=== PATIENT | male | born 1960 | race Caucasian/White ===

== ENCOUNTER 2016-11-03 01:52 | Inpatient (IN) | payer MEDICARE ==
[2016-11-03] VITALS (9 sets, daily range): BP systolic 98–131; BP diastolic 56–89
[~2016-11-03] VITALS: Ht 180.3 cm; Wt 100.8 kg
--- NOTE | ~2016-11-03 | PR ---
[place], [place] PROGRESS NOTE [facility]: [id number] UNIT #: [id number] ROOM: 412 DOCTOR: MONTANA MELO MD BIRTHDATE: [birth year] DOS: 11/04/2016 SUBJECTIVE: A 55-year-old patient was seen by Dr. Gasca yesterday. Recommendations were done. Patient has had an uneventful night. PHYSICAL EXAMINATION: VITAL SIGNS: Blood pressure is stable 113/78. Urine output is good, total positive is 140. Yesterday it was negative 300. NECK: Supple, no JVD. LUNGS: Diminished breath sounds. HEART: Sounds are regular. ABDOMEN: Soft, nontender. NEUROLOGIC: Stable. LABORATORY DATA: Shows hemoglobin and hematocrit within normal limits. Electrolytes are normal. Troponins have been negative, A1C is significantly elevated. IMPRESSION: The patient with ischemic cardiomyopathy, hypertension, hyperlipidemia. RECOMMENDATIONS: Continue the present medications. Monitor the heart rate and blood pressure closely. The patient is already on clopidogrel, amiodarone, carvedilol, and nitroglycerin. The patient will be followed up as an outpatient. MONTANA MELO MD CM:PNTRANS [id number] MONTANA MELO MD 11/04/16 2334 interface
--- NOTE | ~2016-11-03 | CON ---
[place], [place] REPORT OF CONSULTATION NAME: FELIPE PEREZ UNIT #: [id number] ROOM: 412 DOCTOR: BERT GILBERT DPM BIRTHDATE: [birth year] DOS: 11/04/2016 SUBJECTIVE: The patient presents a 55-year-old white male who has been known to our practice. The patient has had surgical procedures performed by Dr. Gregory. The patient was seen by Dr. Gregory last 10/29/2016 for ulceration at the post amputation site of the first MPJ. The patient had an MRI ordered at that time after review of radiographs along with blood work ordered. PAST MEDICAL HISTORY: The patient has past medical history of acute coronary syndrome, cardiomyopathy, CHF, chronic insulin-dependent diabetes, uncontrolled diabetic neuropathy, hypertension, history of myocardial infarction, hyperlipidemia, leukocytosis, normochromic anemia, obesity, osteomyelitis, PAD, chronic sacral decubitus ulcers, sepsis, severe protein calorie malnutrition, ventral hernia. PAST SURGICAL HISTORY: Amputation first right toe, angioplasty with stent, cardiac pacemaker procedure. SOCIAL HISTORY: Tobacco abuse 1 pack per day for 36 years. Denies alcohol or illicit drug use. FAMILY HISTORY: Mother with diabetes, hypertension, and [place]. Father's family history unknown. ALLERGIES: MORPHINE. PHYSICAL EXAMINATION: EXTREMITIES: Lower extremity examination: Diminished pedal pulses, diminished epicritic sensations. There is an ulceration at the post-amputation site at the first MPJ measuring 0.6 cm in diameter. The ulceration is full thickness to subcutaneous tissue level. There are no signs of purulent drainage or foul odor. ASSESSMENT: Diabetic ulceration at post-amputation site first right metatarsophalangeal joint, possible osteomyelitis. PLAN: Evaluation and management. Continue local wound care. The patient is apparently going home today. Per the patient, the patient will see Dr. Gregory tomorrow at the office for followup of previous orders and potential for further discussion of additional surgical procedure if warranted. Discussed the case via telephone with Dr. Gregory and he will see the patient tomorrow either at the office or at the hospital and coordinate the patient's treatment plan. [place], [place] REPORT OF CONSULTATION NAME: FELIPE PEREZ Gab UNIT #: [id number] ROOM: 412 DOCTOR: BERT GILBERT DPM BIRTHDATE: [birth year] BERT GILBERT DPM CM:CONSTR:REPORT OF CONSULTATION 1241 11/04/16 2306 interface
--- NOTE | ~2016-11-03 | EKG ---
[place], [place] ELECTROCARDIOGRAM REPORT NAME: FELIPE PEREZ UNIT #: [id number] ROOM: 412 DOCTOR: THEODORE JOSÉ MD BIRTHDATE: [birth year] DOS: 11/03/2016 TIME: 0158 hours. Normal sinus rhythm at 97 beats per minute. Left bundle branch block with mild left axis deviation. PVC is also noted. An abnormal ECG. No previous tracing is available for comparison. THEODORE JOSÉ MD CM:EKGRPT:ELECTROCARDIOGRAM REPORT 1648 0115 THEODORE JOSÉ MD
--- NOTE | ~2016-11-03 | CON ---
[place], [place] REPORT OF CONSULTATION [id number] UNIT #: [id number] ROOM: 412 DOCTOR: THEODORE JOSÉ MD BIRTHDATE: [birth year] DOS: 11/03/2016 HISTORY OF PRESENT ILLNESS: This is a 55-year-old -[place] man with a history of coronary artery disease. He has coronary stents done a few times and has severe ischemic cardiomyopathy. In 2014, he had an echocardiogram, which demonstrated an LV ejection fraction of 15-20% with dilated left ventricle. He had chronic systolic heart failure and a single chamber AICD was implanted in 2011. He has peripheral vascular disease and had great toe amputated because of osteomyelitis, essential hypertension, hyperlipidemia, and I believe he still smokes. He was admitted to the hospital because he was suddenly awakened by needle-like pains around the AICD in the left anterior chest. This feeling lasted for a few hours. He came to the ER and finally subsided. He tells me that IV nitroglycerin helped him. There was no pain in the anterior part of the chest, neck, and arm other than the shoulders. He still has some pain just on the upper part of the AICD. There has not been any orthopnea or swelling of the lower extremities. Occasionally, he wakes up to urinate. He does walk around at home and has some exertional shortness of breath, but no chest pain. HOME MEDICATIONS: Include amiodarone 100 mg daily, aspirin 81 daily, BuSpar 15 mg b.i.d., captopril daily, carvedilol 3.125 b.i.d., clopidogrel 75 mg daily, gabapentin 600 mg daily, lisinopril 2.5 mg daily, magnesium oxide 400 daily, oxycodone/OxyContin 15 mg q.i.d., potassium chloride 10 mEq daily, spironolactone 25 daily, zolpidem 5 mg at bedtime, Lantus SoloSTAR and Humalog PHYSICAL EXAMINATION: GENERAL: Reveals the patient who is alert and oriented. He is very pleasant, alert. He is not tachypneic. His complexion is fine. He is not diaphoretic. Temperature is normal. VITAL SIGNS: Pulse is regular at 76, blood pressure 102/70. NECK: JVP is normal. No carotid bruit. CARDIOVASCULAR: There is no cardiomegaly, no murmurs were appreciated. I did not appreciate any parasternal heave. Pedal pulses are not palpable. EXTREMITIES: Feet are somewhat cool. There is no pretibial edema or pedal edema. RESPIRATORY: Breath sounds are diminished modestly with some adventitious sounds. LABORATORY DATA: An ECG demonstrated normal sinus rhythm at 97 beats per minute and intraventricular conduction defect, QS in V1-V may be from an old myocardial infarction or intraventricular conduction defect. There is severe left axis deviation. When compared with an ECG of 07/24/2016, no significant change had become apparent. Troponin I is 0.037, 0.035, and 0.029. [place], [place] REPORT OF CONSULTATION NAME: FELIPE PEREZ UNIT #: [id number] ROOM: [facility] DOCTOR: ARNAV LOZANO,THEODORE BIRTHDATE: [birth year] IMPRESSION: This patient with coronary artery disease and severe ischemic cardiomyopathy, had some pins and needle-like feeling around the AICD area. I think this is probably was not ischemic. EKG has not shown any additional changes and troponin I levels have been normal. I do not recommend any further cardiac workup. I think he should be just ambulated. If he has no further symptoms, be discharged home. I would like to increase his dose of carvedilol if blood pressure can tolerate this. I think the new drug called Entresto should be considered instead of lisinopril. I would like to see him in my office in the next 2-4 weeks, so I can make changes in his medications to optimize treatment of coronary artery disease and ischemic cardiomyopathy. I thank you for this consult. THEODORE JOSÉ MD CM:CONSTR:REPORT OF CONSULTATION 08 11/04/16 0331 interface
[~2016-11-03 01:52] MED LIST: ALDACTONE25 M1 PO; AMIODARONE HCL100 M1 PO; ASPIRIN81 M1 PO; ATHLETE'S FOOT15 GM T; AUGMENTIN 500500 MG PO; BACTRIM DS 8001 TA1 PO; BUSPIRONE HCL15 MG PO; BUSPIRONE15 MG PO; CARVEDILOL3.125 MG PO; CIPRO500 MG PO; COREG3.125 MG PO; Clopidogrel75 MG PO; DICYCLOMINE HYD10 MG PO; DOXYCYCLINE100 M3 PO; GABAPENTIN600 MG PO; HUMALOG KW200 UNIT/1 SQ; HUMALOG100 U/ML SC; KEFLEX500 M1 PO; KLOR-CON 1010 ME1 PO; LANTUS SOLOS100 U/M1 SC; LANTUS100 U/ML SC; LASIX20 MG PO; LEVEMIR FLEX100 U/ML SC; LIPITOR40 MG PO; MAGNESIUM OXID400 MG PO; NITROSTAT0.4 MG SL; OXYCODONE HCL15 MG PO; PEPCID AC10 M2 PO; VITAMIN B12-FO1 EACH PO; VITAMIN D22000 UNIT PO; ZESTRIL5 MG PO; ZOLPIDEM TARTRAT5 MG PO
[2016-11-03 02:13] LABS: BASO # 0.1 10*3/uL (0.0-0.1); BASO % 0.8 % (0.0-1.0); EOS # 0.3 10*3/uL (0.0-0.4); EOS % 2.8 % (1.0-4.0); HEMATOCRIT 41.8 % (42.0-52.0); LYMPH # 2.6 10*3/uL (1.3-4.4); LYMPH % 23.5 % (27.0-41.0); MEAN CELL VOLUME 87.3 fl (80.0-94.0); MEAN CORPUSCULAR HGB 29.2 pg (27.0-31.0); MEAN CORPUSCULAR HGB CONC 33.5 g/dl (33.0-37.0); MONO # 0.9 10*3/uL (0.1-1.0); MONO % 8.5 % (3.0-9.0); NEUT % 64.1 % (47.0-73.0); PLATELET COUNT AUTOMATED 267 10*3/uL (130-400); RED BLOOD COUNT 4.79 10*6/uL (4.50-5.90); WHITE BLOOD COUNT 10.9 10*3/uL (4.8-10.8)
[2016-11-03 02:23] LABS: INTERNATIONAL NORM RATIO 0.9 (2.0-3.5); PROTHROMBIN TIME 9.3 SECONDS (9.0-12.4)
[2016-11-03 02:30] LABS: ALBUMIN 2.9 gm/dl (3.1-4.5); ALKALINE PHOSPHATASE 126 U/L (45-117); BILIRUBIN, TOTAL 0.1 mg/dl (0.2-1.0); BUN 23 mg/dl (7-24); CARBON DIOXIDE 25 mmol/L (21-32); CHLORIDE 107 mmol/L (98-107); CPK 53 U/L (39-308); EST GLOM FILT AFRICAN AMERICAN > 60 ml/min; GLUCOSE 254 mg/dL (65-99); MAGNESIUM 2.1 mg/dL (1.5-2.1); POTASSIUM 4.6 mmol/L (3.5-5.1); SGOT/AST 13 IU/L (3-35); SGPT/ALT 14 U/L (12-78); SODIUM 141 mmol/L (136-145); TOTAL PROTEIN 6.7 gm/dL (6.4-8.2)
[2016-11-03 02:31] LABS: CKMB 2.1 ng/ml (0.5-3.6)
[2016-11-03 02:35] LABS: TROPONIN I < 0.015 ng/ml (<0.045)
[2016-11-03] MEDS ORDERED: OXYCONTIN15 M1 PO (03:09)
[2016-11-03] MEDS ORDERED: CAPOTEN50 MG PO (03:10)
[2016-11-03 06:47] LABS: CKMB 2.1 ng/ml (0.5-3.6); TROPONIN I 0.029 ng/ml (<0.045)
[2016-11-03 07:10] LABS: FREE T4 0.98 ng/dl (0.76-1.46)
[2016-11-03 07:15] LABS: HEMOGLOBIN A1c 9.6 % (4.8-5.6)
[2016-11-03 07:16] LABS: THYROID STIM HORMONE (HS) 3.42 uIU/ml (0.358-4.75)
[2016-11-03 07:20] LABS: FOLIC ACID 8.03 ng/mL (>5.38)
[2016-11-03 11:59] LABS: CKMB 1.8 ng/ml (0.5-3.6); TROPONIN I 0.035 ng/ml (<0.045)
[2016-11-03 18:15] LABS: CKMB 1.8 ng/ml (0.5-3.6); TROPONIN I 0.037 ng/ml (<0.045)
[2016-11-04] VITALS: BP 94/67
[2016-11-04 04:00] VITALS: BP 113/78
[2016-11-04 08:00] VITALS: BP 106/72
[2016-11-04 12:00] VITALS: BP 108/70
[2016-11-04] MEDS ORDERED: ENTRESTO 24 MG1 EACH PO (12:55)
== END 2016-11-04 16:29 | disposition home or self-care (01) | DRG 206 ==
LOC: ED 01:52 → EDHOLD 02:46 → 4E 02:46
PROVIDERS: Emergency Medicine Emergency Medical Services; Internal Medicine
DX: M94.0 Chondrocostal junction syndrome [Tietze] (principal); E11.40 Type 2 diabetes mellitus with diabetic neuropathy, unspecified; E11.51 Type 2 diabetes mellitus with diabetic peripheral angiopathy without gangrene; I11.0 Hypertensive heart disease with heart failure; I50.9 Heart failure, unspecified; I25.2 Old myocardial infarction; I25.10 Atherosclerotic heart disease of native coronary artery without angina pectoris; I25.5 Ischemic cardiomyopathy; E11.65 Type 2 diabetes mellitus with hyperglycemia; E78.5 Hyperlipidemia, unspecified; F17.210 Nicotine dependence, cigarettes, uncomplicated; E66.9 Obesity, unspecified; D64.9 Anemia, unspecified; K43.9 Ventral hernia without obstruction or gangrene; E11.621 Type 2 diabetes mellitus with foot ulcer; L97.511 Non-pressure chronic ulcer of other part of right foot limited to breakdown of skin; Z95.5 Presence of coronary angioplasty implant and graft; Z82.49 Family history of ischemic heart disease and other diseases of the circulatory system; Z83.3 Family history of diabetes mellitus; Z88.6 Allergy status to analgesic agent; Z79.82 Long term (current) use of aspirin; Z79.899 Other long term (current) drug therapy; Z95.810 Presence of automatic (implantable) cardiac defibrillator

== ENCOUNTER → 2016-11-07 | Outpatient (CLI) | payer MEDICARE ==
[~2016-11-07] MED LIST changes: +CAPOTEN50 MG PO; +ENTRESTO 24 MG1 EACH PO; +OXYCONTIN15 M1 PO
[2016-11-07 14:43] LABS: EST GLOM FILT AFRICAN AMERICAN > 60 ml/min
== END | disposition home or self-care (01) ==
LOC: CT 11-04 09:00 → LAB 14:12 → CT 15:00
PROVIDERS: Surgery Vascular Surgery
DX: I73.9 Peripheral vascular disease, unspecified (principal)

== ENCOUNTER → 2016-11-12 | Outpatient (CLI) | payer MEDICARE ==
[2016-11-12 08:17] LABS: BASO # 0.1 10*3/uL (0.0-0.1); BASO % 0.9 % (0.0-1.0); EOS # 0.4 10*3/uL (0.0-0.4); HEMATOCRIT 42.8 % (42.0-52.0); HEMOGLOBIN 14.2 g/dl (14.0-18.0); LYMPH % 29.5 % (27.0-41.0); MEAN CORPUSCULAR HGB 29.5 pg (27.0-31.0); MEAN CORPUSCULAR HGB CONC 33.2 g/dl (33.0-37.0); MEAN PLATELET VOLUME 8.9 fl (9.6-12.3); MONO # 0.9 10*3/uL (0.1-1.0); MONO % 9.2 % (3.0-9.0); NEUT # 5.7 10*3/uL (2.3-7.9); PLATELET COUNT AUTOMATED 333 10*3/uL (130-400); RED BLOOD COUNT 4.81 10*6/uL (4.50-5.90); RED CELL DISTRI WIDTH 13.2 % (0-14.5); WHITE BLOOD COUNT 10.2 10*3/uL (4.8-10.8)
[2016-11-12 08:31] LABS: ALBUMIN 2.9 gm/dl (3.1-4.5); ALKALINE PHOSPHATASE 118 U/L (45-117); BILIRUBIN, TOTAL 0.2 mg/dl (0.2-1.0); BUN 17 mg/dl (7-24); CARBON DIOXIDE 26 mmol/L (21-32); CHLORIDE 104 mmol/L (98-107); EST GLOM FILT AFRICAN AMERICAN > 60 ml/min; GLUCOSE 86 mg/dL (65-99); POTASSIUM 4.1 mmol/L (3.5-5.1); SGOT/AST 8 IU/L (3-35); SGPT/ALT 11 U/L (12-78); SODIUM 140 mmol/L (136-145); TOTAL PROTEIN 7.7 gm/dL (6.4-8.2)
[2016-11-12 08:38] LABS: HEMOGLOBIN A1c 9.3 % (4.8-5.6)
== END | disposition home or self-care (01) ==
LOC: CT 11-07 13:00 → LAB 07:56 → CT 08:00
PROVIDERS: Family Medicine
DX: E11.65 Type 2 diabetes mellitus with hyperglycemia (principal); I50.9 Heart failure, unspecified; E11.621 Type 2 diabetes mellitus with foot ulcer; I73.9 Peripheral vascular disease, unspecified; I25.10 Atherosclerotic heart disease of native coronary artery without angina pectoris; M19.071 Primary osteoarthritis, right ankle and foot

== ENCOUNTER 2016-11-17 12:51 | Inpatient (IN) | payer MEDICARE ==
[~2016-11-17] VITALS: Ht 177.8 cm; Wt 100.2 kg
--- NOTE | ~2016-11-17 | PN ---
[place], [place] PROGRESS NOTE NAME: FELIPE PEREZ UNIT #: [id number] ROOM: 404 DOCTOR: BERT GILBERT DPM BIRTHDATE: [birth year] DATE: 11/20/16 SUBJECTIVE: The patient follow-up bone biopsy of the right first metatarsal. The patient is having no acute pain at this time. OBJECTIVE: The patient's cast and dressing are intact with no breakthrough bleeding. No calf pain noted. ASSESSMENT: Postop day #1, bone biopsy and cultures along with I and D of right foot. PLAN: The patient can be discharged from our perspective, per Dr. Gregory's orders, the cast will be kept intact until he follows with Dr. Gregory. IV antibiotics per Infectious Disease. BERT GILBERT DPM CM:PNTRANS 1208 143 BERT GILBERT DPM 11/24/16 1438 CLARENCE KRUEGER MIS.LLR
--- NOTE | ~2016-11-17 | O ---
[place], [place] OPERATIVE NOTE NAME: FELIPE PEREZ UNIT #: [id number] ROOM: 404 DOCTOR: BEN SWEENEY III, DPM BIRTHDATE: [birth year] DOS: 11/19/2016 SURGEON: Ben Sweeney DPM. ANESTHESIA: Monitored anesthesia care. HOSIERY BAGGER: 1. Ry Brothers DPM 2. Michele Mittal DPM PREOPERATIVE DIAGNOSIS: Osteomyelitis, right foot. POSTOPERATIVE DIAGNOSIS: Osteomyelitis, right foot. PROCEDURE: 1. Bone debridement and biopsy, right first metatarsal. 2. Delayed closure, right foot. HEMOSTASIS: None. ESTIMATED BLOOD LOSS: 15 mL. MATERIALS: None. INJECTABLES: Approximately 20 mL of 0.5% Marcaine plain was injected in a local ankle block type fashion at the start of the case. FINDINGS: Consistent with preoperative diagnosis. The head of the first metatarsal appeared soft and necrotic, was resected to healthy clean margins. COMPLICATIONS: None. HISTORY OF PRESENT ILLNESS: This is a 55-year-old male seen at the hospital for followup regarding a right first metatarsal nonhealing wound. The patient was admitted to the hospital after experiencing increased redness, swelling, and warmth to his foot. He denies any fevers, chills, nausea, vomiting, chest pain, shortness of breath, calf pain, or thigh pain. X-rays did show signs suspicious for osteomyelitis of the first metatarsal. The patient also had a probing wound to the first metatarsal as well. The patient does have some decreased circulation to the lower extremity. He is currently being worked up at an outside facility by Vascular Surgery. Nothing has been done recently in regards to intervention from a revascularization standpoint. Should the wound fail to heal post-debridement, the patient may need intervention to the lower extremity. The patient noted understanding. All risks, benefits, complications, procedures, alternatives were discussed and all questions were answered to his apparent satisfaction. The pre, cherelle, and postoperative course was discussed as well. The patient was consented for bone debridement and biopsy of the right foot. DESCRIPTION OF PROCEDURE: The patient was brought to the operating room and [place], [place] OPERATIVE NOTE NAME: FELIPE PEREZ UNIT #: [id number] ROOM: 404 DOCTOR: BEN SWEENEY III, DPM BIRTHDATE: [birth year] laid on the table in supine position. His foot was prepped and draped in the usual sterile fashion. Pneumatic compression device was placed on the contralateral limb for DVT prophylaxis. Using 20 mL of 0.5% Marcaine plain, a local ankle block was performed prior to the start of the case. After the prep was performed, our attention was directed to the distal forefoot where he had a probing ulcer to the first metatarsal head. The patient was status post hallux amputation. There was some pus-like fluid that was exuded from the wound with pressure. The wound measured approximately 5 x 5 x 0.5 mm depth. Again, it probed directly to the first metatarsal. Using a 15 blade, a medial incision was outlined overlying the first metatarsal as well as over the distal metatarsal. It spanned approximately 6 cm. Dissection was carried through the skin as well as subcutaneous tissue, excising the ulcer through the incision. Our dissection was carried down to the level of bone where the cartilage and distal metatarsal appeared to be soft and necrotic. Using a sagittal saw, a resection of the first metatarsal was performed. This bone was sent for both culture as well as biopsy. Deep soft tissue cultures were obtained. At this time, we then proceeded to copiously irrigate the foot with approximately 3 L of sterile saline. At this time, we then felt that it was appropriate to resect additional bone to assess whether a clean margin had been obtained. Therefore, at this time, using a sagittal saw, another centimeter of bone was resected from the first metatarsal and sent for both culture as well as biopsy. At this time, we felt that there was no residual abscess. The dorsal as well as soft tissues were inspected and appeared to be clean of all nonviable infected soft tissue and bone. We again irrigated the foot and then proceeded to close subcutaneous layer with 0 Vicryl followed by skin closure with 2-0 nylon. There was good approximation of the soft tissues. Again, appeared to be no residual infection. We then proceeded to apply a well-padded surgical dressing and a posterior splint. The patient tolerated the procedure well. Left the operating room with neurovascular status intact and vital signs stable. Prognosis for healing is fair. We will consult Infectious Disease as well for their antibiotic recommendations. BEN SWEENEY III, DPM CM:OPRECORD:OPERATIVE NOTE 1352 1531 BEN SWEENEY III, DPM 11/21/16 1532 interface
--- NOTE | ~2016-11-17 | EKG ---
[place], [place] ELECTROCARDIOGRAM REPORT NAME: FELIPE PEREZ UNIT #: [id number] ROOM: 404 DOCTOR: THEODORE JOSÉ MD BIRTHDATE: [birth year] DOS: 11/14/2016 TIME: 1357 hours. Normal sinus rhythm at 71 beats per minute. Complete left bundle-branch block with moderate left axis deviation. An abnormal ECG. No previous tracing is available for comparison. THEODORE JOSÉ MD CM:EKGRPT:ELECTROCARDIOGRAM REPORT 1232 1425 THEODORE JOSÉ MD
--- NOTE | ~2016-11-17 | CON ---
[place], [place] REPORT OF CONSULTATION NAME: FELIPE PEREZ Gab UNIT #: [id number] ROOM: 404 DOCTOR: VLADIMIR CANOBERT Foss BIRTHDATE: [birth year] DOS: 11/18/2016 SUBJECTIVE: The patient presents as a 55-year-old white male with chief complaint of chronic infection of the right foot. The patient has been seen by Dr. Gregory, most recently last week. The patient was admitted having increased redness to the right foot. PAST MEDICAL HISTORY: Acute coronary syndrome, CHF, insulin-dependent diabetes, diabetic neuropathy, hypertension; history of IA, resolved; hyperlipidemia, ischemic cardiomyopathy, normochromic anemia, obesity, osteomyelitis, peripheral arterial disease, severe protein-calorie malnutrition, and ventral hernia. PAST SURGICAL HISTORY: The right foot angioplasty with stent, cardiac pacemaker procedure. SOCIAL HISTORY: Tobacco abuse 1-1.5 packs of cigarettes per day for 36 years. Denies illicit drug use or alcohol use. FAMILY HISTORY: Mother diabetes, hypertension and IA. Father's family history unknown. ALLERGIES: MORPHINE. PHYSICAL EXAMINATION: EXTREMITIES: Lower extremity examination: Pedal pulses palpable, but diminished. Previous amputation first right toe. There is localized erythema and ulceration with serous drainage noted at the first metatarsal head. No signs of purulent drainage. No signs of a large abscess. The area has mild edema, no crepitus in the soft tissue noted. No signs of necrotizing fasciitis or necrosis. Results of radiographs of the right foot revealed grossly stable osteomyelitis of the first metatarsal head with prominent overlying soft tissue swelling. ASSESSMENT: Cellulitis, right foot chronic osteomyelitis; possible early evolving abscess, right first metatarsal head; and diabetes. PLAN: Evaluation and management discussed with the patient. Recommended surgical intervention tomorrow with incision and drainage and bone debridement with bone biopsy. The patient was agreeable to this. Discussed advantages, disadvantages and potential risks and complications. We discussed the case with Dr. Gregory who will perform the case on this patient tomorrow, and also consulted Infectious Disease for long-term IV antibiotic treatment. The patient will be set up for surgical intervention tomorrow by Dr. Gregory. Orders were written for consent and n.p.o. after midnight tonight. [place], [place] REPORT OF CONSULTATION NAME: FELIPE PEREZ UNIT #: [id number] ROOM: [facility] DOCTOR: BERT GILBERT DPM BIRTHDATE: [birth year] BERT GILBERT DPM CM:CONSTR:REPORT OF CONSULTATION 1210 11/19/16 0011 interface
[2016-11-17 13:22] VITALS: BP 144/90
[2016-11-17 14:04] LABS: BASO # 0.1 10*3/uL (0.0-0.1); EOS # 0.4 10*3/uL (0.0-0.4); EOS % 4.5 % (1.0-4.0); HEMATOCRIT 40.3 % (42.0-52.0); HEMOGLOBIN 13.8 g/dl (14.0-18.0); LYMPH # 1.4 10*3/uL (1.3-4.4); MEAN CELL VOLUME 86.5 fl (80.0-94.0); MEAN CORPUSCULAR HGB 29.6 pg (27.0-31.0); MEAN CORPUSCULAR HGB CONC 34.2 g/dl (33.0-37.0); MEAN PLATELET VOLUME 8.8 fl (9.6-12.3); MONO # 0.8 10*3/uL (0.1-1.0); MONO % 10.4 % (3.0-9.0); NEUT # 5.3 10*3/uL (2.3-7.9); NEUT % 65.8 % (47.0-73.0); PLATELET COUNT AUTOMATED 357 10*3/uL (130-400); RED BLOOD COUNT 4.66 10*6/uL (4.50-5.90); RED CELL DISTRI WIDTH 12.6 % (0-14.5)
[2016-11-17 14:13] LABS: PROTHROMBIN TIME 10.1 SECONDS (9.0-12.4)
[2016-11-17 14:20] LABS: ALBUMIN 2.7 gm/dl (3.1-4.5); ALKALINE PHOSPHATASE 102 U/L (45-117); BILIRUBIN, TOTAL 0.3 mg/dl (0.2-1.0); BUN 15 mg/dl (7-24); C-REACTIVE PROTEIN 6.41 MG/DL (0-0.3); CARBON DIOXIDE 26 mmol/L (21-32); CHLORIDE 103 mmol/L (98-107); CKMB 0.9 ng/ml (0.5-3.6); CPK 28 U/L (39-308); EST GLOM FILT AFRICAN AMERICAN > 60 ml/min; GLUCOSE 231 mg/dL (65-99); MAGNESIUM 2.1 mg/dL (1.5-2.1); POTASSIUM 4.4 mmol/L (3.5-5.1); SGOT/AST 11 IU/L (3-35); SGPT/ALT 10 U/L (12-78); SODIUM 136 mmol/L (136-145); TOTAL PROTEIN 7.6 gm/dL (6.4-8.2)
[2016-11-17 14:29] LABS: TROPONIN I < 0.015 ng/ml (<0.045)
[2016-11-17 17:30] VITALS: BP 107/79
[2016-11-17] MEDS ORDERED: LANTUS SOLOS100 U/M1 SC (17:52)
[2016-11-17] MEDS ORDERED: LISINOPRIL10 M1 PO (18:19)
[2016-11-17 20:00] VITALS: BP 94/62
[2016-11-18] VITALS: BP 127/63
[2016-11-18 06:17] LABS: BASO # 0.1 10*3/uL (0.0-0.1); BASO % 1.3 % (0.0-1.0); EOS # 0.5 10*3/uL (0.0-0.4); EOS % 6.9 % (1.0-4.0); HEMATOCRIT 37.5 % (42.0-52.0); HEMOGLOBIN 12.4 g/dl (14.0-18.0); LYMPH # 1.6 10*3/uL (1.3-4.4); LYMPH % 23.3 % (27.0-41.0); MEAN CELL VOLUME 88.2 fl (80.0-94.0); MEAN CORPUSCULAR HGB 29.2 pg (27.0-31.0); MEAN CORPUSCULAR HGB CONC 33.1 g/dl (33.0-37.0); MEAN PLATELET VOLUME 8.8 fl (9.6-12.3); MONO # 0.8 10*3/uL (0.1-1.0); MONO % 11.8 % (3.0-9.0); NEUT # 3.9 10*3/uL (2.3-7.9); NEUT % 56.4 % (47.0-73.0); PLATELET COUNT AUTOMATED 337 10*3/uL (130-400); RED BLOOD COUNT 4.25 10*6/uL (4.50-5.90); RED CELL DISTRI WIDTH 12.6 % (0-14.5); WHITE BLOOD COUNT 6.9 10*3/uL (4.8-10.8)
[2016-11-18 06:37] LABS: HEMOGLOBIN A1c 9.4 % (4.8-5.6)
[2016-11-18 06:59] LABS: ALBUMIN 2.4 gm/dl (3.1-4.5); BUN 12 mg/dl (7-24); CARBON DIOXIDE 26 mmol/L (21-32); CHLORIDE 107 mmol/L (98-107); GLUCOSE 130 mg/dL (65-99); MAGNESIUM 1.9 mg/dL (1.5-2.1); SODIUM 140 mmol/L (136-145)
[2016-11-18 07:07] LABS: ALKALINE PHOSPHATASE 88 U/L (45-117); BILIRUBIN, TOTAL 0.2 mg/dl (0.2-1.0); CHOLESTEROL 174 mg/dL (<200); EST GLOM FILT AFRICAN AMERICAN > 60 ml/min; HDL CHOLESTEROL 26 mg/dl (40-60); LDL CHOLESTEROL 123 mg/dL (9-159); SGOT/AST 7 IU/L (3-35); SGPT/ALT 7 U/L (12-78); TOTAL PROTEIN 6.7 gm/dL (6.4-8.2); TRIGLYCERIDES 124 mg/dl (<150); VLDL CHOLESTEROL 25 mg/dL (6-40)
[2016-11-18 07:10] LABS: INTERNATIONAL NORM RATIO 0.9 (2.0-3.5)
[2016-11-18 07:14] LABS: VITAMIN D, 25-HYDROXY 9.7 ng/mL (30-100)
[2016-11-18 08:00] VITALS: BP 108/66
[2016-11-18 12:00] VITALS: BP 137/81
[2016-11-18 16:00] VITALS: BP 96/61
[2016-11-18 20:00] VITALS: BP 117/58
[2016-11-19] VITALS (7 sets, daily range): BP systolic 104–131; BP diastolic 63–80
[2016-11-19 03:26] LABS: BASO # 0.1 10*3/uL (0.0-0.1); BASO % 1.2 % (0.0-1.0); EOS # 0.5 10*3/uL (0.0-0.4); EOS % 6.7 % (1.0-4.0); HEMATOCRIT 34.5 % (42.0-52.0); HEMOGLOBIN 11.4 g/dl (14.0-18.0); LYMPH # 2.5 10*3/uL (1.3-4.4); LYMPH % 35.1 % (27.0-41.0); MEAN CELL VOLUME 87.3 fl (80.0-94.0); MEAN CORPUSCULAR HGB 28.9 pg (27.0-31.0); MEAN PLATELET VOLUME 8.2 fl (9.6-12.3); MONO # 0.9 10*3/uL (0.1-1.0); MONO % 12.8 % (3.0-9.0); NEUT # 3.2 10*3/uL (2.3-7.9); NEUT % 43.9 % (47.0-73.0); PLATELET COUNT AUTOMATED 288 10*3/uL (130-400); RED BLOOD COUNT 3.95 10*6/uL (4.50-5.90); RED CELL DISTRI WIDTH 12.6 % (0-14.5); WHITE BLOOD COUNT 7.2 10*3/uL (4.8-10.8)
[2016-11-19 03:34] LABS: BUN 12 mg/dl (7-24); CARBON DIOXIDE 26 mmol/L (21-32); CHLORIDE 108 mmol/L (98-107); EST GLOM FILT AFRICAN AMERICAN > 60 ml/min; GLUCOSE 60 mg/dL (65-99); POTASSIUM 4.1 mmol/L (3.5-5.1); SODIUM 143 mmol/L (136-145)
[2016-11-20] VITALS: BP 113/67
[2016-11-20 06:54] LABS: BASO # 0.1 10*3/uL (0.0-0.1); EOS # 0.4 10*3/uL (0.0-0.4); EOS % 5.4 % (1.0-4.0); HEMATOCRIT 32.3 % (42.0-52.0); HEMOGLOBIN 10.8 g/dl (14.0-18.0); LYMPH # 2.4 10*3/uL (1.3-4.4); MEAN CELL VOLUME 87.1 fl (80.0-94.0); MEAN CORPUSCULAR HGB 29.1 pg (27.0-31.0); MEAN CORPUSCULAR HGB CONC 33.4 g/dl (33.0-37.0); MEAN PLATELET VOLUME 8.7 fl (9.6-12.3); MONO # 0.8 10*3/uL (0.1-1.0); MONO % 9.6 % (3.0-9.0); NEUT # 4.2 10*3/uL (2.3-7.9); NEUT % 53.6 % (47.0-73.0); PLATELET COUNT AUTOMATED 301 10*3/uL (130-400); RED BLOOD COUNT 3.71 10*6/uL (4.50-5.90); RED CELL DISTRI WIDTH 12.7 % (0-14.5); WHITE BLOOD COUNT 7.8 10*3/uL (4.8-10.8)
[2016-11-20 07:21] LABS: BUN 11 mg/dl (7-24); CARBON DIOXIDE 26 mmol/L (21-32); CHLORIDE 107 mmol/L (98-107); EST GLOM FILT AFRICAN AMERICAN > 60 ml/min; GLUCOSE 126 mg/dL (65-99); SODIUM 141 mmol/L (136-145)
[2016-11-20 08:00] VITALS: BP 128/80
[2016-11-20 12:00] VITALS: BP 129/73
[2016-11-20 16:00] VITALS: BP 131/76
[2016-11-20 20:00] VITALS: BP 142/82
[2016-11-21] VITALS: BP 141/82
[2016-11-21 09:41] VITALS: BP 92/56
[2016-11-21 12:00] VITALS: BP 129/75
[2016-11-21] MEDS ORDERED: VANCOMYCIN1.5 GM/251 IV (13:40)
[2016-11-21] MEDS ORDERED: CEFAZOLIN2 GM/100 M IV (14:02)
== END 2016-11-21 15:39 | disposition other institution (70) | DRG 628 ==
LOC: ED 12:51 → 4E 15:12 → EDHOLD 15:12 → 4E 16:43
PROVIDERS: Emergency Medicine; Internal Medicine
PROC: 0QBN0ZZ Excision of Right Metatarsal, Open Approach (ICD-10-PCS; 2016-11-19)
PROC: 02HV33Z Insertion of Infusion Device into Superior Vena Cava, Percutaneous Approach (ICD-10-PCS; principal; 2016-11-21)
DX: E10.69 Type 1 diabetes mellitus with other specified complication (principal); E43 Unspecified severe protein-calorie malnutrition; M86.171 Other acute osteomyelitis, right ankle and foot; E10.40 Type 1 diabetes mellitus with diabetic neuropathy, unspecified; E10.49 Type 1 diabetes mellitus with other diabetic neurological complication; E55.9 Vitamin D deficiency, unspecified; E66.9 Obesity, unspecified; E78.5 Hyperlipidemia, unspecified; D64.9 Anemia, unspecified; F17.210 Nicotine dependence, cigarettes, uncomplicated; E10.65 Type 1 diabetes mellitus with hyperglycemia; E10.51 Type 1 diabetes mellitus with diabetic peripheral angiopathy without gangrene; B95.61 Methicillin susceptible Staphylococcus aureus infection as the cause of diseases classified elsewhere; I11.0 Hypertensive heart disease with heart failure; I50.9 Heart failure, unspecified; I25.5 Ischemic cardiomyopathy; I25.2 Old myocardial infarction; Z89.411 Acquired absence of right great toe; Z68.31 Body mass index [BMI] 31.0-31.9, adult; Z95.5 Presence of coronary angioplasty implant and graft; Z95.0 Presence of cardiac pacemaker; Z83.3 Family history of diabetes mellitus; Z82.49 Family history of ischemic heart disease and other diseases of the circulatory system; Z88.5 Allergy status to narcotic agent; Z79.82 Long term (current) use of aspirin; Z79.899 Other long term (current) drug therapy; Z71.6 Tobacco abuse counseling

== ENCOUNTER 2016-11-24 12:04 | Inpatient (IN) | payer MEDICARE ==
[~2016-11-24] VITALS: Ht 180.3 cm; Wt 107.1 kg
--- NOTE | ~2016-11-24 | CON ---
[place], [place] REPORT OF CONSULTATION NAME: FELIPE PEREZ UNIT #: [id number] ROOM: 409 DOCTOR: BERT GILBERT DPM BIRTHDATE: [birth year] DOS: 11/25/2016 SUBJECTIVE: The patient presents for followup of his bone biopsy and debridement, right foot. The patient was readmitted due to positive blood culture. HISTORY OF PRESENT ILLNESS: The patient is a 55-year-old white male who underwent surgical resection of bone and bone biopsy of the right foot last week by Dr. Gregory. PAST MEDICAL HISTORY: The patient's past medical history includes congestive heart failure, diabetes, diabetic neuropathy, hypertension, [place], hyperlipidemia, ischemic cardiomyopathy, normocytic anemia, obesity, osteomyelitis, PAD, severe protein-calorie malnutrition, ventral hernia, vitamin D deficiency. PAST SURGICAL HISTORY: Angioplasty with stent, cardiac pacemaker, foot surgery, right foot. SOCIAL HISTORY: Denies alcohol, illicit drug use. The patient has tobacco abuse 1 to 1-1/2 packs per day for 36 years. PHYSICAL EXAMINATION: EXTREMITIES: Lower extremity examination, upon removal of the posterior splint and surgical dressing of the right lower extremity, the incision site is well coapted. The first MPJ. Sutures are intact. No signs of dehiscence. No erythema, no drainage. Postop healing well. Pedal pulses diminished but palpable. Decreased hair growth. Decreased epicritic sensations results of the bone biopsy were consistent with acute osteomyelitis of the first metatarsal. ASSESSMENT: Osteomyelitis, first metatarsal, right foot. PLAN: The surgical dressing was changed. Adaptic, 4 x 4, Kerlix, stockinette, cast padding, posterior splint with Bran bandages reapplied. Keep the dressing intact. The patient will see Dr. Gregory tomorrow. Antibiotics per Infectious Disease. BERT GILBERT DPM CM:CONSTR:REPORT OF CONSULTATION 1207 11/26/16 0131 interface
--- NOTE | ~2016-11-24 | PR ---
[place], [place] PROGRESS NOTE NAME: FELIPE PEREZ [facility] #: [id number] UNIT #: [id number] ROOM: 409 DOCTOR: MATA SWEENEY III, DPM BIRTHDATE: [birth year] DOS: 11/26/2016 TIME: At 12:10 p.m. SUBJECTIVE: This is a 55-year-old male seen at bedside for followup and reevaluation status post bone debridement and biopsy of his right foot with delayed closure. The patient is doing well with minimal complaints. Denies any fevers, chills, nausea, vomiting, chest pain, shortness of breath, calf pain, or thigh pain. OBJECTIVE: VITAL SIGNS: Temperature 98.7, pulse rate of 75, respiratory rate of 20, blood pressure 142/80. NEUROLOGIC: Neurovascular status is unchanged. EXTREMITIES: Incision site is well coapted to the right foot with no signs of infection or inflammation. No soft tissue crepitation, no cellulitis, minimal edema. Muscle strength is maintained. Negative Homans', negative calf pain. ASSESSMENT: One week status post bone debridement and biopsy of the right foot -- satisfactory progress. TREATMENT, PLAN, AND RECOMMENDATIONS: Findings as well as prognosis were discussed in detail with the patient. All questions were answered to his apparent satisfaction. This is a 55-year-old male seen at bedside for followup and reevaluation status post bone debridement and biopsy of the right foot with delayed closure. He is responding well to antibiotics as well as his incision site looks healthy and clean. No signs of infection. The patient will remain on nonweightbearing to his right foot. We will follow up with him next week. He is being discharged to facility at this time. No new complaints at this time. MATA SWEENEY III, DPM CM:PNCLAU 1211 9 MATA SWEENEY III, DPM 11/27/16 0431 interface
[~2016-11-24 12:04] MED LIST changes: +CEFAZOLIN2 GM/100 M IV; +LISINOPRIL10 M1 PO; +VANCOMYCIN1.5 GM/251 IV
[2016-11-24 12:14] VITALS: BP 110/68
[2016-11-24 12:38] LABS: BASO # 0.1 10*3/uL (0.0-0.1); BASO % 1.2 % (0.0-1.0); EOS # 0.4 10*3/uL (0.0-0.4); EOS % 5.2 % (1.0-4.0); HEMATOCRIT 40.2 % (42.0-52.0); HEMOGLOBIN 13.5 g/dl (14.0-18.0); LYMPH # 2.1 10*3/uL (1.3-4.4); LYMPH % 26.4 % (27.0-41.0); MEAN CELL VOLUME 87.8 fl (80.0-94.0); MEAN CORPUSCULAR HGB 29.5 pg (27.0-31.0); MEAN CORPUSCULAR HGB CONC 33.6 g/dl (33.0-37.0); MEAN PLATELET VOLUME 8.5 fl (9.6-12.3); MONO # 0.6 10*3/uL (0.1-1.0); NEUT # 4.7 10*3/uL (2.3-7.9); NEUT % 58.8 % (47.0-73.0); PLATELET COUNT AUTOMATED 391 10*3/uL (130-400); RED BLOOD COUNT 4.58 10*6/uL (4.50-5.90); RED CELL DISTRI WIDTH 12.7 % (0-14.5)
[2016-11-24 12:53] LABS: ALBUMIN 2.7 gm/dl (3.1-4.5); ALKALINE PHOSPHATASE 97 U/L (45-117); BILIRUBIN, TOTAL 0.2 mg/dl (0.2-1.0); BUN 16 mg/dl (7-24); CARBON DIOXIDE 31 mmol/L (21-32); CHLORIDE 102 mmol/L (98-107); EST GLOM FILT AFRICAN AMERICAN > 60 ml/min; GLUCOSE 122 mg/dL (65-99); SGOT/AST 11 IU/L (3-35); SODIUM 140 mmol/L (136-145); TOTAL PROTEIN 7.5 gm/dL (6.4-8.2)
[2016-11-24 13:01] LABS: SGPT/ALT < 6 U/L (12-78)
[2016-11-24 13:15] VITALS: BP 120/78
[2016-11-24] MEDS ORDERED: MIRALAX POWDER255 G1 PO (14:00)
[2016-11-24] MEDS ORDERED: NTS1 EACH TD (14:02)
[2016-11-24] MEDS ORDERED: VITAMIN B COMP1 EACH PO (14:06)
[2016-11-24 16:00] VITALS: BP 111/67
[2016-11-24 20:00] VITALS: BP 132/73
[2016-11-25] VITALS: BP 116/69
[2016-11-25 00:26] LABS: BILIRUBIN NEGATIVE (NEGATIVE); BLOOD TRACE-INTACT (NEGATIVE); CLARITY CLEAR (CLEAR); COLOR YELLOW (YELLOW); GLUCOSE NEGATIVE (NEGATIVE); KETONE NEGATIVE (NEGATIVE)
[2016-11-25 00:27] LABS: LEUKO ESTERASE NEGATIVE (NEGATIVE); NITRITE NEGATIVE (NEGATIVE); PH 6.5 (5.0-9.0); PROTEIN 1+ (NEGATIVE); UROBILINOGEN 0.2 E.U./dl (0.2-1.0)
[2016-11-25 00:43] LABS: URINE REFLEX COMMENT NO (NO)
[2016-11-25 06:02] LABS: BASO # 0.1 10*3/uL (0.0-0.1); EOS # 0.6 10*3/uL (0.0-0.4); EOS % 6.8 % (1.0-4.0); HEMATOCRIT 34.4 % (42.0-52.0); HEMOGLOBIN 11.3 g/dl (14.0-18.0); IG # 0.1 10*3/uL (0.0-0.1); LYMPH # 2.9 10*3/uL (1.3-4.4); LYMPH % 31.6 % (27.0-41.0); MEAN CELL VOLUME 88.4 fl (80.0-94.0); MEAN CORPUSCULAR HGB CONC 32.8 g/dl (33.0-37.0); MEAN PLATELET VOLUME 8.9 fl (9.6-12.3); MONO # 0.9 10*3/uL (0.1-1.0); MONO % 9.3 % (3.0-9.0); NEUT # 4.7 10*3/uL (2.3-7.9); NEUT % 50.6 % (47.0-73.0); PLATELET COUNT AUTOMATED 345 10*3/uL (130-400); RED BLOOD COUNT 3.89 10*6/uL (4.50-5.90); RED CELL DISTRI WIDTH 12.8 % (0-14.5); WHITE BLOOD COUNT 9.2 10*3/uL (4.8-10.8)
[2016-11-25 06:10] LABS: BUN 17 mg/dl (7-24); CARBON DIOXIDE 26 mmol/L (21-32); CHLORIDE 108 mmol/L (98-107); EST GLOM FILT AFRICAN AMERICAN > 60 ml/min; GLUCOSE 134 mg/dL (65-99); POTASSIUM 4.1 mmol/L (3.5-5.1); SODIUM 139 mmol/L (136-145)
[2016-11-25 08:00] VITALS: BP 92/56
[2016-11-25 12:00] VITALS: BP 110/69
[2016-11-25 16:00] VITALS: BP 117/66
[2016-11-25 20:00] VITALS: BP 129/73
[2016-11-26] VITALS: BP 119/77
[2016-11-26 06:06] LABS: BASO # 0.1 10*3/uL (0.0-0.1); BASO % 1.2 % (0.0-1.0); EOS # 0.5 10*3/uL (0.0-0.4); EOS % 5.9 % (1.0-4.0); HEMATOCRIT 35.9 % (42.0-52.0); HEMOGLOBIN 11.9 g/dl (14.0-18.0); LYMPH # 2.4 10*3/uL (1.3-4.4); LYMPH % 27.4 % (27.0-41.0); MEAN CELL VOLUME 89.1 fl (80.0-94.0); MEAN CORPUSCULAR HGB 29.5 pg (27.0-31.0); MEAN CORPUSCULAR HGB CONC 33.1 g/dl (33.0-37.0); MEAN PLATELET VOLUME 8.6 fl (9.6-12.3); MONO # 0.9 10*3/uL (0.1-1.0); MONO % 10.4 % (3.0-9.0); NEUT # 4.7 10*3/uL (2.3-7.9); NEUT % 54.6 % (47.0-73.0); PLATELET COUNT AUTOMATED 349 10*3/uL (130-400); RED BLOOD COUNT 4.03 10*6/uL (4.50-5.90); RED CELL DISTRI WIDTH 12.5 % (0-14.5); WHITE BLOOD COUNT 8.7 10*3/uL (4.8-10.8)
[2016-11-26 06:15] LABS: ALBUMIN 2.4 gm/dl (3.1-4.5); BILIRUBIN, TOTAL 0.2 mg/dl (0.2-1.0); BUN 16 mg/dl (7-24); CARBON DIOXIDE 27 mmol/L (21-32); CHLORIDE 107 mmol/L (98-107); EST GLOM FILT AFRICAN AMERICAN > 60 ml/min; GLUCOSE 61 mg/dL (65-99); POTASSIUM 4.4 mmol/L (3.5-5.1); SGOT/AST 12 IU/L (3-35); SGPT/ALT 8 U/L (12-78); SODIUM 136 mmol/L (136-145); TOTAL PROTEIN 6.5 gm/dL (6.4-8.2)
[2016-11-26 06:16] LABS: ALKALINE PHOSPHATASE 78 U/L (45-117)
[2016-11-26 08:00] VITALS: BP 125/71
[2016-11-26 11:54] VITALS: BP 142/80
[2016-11-26] MEDS ORDERED: CEFAZOLIN2 GM/20 M1 IV (13:46)
[2016-11-26] MEDS ORDERED: LISINOPRIL2.5 MG PO (14:38)
== END 2016-11-26 15:31 | disposition other institution (70) | DRG 637 ==
LOC: ED 12:04 → 4E 12:24 → EDHOLD 12:24 → 4E 12:47
PROVIDERS: Emergency Medicine; Internal Medicine Hospice and Palliative Medicine; Student in an Organized Health Care Education/Training Program
DX: E11.69 Type 2 diabetes mellitus with other specified complication (principal); E43 Unspecified severe protein-calorie malnutrition; M86.671 Other chronic osteomyelitis, right ankle and foot; E11.49 Type 2 diabetes mellitus with other diabetic neurological complication; I50.9 Heart failure, unspecified; A49.01 Methicillin susceptible Staphylococcus aureus infection, unspecified site; E11.65 Type 2 diabetes mellitus with hyperglycemia; E11.51 Type 2 diabetes mellitus with diabetic peripheral angiopathy without gangrene; E78.5 Hyperlipidemia, unspecified; I11.0 Hypertensive heart disease with heart failure; F17.210 Nicotine dependence, cigarettes, uncomplicated; E55.9 Vitamin D deficiency, unspecified; E66.9 Obesity, unspecified; Z71.6 Tobacco abuse counseling; Z95.5 Presence of coronary angioplasty implant and graft; Z95.0 Presence of cardiac pacemaker; Z83.3 Family history of diabetes mellitus; Z82.49 Family history of ischemic heart disease and other diseases of the circulatory system; Z88.6 Allergy status to analgesic agent; Z79.82 Long term (current) use of aspirin; Z79.4 Long term (current) use of insulin; Z79.899 Other long term (current) drug therapy; Z68.32 Body mass index [BMI] 32.0-32.9, adult

== ENCOUNTER 2016-11-29 10:04 | Emergency (ER) | payer MEDICARE ==
[~2016-11-29] VITALS: Ht 182.8 cm; Wt 136.1 kg
[~2016-11-29 10:04] MED LIST changes: +CEFAZOLIN2 GM/20 M1 IV; +LISINOPRIL2.5 MG PO; +MIRALAX POWDER255 G1 PO; +NTS1 EACH TD; +VITAMIN B COMP1 EACH PO
[2016-11-29 10:35] LABS: BASO # 0.1 10*3/uL (0.0-0.1); BASO % 1.2 % (0.0-1.0); EOS # 0.4 10*3/uL (0.0-0.4); EOS % 5.3 % (1.0-4.0); HEMATOCRIT 38.3 % (42.0-52.0); HEMOGLOBIN 12.4 g/dl (14.0-18.0); LYMPH # 2.4 10*3/uL (1.3-4.4); LYMPH % 30.7 % (27.0-41.0); MEAN CELL VOLUME 89.5 fl (80.0-94.0); MEAN CORPUSCULAR HGB CONC 32.4 g/dl (33.0-37.0); MEAN PLATELET VOLUME 8.7 fl (9.6-12.3); MONO # 0.8 10*3/uL (0.1-1.0); MONO % 10.5 % (3.0-9.0); PLATELET COUNT AUTOMATED 310 10*3/uL (130-400); RED BLOOD COUNT 4.28 10*6/uL (4.50-5.90); RED CELL DISTRI WIDTH 12.9 % (0-14.5); WHITE BLOOD COUNT 7.7 10*3/uL (4.8-10.8)
[2016-11-29] MEDS ORDERED: CLOPIDOGREL75 MG PO (10:43)
[2016-11-29] MEDS ORDERED: JANUVIA50 MG PO (10:43)
[2016-11-29] MEDS ORDERED: ZOLPIDEM5 MG PO (10:44)
[2016-11-29] MEDS ORDERED: Magnesium Oxid400 MG PO (10:45)
[2016-11-29] MEDS ORDERED: VITAMIN C500 M1 PO (10:46)
[2016-11-29] MEDS ORDERED: MULTI VITAMINS1 TAB PO (10:49)
[2016-11-29] MEDS ORDERED: VITAMIN D5000 UNI1 PO (10:50)
[2016-11-29] MEDS ORDERED: ARGINAID POWDE1 EACH PO (10:51)
[2016-11-29 10:53] LABS: ALBUMIN 2.7 gm/dl (3.1-4.5); ALKALINE PHOSPHATASE 86 U/L (45-117); BILIRUBIN, TOTAL 0.2 mg/dl (0.2-1.0); BUN 27 mg/dl (7-24); CARBON DIOXIDE 29 mmol/L (21-32); CHLORIDE 105 mmol/L (98-107); EST GLOM FILT AFRICAN AMERICAN > 60 ml/min; GLUCOSE 106 mg/dL (65-99); POTASSIUM 5.4 mmol/L (3.5-5.1); SGOT/AST 14 IU/L (3-35); SGPT/ALT 7 U/L (12-78); SODIUM 141 mmol/L (136-145); TOTAL PROTEIN 6.9 gm/dL (6.4-8.2)
[2016-11-29 10:56] LABS: TROPONIN I < 0.015 ng/ml (<0.045)
== END 2016-11-29 12:10 | disposition home or self-care (01) ==
LOC: ED 10:04
PROVIDERS: Nurse Practitioner Family
DX: I95.9 Hypotension, unspecified (principal); F17.200 Nicotine dependence, unspecified, uncomplicated; I50.9 Heart failure, unspecified; E11.9 Type 2 diabetes mellitus without complications; E11.40 Type 2 diabetes mellitus with diabetic neuropathy, unspecified; I10 Essential (primary) hypertension; E78.5 Hyperlipidemia, unspecified; E66.9 Obesity, unspecified; I73.9 Peripheral vascular disease, unspecified; E55.9 Vitamin D deficiency, unspecified; Z95.5 Presence of coronary angioplasty implant and graft; Z68.34 Body mass index [BMI] 34.0-34.9, adult; Z95.0 Presence of cardiac pacemaker; Z79.82 Long term (current) use of aspirin; Z79.899 Other long term (current) drug therapy; Z88.5 Allergy status to narcotic agent

== ENCOUNTER 2017-01-02 01:48 | Inpatient (IN) | payer MEDICARE ==
[~2017-01-02] VITALS: Ht 180.3 cm; Wt 117.7 kg
[2017-01-02] VITALS (9 sets, daily range): BP systolic 101–167; BP diastolic 53–100
--- NOTE | ~2017-01-02 | EKG ---
[place], [place] ELECTROCARDIOGRAM REPORT NAME: FELIPE PEREZ UNIT #: [id number] ROOM: 425 DOCTOR: THEODORE JOSÉ MD BIRTHDATE: [birth year] DOS: 01/04/2017 TIME OF STUDY: 0952 hours. Normal sinus rhythm at 81 beats per minute. Complete left bundle-branch block. Marked left axis deviation. Abnormal ECG. No previous ECG is available for comparison. THEODORE JOSÉ MD CM:EKGRPT:ELECTROCARDIOGRAM REPORT 1720 0049 THEODORE JOSÉ MD
--- NOTE | ~2017-01-02 | CON ---
[place], [place] REPORT OF CONSULTATION NAME: FELIPE PEREZ UNIT #: [id number] ROOM: 425 DOCTOR: THEODORE JOSÉ MD BIRTHDATE: [birth year] DOS: 01/02/2017 HISTORY OF PRESENT ILLNESS: This is a 56-year-old -[place] man with a history of coronary artery disease. He has had coronary stents deployed in the past and eventually developed severe ischemic cardiomyopathy with an ejection fraction of 15-20% not long ago. He had a dual chamber AICD implanted in 2011. He also has peripheral vascular disease and has had ischemic problem of the toes with amputation of one of the great toes for osteomyelitis. He had essential hypertension at one time, hyperlipidemia. He has never had a stroke. He has morbid obesity and diabetes mellitus with neuropathy. He came to the hospital because he got acutely short of breath last night and the night before and could not ease up his breathing. He did not have any chest pain or palpitation. AICD did not discharge. He has been developing swelling of the legs for quite some time. He tells me that his blood pressure in a senior living was low, and they had told him to drink lot of water, which probably was inappropriate in this patient. He has orthopnea and walks very little because of shortness of breath and weakness in the legs. HOME MEDICATIONS: Include amiodarone 100 mg daily, ascorbic acid 500 mg daily, aspirin 81 daily, buspirone 0.5 mg b.i.d., cholecalciferol 6000 units daily, clopidogrel 75 daily, Entresto 24/ b.i.d., gabapentin 600 mg at bedtime, magnesium oxide 400 daily, multivitamins, oxycodone, Januvia 50 mg daily and zolpidem 5 mg at bedtime, Lantus Solostar and Humalog. PHYSICAL EXAMINATION: GENERAL: This reveals a patient who is alert and oriented. He is moderately obese. He has oxygen on, and is tachypneic, rate is about 24 per minute. His complexion is fine. There is no jaundice. VITAL SIGNS: Pulse is regular at 80, blood pressure 124/84. NECK: JVP is increased and AJR is definitely positive. No obvious bruits appreciated in the neck. CARDIOVASCULAR: Cardiac auscultation reveals somewhat distant heart sounds and no murmurs. He has at least 2+ edema below the knees and feet are little more edematous. He is tachypneic. Percussion note is normal. Auscultation reveals moderate reduction in breath sounds with crackles bilaterally. ABDOMEN: Large, supple. Liver is not enlarged. There is no bruit. LABORATORY DATA: An ECG showed sinus rhythm with left bundle-branch block. The troponin I levels are normal. BUN is 30, creatinine 1.49, potassium 5.2, sodium 141. Chest x-ray demonstrated moderate pulmonary edema. IMPRESSION: 1. This patient with severe ischemic cardiomyopathy, has a moderate zoitp-dy-thbagnz systolic heart failure which may be precipitated by his salt intake, perhaps noncompliance. [place], [place] REPORT OF CONSULTATION NAME: FELIPE PEREZ UNIT #: [id number] ROOM: [facility] DOCTOR: THEODORE JOSÉ MD BIRTHDATE: [birth year] 2. Diabetes mellitus. 3. Coronary artery disease status post remote stents. RECOMMENDATIONS: IV furosemide should be used b.i.d. to unload volume due to heart failure. I suspect he has 15-20 pounds of water that needs to be unloaded. Please watch his renal function along with potassium. I thank you for this consult. THEODORE JOSÉ MD CM:CONSTR:REPORT OF CONSULTATION 1650 01/04/17 0645 interface
--- NOTE | ~2017-01-02 | EKG ---
[place], [place] ELECTROCARDIOGRAM REPORT NAME: EFLIPE PEREZ UNIT #: [id number] ROOM: 425 DOCTOR: THEODORE JOSÉ MD BIRTHDATE: [birth year] DOS: 01/02/2017 TIME: 0221 hours. Normal sinus rhythm at 90 beats per minute. First degree heart block. Probable left ventricular hypertrophy with mild left axis deviation. An abnormal ECG. No previous tracing is available for comparison. THEODORE JOSÉ MD CM:EKGRPT:ELECTROCARDIOGRAM REPORT 1631 36 THEODORE JOSÉ MD
--- NOTE | ~2017-01-02 | PR ---
[place], [place] PROGRESS NOTE NAME: FELIPE PEREZ UNIT #: [id number] ROOM: 425 DOCTOR: MONTANA MELO MD BIRTHDATE: [birth year] DOS: SUBJECTIVE: The patient was seen by Dr. Gasca yesterday. Cardiac status appears to be stable. OBJECTIVE: GENERAL: The patient is comfortably sleeping. VITAL SIGNS: Blood pressure today is 113/59, respiratory rate is normal, pulse rate is 107. His I's and O's is still positive at 360. NECK: Supple. Elevated jugular venous distention. REVIEW OF SYSTEMS: All 68 review of systems were reviewed. LUNGS: Diminished air entry, bilateral crackles. HEART: Sounds are regular. ABDOMEN: Soft. EXTREMITIES: Trace edema. NEUROLOGIC: Stable. LABORATORY DATA: Last hemoglobin 10.1, hematocrit 31.7. BUN and creatinine is 57 and 1.9. IMPRESSION: The patient with acute on chronic systolic heart failure, chronic renal failure, hypertension and hyperlipidemia. RECOMMENDATIONS: Continue IV diuretics as ordered, strict I's and O's. If needed, use fluid restriction also. The patient is on clopidogrel, aspirin, amiodarone, magnesium. Because of the renal insufficiency, KAYLEE inhibitors are not on board and we will follow up. MONTANA MELO MD CM:PNTRANS 3 24 MONTANA MELO MD 01/06/172123 interface
--- NOTE | ~2017-01-02 | PR ---
[place], [place] PROGRESS NOTE NAME: FELIPE PEREZ UNIT #: [id number] ROOM: 425 DOCTOR: THEODORE JOSÉ MD BIRTHDATE: [birth year] DOS: 01/05/2017 He is somewhat short of breath, but has no chest pain or palpitations. His swelling in the lower extremities remains unchanged and he did not diurese much with IV loop diuretic and the kidney function has had deteriorated and therefore, loop diuretic was put on hold and creatinine is below 2 now. OBJECTIVE: GENERAL: He is alert, oriented. NECK: JVP is elevated. LUNGS: Crackles in both lungs with reduced breath sounds. EXTREMITIES: Severe edema of the feet and 1-2+ pretibial edema, very trace ankle edema is present. LABORATORY DATA: Potassium is 5.1, BUN at 57, creatinine 1.54, serum albumin 2.9 g/dL. IMPRESSION: This patient has severe ischemic cardiomyopathy and has acute on chronic systolic heart failure, pulmonary edema is present, IV diuretic made kidney function worse. RECOMMENDATIONS: Dobutamine at 5 mcg/kg/min for about 48 hours and dopamine at 2.5 mcg/kg/min for 48 hours and I would like to see him is IV furosemide, may be at a little larger doses because diureses has been inadequate. I understand that the renal function is going to deteriorate, but ____ is to take care of his edema and also edema in the lower extremities unless ____ wound in the feet will not heal. If renal function deteriorates to the extent it is unmanageable, then hemodialysis should be advocated. THEODORE JOSÉ MD CM:PNTRANS [id number] THEODORE JOSÉ MD 01/06/17 0501 interface
--- NOTE | ~2017-01-02 | PR ---
[place], [place] PROGRESS NOTE NAME: FELIPE PEREZ UNIT #: [id number] ROOM: 425 DOCTOR: THEODORE JOSÉ MD BIRTHDATE: [birth year] DOS: 01/07/2017 SUBJECTIVE: He is not short of breath now, has not had any chest pain or palpitations, swelling of the legs remained the same and his weight has not changed since admission much. He has been on IV furosemide and also dopamine and dobutamine for the last 48 hours and he tolerated the treatment well. OBJECTIVE: GENERAL: He is alert and oriented. He is not tachypneic. His complexion is little pale. VITAL SIGNS: Pulse is 80. NECK: JVP appears to be normal. EXTREMITIES: Edema in the left leg is 3+ and the right leg is much less edematous. LUNGS: Breath sounds are fairly decent with hardly any adventitious sounds. IMPRESSION: 1. This patient has severe ischemic cardiomyopathy. 2. Acute on chronic systolic heart failure, clinically appeared to be better, but his urine output has not been very convincing. RECOMMENDATIONS: I think he may be discharged home with torsemide (Demadex) 40 mg daily should be used instead of furosemide for better absorption and somewhat extended response. He to see me on the of this month. THEODORE JOSÉ MD CM:PNTRANS 1849 2 THEODORE JOSÉ MD 01/08/17712 interface
[~2017-01-02 01:48] MED LIST changes: +ARGINAID POWDE1 EACH PO; +CLOPIDOGREL75 MG PO; +JANUVIA50 MG PO; +MULTI VITAMINS1 TAB PO; +Magnesium Oxid400 MG PO; +VITAMIN C500 M1 PO; +VITAMIN D5000 UNI1 PO; +ZOLPIDEM5 MG PO
[2017-01-02 02:29] LABS: BASO # 0.1 10*3/uL (0.0-0.1); BASO % 1.1 % (0.0-1.0); EOS # 0.3 10*3/uL (0.0-0.4); EOS % 2.9 % (1.0-4.0); HEMATOCRIT 35.7 % (42.0-52.0); HEMOGLOBIN 11.4 g/dl (14.0-18.0); LYMPH # 2.2 10*3/uL (1.3-4.4); LYMPH % 24.9 % (27.0-41.0); MEAN CELL VOLUME 92.5 fl (80.0-94.0); MEAN CORPUSCULAR HGB 29.5 pg (27.0-31.0); MEAN CORPUSCULAR HGB CONC 31.9 g/dl (33.0-37.0); MEAN PLATELET VOLUME 8.5 fl (9.6-12.3); MONO # 0.8 10*3/uL (0.1-1.0); MONO % 8.8 % (3.0-9.0); NEUT # 5.6 10*3/uL (2.3-7.9); NEUT % 62.2 % (47.0-73.0); PLATELET COUNT AUTOMATED 270 10*3/uL (130-400); RED BLOOD COUNT 3.86 10*6/uL (4.50-5.90); RED CELL DISTRI WIDTH 14.3 % (0-14.5)
[2017-01-02 02:40] LABS: INTERNATIONAL NORM RATIO 0.9 (2.0-3.5); PROTHROMBIN TIME 9.7 SECONDS (9.0-12.4)
[2017-01-02 02:46] LABS: ALBUMIN 3.2 gm/dl (3.1-4.5); ALKALINE PHOSPHATASE 100 U/L (45-117); BILIRUBIN, DIRECT 0.1 mg/dL (0.0-0.2); BILIRUBIN, TOTAL 0.4 mg/dl (0.2-1.0); BUN 30 mg/dl (7-24); CARBON DIOXIDE 24 mmol/L (21-32); CHLORIDE 112 mmol/L (98-107); EST GLOM FILT AFRICAN AMERICAN 58 ml/min; GLUCOSE 152 mg/dL (65-99); MAGNESIUM 2.3 mg/dL (1.5-2.1); POTASSIUM 5.2 mmol/L (3.5-5.1); SGOT/AST 18 IU/L (3-35); SGPT/ALT 21 U/L (12-78); SODIUM 141 mmol/L (136-145)
[2017-01-02 02:48] LABS: TROPONIN I < 0.015 ng/ml (<0.045)
[2017-01-02 06:39] LABS: BASO # 0.1 10*3/uL (0.0-0.1); BASO % 1.1 % (0.0-1.0); EOS # 0.3 10*3/uL (0.0-0.4); EOS % 3.2 % (1.0-4.0); HEMATOCRIT 36.7 % (42.0-52.0); HEMOGLOBIN 11.7 g/dl (14.0-18.0); LYMPH % 25.3 % (27.0-41.0); MEAN CELL VOLUME 92.2 fl (80.0-94.0); MEAN CORPUSCULAR HGB 29.4 pg (27.0-31.0); MEAN CORPUSCULAR HGB CONC 31.9 g/dl (33.0-37.0); MEAN PLATELET VOLUME 9.2 fl (9.6-12.3); MONO # 0.7 10*3/uL (0.1-1.0); MONO % 8.7 % (3.0-9.0); NEUT # 4.9 10*3/uL (2.3-7.9); NEUT % 61.3 % (47.0-73.0); PLATELET COUNT AUTOMATED 297 10*3/uL (130-400); RED BLOOD COUNT 3.98 10*6/uL (4.50-5.90); RED CELL DISTRI WIDTH 14.2 % (0-14.5); WHITE BLOOD COUNT 7.9 10*3/uL (4.8-10.8)
[2017-01-02 07:14] LABS: CHLORIDE 111 mmol/L (98-107); POTASSIUM 4.9 mmol/L (3.5-5.1); SODIUM 142 mmol/L (136-145)
[2017-01-02 07:43] LABS: BUN 32 mg/dl (7-24); CARBON DIOXIDE 23 mmol/L (21-32); CHOLESTEROL 186 mg/dL (<200); EST GLOM FILT AFRICAN AMERICAN > 60 ml/min; GLUCOSE 126 mg/dL (65-99); HDL CHOLESTEROL 53 mg/dl (40-60); LDL CHOLESTEROL 114 mg/dL (9-159); MAGNESIUM 2.5 mg/dL (1.5-2.1); TRIGLYCERIDES 96 mg/dl (<150); VLDL CHOLESTEROL 19 mg/dL (6-40)
[2017-01-02 08:36] LABS: HEMOGLOBIN A1c 7.7 % (4.8-5.6)
[2017-01-02 09:55] LABS: VITAMIN D, 25-HYDROXY 15.4 ng/mL (30-100)
[2017-01-02 09:56] LABS: FOLIC ACID 17.91 ng/mL (>5.38)
[2017-01-03] VITALS: BP 94/61
[2017-01-03 06:36] LABS: BASO # 0.1 10*3/uL (0.0-0.1); BASO % 1.1 % (0.0-1.0); EOS # 0.3 10*3/uL (0.0-0.4); EOS % 3.6 % (1.0-4.0); HEMATOCRIT 33.4 % (42.0-52.0); HEMOGLOBIN 10.5 g/dl (14.0-18.0); LYMPH # 2.3 10*3/uL (1.3-4.4); LYMPH % 25.2 % (27.0-41.0); MEAN CELL VOLUME 93.6 fl (80.0-94.0); MEAN CORPUSCULAR HGB 29.4 pg (27.0-31.0); MEAN CORPUSCULAR HGB CONC 31.4 g/dl (33.0-37.0); MEAN PLATELET VOLUME 9.2 fl (9.6-12.3); MONO # 1.2 10*3/uL (0.1-1.0); MONO % 12.7 % (3.0-9.0); NEUT # 5.2 10*3/uL (2.3-7.9); PLATELET COUNT AUTOMATED 274 10*3/uL (130-400); RED BLOOD COUNT 3.57 10*6/uL (4.50-5.90); RED CELL DISTRI WIDTH 14.6 % (0-14.5); WHITE BLOOD COUNT 9.1 10*3/uL (4.8-10.8)
[2017-01-03 07:09] LABS: POTASSIUM 5.3 mmol/L (3.5-5.1)
[2017-01-03 08:00] VITALS: BP 120/82; BP 96/54
[2017-01-03 12:00] VITALS: BP 129/76
[2017-01-03 16:00] VITALS: BP 94/60
[2017-01-03 20:00] VITALS: BP 116/68
[2017-01-04] VITALS: BP 107/65
[2017-01-04 06:23] LABS: BASO # 0.1 10*3/uL (0.0-0.1); BASO % 0.9 % (0.0-1.0); EOS # 0.3 10*3/uL (0.0-0.4); EOS % 2.7 % (1.0-4.0); HEMATOCRIT 31.7 % (42.0-52.0); HEMOGLOBIN 10.1 g/dl (14.0-18.0); LYMPH # 2.2 10*3/uL (1.3-4.4); LYMPH % 23.9 % (27.0-41.0); MEAN CORPUSCULAR HGB 29.6 pg (27.0-31.0); MEAN CORPUSCULAR HGB CONC 31.9 g/dl (33.0-37.0); MEAN PLATELET VOLUME 9.2 fl (9.6-12.3); MONO % 10.3 % (3.0-9.0); NEUT # 5.7 10*3/uL (2.3-7.9); PLATELET COUNT AUTOMATED 252 10*3/uL (130-400); RED BLOOD COUNT 3.41 10*6/uL (4.50-5.90); RED CELL DISTRI WIDTH 14.6 % (0-14.5); WHITE BLOOD COUNT 9.2 10*3/uL (4.8-10.8)
[2017-01-04 06:53] LABS: POTASSIUM 5.6 mmol/L (3.5-5.1)
[2017-01-04 08:00] VITALS: BP 108/60
[2017-01-04 12:00] VITALS: BP 106/58
[2017-01-04 15:21] LABS: POTASSIUM 5.4 mmol/L (3.5-5.1)
[2017-01-04 16:00] VITALS: BP 94/62
[2017-01-04 16:24] LABS: BILIRUBIN NEGATIVE (NEGATIVE); BLOOD NEGATIVE (NEGATIVE); CLARITY CLEAR (CLEAR); COLOR YELLOW (YELLOW); GLUCOSE NEGATIVE (NEGATIVE); KETONE NEGATIVE (NEGATIVE); LEUKO ESTERASE NEGATIVE (NEGATIVE); NITRITE NEGATIVE (NEGATIVE); PH 5.5 (5.0-9.0); PROTEIN NEGATIVE (NEGATIVE); UROBILINOGEN 0.2 E.U./dl (0.2-1.0)
[2017-01-04 16:32] LABS: EPITHELIAL CELLS 0-2; URINE REFLEX COMMENT NO (NO); WBC 0-2 wbc/hpf (0-5)
[2017-01-04 20:00] VITALS: BP 120/66
[2017-01-05] VITALS: BP 104/65
[2017-01-05 06:20] LABS: ALBUMIN 2.9 gm/dl (3.1-4.5); PHOSPHOROUS 4.5 mg/dL (2.5-4.9); POTASSIUM 5.1 mmol/L (3.5-5.1)
[2017-01-05 08:00] VITALS: BP 122/67
[2017-01-05 12:00] VITALS: BP 141/73
[2017-01-05 16:00] VITALS: BP 126/68
[2017-01-05 20:00] VITALS: BP 111/57
[2017-01-06] VITALS (13 sets, daily range): BP systolic 100–150; BP diastolic 48–87
[2017-01-07] VITALS (13 sets, daily range): BP systolic 110–155; BP diastolic 53–84
[2017-01-07 06:15] LABS: BASO # 0.1 10*3/uL (0.0-0.1); BASO % 0.5 % (0.0-1.0); EOS # 0.3 10*3/uL (0.0-0.4); HEMATOCRIT 30.6 % (42.0-52.0); HEMOGLOBIN 9.9 g/dl (14.0-18.0); LYMPH # 1.5 10*3/uL (1.3-4.4); MEAN CELL VOLUME 91.9 fl (80.0-94.0); MEAN CORPUSCULAR HGB 29.7 pg (27.0-31.0); MEAN CORPUSCULAR HGB CONC 32.4 g/dl (33.0-37.0); MEAN PLATELET VOLUME 9.3 fl (9.6-12.3); MONO # 1.4 10*3/uL (0.1-1.0); MONO % 14.8 % (3.0-9.0); NEUT # 6.2 10*3/uL (2.3-7.9); NEUT % 65.3 % (47.0-73.0); PLATELET COUNT AUTOMATED 254 10*3/uL (130-400); RED BLOOD COUNT 3.33 10*6/uL (4.50-5.90); RED CELL DISTRI WIDTH 14.5 % (0-14.5); WHITE BLOOD COUNT 9.6 10*3/uL (4.8-10.8)
[2017-01-08] VITALS (7 sets, daily range): BP systolic 119–170; BP diastolic 57–78
[2017-01-08 06:30] LABS: BUN 39 mg/dl (7-24); CARBON DIOXIDE 30 mmol/L (21-32); CHLORIDE 105 mmol/L (98-107); GLUCOSE 86 mg/dL (65-99); SODIUM 142 mmol/L (136-145)
[2017-01-08 06:32] LABS: EST GLOM FILT AFRICAN AMERICAN > 60 ml/min
[2017-01-08] MEDS ORDERED: DEMADEX20 M1 PO (13:12)
== END 2017-01-08 14:55 | disposition home or self-care (01) | DRG 291 ==
LOC: ED 01:48 → EDHOLD 03:05 → 4E 03:05
PROVIDERS: Emergency Medicine; Family Medicine Adult Medicine; Internal Medicine; Internal Medicine Nephrology; Student in an Organized Health Care Education/Training Program
DX: I13.0 Hypertensive heart and chronic kidney disease with heart failure and stage 1 through stage 4 chronic kidney disease, or unspecified chronic kidney disease (principal); I50.23 Acute on chronic systolic (congestive) heart failure; N17.0 Acute kidney failure with tubular necrosis; E43 Unspecified severe protein-calorie malnutrition; Z68.42 Body mass index [BMI] 45.0-49.9, adult; R06.01 Orthopnea; E87.5 Hyperkalemia; E83.41 Hypermagnesemia; E11.51 Type 2 diabetes mellitus with diabetic peripheral angiopathy without gangrene; E11.49 Type 2 diabetes mellitus with other diabetic neurological complication; D64.9 Anemia, unspecified; F17.210 Nicotine dependence, cigarettes, uncomplicated; E78.5 Hyperlipidemia, unspecified; I25.5 Ischemic cardiomyopathy; N18.9 Chronic kidney disease, unspecified; E11.22 Type 2 diabetes mellitus with diabetic chronic kidney disease; I25.10 Atherosclerotic heart disease of native coronary artery without angina pectoris; E11.65 Type 2 diabetes mellitus with hyperglycemia; E66.09 Other obesity due to excess calories; Z95.5 Presence of coronary angioplasty implant and graft; Z83.3 Family history of diabetes mellitus; Z82.49 Family history of ischemic heart disease and other diseases of the circulatory system; Z88.6 Allergy status to analgesic agent; Z79.82 Long term (current) use of aspirin; Z79.899 Other long term (current) drug therapy; Z79.4 Long term (current) use of insulin

== ENCOUNTER 2017-01-13 13:12 | Inpatient (IN) | payer MEDICARE ==
[~2017-01-13] VITALS: Ht 155 cm; Wt 109.9 kg
--- NOTE | ~2017-01-13 | PR ---
[place], [place] PROGRESS NOTE NAME: FELIPE PEREZ UNIT #: [id number] ROOM: 428 DOCTOR: THEODORE JOSÉ MD BIRTHDATE: [birth year] DOS: 01/16/2017 He does not have much shortness of breath at rest and has had any chest pain or palpitations. Swelling in the leg seemed to have decreased but he has been in bed a lot. Fluid balance is mildly negative. OBJECTIVE: GENERAL: He looks well. He has oxygen on and is not tachypneic. NECK: JVP appears to be normal. CARDIAC: Auscultation reveals no murmurs. LUNGS: Breath sounds are moderately diminished with some few crackles here and there. EXTREMITIES: Edema in the left leg is much diminished. It is somewhat diminished on the right side as well. The right foot is still quite edematous. LABORATORY DATA: Creatinine has gone up from 1.3-1.6. IMPRESSION: This patient has a combined systolic and diastolic heart failure, which clinically seemed to be improved somewhat but either not been remarkable. RECOMMENDATIONS: Add Zaroxolyn 5 mg before morning dose of IV furosemide and when he goes home, maybe he should be on this combination. I will see him in my office in about a week or two. THEODORE JOSÉ MD CM:PNTRANS [id number] THEODORE JOSÉ MD 01/16/17 1459 interface
--- NOTE | ~2017-01-13 | EKG ---
[place], [place] ELECTROCARDIOGRAM REPORT NAME: FELIPE PEREZ UNIT #: [id number] ROOM: 428 DOCTOR: THEODORE JOSÉ MD BIRTHDATE: [birth year] DOS: 01/13/2017 TIME: 1325 hours. Normal sinus rhythm, 81 beats per minute. First degree heart block. Complete left bundle branch block. No significant change from an ECG of last week. THEODORE JOSÉ MD CM:EKGRPT:ELECTROCARDIOGRAM REPORT 1203 1801 THEODORE JOSÉ MD
--- NOTE | ~2017-01-13 | CON ---
[place], [place] REPORT OF CONSULTATION [id number] UNIT #: [id number] ROOM: 428 DOCTOR: THEODORE JOSÉ MD BIRTHDATE: [birth year] DOS: 01/14/2017 HISTORY OF PRESENT ILLNESS: This is a 56-year-old [place] man with severe ischemic cardiomyopathy. He has had coronary stents deployed in the remote past and recent echocardiogram had demonstrated an LV ejection fraction of about 25%. He has a dual chamber AICD that was implanted in 2011 and he had peripheral vascular disease and has amputation of the right great toe because of osteomyelitis. He has essential hypertension, hyperlipidemia, but has never had a stroke. He does have COPD, morbid obesity, diabetes mellitus with neuropathy. He was in this hospital for a week or so and was treated with IV dobutamine and dopamine along with IV loop diuretics. He diuresed and was sent home last week and apparently he tells me that when he went to the pharmacy, they did not have any prescriptions for him. He was given Demadex 40 mg every morning. Now, he comes back because of increasing shortness of breath and swelling in the legs. He sleeps sitting up in bed because of difficulty breathing. He has had no chest pain or palpitation, no loss of consciousness. The AICD has not discharged. His medications were reviewed. It is not clear if he was taking all or some of them. PHYSICAL EXAMINATION: GENERAL: This revealed that the patient is alert, oriented, moderately obese. Complexion appears fine. He is not febrile. VITAL SIGNS: Pulse is regular at 76 beats per minute, blood pressure 120/71. NECK: JVP is difficult to assess, but appears to be increased. No bruits in the neck. HEART: There is no cardiomegaly. Auscultation did not reveal any murmurs or rubs. He has at least 2+ edema in the lower extremities. Pedal pulses could not be appreciated. LUNGS: Breath sounds are moderately diminished with crackles and some expiratory wheezes. An ECG showed normal sinus rhythm, first-degree heart block and left bundle branch block, which is unchanged from previous EKGs. Chest x-ray demonstrated moderate pulmonary edema. Creatinine is 1.32 and it was around 1.9 when he was admitted last time, potassium 4.0, sodium 142. NT-BNP is significantly elevated. IMPRESSION: This patient has severe ischemic cardiomyopathy with acute on chronic systolic heart failure. I think noncompliance may be playing a part. I do not know how careful he is with his salt intake and it appears he was not taking Demadex. RECOMMENDATIONS: IV furosemide in increasing doses to diurese this patient significantly. Renal function needs to be monitored regularly. If he does not achieve adequate diuresis, then metolazone can be added in small doses. [place], [place] REPORT OF CONSULTATION NAME: FELIPE PEREZ Gab UNIT #: [id number] ROOM: [facility] DOCTOR: ARNAV LOZANO,THOEDORE BIRTHDATE: [birth year] No cardiac workup is necessary at this time. Thank you for this consult. THEODORE JOSÉ MD CM:CONSTR:REPORT OF CONSULTATION 1223 01/14/17 0307 interface
[~2017-01-13 13:12] MED LIST changes: +DEMADEX20 M1 PO
[2017-01-13 13:16] VITALS: BP 159/90
[2017-01-13 13:48] LABS: BASO # 0.1 10*3/uL (0.0-0.1); BASO % 0.9 % (0.0-1.0); EOS # 0.2 10*3/uL (0.0-0.4); EOS % 2.1 % (1.0-4.0); HEMATOCRIT 31.6 % (42.0-52.0); HEMOGLOBIN 10.2 g/dl (14.0-18.0); LYMPH # 1.2 10*3/uL (1.3-4.4); LYMPH % 14.4 % (27.0-41.0); MEAN CELL VOLUME 91.3 fl (80.0-94.0); MEAN CORPUSCULAR HGB 29.5 pg (27.0-31.0); MEAN CORPUSCULAR HGB CONC 32.3 g/dl (33.0-37.0); MEAN PLATELET VOLUME 8.8 fl (9.6-12.3); MONO # 0.7 10*3/uL (0.1-1.0); MONO % 8.5 % (3.0-9.0); NEUT # 5.9 10*3/uL (2.3-7.9); NEUT % 73.8 % (47.0-73.0); PLATELET COUNT AUTOMATED 306 10*3/uL (130-400); RED BLOOD COUNT 3.46 10*6/uL (4.50-5.90); RED CELL DISTRI WIDTH 13.7 % (0-14.5)
[2017-01-13 13:56] LABS: PROTHROMBIN TIME 10.7 SECONDS (9.0-12.4)
[2017-01-13 14:03] LABS: ALBUMIN 2.9 gm/dl (3.1-4.5); ALKALINE PHOSPHATASE 92 U/L (45-117); BILIRUBIN, TOTAL 0.3 mg/dl (0.2-1.0); BUN 26 mg/dl (7-24); CARBON DIOXIDE 25 mmol/L (21-32); CHLORIDE 106 mmol/L (98-107); CKMB 2.3 ng/ml (0.5-3.6); CPK 135 U/L (39-308); EST GLOM FILT AFRICAN AMERICAN > 60 ml/min; GLUCOSE 128 mg/dL (65-99); MAGNESIUM 2.4 mg/dL (1.5-2.1); POTASSIUM 4.6 mmol/L (3.5-5.1); SGOT/AST 15 IU/L (3-35); SGPT/ALT 14 U/L (12-78); SODIUM 142 mmol/L (136-145); TOTAL PROTEIN 7.2 gm/dL (6.4-8.2)
[2017-01-13 14:08] LABS: TROPONIN I 0.048 ng/ml (<0.045)
[2017-01-13 15:24] VITALS: BP 160/91
[2017-01-13 16:19] VITALS: BP 150/95
[2017-01-13 20:00] VITALS: BP 115/77
[2017-01-14] VITALS: BP 122/74
[2017-01-14 07:25] LABS: BASO # 0.1 10*3/uL (0.0-0.1); BASO % 0.8 % (0.0-1.0); EOS # 0.3 10*3/uL (0.0-0.4); EOS % 3.5 % (1.0-4.0); HEMATOCRIT 30.1 % (42.0-52.0); HEMOGLOBIN 9.6 g/dl (14.0-18.0); LYMPH # 1.7 10*3/uL (1.3-4.4); LYMPH % 22.7 % (27.0-41.0); MEAN CELL VOLUME 90.9 fl (80.0-94.0); MEAN CORPUSCULAR HGB CONC 31.9 g/dl (33.0-37.0); MEAN PLATELET VOLUME 9.1 fl (9.6-12.3); MONO # 0.7 10*3/uL (0.1-1.0); MONO % 9.8 % (3.0-9.0); NEUT # 4.6 10*3/uL (2.3-7.9); NEUT % 62.8 % (47.0-73.0); PLATELET COUNT AUTOMATED 329 10*3/uL (130-400); RED BLOOD COUNT 3.31 10*6/uL (4.50-5.90); RED CELL DISTRI WIDTH 13.7 % (0-14.5); WHITE BLOOD COUNT 7.4 10*3/uL (4.8-10.8)
[2017-01-14 07:54] LABS: INTERNATIONAL NORM RATIO 1.1 (2.0-3.5); PROTHROMBIN TIME 11.2 SECONDS (9.0-12.4)
[2017-01-14 07:56] LABS: ALBUMIN 2.7 gm/dl (3.1-4.5); BILIRUBIN, TOTAL 0.3 mg/dl (0.2-1.0); BUN 25 mg/dl (7-24); CARBON DIOXIDE 27 mmol/L (21-32); CHLORIDE 106 mmol/L (98-107); EST GLOM FILT AFRICAN AMERICAN > 60 ml/min; GLUCOSE 125 mg/dL (65-99); MAGNESIUM 2.3 mg/dL (1.5-2.1); PHOSPHOROUS 3.3 mg/dL (2.5-4.9); SGOT/AST 13 IU/L (3-35); SGPT/ALT 14 U/L (12-78); SODIUM 142 mmol/L (136-145); TOTAL PROTEIN 6.7 gm/dL (6.4-8.2)
[2017-01-14 08:00] VITALS: BP 120/71
[2017-01-14 08:02] LABS: ALKALINE PHOSPHATASE 82 U/L (45-117); FREE T4 1.22 ng/dl (0.76-1.46)
[2017-01-14 08:11] LABS: FOLIC ACID > 24.00 ng/mL (>5.38)
[2017-01-14 12:00] VITALS: BP 106/53
[2017-01-14 16:00] VITALS: BP 111/74
[2017-01-14 20:00] VITALS: BP 100/65
[2017-01-15] VITALS: BP 95/64
[2017-01-15 07:19] LABS: BASO # 0.1 10*3/uL (0.0-0.1); BASO % 1.1 % (0.0-1.0); EOS # 0.4 10*3/uL (0.0-0.4); EOS % 4.9 % (1.0-4.0); HEMATOCRIT 29.3 % (42.0-52.0); HEMOGLOBIN 9.5 g/dl (14.0-18.0); LYMPH # 2.4 10*3/uL (1.3-4.4); LYMPH % 30.2 % (27.0-41.0); MEAN CELL VOLUME 92.4 fl (80.0-94.0); MEAN CORPUSCULAR HGB CONC 32.4 g/dl (33.0-37.0); MEAN PLATELET VOLUME 9.2 fl (9.6-12.3); MONO # 0.9 10*3/uL (0.1-1.0); MONO % 10.9 % (3.0-9.0); NEUT # 4.2 10*3/uL (2.3-7.9); NEUT % 52.7 % (47.0-73.0); PLATELET COUNT AUTOMATED 345 10*3/uL (130-400); RED BLOOD COUNT 3.17 10*6/uL (4.50-5.90); RED CELL DISTRI WIDTH 13.9 % (0-14.5)
[2017-01-15 08:00] VITALS: BP 120/68
[2017-01-15 12:00] VITALS: BP 100/52
[2017-01-15 16:00] VITALS: BP 131/76
[2017-01-15 20:00] VITALS: BP 125/79
[2017-01-16] VITALS: BP 111/67
[2017-01-16 07:06] LABS: POTASSIUM 3.8 mmol/L (3.5-5.1)
[2017-01-16 08:00] VITALS: BP 134/71
[2017-01-16 12:00] VITALS: BP 141/78
[2017-01-16 16:00] VITALS: BP 127/63
[2017-01-16 20:00] VITALS: BP 135/63
[2017-01-17] VITALS: BP 102/65
[2017-01-17 06:45] LABS: BASO # 0.1 10*3/uL (0.0-0.1); BASO % 1.1 % (0.0-1.0); EOS # 0.5 10*3/uL (0.0-0.4); EOS % 5.6 % (1.0-4.0); HEMATOCRIT 30.7 % (42.0-52.0); HEMOGLOBIN 10.1 g/dl (14.0-18.0); LYMPH # 2.5 10*3/uL (1.3-4.4); LYMPH % 28.8 % (27.0-41.0); MEAN CELL VOLUME 90.3 fl (80.0-94.0); MEAN CORPUSCULAR HGB 29.7 pg (27.0-31.0); MEAN CORPUSCULAR HGB CONC 32.9 g/dl (33.0-37.0); MEAN PLATELET VOLUME 8.7 fl (9.6-12.3); MONO % 11.6 % (3.0-9.0); NEUT # 4.5 10*3/uL (2.3-7.9); NEUT % 52.5 % (47.0-73.0); PLATELET COUNT AUTOMATED 370 10*3/uL (130-400); RED CELL DISTRI WIDTH 13.8 % (0-14.5); WHITE BLOOD COUNT 8.5 10*3/uL (4.8-10.8)
[2017-01-17 07:11] LABS: POTASSIUM 3.8 mmol/L (3.5-5.1)
[2017-01-17 08:00] VITALS: BP 122/70; BP 134/94
[2017-01-17 12:00] VITALS: BP 146/69
[2017-01-17 16:00] VITALS: BP 140/76
[2017-01-17 20:00] VITALS: BP 120/63
[2017-01-18] VITALS: BP 115/67
[2017-01-18 06:45] LABS: ALBUMIN 3.1 gm/dl (3.1-4.5); BILIRUBIN, TOTAL 0.3 mg/dl (0.2-1.0); POTASSIUM 3.9 mmol/L (3.5-5.1); TOTAL PROTEIN 7.4 gm/dL (6.4-8.2)
[2017-01-18 08:00] VITALS: BP 100/66
[2017-01-18] MEDS ORDERED: KLOR-CON M1010 ME1 PO (11:59)
[2017-01-18] MEDS ORDERED: Lasix80 MG PO (11:59)
[2017-01-18 12:00] VITALS: BP 100/72
[2017-01-18] MEDS ORDERED: METOLAZONE5 MG PO (12:01)
== END 2017-01-18 13:38 | disposition home or self-care (01) | DRG 291 ==
LOC: ED 13:12 → EDHOLD 15:18 → 4E 15:18
PROVIDERS: Emergency Medicine; Hospitalist; Internal Medicine; Internal Medicine Cardiovascular Disease
DX: I11.0 Hypertensive heart disease with heart failure (principal); E43 Unspecified severe protein-calorie malnutrition; E10.42 Type 1 diabetes mellitus with diabetic polyneuropathy; I25.2 Old myocardial infarction; E78.5 Hyperlipidemia, unspecified; K59.00 Constipation, unspecified; E10.65 Type 1 diabetes mellitus with hyperglycemia; E10.51 Type 1 diabetes mellitus with diabetic peripheral angiopathy without gangrene; I25.5 Ischemic cardiomyopathy; I50.43 Acute on chronic combined systolic (congestive) and diastolic (congestive) heart failure; E55.9 Vitamin D deficiency, unspecified; D64.9 Anemia, unspecified; E66.01 Morbid (severe) obesity due to excess calories; F17.210 Nicotine dependence, cigarettes, uncomplicated; E83.41 Hypermagnesemia; J44.9 Chronic obstructive pulmonary disease, unspecified; Z83.3 Family history of diabetes mellitus; Z82.49 Family history of ischemic heart disease and other diseases of the circulatory system; Z88.6 Allergy status to analgesic agent; Z79.82 Long term (current) use of aspirin; Z79.899 Other long term (current) drug therapy; Z95.5 Presence of coronary angioplasty implant and graft; Z95.810 Presence of automatic (implantable) cardiac defibrillator; Z89.411 Acquired absence of right great toe; Z86.73 Personal history of transient ischemic attack (TIA), and cerebral infarction without residual deficits; Z68.33 Body mass index [BMI] 33.0-33.9, adult

== ENCOUNTER 2017-04-27 12:11 | Emergency (ER) | payer MEDICARE ==
[~2017-04-27] VITALS: Ht 180.3 cm; Wt 104.3 kg
[~2017-04-27 12:11] MED LIST changes: +KLOR-CON M1010 ME1 PO; +Lasix80 MG PO; +METOLAZONE5 MG PO
[2017-04-27 13:58] LABS: BILIRUBIN 1+ (NEGATIVE); BLOOD 3+ (NEGATIVE); CLARITY SL CLOUDY (CLEAR); COLOR YELLOW (YELLOW); GLUCOSE NEGATIVE (NEGATIVE); KETONE TRACE (NEGATIVE); LEUKO ESTERASE NEGATIVE (NEGATIVE); NITRITE NEGATIVE (NEGATIVE); SPECIFIC GRAVITY 1.025 (1.005-1.030)
[2017-04-27 14:22] LABS: BACTERIA TRACE; MUCOUS TRACE
[2017-04-27 14:23] LABS: RBC 21-30 rbc/hpf (0-2)
[2017-04-27 14:29] LABS: BASO # 0.1 10*3/uL (0.0-0.1); EOS # 0.2 10*3/uL (0.0-0.4); EOS % 2.1 % (1.0-4.0); HEMATOCRIT 47.7 % (42.0-52.0); HEMOGLOBIN 16.5 g/dl (14.0-18.0); LYMPH # 1.8 10*3/uL (1.3-4.4); LYMPH % 19.6 % (27.0-41.0); MEAN CELL VOLUME 88.3 fl (80.0-94.0); MEAN CORPUSCULAR HGB 30.6 pg (27.0-31.0); MEAN CORPUSCULAR HGB CONC 34.6 g/dl (33.0-37.0); MEAN PLATELET VOLUME 9.3 fl (9.6-12.3); MONO # 0.7 10*3/uL (0.1-1.0); MONO % 7.5 % (3.0-9.0); NEUT # 6.3 10*3/uL (2.3-7.9); NEUT % 69.7 % (47.0-73.0); PLATELET COUNT AUTOMATED 228 10*3/uL (130-400); RED CELL DISTRI WIDTH 13.7 % (0-14.5)
[2017-04-27 14:52] LABS: ALKALINE PHOSPHATASE 84 U/L (45-117); BUN 14 mg/dl (7-24); CHLORIDE 105 mmol/L (98-107); CREATININE 1.17 mg/dL (0.70-1.30); LIPASE 67 U/L (73-393); POTASSIUM 4.4 mmol/L (3.5-5.1); SGPT/ALT 15 U/L (12-78); SODIUM 137 mmol/L (136-145); TOTAL PROTEIN 7.1 gm/dL (6.4-8.2)
[2017-04-27 14:54] LABS: SGOT/AST 13 IU/L (3-35)
[2017-04-27 14:56] LABS: TROPONIN I < 0.015 ng/ml (<0.045)
[2017-04-27] MEDS ORDERED: CIPRO500 MG PO (16:41)
[2017-04-27] MEDS ORDERED: LASIX20 MG PO (16:41)
== END 2017-04-27 16:52 | disposition home or self-care (01) ==
LOC: ED 12:11
PROVIDERS: Nurse Practitioner Family
DX: N39.0 Urinary tract infection, site not specified (principal); R10.31 Right lower quadrant pain; F17.200 Nicotine dependence, unspecified, uncomplicated; I11.0 Hypertensive heart disease with heart failure; I50.9 Heart failure, unspecified; E11.40 Type 2 diabetes mellitus with diabetic neuropathy, unspecified; R60.0 Localized edema; I25.2 Old myocardial infarction; E78.5 Hyperlipidemia, unspecified; E66.9 Obesity, unspecified; Z95.5 Presence of coronary angioplasty implant and graft; Z95.0 Presence of cardiac pacemaker; Z79.899 Other long term (current) drug therapy; Z79.82 Long term (current) use of aspirin

== ENCOUNTER → 2017-07-01 | Day surgery (SDC) | payer MEDICARE ==
[~2017-07-01] VITALS: Ht 177.8 cm; Wt 109.8 kg
--- NOTE | ~2017-07-01 | O ---
[place], [place] OPERATIVE NOTE NAME: FELIPE PEREZ UNIT #: [id number] ROOM: DOCTOR: DARLENE LORENZO MD BIRTHDATE: [birth year] DOS: HISTORY OF PRESENT ILLNESS: This is a 56-year-old patient who presented with chief complaint of change in bowel habit, diarrhea, mostly allergic to no medication. PAST MEDICAL HISTORY: Associated with diabetes mellitus, hyperlipidemia, history of hypertension, upper GI bleed. PAST SURGICAL HISTORY: Fem-pop, cardiac catheterization, cardiac stents, pacemaker defibrillator. SOCIAL HISTORY: Smoker, nonalcohol consumer. FAMILY HISTORY: Noncontributory. PROCEDURE: Today's procedure part of investigation is colonoscopy plus multiple polypectomies. PREMEDICATION: Versed and Diprivan. SCOPE: Olympus folding colonoscope 10L video. OPERATIVE REPORT: After putting the patient in left lateral position and application of lubricant to the scope, the scope was introduced. Thereafter, under direct visualization, advanced through the length of colon without difficulty. Multiple polyps approached from splenic flexure. Three polypoid lesions with snare were polypectomized from hepatic flexure, piecemeal polypectomy x 2 was done. From cecum, 1 polypoid lesion with piecemeal polypectomy removed. Base of the cecum explored, appendiceal orifice identified, ileocecal valve defined. Scope was gradually withdrawn. The patient extubated, tolerated procedure well. IMPRESSION: Diarrhea. I see the patient is on magnesium oxide 400 mg daily that could be the cause of diarrhea. On the other hand, the patient on aspirin and clopidogrel, status post polypectomy, both are going to be held for 3 days and the patient is going to follow up with us in GI lab for further adjustment and management. I have reviewed the chart on his medications. I do not see any other offending agents on board. The patient with a history of diabetes mellitus and possibility of diabetic enteropathy also on board, this is going to be addressed as we go along. I thank you very much indeed for your kind referral. [place], [place] OPERATIVE NOTE NAME: FELIPE PEREZ UNIT #: [id number] ROOM: DOCTOR: DARLENE LORENZO MD BIRTHDATE: [birth year] DARLENE LORENZO MD CM:FLORORD:OPERATIVE NOTE 1001 15 DARLENE LORENZO MD 07/01/171216 interface
[2017-07-01 08:17] VITALS: BP 124/83
[2017-07-01 09:53] VITALS: BP 95/72
[2017-07-01 10:08] VITALS: BP 120/74
[2017-07-01 10:23] VITALS: BP 112/82
[2017-07-01 10:31] VITALS: BP 140/85
== END | disposition home or self-care (01) ==
LOC: SDC 06-29 10:15
DX: D12.3 Benign neoplasm of transverse colon (principal); K63.5 Polyp of colon; R19.7 Diarrhea, unspecified; E78.5 Hyperlipidemia, unspecified; I10 Essential (primary) hypertension; F17.210 Nicotine dependence, cigarettes, uncomplicated; Z95.5 Presence of coronary angioplasty implant and graft; Z88.8 Allergy status to other drugs, medicaments and biological substances; Z95.810 Presence of automatic (implantable) cardiac defibrillator; Z79.4 Long term (current) use of insulin; Z79.01 Long term (current) use of anticoagulants; Z79.899 Other long term (current) drug therapy; I73.9 Peripheral vascular disease, unspecified; F32.9 Major depressive disorder, single episode, unspecified; E11.69 Type 2 diabetes mellitus with other specified complication; M86.9 Osteomyelitis, unspecified

== ENCOUNTER 2017-07-29 09:38 | Inpatient (IN) | payer MEDICARE ==
[~2017-07-29] VITALS: Ht 180.3 cm; Wt 112.0 kg
[2017-07-29 09:44] VITALS: BP 166/106
[2017-07-29 10:37] LABS: BILIRUBIN NEGATIVE (NEGATIVE); BLOOD 2+ (NEGATIVE); CLARITY SL CLOUDY (CLEAR); COLOR YELLOW (YELLOW); GLUCOSE 3+ (NEGATIVE); KETONE TRACE (NEGATIVE); LEUKO ESTERASE NEGATIVE (NEGATIVE); NITRITE NEGATIVE (NEGATIVE); SPECIFIC GRAVITY 1.025 (1.005-1.030); UROBILINOGEN 0.2 E.U./dl (0.2-1.0)
[2017-07-29 10:45] LABS: BACTERIA 3+; RBC 41-50 rbc/hpf (0-2)
[2017-07-29 11:00] VITALS: BP 156/90
[2017-07-29 11:02] LABS: BASO # 0.1 10*3/uL (0.0-0.1); BASO % 0.9 % (0.0-1.0); EOS # 0.2 10*3/uL (0.0-0.4); EOS % 2.5 % (1.0-4.0); HEMATOCRIT 44.3 % (42.0-52.0); HEMOGLOBIN 15.6 g/dl (14.0-18.0); LYMPH # 1.7 10*3/uL (1.3-4.4); LYMPH % 21.9 % (27.0-41.0); MEAN CELL VOLUME 88.8 fl (80.0-94.0); MEAN CORPUSCULAR HGB 31.3 pg (27.0-31.0); MEAN CORPUSCULAR HGB CONC 35.2 g/dl (33.0-37.0); MEAN PLATELET VOLUME 9.2 fl (9.6-12.3); MONO # 0.6 10*3/uL (0.1-1.0); MONO % 7.3 % (3.0-9.0); NEUT # 5.3 10*3/uL (2.3-7.9); PLATELET COUNT AUTOMATED 255 10*3/uL (130-400); RED BLOOD COUNT 4.99 10*6/uL (4.50-5.90); RED CELL DISTRI WIDTH 12.7 % (0-14.5); WHITE BLOOD COUNT 7.9 10*3/uL (4.8-10.8)
[2017-07-29 11:19] LABS: ALBUMIN 2.7 gm/dl (3.1-4.5); CREATININE 1.66 mg/dL (0.70-1.30); POTASSIUM 4.7 mmol/L (3.5-5.1); TOTAL PROTEIN 6.6 gm/dL (6.4-8.2)
[2017-07-29 14:00] VITALS: BP 156/70
[2017-07-29 15:00] VITALS: BP 107/42
[2017-07-29] MEDS ORDERED: K-TAB10 MEQ PO (15:42)
[2017-07-29] MEDS ORDERED: NEURONTIN800 MG PO (15:46)
[2017-07-29 16:00] VITALS: BP 102/75
[2017-07-29 20:00] VITALS: BP 118/77
[2017-07-30] VITALS: BP 108/77
[2017-07-30 06:55] LABS: BASO # 0.1 10*3/uL (0.0-0.1); BASO % 1.3 % (0.0-1.0); EOS # 0.3 10*3/uL (0.0-0.4); EOS % 3.7 % (1.0-4.0); HEMATOCRIT 43.2 % (42.0-52.0); HEMOGLOBIN 14.6 g/dl (14.0-18.0); LYMPH # 2.4 10*3/uL (1.3-4.4); LYMPH % 35.5 % (27.0-41.0); MEAN CELL VOLUME 90.9 fl (80.0-94.0); MEAN CORPUSCULAR HGB 30.7 pg (27.0-31.0); MEAN CORPUSCULAR HGB CONC 33.8 g/dl (33.0-37.0); MEAN PLATELET VOLUME 9.1 fl (9.6-12.3); MONO # 0.6 10*3/uL (0.1-1.0); MONO % 8.7 % (3.0-9.0); NEUT # 3.4 10*3/uL (2.3-7.9); NEUT % 50.5 % (47.0-73.0); PLATELET COUNT AUTOMATED 230 10*3/uL (130-400); RED BLOOD COUNT 4.75 10*6/uL (4.50-5.90); WHITE BLOOD COUNT 6.8 10*3/uL (4.8-10.8)
[2017-07-30 07:14] LABS: ALBUMIN 2.6 gm/dl (3.1-4.5); ALKALINE PHOSPHATASE 80 U/L (45-117); BUN 23 mg/dl (7-24); CHLORIDE 108 mmol/L (98-107); CHOLESTEROL 230 mg/dL (<200); CREATININE 1.09 mg/dL (0.70-1.30); FREE T4 1.09 ng/dl (0.76-1.46); HDL CHOLESTEROL 31 mg/dl (40-60); PHOSPHOROUS 3.1 mg/dL (2.5-4.9); POTASSIUM 4.4 mmol/L (3.5-5.1); SGOT/AST 16 IU/L (3-35); SGPT/ALT 20 U/L (12-78); SODIUM 139 mmol/L (136-145); TOTAL PROTEIN 6.4 gm/dL (6.4-8.2); TRIGLYCERIDES 444 mg/dl (<150)
[2017-07-30 08:00] VITALS: BP 98/65
[2017-07-30 09:49] LABS: VITAMIN D, 25-HYDROXY 14.6 ng/mL (30-100)
[2017-07-30 12:00] VITALS: BP 112/71
[2017-07-30] MEDS ORDERED: VITAMIN D-32000 UNI1 PO (13:52)
[2017-07-30] MEDS ORDERED: LANTUS SOL100 UNIT/1 SC (13:52)
== END 2017-07-30 14:50 | disposition home or self-care (01) | DRG 391 ==
LOC: ED 09:38 → 5E 13:25 → EDHOLD 13:25 → 5E 13:39
PROVIDERS: Emergency Medicine; Internal Medicine
DX: R10.31 Right lower quadrant pain (principal); E43 Unspecified severe protein-calorie malnutrition; E11.40 Type 2 diabetes mellitus with diabetic neuropathy, unspecified; E87.2 Acidosis; I50.42 Chronic combined systolic (congestive) and diastolic (congestive) heart failure; R19.7 Diarrhea, unspecified; E11.51 Type 2 diabetes mellitus with diabetic peripheral angiopathy without gangrene; I73.9 Peripheral vascular disease, unspecified; I25.10 Atherosclerotic heart disease of native coronary artery without angina pectoris; D72.810 Lymphocytopenia; E55.9 Vitamin D deficiency, unspecified; E78.5 Hyperlipidemia, unspecified; I11.0 Hypertensive heart disease with heart failure; E11.65 Type 2 diabetes mellitus with hyperglycemia; I25.5 Ischemic cardiomyopathy; F17.210 Nicotine dependence, cigarettes, uncomplicated; R00.0 Tachycardia, unspecified; Z88.6 Allergy status to analgesic agent; Z79.899 Other long term (current) drug therapy; I25.2 Old myocardial infarction; Z87.440 Personal history of urinary (tract) infections; Z89.429 Acquired absence of other toe(s), unspecified side; Z95.0 Presence of cardiac pacemaker; Z83.3 Family history of diabetes mellitus; Z82.49 Family history of ischemic heart disease and other diseases of the circulatory system; Z68.34 Body mass index [BMI] 34.0-34.9, adult; E66.09 Other obesity due to excess calories; Z79.4 Long term (current) use of insulin

== ENCOUNTER → 2017-10-05 | Outpatient (CLI) | payer MEDICARE ==
[~2017-10-05] MED LIST changes: +K-TAB10 MEQ PO; +LANTUS SOL100 UNIT/1 SC; +NEURONTIN800 MG PO; +VITAMIN D-32000 UNI1 PO
[2017-10-05 08:51] LABS: HEMATOCRIT 46.2 % (42.0-52.0); HEMOGLOBIN 15.1 g/dl (14.0-18.0); MEAN CELL VOLUME 93.3 fl (80.0-94.0); MEAN CORPUSCULAR HGB 30.5 pg (27.0-31.0); MEAN CORPUSCULAR HGB CONC 32.7 g/dl (33.0-37.0); MEAN PLATELET VOLUME 9.1 fl (9.6-12.3); RED BLOOD COUNT 4.95 10*6/uL (4.50-5.90); RED CELL DISTRI WIDTH 13.1 % (0-14.5); WHITE BLOOD COUNT 8.3 10*3/uL (4.8-10.8)
[2017-10-05 09:41] LABS: CHLORIDE 104 mmol/L (98-107); POTASSIUM 4.6 mmol/L (3.5-5.1); SODIUM 139 mmol/L (136-145)
[2017-10-05 09:53] LABS: ALBUMIN 2.7 gm/dl (3.1-4.5); ALKALINE PHOSPHATASE 125 U/L (45-117); BUN 17 mg/dl (7-24); CHOLESTEROL 260 mg/dL (<200); CREATININE 1.28 mg/dL (0.70-1.30); HDL CHOLESTEROL 41 mg/dl (40-60); LDL CHOLESTEROL 166 mg/dL (9-159); SGOT/AST 16 IU/L (3-35); SGPT/ALT 15 U/L (12-78); TOTAL PROTEIN 6.9 gm/dL (6.4-8.2); TRIGLYCERIDES 263 mg/dl (<150); VLDL CHOLESTEROL 53 mg/dL (6-40)
[2017-10-05 09:54] LABS: TROPONIN I < 0.015 ng/ml (<0.045)
== END | disposition home or self-care (01) ==
LOC: LAB 08:20
PROVIDERS: Registered Nurse Flight
DX: I10 Essential (primary) hypertension (principal); E11.65 Type 2 diabetes mellitus with hyperglycemia; E78.5 Hyperlipidemia, unspecified; R06.02 Shortness of breath

== ENCOUNTER → 2018-02-22 | Outpatient (CLI) | payer MEDICARE ==
[2018-02-22 11:14] LABS: HEMATOCRIT 43.9 % (42.0-52.0); MEAN CELL VOLUME 92.6 fl (80.0-94.0); MEAN CORPUSCULAR HGB 29.5 pg (27.0-31.0); MEAN CORPUSCULAR HGB CONC 31.9 g/dl (33.0-37.0); MEAN PLATELET VOLUME 9.2 fl (9.6-12.3); RED BLOOD COUNT 4.74 10*6/uL (4.50-5.90); RED CELL DISTRI WIDTH 12.8 % (0-14.5); WHITE BLOOD COUNT 8.7 10*3/uL (4.8-10.8)
[2018-02-22 11:38] LABS: ALBUMIN 3.1 gm/dl (3.1-4.5); ALKALINE PHOSPHATASE 103 U/L (45-117); BUN 16 mg/dl (7-24); CHLORIDE 106 mmol/L (98-107); CHOLESTEROL 147 mg/dL (<200); CREATININE 1.33 mg/dL (0.70-1.30); HDL CHOLESTEROL 29 mg/dl (40-60); LDL CHOLESTEROL 93 mg/dL (9-159); POTASSIUM 4.5 mmol/L (3.5-5.1); SGOT/AST 11 IU/L (3-35); SGPT/ALT 14 U/L (12-78); SODIUM 142 mmol/L (136-145); TOTAL PROTEIN 7.4 gm/dL (6.4-8.2); TRIGLYCERIDES 127 mg/dl (<150); VLDL CHOLESTEROL 25 mg/dL (6-40)
== END | disposition home or self-care (01) ==
LOC: LAB 10:27
PROVIDERS: Registered Nurse Flight
DX: M16.12 Unilateral primary osteoarthritis, left hip (principal); E78.5 Hyperlipidemia, unspecified; E11.65 Type 2 diabetes mellitus with hyperglycemia; M25.562 Pain in left knee

== ENCOUNTER → 2018-03-29 | Outpatient (CLI) | payer MEDICARE | END | disposition home or self-care (01) | LOC: WOUNDCARE 05:23 | DX: T23.232D Burn of second degree of multiple left fingers (nail), not including thumb, subsequent encounter (principal); S61.205D Unspecified open wound of left ring finger without damage to nail, subsequent encounter; E11.40 Type 2 diabetes mellitus with diabetic neuropathy, unspecified; E78.5 Hyperlipidemia, unspecified; I25.10 Atherosclerotic heart disease of native coronary artery without angina pectoris; E11.51 Type 2 diabetes mellitus with diabetic peripheral angiopathy without gangrene; I11.0 Hypertensive heart disease with heart failure; I50.9 Heart failure, unspecified; E55.9 Vitamin D deficiency, unspecified; E66.9 Obesity, unspecified; F17.290 Nicotine dependence, other tobacco product, uncomplicated; Z68.37 Body mass index [BMI] 37.0-37.9, adult; X58.XXXD Exposure to other specified factors, subsequent encounter; X08.8XXD Exposure to other specified smoke, fire and flames, subsequent encounter ==

== ENCOUNTER → 2018-04-06 | Outpatient (CLI) | payer MEDICARE | END | disposition home or self-care (01) | LOC: WOUNDCARE 04-02 10:19 | DX: T23.232D Burn of second degree of multiple left fingers (nail), not including thumb, subsequent encounter (principal); T31.0 Burns involving less than 10% of body surface; E11.40 Type 2 diabetes mellitus with diabetic neuropathy, unspecified; E11.51 Type 2 diabetes mellitus with diabetic peripheral angiopathy without gangrene; E78.5 Hyperlipidemia, unspecified; I10 Essential (primary) hypertension; I25.10 Atherosclerotic heart disease of native coronary artery without angina pectoris; I11.0 Hypertensive heart disease with heart failure; I50.9 Heart failure, unspecified; E55.9 Vitamin D deficiency, unspecified; E66.9 Obesity, unspecified; F17.290 Nicotine dependence, other tobacco product, uncomplicated; Z68.37 Body mass index [BMI] 37.0-37.9, adult; X08.8XXD Exposure to other specified smoke, fire and flames, subsequent encounter ==

== ENCOUNTER 2018-08-19 15:36 | Inpatient (IN) | payer MEDICARE ==
[~2018-08-19] VITALS: Ht 180.3 cm; Wt 128.5 kg
--- NOTE | ~2018-08-19 | EKG ---
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
[2018-08-19 15:36] VITALS: BP 108/60
[~2018-08-19 15:36] MED LIST changes: +ZOLPIDEM10 MG PO; -ZOLPIDEM5 MG PO
[2018-08-19 17:04] LABS: HEMATOCRIT 41.4 % (42.0-52.0); HEMOGLOBIN 13.6 g/dl (14.0-18.0); MEAN CELL VOLUME 91.8 fl (80.0-94.0); MEAN CORPUSCULAR HGB 30.2 pg (27.0-31.0); MEAN CORPUSCULAR HGB CONC 32.9 g/dl (33.0-37.0); MEAN PLATELET VOLUME 9.8 fl (9.6-12.3); PLATELET COUNT AUTOMATED 224 10*3/uL (130-400); RED BLOOD COUNT 4.51 10*6/uL (4.50-5.90); WHITE BLOOD COUNT 16.2 10*3/uL (4.8-10.8)
[2018-08-19 17:18] LABS: CREATININE 2.87 mg/dL (0.70-1.30); POTASSIUM 5.9 mmol/L (3.5-5.1); TOTAL PROTEIN 6.9 gm/dL (6.4-8.2)
--- NOTE | 2018-08-19 17:18 | NUR ---
PT STATING "I DON'T KNOW MY MEDICINE MY SISTER FILLS MY MEDICINE CONTAINER"
[2018-08-19 17:44] LABS: TOTAL CELLS COUNTED 100 #CELLS
[2018-08-19 17:45] LABS: PLATELET SUFFICIENCY NORMAL (NORMAL); POLYCHROMASIA SLIGHT
--- NOTE | 2018-08-19 17:50 | NUR ---
PT POSITIONED FOR COMFORT ALTHOUGH PT SCOOTING TO BOTTOM OF THE BED AND REQUESTING TO "BE LOW" IN THE BED. PT W/O ACUTE DISTRESS NOTED @ THIS TIME.
[2018-08-19 17:51] VITALS: BP 96/58
--- NOTE | 2018-08-19 19:18 | NUR ---
PT AWARE THAT REQUIRE URINALYSIS AND FLUIDS/WATER PROVIDED PT W/O ACUTE DISTRESS NOTED AWAITING ADMISSION,SAFETY PRECAUTIONS INTACT AND CALL LIGHT WITHIN REACH.
--- NOTE | 2018-08-19 19:39 | NUR ---
PT PROVIDED A CAST SHOE AND NO SLING WAS APPLIED.
[2018-08-19 19:44] VITALS: BP 88/50
[2018-08-19 19:53] VITALS: BP 92/60
--- NOTE | 2018-08-19 19:53 | NUR ---
A 57, admitted to , under the services of OMAR Horn DO with a diagnosis of RENAL FAILURE - ACUTE. Chief complaint is COUGH, CONGESTION,AND NOT FEELING WELL X 1 WEEK. Patient arrived via stretcher from ER. Monitor applied. Initial assessment completed. Vital signs taken and recorded. OMAR HORN DO notified of admission to the unit. Orders received. See assessment for past medical history, medications and allergies. Patient and/or family oriented to unit. [facility] visitation policy reviewed. Clothing/patient valuable form completed. YASMEEN CANDELARIA
[2018-08-19 20:30] VITALS: BP 96/60
--- NOTE | 2018-08-19 20:32 | NUR ---
UNABLE TO VERIFY HOME MEDS. PATIENT STATED SISTER DOES HIS PILLS AND SHE WILL COME IN AM WITH THE LIST.
--- NOTE | 2018-08-19 20:38 | NUR ---
FOOT/ANKLE NOTIFIED OF CONSULT FOR DR. ROME. DR. ROME RETURNED CALL . ORDERS RECEIVED.
[2018-08-20] VITALS: BP 105/65
--- NOTE | 2018-08-20 05:29 | NUR ---
DR. GALICIA NOTIFIED OF CRITITCAL BLOOD CULTURE ANAEROBIC FOR G+ COCCI IN PAIRS/CHAINS
[2018-08-20 06:33] LABS: BASO # 0.1 10*3/uL (0.0-0.1); BASO % 0.5 % (0.0-1.0); EOS # 0.1 10*3/uL (0.0-0.4); EOS % 0.7 % (1.0-4.0); HEMATOCRIT 39.9 % (42.0-52.0); HEMOGLOBIN 12.7 g/dl (14.0-18.0); LYMPH # 0.9 10*3/uL (1.3-4.4); LYMPH % 7.1 % (27.0-41.0); MEAN CELL VOLUME 93.7 fl (80.0-94.0); MEAN CORPUSCULAR HGB 29.8 pg (27.0-31.0); MEAN CORPUSCULAR HGB CONC 31.8 g/dl (33.0-37.0); MEAN PLATELET VOLUME 9.8 fl (9.6-12.3); MONO # 1.4 10*3/uL (0.1-1.0); MONO % 11.2 % (3.0-9.0); NEUT # 10.3 10*3/uL (2.3-7.9); NEUT % 80.1 % (47.0-73.0); PLATELET COUNT AUTOMATED 204 10*3/uL (130-400); RED BLOOD COUNT 4.26 10*6/uL (4.50-5.90); RED CELL DISTRI WIDTH 14.2 % (0-14.5); WHITE BLOOD COUNT 12.9 10*3/uL (4.8-10.8)
[2018-08-20 06:47] LABS: ACT PARTIAL THROMBO TIME 31.3 SECONDS (20.8-31.5)
--- NOTE | 2018-08-20 06:52 | NUR ---
ANSWERING SERVICE NOTIFIED OF CONSULT PER ORDER.
[2018-08-20 07:12] LABS: ALBUMIN 1.6 gm/dl (3.1-4.5); CREATININE 2.89 mg/dL (0.70-1.30); FREE T4 1.17 ng/dl (0.76-1.46); PHOSPHOROUS 3.3 mg/dL (2.5-4.9); POTASSIUM 5.2 mmol/L (3.5-5.1); TOTAL PROTEIN 6.3 gm/dL (6.4-8.2)
[2018-08-20 07:18] LABS: THYROID STIM HORMONE (HS) 2.52 uIU/ml (0.358-4.75)
[2018-08-20 08:00] VITALS: BP 102/58
--- NOTE | 2018-08-20 08:00 | NUR ---
NOTIFIED DR COOK THAT PT HAS PACER AND MRI OF RIGHT FOOT IS CONTRAINDICATED. CT OF RIGHT FOOT ORDERED.
--- NOTE | 2018-08-20 08:20 | NUR ---
PT OFF FLOOR FOR US OF RIGHT FOOT
--- NOTE | 2018-08-20 10:38 | NUR ---
Patient refused evaluation this date reporting he was too tired. GLENDY OrtizT
[2018-08-20 10:42] LABS: BILIRUBIN NEGATIVE (NEGATIVE); BLOOD 2+ (NEGATIVE); CLARITY CLOUDY (CLEAR); COLOR YELLOW (YELLOW); GLUCOSE NEGATIVE (NEGATIVE); KETONE NEGATIVE (NEGATIVE); LEUKO ESTERASE NEGATIVE (NEGATIVE); NITRITE NEGATIVE (NEGATIVE); PH 5.5 (5.0-9.0); SPECIFIC GRAVITY >= 1.030 (1.005-1.030)
[2018-08-20 10:54] LABS: BACTERIA 1+
--- NOTE | 2018-08-20 11:00 | NUR ---
First Assistant Manager in to talk to patient. Patient states lives at home with his sister and son. There are 0 steps in the home. Physician: Juan M Wolf Pharmacy: [facility]: has had [facility] in the past but not currently Patient's level of ADLs: MINIMAL ASSIST Patient has working utilities: yes DME: cane, walker Follow-up physician's appointment after d/c: will be made by the hospitalist nurse director upon discharge Does patient want to access PORTAL?: no Discharge plan discussed with patient. He lives at home with his sister and son. He is independent in his ADLs and ambulates with either a walker or a cane. Discussed home health care services and he denies any home needs at this time. When medically stable he will be discharged to home. LEONARDO MCCRACKEN
[2018-08-20 12:00] VITALS: BP 125/64
--- NOTE | 2018-08-20 12:07 | NUR ---
NOTIFIED DR HAIRSTON OF POOR VASCULAR ISSUE WITH PT FOOT AND POSSIBLE TRANSFER PER DR ACE. NO FUTHER ORDERS.
--- NOTE | 2018-08-20 12:20 | NUR ---
FELIPE PEREZ [id number] Please refer to the physician's history and physical for past medical history, comorbid conditions, and allergies. Diagnosis: ACUTE RENAL FAILURE CELLULITIS HYPERGLYCEMIA Minesh Score: 18,AT RISK WOUND DESCRIPTIONS: Location of the wound: right plantar aspect of foot below 2nd toe Thickness: Full Size: 0.3cm x 0.2cm x1.2cm Tunneling: none Undermining: none Sinus Tract: none Presence of Exudate: Purulent Amount: Light Color: Yellow, red Odor: None Periwound Skin Appearance: Cool Wound edges: approximated Pain (associated with wound): none at time of assessment How does patient state this happened? pt stated it started a couple weeks ago. Location of the wound: right 2nd toe Thickness: Partial Size: 1.1cm x 3.0cm x 0.1cm Tunneling: none Undermining: none Sinus Tract: none Presence of Exudate: Serosanguineous Amount: Light Color: Red Odor: None Periwound Skin Appearance: Cool, dusky, Wound edges: approximated Pain (associated with wound): none at time of assessment How does patient state this happened? pt stated it started a couple of weeks ago Surface the patient is resting on: Position Pro SKIN PREVENTION RECOMMENDATION: 1. Pressure redistribution support surface as appropriate 2. Elevate heels 3. Remove boots/TEDS every shift and reapply 4. Head of bed 30 degrees as tolerated 5. Assess nutrition and hydration 6. Manage moisture 7. Avoid the use of containment devices while in bed 8. Use absorptive products on surfaces limit layers of linens on bed 9. Turn and reposition every 1-2 hours in bed and every 1 hour in chair as tolerated 10. Weight shifts every 15 minutes while up in chair 11. Offloading with pillows or device to keep heels elevated off bed 12. Monitor skin at least every shift 13. Inspect under medical devices twice a day WOUND TREATMENT RECOMMENDATIONS: Venous and arterial studies of BLE's. imaging studies to rule out osteo. Cleanse right 2nd toe and right plantar aspect of foot with nss and apply non-adherent dressing daily and prn for soiling. Consult podiatry for possible debridement if studies allow. Vascular consult regarding arterial studies.
--- NOTE | 2018-08-20 13:02 | NUR ---
SPOKE WITH DR COKO REGARDING REBECCA CONSULT. DR COOK STATED THAT HE CALLED DR FERNANDEZ'S CELL PHONE AND OFFICE. AWAITING RETURN PHONE CALL.
--- NOTE | 2018-08-20 13:11 | NUR ---
Spoke with Dr. Andrea damianing arterial studies he stated he is trying to get in touch with his vascular doctor Dr. Ceballos.
--- NOTE | 2018-08-20 13:51 | NUR ---
DRESSING APPLIED TO RIGHT FOOT PER WOUNDS ORDERS. PATIENT TOLERATED WELL.
[2018-08-20 16:00] VITALS: BP 119/56
--- NOTE | 2018-08-20 16:12 | NUR ---
REPORT GIVEN TO ALISSA AT [facility].
--- NOTE | 2018-08-20 16:16 | NUR ---
PT REFUSES DC PHOTOS OF WOUNDS.
--- NOTE | 2018-08-20 16:19 | NUR ---
Occupational therapy evaluation attempted; however, patient is declining secondary to increased fatigue after already being up to bathroom this date. Per patient, he is independent with NWB using a FWW and is to be D/C home later this date. NWB status reviewed with patient as well as adaptive ADL's and home safety with FWW. No further acute OT at this time per patient's request. America Valenzuela OTR/L
--- NOTE | 2018-08-20 16:50 | NUR ---
Discharge instructions reviewed with patient/family. Patient receptive and verbalizes understanding. Follow-up care arranged. Written instructions given to patient/family. PATIENT TAKEN FROM THE FLOOR VIA [facility] TO BE SENT TO [place]. PATIENT DISPLAYS NO SIGNS OR SYMPTOMS OF DISTRESS. KIARRA ALICEA
[2018-09-09] MEDS ORDERED: LAMISIL AT12 GM T (04:05)
[2018-09-09] MEDS ORDERED: MOM30 M1 PO (04:06)
[2018-09-09] MEDS ORDERED: LIPITOR40 MG PO (04:07)
[2018-09-09] MEDS ORDERED: NORCO 5-325 TA1 EACH PO (04:08)
[2018-09-09] MEDS ORDERED: NICODERM CQ1 EAC2 TD (04:08)
[2018-09-09] MEDS ORDERED: TRAMADOL HCL50 MG PO (04:09)
[2018-09-09] MEDS ORDERED: NOVOLOG FL100 UNIT/1 SQ (04:10)
[2018-09-09] MEDS ORDERED: ASPIRIN CHEWABL81 MG PO (04:10)
[2018-09-09] MEDS ORDERED: BUSPAR15 MG PO (04:11)
[2018-09-09] MEDS ORDERED: DULCOLAX10 M1 R (04:12)
[2018-09-09] MEDS ORDERED: FLEET ENEMA 13133 ML R (04:13)
[2018-09-09] MEDS ORDERED: LASIX40 MG PO (04:15)
[2018-09-09] MEDS ORDERED: B12,B-12,B 12500 MC1 PO (04:16)
[2018-09-09] MEDS ORDERED: LEVEMIR FL100 UNIT/1 SQ (04:18)
[2018-09-10] MEDS ORDERED: CLINDAMYCI600 MG/51 IV (02:21)
[2018-09-10] MEDS ORDERED: GABAPENTIN600 MG PO (02:29)
[2018-09-10] MEDS ORDERED: NOVOLOG10 ML SQ (02:36)
[2018-09-14] MEDS ORDERED: NITROFURANTOIN100 M8 PO (17:17)
[2018-10-24] MEDS ORDERED: COREG6.25 MG PO (15:41)
[2018-10-24] MEDS ORDERED: VITAMIN D350000 UNIT PO (15:42)
[2018-10-24] MEDS ORDERED: XANAX1 MG PO (15:45)
[2018-10-24] MEDS ORDERED: IRON325 M1 PO (15:49)
[2018-10-24] MEDS ORDERED: VIT D PO (15:56)
[2018-10-24] MEDS ORDERED: BIOFREEZE118 ML T (16:00)
[2018-10-25] MEDS ORDERED: DERMOPLAST PAIN56 GM T (12:45)
[2018-10-25] MEDS ORDERED: FOLGARD TABLET1 EACH PO (12:49)
[2018-10-25] MEDS ORDERED: PAXIL10 MG PO (12:50)
[2018-10-25] MEDS ORDERED: OXYCODONE HCL15 MG PO (12:54)
[2018-10-25] MEDS ORDERED: ZESTRIL2.5 MG PO (12:56)
[2018-10-25] MEDS ORDERED: AMBIEN10 M1 PO (12:57)
[2018-10-25] MEDS ORDERED: GLUCOPHAGE500 M1 PO (13:01)
[2018-10-25] MEDS ORDERED: CRESTOR10 M1 PO (13:03)
[2018-10-25] MEDS ORDERED: POTASSIUM CHLO10 MEQ PO (13:05)
[2018-10-25] MEDS ORDERED: Magnesium Oxid400 MG PO (13:08)
[2018-10-25] MEDS ORDERED: LANTUS SOL100 UNIT/1 SC ×2 (13:09→13:11)
[2018-11-02] MEDS ORDERED: PACERONE200 MG PO (11:35)
[2018-11-02] MEDS ORDERED: VIT D PO (11:35)
[2018-11-02] MEDS ORDERED: METOLAZONE5 MG PO (11:35)
[2018-11-02] MEDS ORDERED: LASIX80 MG PO (11:35)
[2018-11-02] MEDS ORDERED: CALCIUM ACETAT667 MG PO (11:35)
== END 2018-08-20 16:50 | disposition short-term general hospital (02) | DRG 871 ==
LOC: ED 15:36 → 4E 18:50 → EDHOLD 18:50 → 4E 19:38
PROVIDERS: Family Medicine; Nurse Practitioner; ADMIT Internal Medicine
DX: A41.9 Sepsis, unspecified organism (principal); R65.20 Severe sepsis without septic shock; L03.031 Cellulitis of right toe; M86.171 Other acute osteomyelitis, right ankle and foot; E43 Unspecified severe protein-calorie malnutrition; N17.0 Acute kidney failure with tubular necrosis; I50.42 Chronic combined systolic (congestive) and diastolic (congestive) heart failure; E87.1 Hypo-osmolality and hyponatremia; S92.901A Unspecified fracture of right foot, initial encounter for closed fracture; E11.69 Type 2 diabetes mellitus with other specified complication; E11.65 Type 2 diabetes mellitus with hyperglycemia; E11.40 Type 2 diabetes mellitus with diabetic neuropathy, unspecified; E11.42 Type 2 diabetes mellitus with diabetic polyneuropathy; E11.51 Type 2 diabetes mellitus with diabetic peripheral angiopathy without gangrene; I11.0 Hypertensive heart disease with heart failure; I25.10 Atherosclerotic heart disease of native coronary artery without angina pectoris; E78.5 Hyperlipidemia, unspecified; I25.5 Ischemic cardiomyopathy; E66.9 Obesity, unspecified; E87.5 Hyperkalemia; I73.9 Peripheral vascular disease, unspecified; E55.9 Vitamin D deficiency, unspecified; E66.01 Morbid (severe) obesity due to excess calories; D64.9 Anemia, unspecified; X58.XXXA Exposure to other specified factors, initial encounter; Z68.39 Body mass index [BMI] 39.0-39.9, adult; I25.2 Old myocardial infarction; Z95.0 Presence of cardiac pacemaker; Z89.429 Acquired absence of other toe(s), unspecified side; Z83.3 Family history of diabetes mellitus; Z82.49 Family history of ischemic heart disease and other diseases of the circulatory system; Z88.9 Allergy status to unspecified drugs, medicaments and biological substances; Y93.89 Activity, other specified; Y92.89 Other specified places as the place of occurrence of the external cause; Y99.8 Other external cause status; Z79.4 Long term (current) use of insulin

== ENCOUNTER → 2018-12-14 | Outpatient (CLI) | payer MEDICARE ==
[~2018-12-14] MED LIST changes: +AMBIEN10 M1 PO; +ASPIRIN CHEWABL81 MG PO; +B12,B-12,B 12500 MC1 PO; +BIOFREEZE118 ML T; +BUSPAR15 MG PO; +CALCIUM ACETAT667 MG PO; +CEFTRIAXON2 GM/50 ML IV; +CEFTRIAXONE2 GM IV; +CLARITIN10 MG PO; +CLINDAMYCI600 MG/51 IV; +COREG6.25 MG PO; +CRESTOR10 M1 PO; +CYMBALTA60 MG PO; +DERMOPLAST PAIN56 GM T; +DULCOLAX10 M1 R; +FLEET ENEMA 13133 ML R; +FOLGARD TABLET1 EACH PO; +GLUCOPHAGE500 M1 PO; +IRON325 M1 PO; +LAMISIL AT12 GM T; +LASIX40 MG PO; +LASIX80 MG PO; +LEVEMIR FL100 UNIT/1 SQ; +MOM30 M1 PO; +NEURONTIN300 MG PO; +NICODERM CQ1 EAC2 TD; +NITROFURANTOIN100 M8 PO; +NORCO 5-325 TA1 EACH PO; +NOVOLOG FL100 UNIT/1 SQ; +NOVOLOG10 ML SQ; +OZEMPIC0.25 MG/01 SQ; +PACERONE200 MG PO; +PAXIL10 MG PO; +POTASSIUM CHLO10 MEQ PO; +THEREMS-M1 EACH PO; +TRAMADOL HCL50 MG PO; +TRAZODONE50 MG PO; +ULTRAM50 MG PO; +VIT D PO; +VITAMIN C500 M8 PO; +VITAMIN D350000 UNIT PO; +XANAX1 MG PO; +XARELTO10 MG PO; +ZESTRIL2.5 MG PO
--- NOTE | ~2018-12-14 | EKG ---
[place], [place] ELECTROCARDIOGRAM REPORT NAME: FELIPE PEREZ UNIT #: [id number] ROOM: DOCTOR: EPIPHANY DRAFT REPORT BIRTHDATE: [birth year] [facility] Test Date: 2018-12-14 Test Time: 13:01:42 Pat Name: FELIPE PEREZ Department: OPF Room: Gender: General Intern: 16 : 1960 Requested By: MARILYNN SHAH Order Number: [id number] Reading MD: Harley Ceballos MD Measurements Intervals [place] Rate: 66 P: -72 ND: 224 QRS: -90 QRSD: 218 T: 89 QT: 589 QTc: 618 Interpretive Statements Sinus or ectopic atrial rhythm Prolonged ND interval RBBB and LAFB Baseline wander in lead(s) V2 Compared to ECG 10/24/2018 19:26:26 Ectopic atrial rhythm now present Left anterior fascicular block now present Sinus rhythm no longer present Myocardial infarct finding no longer present Electronically Signed On 12-15-2018 15:29:30 PDT by Harley Ceballos MD CM:EKGRPT:ELECTROCARDIOGRAM REPORT 1301 1529 MARILYNN [facility] D[facility]FT REPORT MARILYNN SHAH MD
[2018-12-14 13:02] LABS: BASO # 0.1 10*3/uL (0.0-0.1); BASO % 0.8 % (0.0-1.0); EOS # 0.2 10*3/uL (0.0-0.4); EOS % 2.4 % (1.0-4.0); HEMATOCRIT 47.9 % (42.0-52.0); HEMOGLOBIN 16.6 g/dl (14.0-18.0); LYMPH # 1.5 10*3/uL (1.3-4.4); LYMPH % 15.5 % (27.0-41.0); MEAN CELL VOLUME 84.9 fl (80.0-94.0); MEAN CORPUSCULAR HGB 29.4 pg (27.0-31.0); MEAN CORPUSCULAR HGB CONC 34.7 g/dl (33.0-37.0); MEAN PLATELET VOLUME 9.4 fl (9.6-12.3); MONO # 0.8 10*3/uL (0.1-1.0); MONO % 8.1 % (3.0-9.0); NEUT # 7.2 10*3/uL (2.3-7.9); NEUT % 72.9 % (47.0-73.0); PLATELET COUNT AUTOMATED 245 10*3/uL (130-400); RED BLOOD COUNT 5.64 10*6/uL (4.50-5.90); RED CELL DISTRI WIDTH 13.7 % (0-14.5); WHITE BLOOD COUNT 9.9 10*3/uL (4.8-10.8)
[2018-12-14 13:24] LABS: CREATININE 3.6 mg/dL (0.70-1.30); POTASSIUM 3.1 mmol/L (3.5-5.1)
== END | disposition home or self-care (01) ==
LOC: LAB 11:48
PROVIDERS: Internal Medicine Clinical Cardiac Electrophysiology
DX: Z01.811 Encounter for preprocedural respiratory examination (principal); I25.5 Ischemic cardiomyopathy; R05 Cough; F17.200 Nicotine dependence, unspecified, uncomplicated; I50.9 Heart failure, unspecified; I48.91 Unspecified atrial fibrillation; R94.31 Abnormal electrocardiogram [ECG] [EKG]; Z95.5 Presence of coronary angioplasty implant and graft

== ENCOUNTER 2019-03-28 12:24 | Inpatient (IN) | payer MEDICARE ==
[~2019-03-28] VITALS: Ht 178 cm; Wt 113.0 kg
--- NOTE | ~2019-03-28 | WRIGHTHP ---
[place], [place] PATIENT HISTORY AND PHYSICAL EXAM NAME: [id number] UNIT #: [id number] ROOM: 422 DOCTOR: WALDEMAR ROME DPM BIRTHDATE: [birth year] DOS: LOWER EXTREMITY PHYSICAL EXAMINATION: VASCULAR: He has significant peripheral edema of the left lower extremity, it is pitting edema 3/5, left. He has good cap fill time and barely palpable pulses by checking due to amount of edema, but he has had noninvasive vascular studies demonstrate he has adequate perfusion to the left lower extremity. NEUROLOGICAL: He has complete loss of protective sensation secondary to diabetic peripheral neuropathy. DERMATOLOGIC: He has dried eschar gangrenous tissue of the fifth metatarsal head laterally that measures 2.0 x 2.0 and it is full thickness in nature. There is surrounding cellulitis with the area of the left foot. MUSCULOSKELETAL: He has a tight posterior muscle group noted. ORTHOPEDIC EXAM: Consistent with osteomyelitis of fifth metatarsal, left. WALDEMAR ROME DPM CM:HISPHYS:PATIENT HISTORY AND PHYSICAL EXAMINATION 0956 1030 WALDEMAR ROME DPM 03/30/19 1234 interface
--- NOTE | ~2019-03-28 | WRIGHTHP ---
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 He has a red, hot, swollen foot that has a necrotic area of his left fifth metatarsal area. He has a wound that measures 2.0 x 2.0 and it is full thickness in nature with a dark eschar gangrenous tissue. He is set up for surgery. He understands the pros, cons, risks, benefits overcorrection, undercorrection, recurrence, numbness, infection, worsening of it, limb loss, , DVT, PE, etc. He understands anything can happen, nothing should happen. With this in mind, he signed consent and agreed to site marking and agreed to perioperative management. WALDEMAR ROME DPM CM:HISPHYS:PATIENT HISTORY AND PHYSICAL EXAMINATION 0956 1029 WALDEMAR ROME DPM 03/30/19 1231 interface
--- NOTE | ~2019-03-28 | O ---
[place], [place] OPERATIVE NOTE NAME: [facility]: [id number] UNIT #: [id number] ROOM: 422 DOCTOR: WALDEMAR ROME DPM BIRTHDATE: [birth year] DOS: SURGEON: Waldemar Rome DPM COPY ROOM TECHNICIAN: 1. Dr. Obey Butcher (fellow). 2. Gab Briggs, PGY3. PREOPERATIVE DIAGNOSIS: Osteomyelitis, fifth metatarsal, left. POSTOPERATIVE DIAGNOSIS: Osteomyelitis, fifth metatarsal, left. PROCEDURE: 1. Incision and drainage, bone debridement, bone biopsies of the left fifth metatarsal. 2. Insertion of antibiotic cement. 3. Complex closure of the wound. DESCRIPTION OF PROCEDURE: The patient was seen in preoperative area, appropriate site marking was performed. He agreed with that. He was brought into OR, placed well-padded OR table where anesthesia was achieved. Once the anesthesia was achieved, his left leg was prepped and draped in sterile fashion. At this point in time, full thickness semielliptical incisions were made in 3:1 fashion around the wound down bone to healthy tissue. This ellipse and the soft tissues were sent for biopsy as well as Gram stain, aerobic, anaerobic, fungal, acid fast of the fifth metatarsal soft tissues. This soft tissue was debrided extensively to bone. At this time, the most proximal portion of bone where bone appeared to be very healthy clinically, the bone was resected using an oscillating saw, resecting the fifth metatarsal head. This bone was then sent for Gram stain, aerobic, anaerobic, fungal, acid fast as well as biopsy and the base of the fifth toe was also debrided as well. The area was irrigated with copious amounts of sterile saline. PROCEDURE #2: INSERTION OF ANTIBIOTIC CEMENT: At this time, a cerement was mixed and 1 gram of vancomycin was mixed within this. At this time, cerement was inserted to fill the void of the fifth metatarsal and ____ K-wire was inserted from the tip of the fifth toe to the base of the fifth metatarsal for stability and to prevent contracture. At this time, it was determined ____ occupying the space. The area was then noted to be closed. PROCEDURE #3: COMPLEX CLOSURE: At this time, a 3:1 incision was mobilized to the midline. The superior and inferior aspects were undermined it and this was able to be closed using 2-0 nylon to complete closure of the fifth metatarsal. Surgical wounds were dressed with Betadine-soaked Adaptic, 4 x 4s, Jovan in a cerclage fashion. He tolerated procedures well and left the OR with vital signs stable and vascular status intact. [place], [place] OPERATIVE NOTE NAME: FELIPE PEREZ UNIT #: [id number] ROOM: 422 DOCTOR: WALDEMAR ROME DPM BIRTHDATE: [birth year] WALDEMAR ROME DPM CM:OPRECORD:OPERATIVE NOTE [id number] WALDEMAR ROME DPM 03/30/19 1409 interface
--- NOTE | ~2019-03-28 | CON ---
[place], [place] REPORT OF CONSULTATION NAME: FELIPE PEREZ UNIT #: [id number] ROOM: 422 DOCTOR: HOLLY LOZANOLOREN Juan BIRTHDATE: [birth year] DOS: 03/31/2019 NEPHROLOGY CONSULTATION REASON FOR CONSULTATION: Acute kidney injury. REQUESTING PHYSICIAN: Dr. Boogie. HISTORY OF PRESENT ILLNESS: The patient is a 58-year-old gentleman previously seen by Nephrology, Dr. Velez, for chronic kidney disease and history of past MARITO episodes as well as diabetes, hypertension with resulting near-nephrotic range proteinuria. He has undergone a serologic workup earlier this year by Dr. Velez, which was negative. He does also have heart failure with decreased ejection fraction. He also has had peripheral arterial disease with diabetic ulcerations, cellulitis, septic arthritis of the right toe with MSSA bacteremia. He also had an AICD at that time, which had to be removed. He completed 6 weeks of cefazolin, which was renally adjusted at that time and then in the spring again was treated for his left toe cellulitis, and now, his left toe continues to be an issue. ID has been consulted. He has been started on vancomycin and Zosyn, and for now, these have been continued and he will likely need another 6 weeks of antibiotics and a plan for PICC line has been undertaken by Infectious Disease. His diabetes is poorly controlled with an A1c, around 10. He also presented with [id number] hypotension with systolics in the 80s as well as a T-max of 102.3 on 03/30/2019. His T-max in the last 24 hours was 100.1. He did receive ibuprofen yesterday 600 mg. He has not received any other diuretics. He is on normal saline, rate of 80 mL an hour after a couple of one-time boluses of about 1500 so far. No further NSAIDs have been ordered of stat dose yesterday. He is on low-dose carvedilol. He has requested a change in physician services, according to Dr. Velez. His creatinine was 2.92 today, up from 1.8 at the time of admission. White count is slightly trending downwards from the 17,000 range to 12,000 today. Cultures of the wound are pending with gram-positive cocci. Blood cultures so far negative to date from yesterday and the . REVIEW OF SYSTEMS: As per the HPI, otherwise all systems reviewed and negative. PAST MEDICAL HISTORY: Significant for the above as well as prior amputation, tobacco abuse, depression, insomnia. SOCIAL HISTORY: Active smoker of a pack to 2 packs per day. No reported illicit drug use, was residing at home to go to the long-term now. HOME MEDICATIONS: Reviewed. PHYSICAL EXAMINATION: CURRENT VITAL SIGNS: 98.6, 76, 18, 86/61, 95%. GENERAL: He is awake, alert, without acute distress, lying comfortably in bed. He appears slightly older than his stated age. No acute dyspnea, lying flat in bed. HEENT: Extraocular muscles are intact. Sclerae are anicteric. No JVD was [place], [place] REPORT OF CONSULTATION NAME: FELIPE PEREZ UNIT #: [id number] ROOM: 422 DOCTOR: LOREN BARRERA MD BIRTHDATE: [birth year] appreciated. NECK: No bruits. CARDIOVASCULAR: Distant heart sounds. No audible rubs or gallop. LUNGS No audible wheeze, fair breath sounds, slightly decreased at the bases bilaterally. Normal expansion bilaterally. ABDOMEN: Obese, soft, nontender without rebound or guarding. No flank tenderness, no suprapubic tenderness. EXTREMITIES: Without cyanosis, clubbing or edema. NEUROLOGIC: Gross motor function is intact. Sensation is decreased at the feet. PSYCHIATRIC: Mood and affect appear intact. Memory, remote is intact, recent intact. LABORATORY DATA AND DIAGNOSTIC DATA: Most recent are as follows, CK 38. White blood cell count 12.7, hemoglobin 9.1, platelets 253. Sodium 136, potassium 3.9, chloride 105, bicarbonate 24, BUN 42, creatinine 2.92, glucose 119, calcium 8.2. IMAGING: Reviewed with lower extremity ultrasound showing diffuse calcific atherosclerotic disease of the arterial system. No venous thrombi of the venous system. A foot x-ray showed soft tissue defects and ulcerations, possible some edema, possible neuropathic joint injuries as well. ASSESSMENT AND PLAN: Acute kidney injury on chronic kidney disease, stage 3, baseline creatinine has been as low as the low to mid 1s. Most recent values in the normal were in October; however, since then, most of the values have been in the low 2s with some peak elevations around 3.60 in December of this year. Just earlier this admission, he was down to 1.8, which is near to his motor more recent baseline. During his September hospitalization, his peak creatinine was 2.97. ANCA, GBM, complements, JOSE, SPEP and immunofixation were all checked and negative for any acute antibodies at that time. He has not had recent urinalysis done during this admission. This has been ordered by Dr. Velez and I discussed the case with Dr. Velez as well. I suspect the acute kidney injury is related to hypoperfusion on a baseline of vascular disease secondary to diabetes, hypertension and nephrosclerosis exacerbated also by tobacco abuse. Diuretics should be continued to be held. Avoid further use of any NSAIDs like what was given yesterday. At this point, close monitoring of vancomycin levels will also need to be done, especially given the fluctuating renal function. No acute indication for dialysis at this time, though with proteinuria, progression of chronic kidney disease is unfortunately higher likelihood. His electrolytes and acid base status were acceptable at this point. Continue normal saline at a rate of 80 mL an hour. Continue further workup per the ID and Podiatry services of the lower extremity ulcerations and possible osteomyelitis. Heart failure is currently well compensated. There is history of hypertension, now currently hypotension. Coreg may need to be held temporarily with resumption to lower dose, perhaps. Anemia is noted, maybe, secondary at least somewhat to hemodilution. Continue to follow for any acute blood loss postoperatively. Thank you very much for the kind consultation. We will continue to follow with you. [place], [place] REPORT OF CONSULTATION NAME: FELIPE PEREZ UNIT #: [id number] ROOM: 422 DOCTOR: LOREN BARRERA MD BIRTHDATE: [birth year] LOREN BARRERA MD CM:CONSTR:REPORT OF CONSULTATION 1223 04/01/19 0000 interface
--- NOTE | ~2019-03-28 | CON ---
[place], [place] REPORT OF CONSULTATION NAME: FELIPE PEREZ UNIT #: [id number] ROOM: 422 DOCTOR: CAMERON MONZON MD BIRTHDATE: [birth year] DOS: 03/29/2019 REASON FOR CONSULTATION: Left foot ulcer, osteomyelitis. CHIEF COMPLAINT: Left foot swelling and redness. HISTORY OF PRESENT ILLNESS: This is a 58-year-old male known to Infectious Disease service from his past admissions. He is presenting with chief complaint of 1-week swelling and redness over his forefoot and the leg. It was actually his friend who noticed the redness and swelling and asked him to go to the ER. He has not been following up with any doctors. He was seen back in 08/2018 for his right toe septic arthritis causing MSSA bacteremia for which he underwent AICD removal at [facility] in [place] in 09/2018. Subsequently, he completed cefazolin for 6 weeks, renally adjusted. He had again another admission in 10/2018 to [facility] where he was getting treated with Keflex for his left toe cellulitis. He was treated for his left great toe ulcer with Keflex and completed his course of antibiotics. At this time, he is presenting with the ulcer on his foot and has been started on vancomycin and Zosyn by the primary team. ID has been consulted for further management. He does endorse to having shaking chills at home. Currently, he has some low-grade fevers. WBC count of 17.4 on admission, ESR of 30. Hemoglobin A1c 9.9. CRP of 15.3. Blood cultures from yesterday 03/28/2019, negative so far. Imaging of the foot x-ray done of the left foot shows diffuse soft tissue swelling, radiolucencies partially visualized at the base of the distal phalanx great toe and the base of the proximal phalanx of the fifth toe with ____ neuropathic injury. PAST MEDICAL HISTORY: Significant for diabetes type 2, uncontrolled; peripheral neuropathy; MSSA bacteremia infection; right great toe septic arthritis, status post amputation; peripheral vascular disease; anxiety; depression; CHF; chronic kidney disease; smoker. PAST SURGICAL HISTORY: Status post defibrillator placement in November, status post angioplasty with stent placement. Other surgeries mentioned above. SOCIAL HISTORY: Active smoker, nonalcoholic, no illicit drug use. HOME MEDICATIONS: Reviewed. REVIEW OF SYSTEMS: A 12-point review of systems has been done. Pertinent negative positive included in HPI, rest are noncontributory. PHYSICAL EXAMINATION: VITAL SIGNS: Temperature 98.0, pulse rate 85, blood pressure 102/64, oxygen saturation 92% on room air. HEENT: Atraumatic, normocephalic. PERRLA, EOMI. RESPIRATORY: Air entry bilaterally equal. No wheeze or crackles. CARDIOVASCULAR: S1, S2 normal, no murmurs, rubs or gallop. ABDOMEN: Soft, nontender, nondistended. Bowel sounds present. EXTREMITIES: Left foot examination, forefoot swelling and redness noted. On [place], [place] REPORT OF CONSULTATION NAME: FELIPE PEREZ UNIT #: [id number] ROOM: [facility] DOCTOR: CAMERON MONZON MD BIRTHDATE: [birth year] the lateral aspect of the fifth toe, there is a circular necrotic ulcer with foul smell, probes deep with minimal drainage. No sensations over the foot. LABORATORY DATA AND IMAGING: Reviewed, mentioned in HPI. ASSESSMENT: 1. Left foot diabetic ulcer with concern for osteomyelitis. 2. Sepsis from above. 3. Uncontrolled diabetes. 4. History of right great toe septic arthritis with methicillin-susceptible Staphylococcus aureus bacteremia, status post amputation, treated with 6 weeks of IV antibiotics ending on 10/14/2018. 5. Noncompliance. PLAN: At this time, the patient has been started on vancomycin, Zosyn because of his fevers, high CRP and ESR. Plan is to take him to surgery for a bone biopsy and based on his results of the bone biopsy, we will guide his further therapy. If it is positive for osteomyelitis, needs 6 weeks of IV antibiotics. Thank you for your consult. Please call for any questions. Cameron Monzon MD CM:CONSTR:REPORT OF CONSULTATION 1417 03/30/19 0403 interface
[~2019-03-28 12:24] MED LIST changes: -CEFTRIAXON2 GM/50 ML IV; -CEFTRIAXONE2 GM IV; -CLARITIN10 MG PO; -CYMBALTA60 MG PO; -NEURONTIN300 MG PO; -OZEMPIC0.25 MG/01 SQ; -THEREMS-M1 EACH PO; -TRAZODONE50 MG PO; -ULTRAM50 MG PO; -VITAMIN C500 M8 PO; -XARELTO10 MG PO
[2019-03-28 12:26] VITALS: BP 138/86
[2019-03-28 13:01] LABS: HEMATOCRIT 40.5 % (42.0-52.0); MEAN CELL VOLUME 98.1 fl (80.0-94.0); MEAN CORPUSCULAR HGB 31.5 pg (27.0-31.0); MEAN CORPUSCULAR HGB CONC 32.1 g/dl (33.0-37.0); MEAN PLATELET VOLUME 9.1 fl (9.6-12.3); PLATELET COUNT AUTOMATED 300 10*3/uL (130-400); RED BLOOD COUNT 4.13 10*6/uL (4.50-5.90); RED CELL DISTRI WIDTH 16.2 % (0-14.5); WHITE BLOOD COUNT 17.4 10*3/uL (4.8-10.8)
[2019-03-28 13:16] LABS: ALBUMIN 2.6 gm/dl (3.1-4.5); CREATININE 1.81 mg/dL (0.70-1.30); POTASSIUM 4.2 mmol/L (3.5-5.1); TOTAL PROTEIN 7.4 gm/dL (6.4-8.2)
[2019-03-28 13:22] LABS: BASOPHILS 1 % (0-1); PLATELET SUFFICIENCY NORMAL (NORMAL); TOTAL CELLS COUNTED 100 #CELLS
--- NOTE | 2019-03-28 15:00 | NUR ---
Time: 1499 A 58 year old MALE admitted to 4E under services of SARAH DAVILA DO. Pt. arrived via bed from ER. Chief complaint: LEFT FOOT ROOM. KATIE PATRICIO
--- NOTE | 2019-03-28 15:53 | NUR ---
DR. WEISS AWARE OF WOUND CARE ORDERS NEEDING ENTERED.
[2019-03-28 16:00] VITALS: BP 123/75
--- NOTE | 2019-03-28 18:59 | NUR ---
PODIATRY RESIDENT NOTIFIED OF CONSULT.
--- NOTE | 2019-03-28 19:04 | NUR ---
INFECTIOUS DISEASE NOTIFIED OF CONSULT.
[2019-03-28 20:00] VITALS: BP 110/53
--- NOTE | 2019-03-28 20:47 | NUR ---
SPOKE WITH DR. SCHOFIELD AT THIS TIME. NOTIFIED HIM THAT PATIENT HAS ALREADY RECIEVED A 1 LITER BOLUS, BUT PATIENT IS A CARDIAC PATIENT TAKING 80MG OF LASIX BID. HE STATED THAT IT WAS OK TO NOT GIVE THE 2ND LITER OF 125ML/HR SALINE.
--- NOTE | 2019-03-28 20:48 | NUR ---
ALSO NOTIFIED DR. SCHOFIELD THAT PATIENTS MEDICATIONS ARE CORRECT, BUT HAVE NOT BEEN CONTINUED YET
--- NOTE | 2019-03-28 23:00 | NUR ---
AT THIS TIME NOTIFIED DR. SCHOFIELD OF MEDICATIONS THAT PATIENT IS REQUESTING HIS HOME NEUROTIN AND AMBIEN.
[2019-03-29] VITALS: BP 112/68
--- NOTE | 2019-03-29 05:28 | NUR ---
PRN TYLENOL GIVEN FOR LOW GRADE FEVER OF 100. CALL LIGHT WITHIN REACH, WILL MONITOR
[2019-03-29 06:42] LABS: HEMATOCRIT 34.4 % (42.0-52.0); HEMOGLOBIN 11.1 g/dl (14.0-18.0); MEAN CELL VOLUME 96.9 fl (80.0-94.0); MEAN CORPUSCULAR HGB 31.3 pg (27.0-31.0); MEAN CORPUSCULAR HGB CONC 32.3 g/dl (33.0-37.0); MEAN PLATELET VOLUME 9.5 fl (9.6-12.3); PLATELET COUNT AUTOMATED 277 10*3/uL (130-400); RED BLOOD COUNT 3.55 10*6/uL (4.50-5.90); RED CELL DISTRI WIDTH 15.9 % (0-14.5); WHITE BLOOD COUNT 16.4 10*3/uL (4.8-10.8)
[2019-03-29 06:58] LABS: ALBUMIN 2.1 gm/dl (3.1-4.5); CREATININE 1.8 mg/dL (0.70-1.30); PHOSPHOROUS 2.7 mg/dL (2.5-4.9); POTASSIUM 4.1 mmol/L (3.5-5.1); TOTAL PROTEIN 6.4 gm/dL (6.4-8.2)
[2019-03-29 07:03] LABS: THYROID STIM HORMONE (HS) 7.52 uIU/ml (0.358-4.75)
[2019-03-29 07:35] LABS: PLATELET SUFFICIENCY NORMAL (NORMAL); TOTAL CELLS COUNTED 100 #CELLS
[2019-03-29 08:00] VITALS: BP 109/55
[2019-03-29 08:58] LABS: VITAMIN D, 25-HYDROXY 24.8 ng/mL (30-100)
--- NOTE | 2019-03-29 09:00 | NUR ---
Cooler Man in to talk to patient. Patient states lives at home with family There are few steps in the home. Physician: linden brown Pharmacy: [facility] Home health services: none Patient's level of ADLs: MINIMAL ASSIST Patient has working utilities: all working DME: cane, walker Follow-up physician's appointment after d/c: will be made by [facility] nurse director upon discharge Does patient want to access PORTAL?: no Discharge plan discussed with patient, he states he lives at home with family, he uses a cane or walker for ambulation and is independent in adls. discussed with him possibly needing extended iv antibiotics and dressing changes and possibly a short term chcf, patient was receptive to this if he needed iv and dressing. he stated he would like referred to [facility] or [facility], meeting/event planner will send referrals to both facilities, case management will follow. PORFIRIO IGNACIO
--- NOTE | 2019-03-29 10:53 | NUR ---
Occupational therapy orders receieved and chart review. Patient was unavailable for an OT eval secondary to a patient being at a venous and arterial ultrasound, per nursing. Will follow up this afternoon. Thank you. Radha Deluna, OTR/L
--- NOTE | 2019-03-29 11:04 | NUR ---
PATIENT OFF FLOOR FOR ULTRASOUND. WILL ASSESS WOUNDS AT A LATER TIME.
[2019-03-29 12:00] VITALS: BP 102/64
--- NOTE | 2019-03-29 14:15 | NUR ---
PHYSICAL THERAPY Physical therapy evaluation complete, 4E. Full evaluation/details to follow. Moderate complexity evaluation (82187) per chart review and evaluation. Recommend continued PT services to address transfers, gait, safety, and LE strength per POC. Recommend discharge with home health PT/Nursing vs. SNF, pending medical POC. Thank you. Natasha Hassan,PT,DPT.
--- NOTE | 2019-03-29 14:32 | NUR ---
Occupational therapy evaluation completed in full on floor 4 with full evaluation and POC to follow. Patient precautions include left foot wound, decreased sensation in bilateral lower extremities, fall risk, and wheeled walker use. OTR and POC established this date and rec SNF vs. with PT/OT pending medical plan of care. Patient would benefit from OT treatment to increase ADLs, functional transfers, and mobility. Thank you for the referral. Radha Deluna, OTR/L
[2019-03-29 16:00] VITALS: BP 97/65
[2019-03-29 20:00] VITALS: BP 92/56
--- NOTE | 2019-03-29 23:05 | NUR ---
PATIENT MEDICATED WITH ROXICODONE FOR COMPLAINTS OF SEVERE LEFT FOOT PAIN. RATES 05/12. WILL CHECK EFFECTIVENESS.
[2019-03-30] VITALS (11 sets, daily range): BP systolic 80–106; BP diastolic 50–78
--- NOTE | 2019-03-30 00:17 | NUR ---
NOTIFIED DR. GARCIA OF PATIENT TEMP OF 102.1. NO NEW ORDERS RECEIVED. WILL CONTINUE TO MONITOR.
--- NOTE | 2019-03-30 00:52 | NUR ---
ATTEMPTED TO DO A RECTAL TEMP. PATIENT REFUSING. WILL CONTINUE TO MONITOR.
--- NOTE | 2019-03-30 02:30 | NUR ---
NOTIFIED DR. JOSE NICOLE TEMPERATURE IS NOW 102.3. MOTRIN ORDERED. WILL CHECK EFFECTIVENESS.
--- NOTE | 2019-03-30 04:32 | NUR ---
MOTRIN EFFECTIVE. PATIENT TEMPERATURE IS NOW 99.9 WILL CONTINUE TO MONITOR.
[2019-03-30 06:17] LABS: BASO # 0.1 10*3/uL (0.0-0.1); BASO % 0.4 % (0.0-1.0); EOS # 0.1 10*3/uL (0.0-0.4); EOS % 0.4 % (1.0-4.0); HEMATOCRIT 33.3 % (42.0-52.0); HEMOGLOBIN 10.6 g/dl (14.0-18.0); LYMPH # 1.2 10*3/uL (1.3-4.4); LYMPH % 6.9 % (27.0-41.0); MEAN CELL VOLUME 97.7 fl (80.0-94.0); MEAN CORPUSCULAR HGB 31.1 pg (27.0-31.0); MEAN CORPUSCULAR HGB CONC 31.8 g/dl (33.0-37.0); MEAN PLATELET VOLUME 9.6 fl (9.6-12.3); MONO # 1.4 10*3/uL (0.1-1.0); MONO % 7.7 % (3.0-9.0); NEUT # 14.8 10*3/uL (2.3-7.9); NEUT % 83.5 % (47.0-73.0); PLATELET COUNT AUTOMATED 276 10*3/uL (130-400); RED BLOOD COUNT 3.41 10*6/uL (4.50-5.90); RED CELL DISTRI WIDTH 15.8 % (0-14.5); WHITE BLOOD COUNT 17.7 10*3/uL (4.8-10.8)
[2019-03-30 06:29] LABS: CREATININE 2.43 mg/dL (0.70-1.30)
--- NOTE | 2019-03-30 07:44 | NUR ---
Patient referral faxed to [facility]. They stated they have a male bed and will accept this patient. Requires a 3 night stay and a [place] pass/[place] that will be completed by the facility.
--- NOTE | 2019-03-30 07:59 | NUR ---
IVF INITIATED AT THIS TIME PER ORDER. PT RESTING QUIETLY IN BED. NO DISTRESS NOTED. WILL MONITOR. NPO FOR SCHEDULED PROCEDURE.
--- NOTE | 2019-03-30 08:18 | NUR ---
SURGERY HERE TO TRANSPORT PATIENT FOR SCHEDULED PROCEDURE.
--- NOTE | 2019-03-30 09:00 | NUR ---
case management attempted to visit with patient, he is out of room for procedure, case managment will follow. he has been accepted at [facility], will require a three night stay
--- NOTE | 2019-03-30 09:11 | NUR ---
PATIENT NOT ON FLOOR AT THIS TIME. ANGEL BECERRA NURSE CARING FOR PATIENT STATES PATIENT IS IN SURGERY FOR BONE BIOPSY, DEBRIDEMENT OR POSSIBLE AMPUTATION OF LEFT 5TH TOE. WILL ASSESS AT A LATER TIME.
--- NOTE | 2019-03-30 09:55 | NUR ---
OT NOTE PATIENT OUT FOR PROCEDURE THIS AM. WILL TRY BACK ANOTHER TIME/DATE. ZO YU/Narcisa
--- NOTE | 2019-03-30 10:36 | NUR ---
PATIENT RETURNED TO ROOM.
--- NOTE | 2019-03-30 10:51 | NUR ---
CALLED AT THIS TIME REGARDING BP. PT ASYMPTOMATIC. NEW ORDERS RECEIVED.
--- NOTE | 2019-03-30 10:56 | NUR ---
IV BOLUS INITIATED AT THIS TIME. WILL RECHECK BP IN 1 HOUR. BULKY DRESSING D/I TO LEFT FOOT. WILL CONTINUE TO MONITOR.
--- NOTE | 2019-03-30 13:09 | NUR ---
IN TO SEE PATIENT.
--- NOTE | 2019-03-30 14:21 | NUR ---
OT NOTE PATIENT IN BED SLEEPING UPON ARRIVAL IN PM. WILL TRY BACK LATER TIME/DATE. ZO YU/Narcisa
--- NOTE | 2019-03-30 14:29 | NUR ---
PHYSICAL THERAPY Patient ID by name and this PM upon entering room. Sebastian refused therpay this PM as he was not feeling well after procedure that was completed this AM. Liz Combs, VICE PRESIDENT OF OPERATIONS
--- NOTE | 2019-03-30 19:00 | NUR ---
REPORT RECIEVED FROM MARIAM ORTIZ. PATIENT IS ASLEEP AT THIS TIME. THERE ARE NO S/S OF DISTRESS. PT APPEARS TO BE RESTING COMFORTABLY. RESPS ARE EASY AND NONLABORED. CALL LIGHT IS WITHIN REACH, WILL CONTINUE TO MONITOR.
--- NOTE | 2019-03-30 19:26 | NUR ---
24 HOUR CHART CHECK COMPLETED.
--- NOTE | 2019-03-30 23:35 | NUR ---
CONTACTED DR WEISS REGARDING PT'S BP. ORDERS RECIEVED.
[2019-03-31] VITALS (7 sets, daily range): BP systolic 86–99; BP diastolic 47–69
--- NOTE | 2019-03-31 04:24 | NUR ---
PT MEDICATED WITH TYLENOL FOR LOW GRADE TEMP. WILL MONITOR FOR EFFECTIVENESS.
[2019-03-31 06:20] LABS: BASO # 0.1 10*3/uL (0.0-0.1); BASO % 0.5 % (0.0-1.0); EOS # 0.2 10*3/uL (0.0-0.4); EOS % 1.7 % (1.0-4.0); HEMATOCRIT 29.2 % (42.0-52.0); HEMOGLOBIN 9.1 g/dl (14.0-18.0); LYMPH % 7.7 % (27.0-41.0); MEAN CELL VOLUME 99.7 fl (80.0-94.0); MEAN CORPUSCULAR HGB 31.1 pg (27.0-31.0); MEAN CORPUSCULAR HGB CONC 31.2 g/dl (33.0-37.0); MEAN PLATELET VOLUME 9.6 fl (9.6-12.3); MONO # 1.1 10*3/uL (0.1-1.0); MONO % 8.7 % (3.0-9.0); NEUT # 10.3 10*3/uL (2.3-7.9); NEUT % 80.8 % (47.0-73.0); PLATELET COUNT AUTOMATED 253 10*3/uL (130-400); RED BLOOD COUNT 2.93 10*6/uL (4.50-5.90); RED CELL DISTRI WIDTH 16.1 % (0-14.5); WHITE BLOOD COUNT 12.7 10*3/uL (4.8-10.8)
[2019-03-31 06:28] LABS: CREATININE 2.92 mg/dL (0.70-1.30); POTASSIUM 3.9 mmol/L (3.5-5.1)
--- NOTE | 2019-03-31 08:45 | NUR ---
PHYSICAL THERAPY Per consult with nurse and discussion with supervising Therapist, patient to be on therapy hold this am pending update on patient L LE weight bearing status. Patient also has had several episodes of low BP this morning as informed by nursing. Will continue this pm as able. Cesar Charles, BEREAVEMENT PROGRAM COORDINATOR
--- NOTE | 2019-03-31 09:00 | NUR ---
case management visits with patient, per patient's chart, he will need jail iv antibiotics, he has been accepted at [facility], patient is agreeable to go, social media director will make arrangements when patient is medically stable for discharge
--- NOTE | 2019-03-31 09:02 | NUR ---
PHYSICIAN NOTIFIED THAT PT HAS TEMPERATURE OF 99.0 AND BLODO PRESSURE OF 82/56 MANUALLY. NEW ORDERS RECEIVED TO GIVE 500 ML BOLUS OF 0.9NS AND THEN TO RE EVALUTE BLOOD PRESSURE AFTER FLUIDS ARE GIVEN. WILL UPDATE PHYSICIAN.
--- NOTE | 2019-03-31 09:08 | NUR ---
OT NOTE Attempted to see pt this A.M. for OT session and upon arrival spoke with pt's nurse who reported his blood pressure was low this morning, so would like for therapy to hold at this time until BP rises and to hear back from doctor on pt's weight bearing status. Will check back with pt's nurse and continue with POC as able. GIGI Jiménez/Narcisa
--- NOTE | 2019-03-31 10:32 | NUR ---
NOTIFIED DR SCHOFIELD THAT PT IS REFUSING TO SEE DR LOPEZ FOR NEPHROLOGY.
--- NOTE | 2019-03-31 11:03 | NUR ---
FELIPE PEREZ [id number] Please refer to the physician's history and physical for past medical history, comorbid conditions, and allergies. Diagnosis: DM FOOT ULCER CELLULITIS Minesh Score: 20,LOW OR NO RISK WOUND DESCRIPTIONS: Wound #1 left foot surgical dressing clean dry and intact. No strike through noted at time of assessment. Wound Number: 2 Location of the wound: right posterior (plantar) foot Type of wound: unstageable Thickness: Full Size: 1.5cm x 1.3cm x <0.1cm Tunneling: none Undermining: none Sinus Tract: none Presence of Exudate: none Amount: None Color: Brown, Black Odor: None Periwound Skin Appearance: callus Wound edges: closed Pain (associated with wound): denied at time of assessment How does patient state this happened? patient unsure how this area happened. If wound is on legs/feet or hands, capillary refill time, pulses, color temp, sensation: cap refill >3 seconds. Surface the patient is resting on: Isoflex SKIN PREVENTION RECOMMENDATION: 1. Pressure redistribution support surface as appropriate 2. Elevate heels 3. Remove boots/TEDS every shift and reapply 4. Head of bed 30 degrees as tolerated 5. Assess nutrition and hydration 6. Manage moisture 7. Avoid the use of containment devices while in bed 8. Use absorptive products on surfaces limit layers of linens on bed 9. Turn and reposition every 1-2 hours in bed and every 1 hour in chair as tolerated 10. Weight shifts every 15 minutes while up in chair 11. Offloading with pillows or device to keep heels elevated off bed 12. Monitor skin at least every shift 13. Inspect under medical devices twice a day WOUND TREATMENT RECOMMENDATIONS: Spoke with Liz BECERRA caring for patient regarding orders for left and right foot wounds. Liz BECERRA has a call out to podiatry resident for orders. Dressing change to right plantar foot: Cleanse with nss apply sureprep allow to dry and cover with optifoam gentle.
--- NOTE | 2019-03-31 11:05 | NUR ---
CONSENT OBTAINED FOR PICC LINE. SURGERY AWARE.
--- NOTE | 2019-03-31 11:45 | NUR ---
SPOKE WITH PODIATRY REGARDING PT WOUNDS AND WEIGHT BEARING STATUS. BRAND DESIGNER STATES THAT ORDER FOR BACTROBAN AND 4X4S CAN BE DISCONTINUED, ORDER WAS MEANT FOR LEFT FOOT AND LEFT SURGERY WAS PERFORMED YESTERDAY. BRAND DESIGNER QUESTIONED TO WHETHER HE WANTS TO PUT ORDERS IN FOR UNSTAGABLE WOUND TO RIGHT FOOT. BRAND DESIGNER STATES THAT HE DOES NOT WANT TO PUT ORDERS IN, PT HAS A CALLUS AND NOT A WOUND ON RIGHT FOOT. WOUND CARE NURSE NOTIFIED OF THIS. BRAND DESIGNER STATES THAT PT IS TO USE A FRACTURE BOOT TO LEFT FOOT WHEN AMBULATING AND THAT WEIGHT CAN BE BEARED ON TO HEEL. PHYSICAL THERAPY NOTIFIED. WILL NOTIFY PT OF CHANGES.
--- NOTE | 2019-03-31 12:00 | NUR ---
SPOKE WITH DR BRARERA REGARDING CONSULT. ORDERS RECEIVED TO HOLD DIURETICS, DO NOT GIVE IBUPROFEN, AND TO KEEP FLUIDS RUNNING AT 80CC/HOUR THEY ARE CURRENTLY ORDERED. WILL NOTIFY HOSPITALIST.
[2019-03-31 12:06] LABS: ACID FAST SPEC PROCESSING Tissue Grinding (.)
[2019-03-31 12:06] LABS: ACID FAST SPEC PROCESSING Tissue Grinding (.)
--- NOTE | 2019-03-31 13:00 | NUR ---
SPOKE WITH PODIATRY REGARDING PT WEIGHT BEARING STATUS TO LEFT FOOT. ORDERS RECEIVED FOR 50% WEIGHT BEARING TO LEFT HEEL ONLY WHILE WEARING BOOT. BOOT TO BE WORN ONLY WHEN PT IS OOB. WILL NOTIFY PATIENT AND PHYSICAL THERAPY.
--- NOTE | 2019-03-31 13:06 | NUR ---
DRUG REGULATORY AFFAIRS SPECIALIST faxed updates to [facility]. -ELOISE Goel
--- NOTE | 2019-03-31 13:10 | NUR ---
PHYSICAL THERAPY Patient was out of his room this pm for medical procedure and unavailable for treatment at this time. Will continue per POC as able. Cesar Charles, METER REPAIR SHOP SUPERVISOR
--- NOTE | 2019-03-31 13:22 | NUR ---
OT NOTE Attempted to see pt this P.M. for OT session and upon arrival pt was out of the room for surgery. Will check back at a later time/date and continue with POC as able. GIGI Jiménez/Narcisa
--- NOTE | 2019-03-31 14:45 | NUR ---
PT GIVEN TYLENOL FOR C/O BACK PAIN. WILL MONITOR FOR EFFECTIVENESS. CALL LIGHT IN REACH.
--- NOTE | 2019-03-31 15:14 | NUR ---
OCCUPATIONAL THERAPY CO-SIGN I approve of the Occupational Therapy notes written above. GUS CONTRERAS OTR/Narcisa
--- NOTE | 2019-03-31 16:20 | NUR ---
SPOKE WITH DR ARNAV LOUIS TO PT'S AM CHEST XRAY. DR BARRERA WANTED CURRENT BAG OF FLUIDS TO INFUSE THEN DC FROM THERE.
--- NOTE | 2019-03-31 19:44 | NUR ---
24 HR CHART CHECK COMPLETE.
--- NOTE | 2019-03-31 20:16 | NUR ---
RESIDENT NOTIFIED OF CRITICAL VANC TROUGH OF 30.8
[2019-04-01] VITALS: BP 94/46
[2019-04-01 03:33] LABS: BILIRUBIN 1+ (NEGATIVE); BLOOD TRACE-INTACT (NEGATIVE); CLARITY CLEAR (CLEAR); COLOR YELLOW (YELLOW); GLUCOSE NEGATIVE (NEGATIVE); KETONE NEGATIVE (NEGATIVE); LEUKO ESTERASE NEGATIVE (NEGATIVE); NITRITE NEGATIVE (NEGATIVE); PH 5.5 (5.0-9.0); SPECIFIC GRAVITY >= 1.030 (1.005-1.030)
[2019-04-01 03:41] LABS: URINE CHLORIDE, RANDOM < 10 mmol/L
[2019-04-01 03:44] LABS: BACTERIA 2+; EPITHELIAL CELLS 0-2; RBC 0-2 rbc/hpf (0-2)
[2019-04-01 06:57] LABS: BASO # 0.1 10*3/uL (0.0-0.1); BASO % 0.6 % (0.0-1.0); EOS # 0.3 10*3/uL (0.0-0.4); EOS % 2.7 % (1.0-4.0); HEMATOCRIT 32.3 % (42.0-52.0); LYMPH # 0.9 10*3/uL (1.3-4.4); LYMPH % 7.8 % (27.0-41.0); MEAN PLATELET VOLUME 9.7 fl (9.6-12.3); MONO # 1.1 10*3/uL (0.1-1.0); MONO % 9.6 % (3.0-9.0); NEUT # 8.6 10*3/uL (2.3-7.9); NEUT % 78.7 % (47.0-73.0); PLATELET COUNT AUTOMATED 319 10*3/uL (130-400); RED BLOOD COUNT 3.23 10*6/uL (4.50-5.90); RED CELL DISTRI WIDTH 16.1 % (0-14.5); WHITE BLOOD COUNT 10.9 10*3/uL (4.8-10.8)
[2019-04-01 07:12] LABS: CREATININE 2.98 mg/dL (0.70-1.30); POTASSIUM 4.2 mmol/L (3.5-5.1)
[2019-04-01 08:00] VITALS: BP 91/66
--- NOTE | 2019-04-01 08:30 | NUR ---
ASSESSMENT COMPLETE ON PT AT THIS TIME. PT LYING IN BED, SLEEPING. EASILY AROUSED. NO S/S OF DISTRESS. NO COMPLAINTS VOICED. PT STATES THAT HE HAS NOT HAD A BOWEL MOVEMENT IN FOUR DAYS BUT DENIES WANTING A LAXATIVE. PT HAS NORMOACTIVE BOWEL SOUNDS AND IS PASSING FLATUS AT THIS TIME. PT STATES THAT HE SOMETIMES GOES 4-5 DAYS WITH NO BOWEL MOVEMENT. WILL CONTINUE TO MONITOR. CALL LIGHT IN REACH.
--- NOTE | 2019-04-01 08:53 | NUR ---
OT NOTE Attempted to see pt this A.M. for OT session and upon arrival pt was supine in bed. Pt is 50% weight bearing with cam boot in place, pt still does not have a cam boot yet. Offered to complete other tasks while waiting for cam boot and pt declined stating "I tried sitting up earlier and I became light headed. I still don't feel good from that. How about later?" Will check back at a later time/date and continue with POC as able. GIGI Jiménez/Narcisa
--- NOTE | 2019-04-01 09:00 | NUR ---
case management visits with patient, he will be admitted to [facility] for short term nursing home when medically stable, case management/social worker psychiatric will follow
--- NOTE | 2019-04-01 09:01 | NUR ---
PHYSICAL THERAPY PT SIDELYING IN BED THIS A.M. PT STILL HAS NO CAM BOOT AT THIS TIME. PT C/O LIGHTHEADNESS AND STATES " CAN WE MAYBE DO THIS TOMORROW?" EDUCATED PT THERAPY WILL CHECK BACK AT A LATER TIME/DATE. MANFRED SHIN PTA
[2019-04-01 09:22] VITALS: BP 106/50
--- NOTE | 2019-04-01 09:33 | NUR ---
PICKLE PROCESSOR faxed updates to [facility]. -ELOISE Goel
--- NOTE | 2019-04-01 10:25 | NUR ---
OT NOTE Pt was seen this A.M. 1:1 for 15 minute OT session. Upon arrival pt was supine in bed. Pt identified by name and and had no complaints at this time. Pt still does not a have cam boot in his room to maintian 50% weight bearing status. Pt stated that he has been getting up with nursing while maintaining NWB to his LLE till the boot comes. Pt transferred supine to sit EOB with SBA. Multiple sit to stand transfers completed from bed level with Víctor and use of w/w with constant verbal prompts for maintaining NWB. Pt was 50% compliant. Challenged pt's static standing tolerance needed for increased I in self care tasks, functional transfers, and increased endurance. Pt was able to tolerate aprox 30-37 seconds before sitting due to fatigue. Pt completed stand pivot from EOB to the recliner with Víctor and use of w/w with poor carry over of non weight bearing. Pt was left sitting reclined in the recliner with call light in hand, tray table in place, and phone in reach. Continue with POC as indicated. GIGI Jiménez/Narcisa
--- NOTE | 2019-04-01 10:31 | NUR ---
PHYSICAL THERAPY PT SUPINE IN BED UPON ARRIVAL. PT IDENTIFIED BY NAME AND . PT AGREED TO ALL PT TREATMENT THIS VISIT. PT PERFORMED BED MOB WITH USE OF BED RAIL FOR ASSITANCE. PT PERFORMED STS FROM EOB WITH SBA AND VC'S FOR WB STATUS. PT FOLLOWED WB STATUS 50% THIS VISIT. PT PERFORMED PIVOT TRANSFER TO CHAIR WITH CGA AND VC'S FOR WB STATUS. PT WAS UNSAFE WITH STS TO CHAIR PT PLOPPED INTO CHAIR. PT REQUIRED VC'S FOR PROPER TECHNIQUE AND SAFETY. PT SEEN 1:1 FOR 13MIN. MANFRED SHIN PTA
--- NOTE | 2019-04-01 11:37 | NUR ---
PODIATRY NOTIFIED THIS NURSE THAT PT DOES NOT HAVE CORRECT WALKING BOOT IN ROOM. CALL PLACED TO ORTHO FLOOR REGARDINIG OBTAINING A CAM WALKING BOOT FOR PATIENT. BARBER APPRENTICE KIERA STATES THAT SHE WILL HAVE SOMEONE GIVE ME A CALL BACK. AWAITING CALL AT THIS TIME.
--- NOTE | 2019-04-01 11:42 | NUR ---
PT SITTING UP IN CHAIR AT THIS TIME. PODIATRY IN TO SEE PT.
[2019-04-01 12:00] VITALS: BP 125/75
--- NOTE | 2019-04-01 12:45 | NUR ---
PT STATES THAT PODIATRY WAS IN ROOM AND PERFORMED DRESSING CHANGE TO LEFT FOOT.
[2019-04-01 12:58] VITALS: BP 92/50
--- NOTE | 2019-04-01 13:00 | NUR ---
CAM BOOT OBTAINED FROM ORTHO FLOOR AND GIVEN TO PT. BOOT APPLIED TO PT LEFT FOOT AND FITS WELL. PT ABLE TO STAND AND AMBULATE WITH CAM BOOT ON L FOOT. WILL CONTINUE TO MONITOR, CALL LIGHT IN REACH.
--- NOTE | 2019-04-01 13:03 | NUR ---
CREDIT RATING INSPECTOR faxed more updates to [facility]
[2019-04-01] MEDS ORDERED: CEFTRIAXONE2 GM IV (13:50)
--- NOTE | 2019-04-01 14:24 | NUR ---
GLAZE MAKER received notice of discharge. Spoke with RNSuzanna, ELOISE scheduled transportation with [facility] for 4pm pickup. GLAZE MAKER notified patient family, and [facility]ini Will fax discharge orders.-ELOISE Goel
--- NOTE | 2019-04-01 15:05 | NUR ---
PHYSICAL THERAPY CO-SIGN I approve of the Physical Therapy notes written above. LEONARDO AGUILAR PT,DPT
--- NOTE | 2019-04-01 15:20 | NUR ---
REPORT CALLED TO NURSE AT [facility].
--- NOTE | 2019-04-01 15:22 | NUR ---
DISCHARGE PHOTOS TAKEN OF PT RIGHT POSTERIOR FOOT. UNABLE TO OBTAIN DISCHARGE PHOTO OF LEFT FOOT DUE TO SURGICAL WOUND. PODIATRY CHANGED DRESSING ON LEFT FOOT TODAY AND REQUEST FOR DRESSING TO NOT BE REMOVED.
--- NOTE | 2019-04-01 15:45 | NUR ---
Discharge instructions reviewed with patient/family. Patient receptive and verbalizes understanding. Follow-up care arranged. Written instructions given to patient/family. TOM CARPIO
[2019-04-02 09:05] LABS: MICRO ALBUMIN/CRE RATIO 168.1 (0.0-30.0)
--- NOTE | 2019-04-06 09:05 | NUR ---
OCCUPATIONAL THERAPY CO-SIGN I approve of the Occupational Therapy notes written above. GUS CONTRERAS OTR/Narcisa
== END 2019-04-01 15:45 | disposition other institution (70) | DRG 853 ==
LOC: ED 12:24 → EDHOLD 14:19 → 4E 14:19
PROVIDERS: Internal Medicine; Internal Medicine Nephrology; Nurse Practitioner Family; Podiatrist; Student in an Organized Health Care Education/Training Program; ADMIT Internal Medicine
PROC: 0QUP0JZ Supplement Left Metatarsal with Synthetic Substitute, Open Approach (ICD-10-PCS; principal; 2019-03-30)
PROC: 0QBP0ZX Excision of Left Metatarsal, Open Approach, Diagnostic (ICD-10-PCS; principal; 2019-03-30)
PROC: 02H633Z Insertion of Infusion Device into Right Atrium, Percutaneous Approach (ICD-10-PCS; 2019-03-31)
DX: A41.9 Sepsis, unspecified organism (principal); E43 Unspecified severe protein-calorie malnutrition; N17.0 Acute kidney failure with tubular necrosis; L03.116 Cellulitis of left lower limb; N18.4 Chronic kidney disease, stage 4 (severe); I13.0 Hypertensive heart and chronic kidney disease with heart failure and stage 1 through stage 4 chronic kidney disease, or unspecified chronic kidney disease; M86.172 Other acute osteomyelitis, left ankle and foot; E11.621 Type 2 diabetes mellitus with foot ulcer; E11.65 Type 2 diabetes mellitus with hyperglycemia; R74.8 Abnormal levels of other serum enzymes; L97.529 Non-pressure chronic ulcer of other part of left foot with unspecified severity; E11.69 Type 2 diabetes mellitus with other specified complication; G89.29 Other chronic pain; B95.4 Other streptococcus as the cause of diseases classified elsewhere; I50.9 Heart failure, unspecified; I25.5 Ischemic cardiomyopathy; I25.10 Atherosclerotic heart disease of native coronary artery without angina pectoris; D64.9 Anemia, unspecified; E11.51 Type 2 diabetes mellitus with diabetic peripheral angiopathy without gangrene; E11.22 Type 2 diabetes mellitus with diabetic chronic kidney disease; E66.01 Morbid (severe) obesity due to excess calories; F41.9 Anxiety disorder, unspecified; F32.9 Major depressive disorder, single episode, unspecified; E78.5 Hyperlipidemia, unspecified; F17.210 Nicotine dependence, cigarettes, uncomplicated; E11.42 Type 2 diabetes mellitus with diabetic polyneuropathy; Z79.4 Long term (current) use of insulin; Z88.5 Allergy status to narcotic agent; Z95.5 Presence of coronary angioplasty implant and graft; Z95.0 Presence of cardiac pacemaker; Z82.49 Family history of ischemic heart disease and other diseases of the circulatory system; Z83.3 Family history of diabetes mellitus; Z89.421 Acquired absence of other right toe(s); I25.2 Old myocardial infarction; Z79.82 Long term (current) use of aspirin; Z79.899 Other long term (current) drug therapy; Z79.02 Long term (current) use of antithrombotics/antiplatelets; Z91.19 Patient's noncompliance with other medical treatment and regimen; Z68.35 Body mass index [BMI] 35.0-35.9, adult

== ENCOUNTER 2019-04-10 13:40 | Inpatient (IN) | payer MEDICARE ==
[~2019-04-10] VITALS: Ht 177.8 cm; Wt 129.8 kg
--- NOTE | ~2019-04-10 | WRIGHTHP ---
[place], [place] PATIENT HISTORY AND PHYSICAL EXAM [id number] UN[facility] #: [id number] ROOM: 507 DOCTOR: WALDEMAR ROME DPM BIRTHDATE: [birth year] DOS: 04/10/2019 LOWER EXTREMITY PHYSICAL EXAM: VASCULAR: He has intact pedal pulses bilaterally with good cap refill time. NEUROLOGICAL: He has loss of protective sensation secondary to diabetic peripheral neuropathy. DERMATOLOGICAL: He has an open wound of his left fifth metatarsal area that measures 7 cm in length x 2 cm in width, full thickness in nature. There are no cardinal signs of infection or purulent drainage. There is serous drainage noted, foul odor. There is tunneling and there is no undermining. This is more of a chronic type of osteomyelitis reaction. Also, on the right side sub-second metatarsal, he has a wound that measures 1.0 x 0.7 cm, full thickness in nature. There are no cardinal signs of infection, drainage, undermining, tunneling noted on the right. MUSCULOSKELETAL: He has a tight posterior muscle group bilaterally, more so the right and this has caused increased forefoot pressure on the sub-second metatarsal causing ulceration. ORTHOPEDIC EXAM: He had previous amputation of right great toe and osteomyelitis of the second metatarsal, right and fifth metatarsal, left. WALDEMAR ROME DPM CM:HISPHYS:PATIENT HISTORY AND PHYSICAL EXAMINATION 00 54 WALDEMAR ROME DPM 04/13/192053 interface
--- NOTE | ~2019-04-10 | O ---
[place], [place] OPERATIVE NOTE [facility]: [id number] UN[facility] #: [id number] ROOM: 507 DOCTOR: WALDEMAR ROME DPM BIRTHDATE: [birth year] DOS: 04/13/2019 SURGEON: Waldemar Rome DPM ASSISTANTS: 1. Dr. Obey Butcher, Fellow. 2. Gab Briggs, PGY-3. PREOPERATIVE DIAGNOSES: 1. Osteomyelitis of the fifth metatarsal, left. 2. Osteomyelitis of the sub-second metatarsal, right. 3. Open wound ulcer on the left fifth metatarsal, measures 7.0 x 2.0 cm. 4. Open wound ulceration on the plantar sub-second metatarsal measuring 1.0 x 0.7 wounds. 5. Equinus of the right lower leg. PROCEDURES: 1. Incision and drainage, bone debridement, bone biopsy, left fifth metatarsal. 2. Application of Integra graft. 3. Complex closure of the left fifth metatarsal area. 4. Incision and drainage and bone debridement of right sub-second metatarsal. 5. Gastroc resection, right. DESCRIPTION OF PROCEDURE: The patient was seen in preoperative holding area. Appropriate site marking was performed. He agreed. He was brought to OR, placed on the OR table where anesthesia was achieved. Once the anesthesia was achieved, appropriate time-out was performed with operating room concurred. Attention directed to the left fifth metatarsal where wound measures 7 x 2 cm was noted. A full-thickness, sharp excisional debridement was performed removing nonviable devitalized necrotic tissue of the skin and soft tissue, sent for Gram stain, aerobic, anaerobic, fungal, acid fast, and biopsy and culture. The incision was carried down to the bone. The fifth metatarsal bone was debrided from the base of the toe and remaining stump of the fifth metatarsal bone was debrided and this was irrigated with copious amounts of saline. The bone was resected with rongeurs and curettes harvesting bone for culture and biopsy. The bone was noted to be firm, hard, and nodular. The area was irrigated with copious amounts of sterile saline. PROCEDURE #2: Application of Integra graft: At this time, a 2 x 2 piece of Integra graft was utilized. The wound was irrigated. The collagen pulled off and a 2 x 2 piece of Integra graft was inserted to the wound, it was packed tightly. PROCEDURE #3: Complex closure of wound: The wound measures 7.0 x 2 cm. It was full thickness in nature and there was no cardinal sign of infection, drainage, undermining, or tunneling noted. At this time, the dorsal and plantar flaps of the fifth metatarsals were elevated and they were mobilized to the midline. This was closed in a complex way using #1 nylon. Next, attention directed to the right lower extremity and here a new procedure was performed. [place], [place] OPERATIVE NOTE NAME: FELIPE PEREZ UNIT #: [id number] ROOM: 507 DOCTOR: WALDEMAR ROME DPM BIRTHDATE: [birth year] PROCEDURE #4: Incision and drainage and bone debridement of right sub-second metatarsal, right. Next attention was directed to the second metatarsal where a wound was that measured 1.0 x 0.7, it is full thickness in nature and 3:1 full-thickness incision was made down to the bone and ellipsing the wound and the soft tissue sent for culture, aerobic, anaerobic, fungal acid, as well as biopsy of the sub-second metatarsal, right. This was ____. At this time, the bone was exposed and the bone was debrided with a rongeur and curette, harvesting bone and sent for Gram stain, aerobic, anaerobic, fungal, acid fast, as well as culture as well as the health of the bone. Next, the area was irrigated with copious amounts of sterile saline. PROCEDURE #5: Complex closure of the right sub-second metatarsal: The tissues were then elevated on the mediolateral aspect of the wound. They were lifted and they were mobilized in midline and these were closed with #1 nylon. PROCEDURE #6: Gastrocnemius resection: Attention was directed to the right posterior muscle of the lower leg where an incision was made in the midline and was deepened in the same plane using sharp and blunt dissection, avoiding neurovascular structures, was carried deep down to deep tissues where a Jalyn procedure was performed, increasing the range of motion of the joint, releasing the gastroc aponeurosis. The area was flushed with copious amounts of sterile saline. The deep tissues were closed using 0 Vicryl. Skin was closed with 2-0 nylon. The surgical wounds were dressed with Betadine-soaked Adaptic, 4 x 4s, and Jovan in a sterile compressive fashion. The patient tolerated the procedure and anesthesia well and left the OR with vital signs stable and vascular status intact. WALDEMAR ROME DPM CM:OPRECORD:OPERATIVE NOTE [id number] WALDEMAR ROME DPM 04/20/19 0916 interface
--- NOTE | ~2019-04-10 | CON ---
[place], [place] REPORT OF CONSULTATION NAME: FELIPE PEREZ UNIT #: [id number] ROOM: 507 DOCTOR: CAMERON MONZON MD BIRTHDATE: [birth year] DOS: 04/11/2019 REASON FOR CONSULTATION: Pneumonia. CHIEF COMPLAINT: Generalized weakness. HISTORY OF PRESENTING ILLNESS: This is a 58-year-old male known to Infectious Disease Service from his last admission. He is presenting with a chief complaint of generalized weakness. As per the EMR and ER report, he had hypoxia and altered mental status. Since presentation, he has been afebrile. However, he has been kept on 4 liters of oxygen. His labs reveal no leukocytosis. His chest x-ray show some infiltrate in the right lung, mostly vascular congestion. He has been started on Levaquin, Zosyn and vancomycin by the primary team and ID has been consulted for further management. Currently, patient denies having any chest pain, productive cough or dry cough. No sore throat. He had some runny nose and feels having myalgias and headaches. He was recently seen in March for his left diabetic foot ulcer with acute osteomyelitis of the fifth metatarsal that grew group G strep and was getting ceftriaxone 2 grams daily for 6 weeks, which he is still on it. PAST MEDICAL HISTORY: Significant for CHF, CKD, coronary artery disease, diabetes, hypertension, hyperlipidemia, peripheral artery disease, septic arthritis, pacemaker removal, Staph aureus bacteremia. PAST SURGICAL HISTORY: Status post angioplasty, cardiac pacemaker procedure, status post debridement and got new pacemaker as well. SOCIAL HISTORY: Smokes 2-3 packs per day for 40 years, nonalcoholic, no illicit drug use. FAMILY HISTORY: Mother has history of diabetes, hypertension, [place]. Father history unknown medical history. ALLERGIES: MORPHINE. HOME MEDICATIONS: Reviewed. REVIEW OF SYSTEMS: A 12-point review of systems has been done. Pertinent negative positive included in HPI, rest are noncontributory. PHYSICAL EXAMINATION: VITAL SIGNS: Stable, noted. GENERAL: The patient is alert, oriented x 3, in mild distress. HEENT: Atraumatic, normocephalic. PERRLA, EOMI. RESPIRATORY: Air entry bilaterally equal. No wheeze or crackles. CARDIOVASCULAR: S1, S2 normal. No murmur, rubs or gallops. EXTREMITIES: Left foot dressing in place. Pedal edema noted. Pacemaker site intact. [place], [place] REPORT OF CONSULTATION NAME: FELIPE PEREZ UNIT #: [id number] ROOM: 507 DOCTOR: CAMERON MONZON MD BIRTHDATE: [birth year] LABORATORY DATA AND IMAGING: Reviewed, mentioned in HPI. ASSESSMENT AND PLAN: 1. Generalized weakness, rule out viral infection less concerning for pneumonia. 2. Left foot diabetic ulcer with osteomyelitis group G strep on 2 gram of ceftriaxone for 6 weeks. Continue the same. 3. Uncontrolled diabetes. 4. Chronic kidney disease. PLAN: At this time, I am not impressed by bacterial pneumonia at this time, a viral infection could be possible. Check respiratory viral panel. Check CRP and procalcitonin. Continue the patient on ceftriaxone. Discontinue the vancomycin, Zosyn and Levaquin. Continue with rehydration. Blood cultures negative so far. We will follow the patient closely. Thank you for your consult. Please call for any questions. Cameron Monzon MD CM:CONSTR:REPORT OF CONSULTATION [id number] 04/11/19 8367 interface
--- NOTE | ~2019-04-10 | PR ---
[place], [place] PROGRESS NOTE [id number] UNIT #: [id number] ROOM: 507 DOCTOR: HANNAH RENNER,NOVEMBER BIRTHDATE: [birth year] DOS: 04/17/2019 SUBJECTIVE: The patient is being followed for a right foot osteomyelitis. His operative cultures are growing Staph epidermidis and Staph haemolyticus, resistant to oxacillin. He was placed on vancomycin yesterday. He was already receiving Rocephin for strep. He is alert and oriented. He states he feels well, tolerating the antibiotics. Denies fevers, chills, nausea, vomiting or diarrhea. No rash or itch. No cough or shortness of breath. No fevers. He does have some pain in the right calf from the cast, which he states was padded by the metal roofing mechanic. LABORATORY DATA: WBC 7.2, platelets 213. BUN 36, creatinine 1.79. Respiratory viral panel negative. Blood cultures sterile. Operative cultures as above. Pathology report is pending. PHYSICAL EXAMINATION: VITAL SIGNS: Temperature 97.7, pulse 62, respirations 18, BP 112/57. GENERAL: A 58-year-old male, in no acute distress. HEAD, EYES, EARS, NOSE AND THROAT: Normocephalic, edentulous. No thrush. LUNGS: Clear to auscultation bilaterally. Respirations even and unlabored. HEART: Regular rhythm. No murmur appreciated. ABDOMEN: Soft, obese, nontender. EXTREMITIES: +1 bilateral lower extremity edema. Right lower extremity casted to the knee. Left lower extremity is wrapped to just above mid calf. Both feet with digits exposed that are warm, pink and with reasonable capillary refill. He has PICC in place. Dressing dry and intact, right upper extremity. ASSESSMENT: Right foot osteomyelitis with operative bone cultures with Staphylococcus epidermidis and Staphylococcus haemolyticus, pathology report pending. Also with prior strep infection that was diagnosed in March for which he was already receiving Rocephin. PLAN: At this point, he is on Rocephin and vancomycin. Follow up on the final cultures. Could probably stop the Rocephin and continue with vancomycin. Follow up on the final pathology report. ADDENDUM I agree with the assessment and plan made by the nurse practitioner, reviewed the labs and imaging, and made the necessary changes. BETH YOUNG CNP [place], [place] PROGRESS NOTE NAME: FELIPE PEREZ UNIT #: [id number] ROOM: [facility] DOCTOR: HANNAH RENNERNOVEMBER BIRTHDATE: [birth year] Edna Sim MD CM:PNCLAU [id number] BETH HANNAH RENNER 04/23/19 0354 interface
--- NOTE | ~2019-04-10 | PR ---
[place], [place] PROGRESS NOTE [id number] UNIT #: [id number] ROOM: 507 DOCTOR: HANNAH RENNER,NOVEMBER BIRTHDATE: [birth year] DOS: 04/16/2019 CHIEF COMPLAINT: Diabetic foot ulcer and osteomyelitis. SUBJECTIVE: The patient is being followed for foot osteomyelitis from March. He had had positive cultures for group G strep at that point in time. He remains on IV Rocephin. He has had further surgery. He had a callus that was probing fairly deeply. Bone cultures are coming back with Staphylococcus haemolyticus. He is alert and oriented, tolerating the antibiotics. He denies fevers, chills, nausea, vomiting, or diarrhea. No rash or itch. He states he has regular chronic pains. He denies shortness of breath. He is on O2 via nasal cannula, but he is not normally on. He has had no fevers. LABORATORY DATA: BUN 35, creatinine 1.65. Tissue cultures from surgery grew Staphylococcus epidermidis. Again, bone cultures grew Staphylococcus haemolyticus. Path report is pending. PHYSICAL EXAMINATION: VITAL SIGNS: Temperature 97.9, pulse 61, respirations 19, BP 109/58. GENERAL: A 58-year-old male, alert and oriented, in no acute distress. HEAD, EYES, EARS, NOSE, AND THROAT: Normocephalic, no thrush. NECK: Supple. LUNGS: Clear to auscultation bilaterally. Respirations even and unlabored. HEART: Regular rhythm. No murmur appreciated. ABDOMEN: Soft, obese, positive bowel sounds. EXTREMITIES: +1 to 2 bilateral thigh edema down to his knees. His right lower extremity is casted to the knee. He does have one toe exposed that is a pink, warm, and with normal capillary refill. The left lower extremity is wrapped to the knee with a bulky dressing per Podiatry with toes exposed, which are also warm, pink, and with good capillary refill. SKIN: Otherwise, warm, dry, free of rashes. He has a PICC line in place. Dressing dry and intact. ASSESSMENT: Left diabetic foot ulcer infection with osteomyelitis group G strep, is status post surgery on the right foot with biopsy with the bone culture thus far with Staphylococcus haemolyticus. Path results are pending. Given this positive bone culture, we will start vancomycin. The Staphylococcus haemolyticus is oxacillin-resistant. PLAN: Continue the Rocephin for now, although this may be stopped in the future. Follow up on the path result. Kidneys will need to be watched closely. ADDENDUM I agree with the assessment and plan, reviewed the labs and imaging, made the necessary changes in the note. [place], [place] PROGRESS NOTE NAME: FELIPE PEREZ UNIT #: [id number] ROOM: 507 DOCTOR: HANNAH RENNERNOVEMBER BIRTHDATE: [birth year] BETH YOUNG CNP Ednacriselda Sim MD CM:PNCLAU 23 [phone] BETH YOUNG CNP 04/23/19 0700 interface
--- NOTE | ~2019-04-10 | WRIGHTHP ---
[place], [place] PATIENT HISTORY AND PHYSICAL EXAM NAME: FELIPE PEREZ UNIT #: [id number] ROOM: 507 DOCTOR: WALDEMAR ROME DPM BIRTHDATE: [birth year] DOS: 04/10/2019 INDICATIONS: The patient presents today for chronic ulceration, probable osteomyelitis of the sub-second metatarsal, right and also fifth metatarsal, left which he had previous surgery. His left foot has some serous drainage. No cardinal signs of active infection. He did have calcium sulfate in his fifth metatarsal site and often time leaks a serous fluid and noninfectious foot. With this in mind, he is aware of pros, cons, risks, and benefits. He is set up for the surgery at [facility] today on 04/13/2019 for bone debridement of the right second metatarsal, Integra application, negative pressure therapy, wound VAC. He is aware of the pros, cons, risks, and benefits of this. WALDEMAR ROME DPM CM:HISPHYS:PATIENT HISTORY AND PHYSICAL EXAMINATION 00 53 WALDEMAR ROME DPM 04/13/192051 interface
--- NOTE | ~2019-04-10 | CON ---
[place], [place] REPORT OF CONSULTATION NAME: FELIPE PEREZ UNIT #: [id number] ROOM: 507 DOCTOR: MALKA CANOLUCIE BIRTHDATE: [birth year] DOS: 04/11/2019 PODIATRY CONSULTATION SUBJECTIVE: This patient is seen as consult for followup evaluation of recent surgery on the left foot. He is a patient of Dr. Bell and has had surgery a few weeks ago on the left foot. He normally sees him every Thursday. The patient has no complaints regarding either foot. PAST MEDICAL HISTORY: Positive for anxiety, depression, CHF, chronic kidney disease stage 4, coronary artery disease, diabetic neuropathy, history of diabetic foot ulcer, history of osteomyelitis, hyperlipidemia, hypertension, GA, hyperglycemia, ischemic cardiomyopathy, PAD, type 2 diabetes mellitus, hyperglycemia, and vitamin B12 deficiency. ALLERGIES: MORPHINE. CURRENT MEDICATIONS: Include Desyrel, Lipitor, Rocephin, Xarelto, Paxil, Nicoderm, Claritin, Feosol, Coreg, Cordarone, oxycodone, Neurontin, Ultram, Zosyn, Lantus, insulin. OBJECTIVE: Upon lower extremity physical examination, neurovascular status is unchanged from previous visits. 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 There is mild hyperkeratotic tissue noted, plantar first second metatarsal head area with no signs of infection. Minimal hemorrhagic tissue noted. The left foot has a bandage intact. There is a K-wire in the fifth toe. There are no signs of infection noted at the surgical site. No pain noted to palpation in that area. ASSESSMENT: History of diabetic foot ulcer infection both feet. He is status post recent left foot surgery with K-wire in place, diabetes mellitus. PLAN: Consult is performed. Keep dressing intact on the left foot. This can be changed on Thursday, which is his normal day for his visit in the office. Monitor right foot for any open wound, offload the areas appropriately. We will continue to follow the patient while in the hospital and will follow him once discharged as well. Thank you for the opportunity to take part in care of this patient. [place], [place] REPORT OF CONSULTATION NAME: ANAFELIPE De Guzman UNIT #: [id number] ROOM: 507 DOCTOR: LUCIE ACE DPM BIRTHDATE: [birth year] LUCIE ACE DPM CM:CONSTR:REPORT OF CONSULTATION 1220 04/11/19 5825 interface
--- NOTE | ~2019-04-10 | EKG ---
[place], [place] ELECTROCARDIOGRAM REPORT NAME: FELIPE PEREZ UNIT #: [id number] ROOM: 507 DOCTOR: DEBRA DRAFT REPORT BIRTHDATE: [birth year] [facility] Test Date: 2019-04-10 Test Time: 14:14:56 Pat Name: FELIPE PEREZ Department: Room: 507 Gender: M Mails Supervisor: TL : 1960 Requested By: JOSE ANTONIO HOWARD Order Number: [id number] Reading MD: Avelino Resendez MD Measurements Intervals [place] Rate: 60 P: 72 NV: 175 QRS: 169 QRSD: 172 T: -8 QT: 544 QTc: 544 Interpretive Statements Atrial-ventricular dual-paced rhythm No further analysis attempted due to paced rhythm Partial missing lead(s): V2 Compared to ECG 12/14/2018 13:01:42 Ectopic atrial rhythm no longer present First degree AV block no longer present Left anterior fascicular block no longer present Right bundle-branch block no longer present Electronically Signed On 04-11-2019 10:43:46 PDT by Avelino Resendez MD CM:EKGRPT:ELECTROCARDIOGRAM REPORT 1414 1043 JOSE ANTONIO CHAVEZANY DRAFT REPORT JOSE ANTONIO HOWARD MD
[~2019-04-10 13:40] MED LIST changes: +CEFTRIAXONE2 GM IV
[2019-04-10 13:42] VITALS: BP 123/62
[2019-04-10 14:33] LABS: BASO # 0.1 10*3/uL (0.0-0.1); BASO % 0.9 % (0.0-1.0); EOS # 0.2 10*3/uL (0.0-0.4); EOS % 2.4 % (1.0-4.0); HEMATOCRIT 32.7 % (42.0-52.0); HEMOGLOBIN 9.9 g/dl (14.0-18.0); LYMPH # 1.2 10*3/uL (1.3-4.4); LYMPH % 15.5 % (27.0-41.0); MEAN CELL VOLUME 101.6 fl (80.0-94.0); MEAN CORPUSCULAR HGB 30.7 pg (27.0-31.0); MEAN CORPUSCULAR HGB CONC 30.3 g/dl (33.0-37.0); MEAN PLATELET VOLUME 8.6 fl (9.6-12.3); MONO # 0.7 10*3/uL (0.1-1.0); MONO % 8.1 % (3.0-9.0); NEUT # 5.8 10*3/uL (2.3-7.9); NEUT % 72.6 % (47.0-73.0); PLATELET COUNT AUTOMATED 356 10*3/uL (130-400); RED BLOOD COUNT 3.22 10*6/uL (4.50-5.90); RED CELL DISTRI WIDTH 15.8 % (0-14.5)
[2019-04-10 14:44] LABS: ACT PARTIAL THROMBO TIME 33.5 SECONDS (20.0-32.1); INTERNATIONAL NORM RATIO 1.1 (2.0-3.5)
[2019-04-10 14:50] LABS: ALBUMIN 2.1 gm/dl (3.1-4.5); ALKALINE PHOSPHATASE 303 U/L (45-117); BUN 34 mg/dl (7-24); CHLORIDE 108 mmol/L (98-107); CREATININE 1.84 mg/dL (0.70-1.30); POTASSIUM 5.5 mmol/L (3.5-5.1); SGOT/AST 10 IU/L (3-35); SGPT/ALT 11 U/L (12-78); SODIUM 139 mmol/L (136-145); TOTAL PROTEIN 6.8 gm/dL (6.4-8.2)
[2019-04-10 14:51] LABS: TROPONIN I < 0.015 ng/ml (<0.045)
--- NOTE | 2019-04-10 14:57 | NUR ---
NURSE REPORT PROVIDED TO MARIAM SPEAR, FOR CONTINUATION OF CARE.
--- NOTE | 2019-04-10 14:58 | NUR ---
NURSE REPORT TO RAINER NORTH RN, FOR CONTINUATION OF CARE.
--- NOTE | 2019-04-10 15:17 | NUR ---
REPORT [facility] BOTH OVER TELEPHONE AND VIA EMS INDICATED THAT PT'S DRESSING TO LEFT LOWER LEG WHICH IS IN PLACE FOR OSTEOMYELITIS WAS NOT TO BE REMOVED PER ORDERS OF FOOT DR. NURSING IMMUNOLOGY SPECIALIST MADE AWARE AND IN AGREEMENT AT THIS TIME TO LET DRESSING REMAIN IN PLACE IT IS NOT RELATED TO PT'S ADMISSION.
--- NOTE | 2019-04-10 15:26 | NUR ---
received report on patient from nurse cleaning... patient is up for admission... 3 antibiotics ordered... hanging zosyn first...
--- NOTE | 2019-04-10 15:50 | NUR ---
A 58, admitted to , under the services of OMAR Horn DO with a diagnosis of PNEUMONIA. Chief complaint is MULTIPLE. Patient arrived via bed from ER. Monitor applied. Initial assessment completed. Vital signs taken and recorded. OMAR HORN DO notified of admission to the unit. Orders received. See assessment for past medical history, medications and allergies. Patient and/or family oriented to [facility] Clothing/patient valuable form completed. SARA MANRIQUE
[2019-04-10 16:00] VITALS: BP 125/67
[2019-04-10] MEDS ORDERED: XARELTO10 MG PO (16:24)
--- NOTE | 2019-04-10 16:31 | NUR ---
RECEIVED ORDERS FROM DR GRACE TO CONTINUE LEVEMIER, SLIDING SCALE AND XARELTO ORDERS FROM [facility].
--- NOTE | 2019-04-10 16:39 | NUR ---
NOTIFIED DR GRACE OF WOUNDS
--- NOTE | 2019-04-10 16:45 | NUR ---
NOTIFIED NURSING REFINERY OPERATOR REFORMING UNIT TO NOTIFY DR IN ER OF WOUND TO RIGHT FOOT TO BE STAGED.
--- NOTE | 2019-04-10 16:48 | NUR ---
CLARENCE UP TO STAGE RIGHT FOOT.
--- NOTE | 2019-04-10 16:55 | NUR ---
ANSWERING SERVICE WAS NOTIFIED OF DR. NICOLÁS EASTON. RESPONSE OF NOTIFICATION WAS OK I WILL GIVE THIS TO HER. SARA MANRIQUE
[2019-04-10] MEDS ORDERED: CEFTRIAXON2 GM/50 ML IV (16:58)
[2019-04-10] MEDS ORDERED: CLARITIN10 MG PO (16:59)
[2019-04-10] MEDS ORDERED: CYMBALTA60 MG PO (17:00)
--- NOTE | 2019-04-10 17:02 | NUR ---
SPOKE TO DR MONZON NO NEW ORDERS
[2019-04-10] MEDS ORDERED: THEREMS-M1 EACH PO (17:03)
[2019-04-10] MEDS ORDERED: NEURONTIN300 MG PO (17:05)
[2019-04-10] MEDS ORDERED: OZEMPIC0.25 MG/01 SQ (17:07)
[2019-04-10] MEDS ORDERED: TRAZODONE50 MG PO (17:11)
[2019-04-10] MEDS ORDERED: ULTRAM50 MG PO (17:12)
[2019-04-10] MEDS ORDERED: VITAMIN C500 M8 PO (17:14)
[2019-04-10] MEDS ORDERED: VITAMIN D350000 UNIT PO (17:15)
--- NOTE | 2019-04-10 18:49 | NUR ---
PHYSICIAN WAS NOTIFIED OF DR. BLACKMON CONSULT. RESPONSE OF NOTIFICATION WAS OK WE WILL SEE HIM TOMORROW.. SARA MANRIQUE
--- NOTE | 2019-04-10 19:00 | NUR ---
ARRIVED ON SHIFT, INTRODUCED TO PATIENT, BEDSIDE REPORT RECEIVED, NO NEEDS VOICED AT THIS TIME. WHITE BOARD UPDATED.
[2019-04-10 20:00] VITALS: BP 137/87
--- NOTE | 2019-04-10 20:57 | NUR ---
24 HR chart check completed.
--- NOTE | 2019-04-10 21:58 | NUR ---
PATIENTS BLOOD SUGAR 73, HELD HS DOSE OF LANTUS AND GAVE ORANGE JUICE.
[2019-04-11] VITALS: BP 107/57
--- NOTE | 2019-04-11 04:00 | NUR ---
Patient sleeping. Respirations relaxed and easy on O2 2 liters . Siderails up 2. [place] on. BECKY HENRY
[2019-04-11 06:13] LABS: BASO # 0.1 10*3/uL (0.0-0.1); EOS # 0.2 10*3/uL (0.0-0.4); EOS % 2.3 % (1.0-4.0); HEMATOCRIT 32.5 % (42.0-52.0); HEMOGLOBIN 9.9 g/dl (14.0-18.0); LYMPH # 0.8 10*3/uL (1.3-4.4); LYMPH % 9.8 % (27.0-41.0); MEAN CELL VOLUME 101.9 fl (80.0-94.0); MEAN CORPUSCULAR HGB CONC 30.5 g/dl (33.0-37.0); MEAN PLATELET VOLUME 8.9 fl (9.6-12.3); MONO # 0.8 10*3/uL (0.1-1.0); MONO % 9.5 % (3.0-9.0); NEUT # 6.4 10*3/uL (2.3-7.9); NEUT % 76.9 % (47.0-73.0); PLATELET COUNT AUTOMATED 331 10*3/uL (130-400); RED BLOOD COUNT 3.19 10*6/uL (4.50-5.90); RED CELL DISTRI WIDTH 15.7 % (0-14.5); WHITE BLOOD COUNT 8.3 10*3/uL (4.8-10.8)
[2019-04-11 06:40] LABS: CREATININE 1.76 mg/dL (0.70-1.30); POTASSIUM 5.5 mmol/L (3.5-5.1)
[2019-04-11 06:42] LABS: TOTAL PROTEIN 6.6 gm/dL (6.4-8.2)
[2019-04-11 08:00] VITALS: BP 125/76
--- NOTE | 2019-04-11 08:05 | NUR ---
PT RESTING IN BED. NO DISTRESS NOTED. PT HAD O2 NC OFF WHEN ENTERED ROOM. PT 80% ON 2L. PT NOW 95% ON 4L NO VOICED C/O. CALL LIGHT WITHIN REACH
--- NOTE | 2019-04-11 09:42 | NUR ---
FELIPE PEREZ [id number] Please refer to the physician's history and physical for past medical history, comorbid conditions, and allergies. Diagnosis: PNEUMONIA Minesh Score: 17,AT RISK WOUND DESCRIPTIONS: Wound Number: 1 Location of the wound: right foot Thickness: Full Size: 3.7cm x 2.3cm x 0.6cm Tunneling: none Undermining: none Sinus Tract: none Presence of Exudate: Serous sanguineous Amount: Light Color: Red, brown, yellow Odor: None Periwound Skin Appearance: Erythema Wound edges: callus Pain (associated with wound): denied at time of assessment How does patient state this happened? patient states that he follows with podiatry for this area. If wound is on legs/feet or hands, capillary refill time, pulses, color temp, sensation: cap refill > 3 seconds. Wound # 2 left foot dressing intact. Patient asked for dressing not to be removed. Patient states dressing is to stay intact untill he sees podiatry on Wednesdays for it to be changed. Surface the patient is resting on: Isoflex SKIN PREVENTION RECOMMENDATION: 1. Pressure redistribution support surface as appropriate 2. Elevate heels 3. Remove boots/TEDS every shift and reapply 4. Head of bed 30 degrees as tolerated 5. Assess nutrition and hydration 6. Manage moisture 7. Avoid the use of containment devices while in bed 8. Use absorptive products on surfaces limit layers of linens on bed 9. Turn and reposition every 1-2 hours in bed and every 1 hour in chair as tolerated 10. Weight shifts every 15 minutes while up in chair 11. Offloading with pillows or device to keep heels elevated off bed 12. Monitor skin at least every shift 13. Inspect under medical devices twice a day WOUND TREATMENT RECOMMENDATIONS: Await orders from podiatry for left and right foot.
--- NOTE | 2019-04-11 10:29 | NUR ---
Occupational Therapy evaluation completed on 5 with full eval to follow. Precautions include fall risk, LLE 50% WB w/ boot and WW,moderate complexity level 51843 via chart review,testing and evaluation, O2-4LPM via nasal canula, IV UE. Recommend OT per pOC and SNF to enable return home at safe level. Thank you for this referral. Carlita Garcia OTR/l
--- NOTE | 2019-04-11 10:29 | NUR ---
PHYSICAL THERAPY Physical therapy evaluation completed. Full details and evaluation to follow. Low complexity evaluation performed (66894). PT will work on strength, transfers, gait, safety, and balance per POC. Recommend return to SNF upon discharge. Thank you, Teresa Hearn, SPT Natasha Hassan,PT,DPT
--- NOTE | 2019-04-11 10:36 | NUR ---
Dr. Davalos notified of wound care recommendations.
--- NOTE | 2019-04-11 11:28 | NUR ---
HOME MAKER spoke with Yajaira. She stated the patient will require a AUTH to return to [facility]. Will need PT Eval. -ELOISE Goel
--- NOTE | 2019-04-11 11:44 | NUR ---
PT IS CURRENTLY AT [facility] FOR REHAB. STATES HE WANTS TO RETURN TO [facility] ON DISCHARGE TO COMPLETE HIS REHAB. WILL CONTINUE TO FOLLOW.
[2019-04-11 12:00] VITALS: BP 126/84
[2019-04-11 16:00] VITALS: BP 110/80
--- NOTE | 2019-04-11 18:43 | NUR ---
PODIATRY RESIDENT CALLED AND NOTIFIED OF CONSULT FOR DR ROME
--- NOTE | 2019-04-11 19:05 | NUR ---
ARRIVED ON SHIFT, REINTRODUCED TO PATIENT, BEDSIDE REPORT RECEIVED, NO NEEDS VOICED AT THIS TIME. WHITE BOARD UPDATED.
--- NOTE | 2019-04-11 19:59 | NUR ---
24 HR chart check completed.
[2019-04-11 20:00] VITALS: BP 149/82
[2019-04-12] VITALS: BP 149/75
[2019-04-12 06:25] LABS: BASO # 0.1 10*3/uL (0.0-0.1); BASO % 0.7 % (0.0-1.0); EOS # 0.1 10*3/uL (0.0-0.4); EOS % 0.7 % (1.0-4.0); LYMPH # 0.7 10*3/uL (1.3-4.4); MEAN CELL VOLUME 101.2 fl (80.0-94.0); MEAN CORPUSCULAR HGB 30.7 pg (27.0-31.0); MEAN CORPUSCULAR HGB CONC 30.3 g/dl (33.0-37.0); MEAN PLATELET VOLUME 9.3 fl (9.6-12.3); MONO # 0.6 10*3/uL (0.1-1.0); MONO % 6.3 % (3.0-9.0); NEUT # 8.4 10*3/uL (2.3-7.9); NEUT % 84.9 % (47.0-73.0); PLATELET COUNT AUTOMATED 325 10*3/uL (130-400); RED BLOOD COUNT 3.26 10*6/uL (4.50-5.90); RED CELL DISTRI WIDTH 15.2 % (0-14.5); WHITE BLOOD COUNT 9.9 10*3/uL (4.8-10.8)
[2019-04-12 06:38] LABS: ALBUMIN 2.1 gm/dl (3.1-4.5); CREATININE 1.71 mg/dL (0.70-1.30); POTASSIUM 5.6 mmol/L (3.5-5.1); TOTAL PROTEIN 6.9 gm/dL (6.4-8.2)
--- NOTE | 2019-04-12 07:36 | NUR ---
CERTIFIED INDOOR ENVIRONMENTALIST faxed updates to [facility] -ELOISE Goel
[2019-04-12 08:00] VITALS: BP 146/85
--- NOTE | 2019-04-12 08:16 | NUR ---
PHYSICAL THERAPY PT SIDELYING IN BED UPON ARRIVAL. PT STATES " MY SON HASNOT FOUND MY BOOT YET AND I AM NOT DOING THERAPY TILL IHAVE MY BOOT." PHYSICAL THERAPY WILL TRY AGAIN AT A LATER TIME/DATE. MANFRED SHIN PTA
--- NOTE | 2019-04-12 10:30 | NUR ---
PHYSICAL THERAPY Patient seen this am 1:1 for therapy visit and was resting supine in bed upon therapist arrival. Patient voices no c/o's pain and presented with continuos O2-3L via NC. Patient also was a bit "sluggish" this morning and transfered very slowly supine to sit EOB with CGA x 1. Patient tolerated static EOB sit x several minutes to collect himself and was able to complete several sit to stand transfers at bedside with use of wh walker standing support. Patient is NWB on L LE without CAM boot and was 100% NON compliant this session, even with repeated verbal cues. Patient stated " I don't have any pain" and was educated on importance of NWB status compliance to assist in the healing process. Patient returned to supine in bed and remained with call light, tray table and telephone. Will continue per POC as tolerated, total treatment time 13 minutes. Cesar Charles, VETERANS SERVICE REPRESENTATIVE
--- NOTE | 2019-04-12 10:35 | NUR ---
OT NOTE Pt was seen this A.M. 1:1 for 13 minute OT session. Upon arrival pt was supine in bed. Pt identified by name and and had no complaints at this time. Pt presented to therapy with continuous 3L-O2 via NC which he remained on throughout entire session. Pt still does not have boot here at [facility] resulting in pt being NWB on his LLE. Pt transferred supine to sit EOB with SBA. Sit to stand completed from bed level with CGA for safety and use of w/w for UE support. Stand pivot completed from EOB to and from bedside commode with CGA. THroughout pt was provided with constant verbal, visual, and tactile prompts for NWB and pt was non compliant placing full weight through his LLE. Pt transferred back into bed sit to supine with SBA. There he was left with call light in hand, tray table in place, and phone in reach. Continue with rec D/C plan to SNF. GIGI Jiménez/Narcisa
[2019-04-12 12:00] VITALS: BP 151/75
--- NOTE | 2019-04-12 12:21 | NUR ---
PT WANTS TO RETURN TO [facility] ON DISCHARGE TO CONTINUE REHAB.
[2019-04-12 16:00] VITALS: BP 150/75
--- NOTE | 2019-04-12 19:30 | NUR ---
ARRIVED ON SHIFT, REINTRODUCED TO PATIENT, BEDSIDE REPORT RECEIVED, WHITE BOARD UPDATED, NO NEEDS VOICED AT THIS TIME.
[2019-04-12 20:00] VITALS: BP 144/86
--- NOTE | 2019-04-12 20:17 | NUR ---
24 HR chart check completed.
--- NOTE | 2019-04-12 22:38 | NUR ---
CALL PLACED TO DR. VARELA TO REPORT THAT PATIENTS BLOOD SUGARS HAVE BEEN RUNNING BETWEEN 69-114, WITH MOST OF THEM BEING UNDER 100, ADVISED WE HAVE BEEN HOLDING LANTUS, ADVISED TO CONTINUE TO HOLD.
[2019-04-13] VITALS (9 sets, daily range): BP systolic 113–150; BP diastolic 68–90
--- NOTE | 2019-04-13 02:07 | NUR ---
Patient sleeping. Respirations relaxed and easy. Siderails up 2. [place] on. BECKY HENRY
[2019-04-13 06:22] LABS: ALBUMIN 2.1 gm/dl (3.1-4.5); ALKALINE PHOSPHATASE 267 U/L (45-117); BUN 32 mg/dl (7-24); CHLORIDE 107 mmol/L (98-107); CREATININE 1.45 mg/dL (0.70-1.30); SGOT/AST 12 IU/L (3-35); SGPT/ALT 11 U/L (12-78); SODIUM 139 mmol/L (136-145); TOTAL PROTEIN 6.9 gm/dL (6.4-8.2)
--- NOTE | 2019-04-13 07:58 | NUR ---
Faxed updates to [facility] -ELOISE Goel
--- NOTE | 2019-04-13 08:00 | NUR ---
PHYSICAL THERAPY Patient was resting supine in bed this am when approached for therapy visit and reports he is awaiting transport down for L foot surgery. Patient request to be seen later this pm if possible. Will continue per POC as able. Cesar Charles, RACING SECRETARY AND HANDICAPPER
--- NOTE | 2019-04-13 08:25 | NUR ---
OT NOTE Attempted to see pt this A.M. for OT session and upon arrival pt was requesting to rest with reports of "I am having surgery this A.M. so would like to rest prior to having it done." Will check back at a later time/date and continue with POC as able. GIGI Jiménez/Narcisa
--- NOTE | 2019-04-13 10:58 | NUR ---
PT LEFT FLOOR FOR SURGERY.
--- NOTE | 2019-04-13 11:34 | NUR ---
PT WANTS TO RETURN TO [facility] TO FINISH REHAB ON DISCHARGE. WILL CONTINUE TO FOLLOW.
--- NOTE | 2019-04-13 13:01 | NUR ---
OT NOTE Attempted to see pt this P.M. for OT session and upon arrival pt was out of the room for surgery. Will check back at a later time/date and continue with POC as able. GIGI Jiménez/Narcisa
--- NOTE | 2019-04-13 13:51 | NUR ---
Faxed updates to [facility] -ELOISE Goel
--- NOTE | 2019-04-13 14:10 | NUR ---
PHYSICAL THERAPY Patient was resting supine in bed this pm when approached for therapy and had just returned from am Surgery. Patient reports no c/o of pain however stated he was exhausted and wanted to rest this afternoon. Will continue per POC as tolerated. Cesar Charles, EMT
--- NOTE | 2019-04-13 15:48 | NUR ---
PHYSICAL THERAPY CO-SIGN I approve of the Physical Therapy notes written above. LEONARDO AGUILAR PT,DPT
--- NOTE | 2019-04-13 20:58 | NUR ---
C/O PAIN TO B/L FEET OF 04/12. ROXICODONE GIVEN AT THIS TIME. WILL CONT TO MONITOR. CALL LIGHT IN REACH.
--- NOTE | 2019-04-13 21:58 | NUR ---
ROXICODONE EFF. WILL CONT TO MONITOR. CALL LIGHT IN REACH.
[2019-04-14] VITALS: BP 112/77
--- NOTE | 2019-04-14 00:40 | NUR ---
RESTING IN BED WITH EYES CLOSED. APPEARS TO BE SLEEPING. HEP LOCK INTACT. CALL LIGHT IN REACH. NO DISTRESS NOTED. DSG D/I BILATERAL LOWER EXTREMITIES WITH NO VISIBLE DRNG NOTED.
--- NOTE | 2019-04-14 04:56 | NUR ---
Upon discharge recommend patient to follow up for wound care in outpatient setting continue current wound care orders at discharging facility.
--- NOTE | 2019-04-14 06:12 | NUR ---
SLEPT WELL. REMAINS WIHTOUT C/O'S.
[2019-04-14 08:00] VITALS: BP 135/70
--- NOTE | 2019-04-14 08:27 | NUR ---
Roxicodone given per patient request for c/o pain rated 8/10.
--- NOTE | 2019-04-14 09:20 | NUR ---
Roxicodone effective. Patient rates pain 3/10 and is satisfied.
--- NOTE | 2019-04-14 09:30 | NUR ---
OT NOTE Pt was seen this A.M. 1:1 for 15 minute OT session. Upon arrival pt was supine in bed. Pt identified by name and and had complaints of 7/10 RLE pain. Pt presented to therapy with continuous 3L-O2 via NC which he remained on throughout entire session. Pt was able to verbalize weight bearing status of NWB to RLE and WBAT with cam boot on to LLE with 100% accuracy. Pt transferred supine to sit EOB with Víctor for assist with RLE. While sitting EOB cam boot was donned with maxA. Pt then completed multiple sit to stand transfers from bed level with CGA and constant vebal prompts for maintaining weight bearing status due to poor carry over. Challenged pt's static standing tolerance needed for increased I in self care tasks and functional transfers. Pt was able to tolerate aprox 1 minute at a time before sitting due to fatigue. Pt completed stand pivot from EOB to the recliner with CGA and constant vebal prompts for weight bearing. Pt was left sitting reclined with BLE elevated for edema control with call light in hand, tray table in place, and body alarm on for safety. Continue with rec D/C plan to SNF. MAY Jiménez
--- NOTE | 2019-04-14 10:12 | NUR ---
PHYSICAL THERAPY PT SUPINE IN BED UPON ARRIVAL. PT IDENTIFIED BY NAME AND . PT AGREED TO ALL PHYSICAL THERAPY TREATMENT THIS VISIT. PTS CAM BOOT IN ROOM. SUPERVISING PHYSICAL THERAPIST STATED WB STATUS IS NWB ON RLE AND WBAT ON LLE WITH CAM BOOT AND WITHOUT CAM BOOT LLE NWB. PT HAD CAM BOOT ON DURING ENTIRE TREATMENT. PT PERFORMED BED MOBILITY WITH Bonny X1 TO ASSIST WITH RLE. VC'S AND EDUCATION ON WB STATUS GIVEN. PT PERFORMED STS TO AND FROM EOB WITH USE OF BUE AND SBA/CGA TO FWW. PT IS NON COMPLIANT WITH WB STATUS, EVEN WITH VC'S FOR REDIRECTION FOR WB STATUS. PT PERFORMES STAND PIVOT TRANSFER FROM EOB TO RECLINER WITH FWW AND CGA WITH VC'S FOR WB STATUS, SAFETY AND TECHNIQUE. PT NON COMPLIANT WITH WB STATUS DURING THIS TRANSFER. PT PERFORMES STS TO RECLINER IN UNSAFET TECHNQUE AFTER VC'S GIVEN FOR SAFETY AND PROPER TECHNIQUE. PT PLOPPED DOWN IN TO CHAIR. PT SITTING IN RECLINER WITH IT RECLINED WITH CAM BOOT ON LLE AND RLE ELEVATED ON PILLOW. TRAY WITHIN ARMS REACH, CALL LIGHT AND PHONE ON BED TO PTS RIGHT SIDE WITH IN ARMS REACH. PT REPORTS NO OTHER NEEDS AT THIS TIME. PT SEEN 1:1 FOR 15MIN. MANFRED SHIN PTA
--- NOTE | 2019-04-14 11:28 | NUR ---
PT IS SNF CARE AT [facility] AND WILL RETURN WHEN MEDICALY STABLE. WILL COUNTINUE TO FOLLOW.
[2019-04-14 12:00] VITALS: BP 128/66
[2019-04-14 16:00] VITALS: BP 122/74
[2019-04-14 16:05] LABS: ACID FAST SPEC PROCESSING Tissue Grinding (.)
--- NOTE | 2019-04-14 17:35 | NUR ---
Roxicodone given per patient request for c/o pain in bilat L/E. Pain is rated 7/10. Will monitor.
--- NOTE | 2019-04-14 18:15 | NUR ---
Roxicodone effective. Patient satisfied.
[2019-04-14 20:00] VITALS: BP 113/69
[2019-04-15] VITALS: BP 108/78
--- NOTE | 2019-04-15 06:10 | NUR ---
PT C/O GENERALIZED PAIN. OXYCODONE 15 MG GIVEN AT THIS TIME. ALL OTHER SCHEDULED AM MEDS GIVEN, TAKEN WITH EASE. BLOOD SUGAR WNL. VITALS WNL. PT ALERT ORIENTED AND ANSWERING QUESTIONS APPROPRIATELY. WILL MONITOR FOR EFFECTIVENESS. PT SITTING UP IN CHAIR BESIDE BED. CALL LIGHT IN REACH.
[2019-04-15 06:12] VITALS: BP 122/74
--- NOTE | 2019-04-15 07:10 | NUR ---
OXYCODONE EFFECTIVE PER PT.
[2019-04-15 08:00] VITALS: BP 116/66
--- NOTE | 2019-04-15 11:10 | NUR ---
ELOISE talked to Yajaira about letter the patient received. She stated that the patient does not need to be concerned now but if next he has returned to the facility there would be a daily bedhold fee. She stated she would notify the PROFESSOR OF OCEANOGRAPHY if this was to take place. ELOSIE explained this to the patient with PT staff present in the room. -ELOISE Goel
--- NOTE | 2019-04-15 11:17 | NUR ---
OT NOTE PATIENT IDENTIFIED BY NAME AND DATE OF . PATIENT SEEN 23 MINUTES OT THIS DATE. PATIENT SEATED IN RECLINER. PATIENT COMPLETED SIT TO STAND FROM RECLINER MAX A. COMPLETED STATIC STANDING 3 MINUTES USE FWW SUPPORT CGA WITH PATIENT REQUIRING VERBAL CUES TO MAINTAIN LLE NWB COMPLIANCY APPROX 50% TIME. COMPLETED GROOMING TASK STANDING MAX A AND LUNDY SEATED TO COMB HAIR. PATIENT COMPLETED UB DRESSING SEATED SBA AND SIMULATED LB DRESSING MAX A SECONDARY CAST AND BOOT LLE AND SECONDARY PATIENT REQUIRES USE BUE SUPPORT FWW WTH STANDING. CONTINUE TOWARDS PLAN OF CARE. ZO YU/Narcisa
--- NOTE | 2019-04-15 11:26 | NUR ---
PHYSICAL THERAPY Patient seen this am 1:1 for therapy visit and was sitting up in bedside chair upon therapist arrival. Patient was pleasant, voicing no c/o's pain and presented with R LE plaster cast, NWB and L CAM boot, WBAT. Patient performed several sit to stand transfers from low chair surface, MAX A with use of wh walker standing support. Patient able to tolerate 1-3 minutes of static stand, demontrating only 50% compliance with NWB status. Patient needed v/c for proper hand placement prior to sitting down to avoid "plopping" and demonstrated improved performance during all subsequent transfers. Patient also continuos O2-2L via NC, recording 95% SpO2, HR 67 bpm during therapy session. Patient returned to and remained in bedside chair with call light, tray table and telephone. Will continue per POC as tolerated, total treatment time 17 minutes. Cesar Charles, CRM CAMPAIGN MANAGER
[2019-04-15 12:00] VITALS: BP 113/74
--- NOTE | 2019-04-15 12:40 | NUR ---
Roxicodone given per patient request for c/o pain in Bilat LE. Patient rates pain at 9/10 and describes it to be a burning sensation. Will monitor.
--- NOTE | 2019-04-15 12:51 | NUR ---
PT WILL RETURN TO [facility] WHEN MEDICALLY STABLE TO CONTINUE REHAB.
--- NOTE | 2019-04-15 13:16 | NUR ---
PHYSICAL THERAPY CO-SIGN I approve of the Physical Therapy notes written above. LEONARDO AGUILAR PT,DPT
--- NOTE | 2019-04-15 13:30 | NUR ---
Roxicodone effective. Patient asleep with respirations >12.
--- NOTE | 2019-04-15 15:22 | NUR ---
SENIOR RISK MANAGER faxed updates to [facility] -ELOISE Goel
[2019-04-15 16:00] VITALS: BP 96/58
--- NOTE | 2019-04-15 17:50 | NUR ---
Patient requesting pain medication. Rates pain 7/10. Will follow up when pain med is due.
[2019-04-15 20:00] VITALS: BP 97/58
--- NOTE | 2019-04-15 20:00 | NUR ---
SITTING UP IN CHAIR. RESP-EASY AND REGULAR. DRESSING R AND L LEG D/I. NO C/O AT THIS TIME. CALL LIGHT IN REACH.
--- NOTE | 2019-04-15 23:10 | NUR ---
PT RESTING IN RECLINER CHAIR WITH EYES CLOSED. AWAKENS EASILY. BSG-120, SEE EMAR. C/O RIGHT LEG/FOOT PAIN, RATES PAIN 8 ON PAIN SCALE 0-10. MEDICATED WITH OXY IR PO PER PRN ORDER, SEE EMAR. CALL LIGHT IN REACH.
--- NOTE | 2019-04-15 23:16 | NUR ---
CALLED DR. EPSTEIN REGARDING PT BP 98/62, HOLD COREG. ALSO MADE AWARE BSG-120 AND SHE IS DUE FOR JUAN ESTRELLA TO GIVE.
[2019-04-16] VITALS: BP 98/62
--- NOTE | 2019-04-16 | NUR ---
RESTING IN RECLINER SLEEPING. MEDICATION SEEMS TO BE EFFECTIVE. CALL LIGHT IN REACH.
--- NOTE | 2019-04-16 04:00 | NUR ---
SLEEPING IN RECLINER. RESP-EASY AND REGULAR. CALL LIGHT IN REACH.
--- NOTE | 2019-04-16 05:40 | NUR ---
C/O RIGHT LEG/FOOT PAIN, RATES PAIN 8 ON PAIN SCALE 0-10. MEDICATED WITH OXY IR. SEE EMAR. BSG-141, SEE EMAR.
[2019-04-16 06:05] LABS: CREATININE 1.65 mg/dL (0.70-1.30)
[2019-04-16 08:00] VITALS: BP 113/61
[2019-04-16 12:00] VITALS: BP 106/60
[2019-04-16 16:00] VITALS: BP 109/58
[2019-04-16 20:00] VITALS: BP 100/58
[2019-04-16 22:03] LABS: ADENOVIRUS Negative (Negative); INFLUENZA A Negative (Negative); INFLUENZA B Negative (Negative); METAPNEUMOVIRUS Negative (Negative); PARAINFLUENZA 1 Negative (Negative); PARAINFLUENZA 2 Negative (Negative); PARAINFLUENZA 3 Negative (Negative); RHINOVIRUS Negative (Negative); RSV A Negative (Negative); RSV B Negative (Negative)
--- NOTE | 2019-04-16 22:10 | NUR ---
Roxicodone given per patient request for c/o surgical pain. Will monitor.
--- NOTE | 2019-04-16 22:55 | NUR ---
Roxicodone effective. Patient asleep with respirations >12.
[2019-04-17] VITALS: BP 108/65
--- NOTE | 2019-04-17 05:42 | NUR ---
Roxicodone given per patient request for c/o pain rated 7/10. Will monitor.
[2019-04-17 06:11] LABS: CREATININE 1.79 mg/dL (0.70-1.30)
[2019-04-17 06:58] LABS: BASO # 0.1 10*3/uL (0.0-0.1); BASO % 1.1 % (0.0-1.0); EOS # 0.2 10*3/uL (0.0-0.4); EOS % 2.6 % (1.0-4.0); HEMATOCRIT 29.3 % (42.0-52.0); HEMOGLOBIN 8.7 g/dl (14.0-18.0); LYMPH % 14.2 % (27.0-41.0); MEAN CELL VOLUME 102.4 fl (80.0-94.0); MEAN CORPUSCULAR HGB 30.4 pg (27.0-31.0); MEAN CORPUSCULAR HGB CONC 29.7 g/dl (33.0-37.0); MEAN PLATELET VOLUME 9.8 fl (9.6-12.3); MONO # 0.8 10*3/uL (0.1-1.0); MONO % 11.6 % (3.0-9.0); NEUT % 70.1 % (47.0-73.0); PLATELET COUNT AUTOMATED 213 10*3/uL (130-400); RED BLOOD COUNT 2.86 10*6/uL (4.50-5.90); RED CELL DISTRI WIDTH 15.7 % (0-14.5); WHITE BLOOD COUNT 7.2 10*3/uL (4.8-10.8)
[2019-04-17 08:00] VITALS: BP 112/57
[2019-04-17 16:39] VITALS: BP 112/60
--- NOTE | 2019-04-17 19:30 | NUR ---
PT RESTING IN BED. RESP-EASY AND REGULAR. DRESSING BILATERAL LEGS D/I. OXYGEN IN USE. CALL LIGHT IN REACH.
[2019-04-17 20:00] VITALS: BP 117/66
--- NOTE | 2019-04-17 22:00 | NUR ---
RESTING IN BED. BSG-143, SEE EMAR. HELD PT COREG PER HIS REQUEST. BP 117/66. CALL LIGHT IN REACH.
[2019-04-18] VITALS: BP 97/55
--- NOTE | 2019-04-18 00:10 | NUR ---
PT RESTING IN BED. RESP-EASY AND REGULAR. NO C/O AT THIS TIME. CALL LIGHT IN REACH. SEE SHIFT ASSESSMENT.
--- NOTE | 2019-04-18 03:18 | NUR ---
24 HR chart check completed.
--- NOTE | 2019-04-18 04:00 | NUR ---
PT SLEEPING IN BED. RESP-EASY AND REGULAR. CALL LIGHT IN REACH.
[2019-04-18 06:32] LABS: BASO # 0.1 10*3/uL (0.0-0.1); EOS # 0.2 10*3/uL (0.0-0.4); EOS % 3.1 % (1.0-4.0); HEMATOCRIT 28.7 % (42.0-52.0); HEMOGLOBIN 8.5 g/dl (14.0-18.0); LYMPH % 14.4 % (27.0-41.0); MEAN CELL VOLUME 101.4 fl (80.0-94.0); MEAN CORPUSCULAR HGB CONC 29.6 g/dl (33.0-37.0); MEAN PLATELET VOLUME 9.6 fl (9.6-12.3); MONO # 0.8 10*3/uL (0.1-1.0); MONO % 11.7 % (3.0-9.0); NEUT # 4.9 10*3/uL (2.3-7.9); NEUT % 69.5 % (47.0-73.0); PLATELET COUNT AUTOMATED 186 10*3/uL (130-400); RED BLOOD COUNT 2.83 10*6/uL (4.50-5.90); RED CELL DISTRI WIDTH 15.8 % (0-14.5)
[2019-04-18 06:48] LABS: CREATININE 1.8 mg/dL (0.70-1.30); POTASSIUM 5.4 mmol/L (3.5-5.1)
--- NOTE | 2019-04-18 07:30 | NUR ---
YOVANYAYESHAFELIPE De Guzman [id number] Please refer to the physician's history and physical for past medical history, comorbid conditions, and allergies. Diagnosis: PNEUMONIA Minesh Score: 17,AT RISK WOUND DESCRIPTIONS: Dressings to left and right bilateral feet intact. No strike through noted at time of assessment. Patient denied pain at time of assessment. Surface the patient is resting on: Isoflex SKIN PREVENTION RECOMMENDATION: 1. Pressure redistribution support surface as appropriate 2. Elevate heels 3. Remove boots/TEDS every shift and reapply 4. Head of bed 30 degrees as tolerated 5. Assess nutrition and hydration 6. Manage moisture 7. Avoid the use of containment devices while in bed 8. Use absorptive products on surfaces limit layers of linens on bed 9. Turn and reposition every 1-2 hours in bed and every 1 hour in chair as tolerated 10. Weight shifts every 15 minutes while up in chair 11. Offloading with pillows or device to keep heels elevated off bed 12. Monitor skin at least every shift 13. Inspect under medical devices twice a day
[2019-04-18 08:00] VITALS: BP 96/46
--- NOTE | 2019-04-18 08:00 | NUR ---
PHYSICAL THERAPY Patient seen this am 1:1 for therapy visit and was resting supine in bed upon therapist arrival. Patient reports staying in bed most of the weekend with c/o of generalized weakness. Patient also stated his CAM boot did not fit well secondary to increased thickness of L LE flakita wrap following Training Intern visit the other day. Patient is NWB on R LE with large plaster cast and WBAT with CAM boot on L LE. Patient presented with continuous O2-2L via NC and transfers supine to sit EOB with MIN A. Patient tolerated static EOB sit x 5 minutes and instructed on safe bed mobilty for improved comfort / pressure relief. Patient tolerated all treatment voicing no new c/o's and returned to supine in bed CGA x 1. Patient remained in bed with call light, tray table and telephone. Will continue per POC as tolerated, total treatment time 13 minutes. Cesar Charles, DRAW PRESS OPERATOR
--- NOTE | 2019-04-18 08:13 | NUR ---
Faxed updates to [facility] -ELOISE Goel
--- NOTE | 2019-04-18 08:58 | NUR ---
OT NOTE PATIENT IDENTIFIED BY NAME AND DATE OF . PATIENT SEEN 12 MINUTES OT THIS DATE. PATIENT WAS LAYING IN BED UPON ARRIVAL. PATIENT WITH LEFT FOOT WRAPPED AND REPORTED CAM BOOT DOES NOT FIT OVER WRAP. PATIENT COMPLETED BED MOBILITY TASK, REQUIRING HEAD OF BED RAISED TO ASSIST WITH TRANSFER. ONCE SEATED AT EDGE OF BED, PATIENT COMPLETED DYNAMIC SITTING BALANCE ACTIVITY TO WORK ON ENDRUANCE AND CORE STRENGTHENING. PATIENT REQUIRED SBA WHEN REACHING TO CROSS MIDLINE AND TO REACH BELOW THE KNEE. PATIENT EDUCATED ON WEIGHT BEARING STATUS. PATIENT MAY BENEFIT FROM STRENGTHENING BUE AND UTILIZING LONG HANDLED DIRECTOR BUSINESS NEXT VISIT. CONTINUE WITH POC. RECOMMEND SNF. JENARO HOGAN OTR/L PATIENT SEATED IN RECLINER. PATIENT COMPLETED SIT TO STAND FROM RECLINER MAX A. COMPLETED STATIC STANDING 3 MINUTES USE FWW SUPPORT CGA WITH PATIENT REQUIRING VERBAL CUES TO MAINTAIN LLE NWB COMPLIANCY APPROX 50% TIME. COMPLETED GROOMING TASK STANDING MAX A AND LUNDY SEATED TO COMB HAIR. PATIENT COMPLETED UB DRESSING SEATED SBA AND SIMULATED LB DRESSING MAX A SECONDARY CAST AND BOOT LLE AND SECONDARY PATIENT REQUIRES USE BUE SUPPORT FWW WTH STANDING. CONTINUE TOWARDS PLAN OF CARE.
--- NOTE | 2019-04-18 09:00 | NUR ---
DR EID IN AND STATES THAT PT CAN BE DISCHARGED TO [facility] TOMORROW AND SHE WILL CALL THE [facility] HERSELF IF PT NEEDS ANY CHANGES IN ANTIBIOTICS. WILL CONTINUE TO FOLLOW.
--- NOTE | 2019-04-18 09:30 | NUR ---
PT C/O OF BILATERAL LOWER EXTREMITY BREAKTHROUGH PAIN PRN OXY IR GIVEN PER ORDER
--- NOTE | 2019-04-18 10:10 | NUR ---
PER PT PRN OXY IR WAS EFFECTIVE PAIN IS MANAGABLE 10/10 PER PATIENT
[2019-04-18 12:00] VITALS: BP 99/61
[2019-04-18 16:00] VITALS: BP 123/73
[2019-04-18 20:00] VITALS: BP 105/70
--- NOTE | 2019-04-18 20:30 | NUR ---
RESTING IN BED WITH EYES CLOSED, AWAKENS EASILY. RESP-EASY AND REGULAR. OXYGEN IN USE. CALL LIGHT IN REACH.
--- NOTE | 2019-04-18 21:10 | NUR ---
BSG-151, SEE EMAR. TOLERATED ROUTINE MED WITH NO PROBLEM. IV ANTIBIOTIC RUNNING WITH NO PROBLEM. CALL LIGHT IN REACH.
--- NOTE | 2019-04-18 22:15 | NUR ---
RESTING IN BED. RESP-EASY AND REGULAR. OXYGEN IN USE. CALL LIGHT IN REACH.
--- NOTE | 2019-04-18 22:52 | NUR ---
PT C/O RIGHT LEG PAIN, RATES PAIN 8 ON PAIN SCALE 0-10. ALSO C/O BACK PAIN, RATES PAIN 5 ON PAIN SCALE 0-10. MEDICATED WITH OXY IR PO PER PRN ORDER, SEE EMAR. CALL LIGHT IN REACH. BED ALARM ON.
[2019-04-19] VITALS: BP 110/66
--- NOTE | 2019-04-19 04:13 | NUR ---
SLEEPING IN BED. RESP-EASY AND REGULAR. OXYGEN IN USE.CALL LIGHT IN REACH.
--- NOTE | 2019-04-19 05:56 | NUR ---
PT C/O RIGHT LEG PAIN, RATES PAIN 8 OR 9 ON PAIN SCALE 0-10. MEDICATED WITH OXY IR PO PER PRN ORDER, SEE EMAR. ALSO TOLERATED ROUTINE MED WITH NO PROBLEM. CALL LIGHT IN REACH. BSG-109, SEE EMAR.
[2019-04-19 07:23] VITALS: BP 108/66
[2019-04-19 07:24] LABS: BASO # 0.1 10*3/uL (0.0-0.1); BASO % 0.8 % (0.0-1.0); EOS # 0.2 10*3/uL (0.0-0.4); EOS % 2.7 % (1.0-4.0); HEMATOCRIT 28.9 % (42.0-52.0); HEMOGLOBIN 8.8 g/dl (14.0-18.0); LYMPH # 0.9 10*3/uL (1.3-4.4); LYMPH % 11.2 % (27.0-41.0); MEAN CELL VOLUME 102.5 fl (80.0-94.0); MEAN CORPUSCULAR HGB 31.2 pg (27.0-31.0); MEAN CORPUSCULAR HGB CONC 30.4 g/dl (33.0-37.0); MEAN PLATELET VOLUME 9.6 fl (9.6-12.3); MONO # 0.8 10*3/uL (0.1-1.0); MONO % 9.5 % (3.0-9.0); NEUT % 75.4 % (47.0-73.0); PLATELET COUNT AUTOMATED 191 10*3/uL (130-400); RED BLOOD COUNT 2.82 10*6/uL (4.50-5.90); RED CELL DISTRI WIDTH 15.6 % (0-14.5); WHITE BLOOD COUNT 7.9 10*3/uL (4.8-10.8)
[2019-04-19 07:40] LABS: CREATININE 1.94 mg/dL (0.70-1.30); POTASSIUM 5.6 mmol/L (3.5-5.1)
--- NOTE | 2019-04-19 07:55 | NUR ---
Faxed updates to [facility] -ELOISE Goel
--- NOTE | 2019-04-19 08:04 | NUR ---
OCCUPATIONAL THERAPY CO-SIGN I approve of the Occupational Therapy notes written above. GUS CONTRERAS OTR/Narcisa
--- NOTE | 2019-04-19 10:36 | NUR ---
OT NOTE PATIENT SUPINE IN BED UPON ARRIVAL. STATED HE HAS BEEN FEELING LIGHT HEADED ON AND OFF THIS A.M. PATIENT SAT UP ON EOB AND C/O DIZZINESS AND NOTIABLE LEANING TO RIGHT SIDE OF BODY. PATIENT STATED WHEN HE IS SITTING UP HE FEELS LIKE HE IS UNABLE TO DO ANYTHING AND JUST WANTS TO FALL OVER. PATIENT NOT APPROPRAITE FOR THERAPY SESSION THIS DAY. RETURNED TO SUPINE IN BED. NURSING NOTIFIED OF UNUSUAL BEHAVIOR/DIZZINESS. CHARI YU/Narcisa
--- NOTE | 2019-04-19 10:38 | NUR ---
PHYSICAL THERAPY PT SUPINE IN BED UPON ARRIVAL. PT REPORTS " I WOULD LOVE TO TRY BUT I AM SHAKY AND WHEN I SIT I WANT TO FALL BACK AND TO MY SIDE. I DON'T KNOW WHAT IS GOING ON." DIAMOND CLEANER ASK PT TO TRY AND SIT EOB. PT GO TO EOB WITH Bonny X1 AND C/O DIZZIENESS AND BEING LIGHT HEADED. WHEN TRYING TO TALK TO PT, PT WOULD DOZE OFF AND ON. PT RETUNRED TO SIDE LYING WITH CALL LIGHT IN HAND. PT NOT APPROPIATE FOR PHYSICAL THERAPY THIS A.M. WILL TRY AGAIN AT A LATER TIME/DATE. MANFRED SHIN PTA
[2019-04-19 12:00] VITALS: BP 107/69
--- NOTE | 2019-04-19 12:52 | NUR ---
PT CAN RETURN TO [facility] IF DISCHARGED TODAY. THEY CAN NOT HOLD BED AFTER TODAY. DR VALLE WAS INFORMED AT MORNING MEETING. STATED HE WAS GOING TO TALK WITH DR EID.
--- NOTE | 2019-04-19 14:07 | NUR ---
Patient can return to [facility] today if discharged. They cannot hold his bed after today. Dr. Boogie was informd of this at the morning meeting and stated he would talk to Dr. Schaeffer. WEATHERIZATION TECHNICIAN [facility]. -ELOISE Goel
--- NOTE | 2019-04-19 14:54 | NUR ---
ACCOUNTANCY PROFESSOR received notice of patient discharge. ACCOUNTANCY PROFESSOR spoke with RNEstuardo. ACCOUNTANCY PROFESSOR reached out to [facility] to schedule transportation at 5pm. ACCOUNTANCY PROFESSOR notified RN and Work 2 Year Olds Preschool Teacher of the scheduled pick pulling machine operator time. ACCOUNTANCY PROFESSOR attempted to speak to the patient was unable to wake him. ACCOUNTANCY PROFESSOR reached out to patient son Gio. He is aware of patient discharged to [facility]. ACCOUNTANCY PROFESSOR notified [facility] of patient discharge. -ELOISE Goel
[2019-04-19 16:00] VITALS: BP 119/79
--- NOTE | 2019-04-19 16:05 | NUR ---
OCCUPATIONAL THERAPY CO-SIGN I approve of the Occupational Therapy notes written above. GUS CONTRERAS OTR/Narcisa
--- NOTE | 2019-04-19 17:04 | NUR ---
Discharge instructions reviewed with patient/family. Patient receptive and verbalizes understanding. Follow-up care arranged. Written instructions given to patient/family. NEHA PATRICIO
--- NOTE | 2019-04-19 17:25 | NUR ---
PHYSICAL THERAPY CO-SIGN I approve of the Physical Therapy notes written above. LEONARDO AGUILAR PT,DPT
--- NOTE | 2019-04-22 14:54 | NUR ---
Dr. Schaeffer called for Jag Orosco's phone number so she could tell the nursing facility to stop his Vancomycin.
== END 2019-04-19 17:04 | disposition other institution (70) | DRG 622 ==
LOC: ED 13:40 → 5E 15:05 → EDHOLD 15:05 → 5E 15:30
PROVIDERS: Emergency Medicine; Family Medicine; Internal Medicine; Podiatrist; ADMIT Internal Medicine
PROC: 0QBP0ZZ Excision of Left Metatarsal, Open Approach (ICD-10-PCS; principal; 2019-04-13)
PROC: 0QBN0ZZ Excision of Right Metatarsal, Open Approach (ICD-10-PCS; principal; 2019-04-13)
PROC: 0HRNXJZ Replacement of Left Foot Skin with Synthetic Substitute, External Approach (ICD-10-PCS; principal; 2019-04-13)
PROC: 0KBS0ZZ Excision of Right Lower Leg Muscle, Open Approach (ICD-10-PCS; principal; 2019-04-13)
DX: E11.69 Type 2 diabetes mellitus with other specified complication (principal); J18.9 Pneumonia, unspecified organism; E43 Unspecified severe protein-calorie malnutrition; L03.116 Cellulitis of left lower limb; I13.0 Hypertensive heart and chronic kidney disease with heart failure and stage 1 through stage 4 chronic kidney disease, or unspecified chronic kidney disease; M86.8X7 Other osteomyelitis, ankle and foot; Z68.41 Body mass index [BMI] 40.0-44.9, adult; E11.51 Type 2 diabetes mellitus with diabetic peripheral angiopathy without gangrene; N18.4 Chronic kidney disease, stage 4 (severe); I73.9 Peripheral vascular disease, unspecified; E87.5 Hyperkalemia; E83.41 Hypermagnesemia; D53.9 Nutritional anemia, unspecified; I50.9 Heart failure, unspecified; E11.42 Type 2 diabetes mellitus with diabetic polyneuropathy; L97.529 Non-pressure chronic ulcer of other part of left foot with unspecified severity; L97.519 Non-pressure chronic ulcer of other part of right foot with unspecified severity; E11.22 Type 2 diabetes mellitus with diabetic chronic kidney disease; E66.01 Morbid (severe) obesity due to excess calories; Z95.0 Presence of cardiac pacemaker; Z88.5 Allergy status to narcotic agent; F41.9 Anxiety disorder, unspecified; F32.9 Major depressive disorder, single episode, unspecified; G89.29 Other chronic pain; I25.10 Atherosclerotic heart disease of native coronary artery without angina pectoris; E78.5 Hyperlipidemia, unspecified; I25.2 Old myocardial infarction; G47.00 Insomnia, unspecified; I25.5 Ischemic cardiomyopathy; Z79.82 Long term (current) use of aspirin; Z79.899 Other long term (current) drug therapy; Z79.84 Long term (current) use of oral hypoglycemic drugs; Z83.3 Family history of diabetes mellitus; Z82.49 Family history of ischemic heart disease and other diseases of the circulatory system; F17.210 Nicotine dependence, cigarettes, uncomplicated; Z79.4 Long term (current) use of insulin; E11.40 Type 2 diabetes mellitus with diabetic neuropathy, unspecified

== ENCOUNTER 2019-06-15 08:45 | Emergency (ER) | payer MEDICARE ==
[~2019-06-15] VITALS: Ht 177.8 cm; Wt 108.0 kg
[~2019-06-15 08:45] MED LIST changes: +CEFTRIAXON2 GM/50 ML IV; +CLARITIN10 MG PO; +CYMBALTA60 MG PO; +NEURONTIN300 MG PO; +OZEMPIC0.25 MG/01 SQ; +THEREMS-M1 EACH PO; +TRAZODONE50 MG PO; +ULTRAM50 MG PO; +VITAMIN C500 M8 PO; +XARELTO10 MG PO
== END 2019-06-15 10:28 | disposition home or self-care (01) ==
LOC: ED 08:45
DX: L53.9 Erythematous condition, unspecified (principal); K94.23 Gastrostomy malfunction; E11.9 Type 2 diabetes mellitus without complications; I25.10 Atherosclerotic heart disease of native coronary artery without angina pectoris; I10 Essential (primary) hypertension; I25.2 Old myocardial infarction; M86.9 Osteomyelitis, unspecified; F17.200 Nicotine dependence, unspecified, uncomplicated; Z88.6 Allergy status to analgesic agent; Z79.899 Other long term (current) drug therapy; Z79.4 Long term (current) use of insulin

== ENCOUNTER 2019-06-26 07:57 | Inpatient (IN) | payer MEDICARE ==
[~2019-06-26] VITALS: Ht 177.8 cm; Wt 121.6 kg
[2019-06-26 07:57] VITALS: BP 113/80
[2019-06-26 08:15] LABS: BASO # 0.1 10*3/uL (0.0-0.1); BASO % 0.5 % (0.0-1.0); EOS # 0.1 10*3/uL (0.0-0.4); EOS % 0.8 % (1.0-4.0); HEMATOCRIT 29.5 % (42.0-52.0); HEMOGLOBIN 8.7 g/dl (14.0-18.0); LYMPH # 0.5 10*3/uL (1.3-4.4); LYMPH % 5.1 % (27.0-41.0); MEAN CELL VOLUME 104.6 fl (80.0-94.0); MEAN CORPUSCULAR HGB 30.9 pg (27.0-31.0); MEAN CORPUSCULAR HGB CONC 29.5 g/dl (33.0-37.0); MEAN PLATELET VOLUME 8.6 fl (9.6-12.3); MONO % 10.1 % (3.0-9.0); NEUT # 8.1 10*3/uL (2.3-7.9); NEUT % 83.2 % (47.0-73.0); NUCLEATED RED BLOOD CELL 0.2 % (0.0-0.0); PLATELET COUNT AUTOMATED 255 10*3/uL (130-400); RED BLOOD COUNT 2.82 10*6/uL (4.50-5.90); RED CELL DISTRI WIDTH 21.2 % (0-14.5); WHITE BLOOD COUNT 9.8 10*3/uL (4.8-10.8)
[2019-06-26 08:27] LABS: ACT PARTIAL THROMBO TIME 30.7 SECONDS (20.0-32.1)
[2019-06-26 08:35] LABS: ALBUMIN 2.6 gm/dl (3.1-4.5); ALKALINE PHOSPHATASE 389 U/L (45-117); BUN 65 mg/dl (7-24); CHLORIDE 107 mmol/L (98-107); CREATININE 3.46 mg/dL (0.70-1.30); POTASSIUM 5.5 mmol/L (3.5-5.1); SGOT/AST 15 IU/L (3-35); SGPT/ALT 17 U/L (12-78); SODIUM 140 mmol/L (136-145); TOTAL PROTEIN 7.1 gm/dL (6.4-8.2)
[2019-06-26 08:53] LABS: TROPONIN I < 0.015 ng/ml (<0.045)
[2019-06-26 08:56] LABS: BILIRUBIN NEGATIVE (NEGATIVE); BLOOD NEGATIVE (NEGATIVE); CLARITY CLEAR (CLEAR); COLOR YELLOW (YELLOW); GLUCOSE NEGATIVE (NEGATIVE); KETONE NEGATIVE (NEGATIVE); LEUKO ESTERASE NEGATIVE (NEGATIVE); NITRITE NEGATIVE (NEGATIVE); UROBILINOGEN 0.2 E.U./dl (0.2-1.0)
[2019-06-26 09:52] VITALS: BP 131/57
--- NOTE | 2019-06-26 09:52 | NUR ---
A 58, admitted to , under the services of CHITO Bui DO with a diagnosis of MARITO, HYPERKALEMIA,WEAKNESS, FALLS. Chief complaint is FALLS, WEAKNESS. Patient arrived via ambulance from ER. Monitor applied. Initial assessment completed. Vital signs taken and recorded. CHITO BUI DO notified of admission to the unit. Orders received. See assessment for past medical history, medications and allergies. Patient and/or family oriented to unit. [facility] visitation policy reviewed. Clothing/patient valuable form completed. MAG MCDONALD
--- NOTE | 2019-06-26 10:26 | NUR ---
REQUESTED WOUND CARE ORDERS FROM . SAID THAT HE WOULD CONSULT PODIATRY AND WOUND CARE AND THAT THEY WOULD PUT ORDERS IN FOR ALL WOUNDS.
--- NOTE | 2019-06-26 11:05 | NUR ---
CONSULT CALLED TO . AWAITING CALL BACK.
--- NOTE | 2019-06-26 11:07 | NUR ---
CALLED CONSULT TO PODIATRY RESIDENT. NO ANSWER. LEFT MESSAGE. AWAITING CALL BACK.
[2019-06-26 12:00] VITALS: BP 94/60
[2019-06-26] MEDS ORDERED: BUMETANIDE1 MG PO (13:52)
[2019-06-26] MEDS ORDERED: Glimepiride1 MG PO (13:53)
[2019-06-26] MEDS ORDERED: MIDODRINE HCL5 M1 PO (13:53)
[2019-06-26] MEDS ORDERED: PANTOPRAZOLE SO40 MG PO (13:54)
[2019-06-26] MEDS ORDERED: TAMSULOSIN HCL0.4 MG PO (13:54)
[2019-06-26] MEDS ORDERED: OXYCODONE HCL5 MG PO (13:57)
[2019-06-26] MEDS ORDERED: ZOLPIDEM TART10 MG PO (13:58)
[2019-06-26] MEDS ORDERED: PACERONE200 MG PO (14:01)
[2019-06-26 16:00] VITALS: BP 121/93
[2019-06-26] MEDS ORDERED: CLOPIDOGREL75 MG PO (16:22)
--- NOTE | 2019-06-26 16:24 | NUR ---
MED REC UPDATED.
--- NOTE | 2019-06-26 19:16 | NUR ---
24 HR chart check completed.
[2019-06-26 20:00] VITALS: BP 100/33
[2019-06-27] VITALS: BP 106/44
--- NOTE | 2019-06-27 03:22 | NUR ---
Patient resting quietly with no c/o discomfort. Respirations easy and regular. Vital signs stable. No overt distress. NICOLE CHEN
--- NOTE | 2019-06-27 06:13 | NUR ---
BS 68. GAVE THE PATIENT SOME ORANGE JUICE. RECHECKED AFTER 15 MINUTES. BS IS NOW 88.
[2019-06-27 06:37] LABS: BASO # 0.1 10*3/uL (0.0-0.1); BASO % 0.6 % (0.0-1.0); EOS # 1.5 10*3/uL (0.0-0.4); EOS % 15.5 % (1.0-4.0); HEMATOCRIT 26.7 % (42.0-52.0); LYMPH # 0.4 10*3/uL (1.3-4.4); LYMPH % 4.4 % (27.0-41.0); MEAN CELL VOLUME 103.1 fl (80.0-94.0); MEAN CORPUSCULAR HGB 30.9 pg (27.0-31.0); MEAN PLATELET VOLUME 9.2 fl (9.6-12.3); MONO # 1.1 10*3/uL (0.1-1.0); MONO % 11.7 % (3.0-9.0); NEUT # 6.3 10*3/uL (2.3-7.9); NEUT % 67.5 % (47.0-73.0); PLATELET COUNT AUTOMATED 239 10*3/uL (130-400); RED BLOOD COUNT 2.59 10*6/uL (4.50-5.90); RED CELL DISTRI WIDTH 20.5 % (0-14.5); WHITE BLOOD COUNT 9.4 10*3/uL (4.8-10.8)
[2019-06-27 06:57] LABS: ALBUMIN 2.4 gm/dl (3.1-4.5); CREATININE 3.02 mg/dL (0.70-1.30); FREE T4 0.66 ng/dl (0.76-1.46); PHOSPHOROUS 4.4 mg/dL (2.5-4.9); POTASSIUM 4.9 mmol/L (3.5-5.1); TOTAL PROTEIN 6.6 gm/dL (6.4-8.2)
[2019-06-27 07:02] LABS: THYROID STIM HORMONE (HS) 39.3 uIU/ml (0.358-4.75)
[2019-06-27 07:28] LABS: ACT PARTIAL THROMBO TIME 32.8 SECONDS (20.0-32.1)
--- NOTE | 2019-06-27 07:44 | NUR ---
FELIPE PEREZ [id number] Please refer to the physician's history and physical for past medical history, comorbid conditions, and allergies. Diagnosis: MARITO RECURRENT FALLS GENERALIZED WEAKNESS Minesh Score: 15,AT RISK WOUND DESCRIPTIONS: Wound Number: 1 Location of the wound: LEFT ELBOW Type of wound: ABRASION Thickness: Partial Size: 1.4cm X 1.2cm X 0.1cm Tunneling: NONE Undermining: NONE Sinus Tract: NONE Presence of Exudate: Serous Amount: Light Color: Red Odor: None Periwound Skin Appearance: Normal Wound edges: APPROXIMATED Pain (associated with wound): DENIED AT TIME OF ASSESSMENT How does patient state this happened? PATIENT STATES THAT HE FELL WOUND #2 LEFT ABD SURGICAL. PATIENT STATES THIS IS WHERE HE HAD A FEEDING TUBE PLACED. NO DRAINAGE NOTED AT TIME OF ASSESSMENT. Wound Number: 3 Location of the wound: RIGHT KNEE Type of wound: ABRASION Thickness: Partial Size: 2.3cm X 2.6cm X <0.1cm Tunneling: NONE Undermining: NONE Sinus Tract: NONE Presence of Exudate:None Amount: None Color: Brown Odor: None Periwound Skin Appearance: Normal Wound edges: CLOSED. INTACT SCAB Pain (associated with wound): DENIED AT TIME OF ASSESSMENT How does patient state this happened? PATIENT STATES THAT HE FELL. Wound Number: 4 Location of the wound: LEFT KNEE Type of wound: ABRASION Thickness: Partial Size: 2cm X 4cm X <0.1cm Tunneling: NONE Undermining: NONE Sinus Tract: NONE Presence of Exudate: None Amount: None Color: Brown Odor: None Periwound Skin Appearance: Normal Wound edges: CLOSED. INTACT SCAB. Pain (associated with wound): DENIED AT TIME OF ASSESSMENT How does patient state this happened? PATIENT STATES THAT HE FELL WOUND #5 LEFT NAKLE, WOUND # 6 LEFT OUTER FOOT, WOUND #7 RIGHT DISTAL FOOT NOT ASSESSED DUE TO DRESSING BY PODIATRY IN PLACE. NO STRIKE THROUGH NOTED AT TIME OF ASSESSMENT. Wound Number: 8 Location of the wound: PROXIMAL COCCYX Type of wound: STAGE 2 Thickness: Partial Size: 0.1cm X3.5cm X 0.1cm Tunneling: NONE Undermining: NONE Sinus Tract: NONE Presence of Exudate: Serous Amount: Light Color: Red Odor: None Periwound Skin Appearance: Erythema Wound edges: APPROXIMATED Pain (associated with wound): DENIED AT TIME OF ASSESSMENT How does patient state this happened? PATIENT UNSURE HOW THIS HAPPENED. Wound Number: 9 Location of the wound: MIDDLE COCCYX Type of wound: STAGE 2 Thickness: Partial Size: 0.2cm X 5cm X 0.1cm Tunneling: NONE Undermining: NONE Sinus Tract: NONE Presence of Exudate: Serous Amount: Light Color: Red Odor: None Periwound Skin Appearance: Erythema Wound edges: APPROXIMATED Pain (associated with wound): DENIED AT TIME OF ASSESSMENT How does patient state this happened? PATIENT UNSURE HOW THIS HAPPENED. Wound Number: 10 Location of the wound: DISTAL COCCYX Type of wound: STAGE 2 Thickness: Partial Size: 0.7cm X 5cm X 0.1cm Tunneling: NONE Undermining: NONE Sinus Tract: NONE Presence of Exudate: Serous Amount: Light Color: Red Odor: None Periwound Skin Appearance: Erythema Wound edges: APPROXIMATED Pain (associated with wound): DENIED AT TIME OF ASSESSMENT How does patient state this happened? PATIENT UNSURE HOW THIS HAPPENED. Surface the patient is resting on: Isoflex SKIN PREVENTION RECOMMENDATION: 1. Pressure redistribution support surface as appropriate 2. Elevate heels 3. Remove boots/TEDS every shift and reapply 4. Head of bed 30 degrees as tolerated 5. Assess nutrition and hydration 6. Manage moisture 7. Avoid the use of containment devices while in bed 8. Use absorptive products on surfaces limit layers of linens on bed 9. Turn and reposition every 1-2 hours in bed and every 1 hour in chair as tolerated 10. Weight shifts every 15 minutes while up in chair 11. Offloading with pillows or device to keep heels elevated off bed 12. Monitor skin at least every shift 13. Inspect under medical devices twice a day WOUND TREATMENT RECOMMENDATIONS: WHEEL CHAIR CUSHION WHEN OUT OF BED. HEEL RAISER PRO BOOTS WHILE IN BED. STAGE 2 GUIDELINES TO COCCYX: CLEANSE WITH NSS APPLY SUREPREP AROUND WOUND ALLOW TO DRY APPLY HYDROGEL AND COVER WITH OPTIFOAM GENTLE. CHANGE EVERY 2 DAYS AND ORN SOILING. LEFT ABD LEAVE OPEN TO AIR.
[2019-06-27 07:54] LABS: VITAMIN D, 25-HYDROXY 23.8 ng/mL (30-100)
--- NOTE | 2019-06-27 08:16 | NUR ---
Nursing screen received and Occupational Therapy referral received. Thank you. Carlita Garcia OTR/l
--- NOTE | 2019-06-27 08:16 | NUR ---
PHYSICAL THERAPY Screen received as well at PT orders for evaluation, will follow thank you Julisa Page PT
--- NOTE | 2019-06-27 08:47 | NUR ---
Dr. Bowles notified of wound care recommendations.
--- NOTE | 2019-06-27 09:00 | NUR ---
Director Project Management in to talk to patient. Patient states lives at home with sister and family. There are no steps in the home. Physician: linden brown Pharmacy: [facility] health services: [facility] Patient's level of ADLs: MINIMAL ASSIST Patient has working utilities: all working DME: walker Follow-up physician's appointment after d/c: will be made by [facility] director upon discharge Does patient want to access PORTAL?: no Discharge plan discussed with patient he states he lives at home with his sister and family, he uses a walker for ambulation and requires minimal assistance with adls, he states he recently was discharged from [facility], he also stated he has applied for Medicaid. discussed with him returning to the facility for rehab or returning home with [facility], case management will follow for home needs. PORFIRIO IGNACIO
--- NOTE | 2019-06-27 09:01 | NUR ---
Occupational Therapy evaluation offered this date. Patient in bed with complaints of feeling "shaky" and not feeling well. Patient declined OT eval at this time. Carlita Garcia OTR-L
--- NOTE | 2019-06-27 09:04 | NUR ---
PHYSICAL THERAPY Chart reveiwed attempted to see pt at the bedside however, not feeling well this morning wanting to defer therapy at this time, updated nursing will follow. Julisa Page PT
--- NOTE | 2019-06-27 10:52 | NUR ---
PT MEDICATED WITH NORCO FOR C/O BACK PAIN.
--- NOTE | 2019-06-27 11:31 | NUR ---
COLOR EXPERT IN TO SEE PT AND DRESSINGS TO BILATERAL LOWER LEGS CHANGED BY THEM.
[2019-06-27 12:00] VITALS: BP 102/71
--- NOTE | 2019-06-27 12:10 | NUR ---
In to see patient to discuss discharge planning. Patient stated he applied for [place] medicaid about 10 days ago through the [place] job [place] family services in [facility]. I explained at this time there are no beds available at [facility] and they do not anticipate any male beds becoming available in the next couple of weeks. I gave him the choice of [facility] in [facility] and he said no. He also stated he needed to discuss with his sister who takes care of him. Patients sisiter called and we spoke over the phone. She stated that patient has had a couple of falls because he attempted to go into the kitchen without his walker and had slippery socks on. Normally he does a lot on his own so before she would have him go all the way down to [place] she wants him to come home. She and her son are there to care for patient. He has a hospital bed, walker, cane, wheelchair. They are planning on purchasing a "high rise" to place over the commode in the bathroom. Patient also stating he wants to go home.
--- NOTE | 2019-06-27 14:08 | NUR ---
Occupational therapy orders received. Patient was out of the room upon OT arrival. Per nursing, patient is at an ultrasound. Will follow up with patient for completion of OT evaluation when available. Thank you. Radha Deluna, OTR/L
--- NOTE | 2019-06-27 14:51 | NUR ---
PHYSICAL THERAPY Pt anjuabe in the PM at testing/ultrasound will follow Julisa Page PT
[2019-06-27 16:00] VITALS: BP 106/55
[2019-06-27 20:00] VITALS: BP 114/65
[2019-06-28] VITALS: BP 119/66
--- NOTE | 2019-06-28 04:15 | NUR ---
Patient has follow up in the wound care center with Dr. Loaiza on 07/07/19 at 0900
--- NOTE | 2019-06-28 06:08 | NUR ---
OXY IR GIVEN PER PT REQUEST FOR BACK PAIN RATED 8/10
--- NOTE | 2019-06-28 06:40 | NUR ---
PATIENT PROVIDED WITH PEANUT BUTTER CRACKERS AND ORANGE JUICE FOR BGM 40. REPEAT BLOOD GLUCOSE 67
[2019-06-28 07:14] LABS: BASO # 0.1 10*3/uL (0.0-0.1); BASO % 0.7 % (0.0-1.0); EOS # 0.1 10*3/uL (0.0-0.4); HEMATOCRIT 28.9 % (42.0-52.0); HEMOGLOBIN 8.4 g/dl (14.0-18.0); LYMPH # 0.4 10*3/uL (1.3-4.4); LYMPH % 5.8 % (27.0-41.0); MEAN CELL VOLUME 104.7 fl (80.0-94.0); MEAN CORPUSCULAR HGB 30.4 pg (27.0-31.0); MEAN CORPUSCULAR HGB CONC 29.1 g/dl (33.0-37.0); MEAN PLATELET VOLUME 9.2 fl (9.6-12.3); MONO # 1.2 10*3/uL (0.1-1.0); MONO % 17.1 % (3.0-9.0); NEUT # 5.2 10*3/uL (2.3-7.9); NEUT % 75.1 % (47.0-73.0); PLATELET COUNT AUTOMATED 238 10*3/uL (130-400); RED BLOOD COUNT 2.76 10*6/uL (4.50-5.90); RED CELL DISTRI WIDTH 20.5 % (0-14.5); WHITE BLOOD COUNT 6.9 10*3/uL (4.8-10.8)
[2019-06-28 07:28] LABS: CREATININE 3.01 mg/dL (0.70-1.30); POTASSIUM 4.7 mmol/L (3.5-5.1)
--- NOTE | 2019-06-28 08:57 | NUR ---
Patient not able to participate in Occupational Therapy evaluation at this time d/t severe lethargy; patient unable to remain awake long enough to respond to simple questions. Nurse informed. Carlita Garcia OTR/l
--- NOTE | 2019-06-28 08:57 | NUR ---
PHYSICAL THERAPY Attmempted to see pt at the bedside for assessment, pt very lethargic unable to keep eyes open or follow commands, unable to state full name. Change in status from yesterday pt alert/conversive, spoke with nursing who came down to pts room and will obtain vitals and further assess pt, will defer therapy at this time until further assessed and appropriate. Julisa Page PT
--- NOTE | 2019-06-28 09:00 | NUR ---
case management visits with patient, case management will follow for discharge plans
--- NOTE | 2019-06-28 09:08 | NUR ---
Medicated with iv dextrose for bsg of 63 of lethargy.
--- NOTE | 2019-06-28 09:08 | NUR ---
DR MCDONOUGH NOTIFIED OF PT'S LETHARGY AND LOW BLOOD SUGAR. HE WAS ON THE 4TH FLOOR AND CAME TO SEE PT IMMEDIEALTY. AFTER AMP OF DEXTROSE. BLOOD SUGAR UP TO 171. ABG OBTAINED BY RESPIRATORY THERAPY. PT REMAINS DROWSY BUT DOES FOLLOW COMMANDS AND RESPONDS APPROPRIATLY.
[2019-06-28 09:33] LABS: ABG BASE EXCESS -2.4 mmol/L (-2.0-2.0); ABG HCO3 23.8 mmol/l (22-26); ABG O2 SATURATION 97.4 % (95-97); ARTERIAL BLOOD GAS PCO2 51.4 mmHg (35-45); ARTERIAL BLOOD GAS PH 7.286 (7.35-7.45); ARTERIAL BLOOD GAS PO2 85.3 mmHg (80-90)
--- NOTE | 2019-06-28 09:57 | NUR ---
PT MORE ALERT. ANSWERS APPRORIATLY.
[2019-06-28 11:15] LABS: BILIRUBIN NEGATIVE (NEGATIVE); BLOOD 3+ (NEGATIVE); CLARITY CLOUDY (CLEAR); COLOR BROWN (YELLOW); GLUCOSE NEGATIVE (NEGATIVE); KETONE NEGATIVE (NEGATIVE); LEUKO ESTERASE NEGATIVE (NEGATIVE); NITRITE POSITIVE (NEGATIVE); PH 5.5 (5.0-9.0); SPECIFIC GRAVITY 1.025 (1.005-1.030)
[2019-06-28 11:54] LABS: BACTERIA 4+; RBC TNTC rbc/hpf (0-2)
[2019-06-28 12:00] VITALS: BP 103/52
--- NOTE | 2019-06-28 12:20 | NUR ---
SPOKE TO DR. BONILLA. ORDERS RECEIVED FOR NEW BIPAP SETTING. ABG ORDERED FOR 1300.
--- NOTE | 2019-06-28 12:40 | NUR ---
SPOKE WITH DR. MCDONOUGH FOR PERSISTENT HYPOGLYCEMIA OF 45. ORDERS RECEIVED. PATIENT TRANSFERRED BACK TO [facility].
[2019-06-28 12:50] LABS: BASO # 0.1 10*3/uL (0.0-0.1); BASO % 0.8 % (0.0-1.0); EOS % 0.6 % (1.0-4.0); HEMOGLOBIN 8.2 g/dl (14.0-18.0); LYMPH # 0.3 10*3/uL (1.3-4.4); LYMPH % 3.9 % (27.0-41.0); MEAN CELL VOLUME 104.1 fl (80.0-94.0); MEAN CORPUSCULAR HGB 30.5 pg (27.0-31.0); MEAN CORPUSCULAR HGB CONC 29.3 g/dl (33.0-37.0); MONO % 15.5 % (3.0-9.0); NEUT % 78.9 % (47.0-73.0); PLATELET COUNT AUTOMATED 208 10*3/uL (130-400); RED BLOOD COUNT 2.69 10*6/uL (4.50-5.90); RED CELL DISTRI WIDTH 20.1 % (0-14.5); WHITE BLOOD COUNT 6.4 10*3/uL (4.8-10.8)
[2019-06-28 13:01] LABS: ALBUMIN 2.5 gm/dl (3.1-4.5); POTASSIUM 5.2 mmol/L (3.5-5.1); TOTAL PROTEIN 6.8 gm/dL (6.4-8.2)
[2019-06-28 13:33] LABS: ABG BASE EXCESS -2.2 mmol/L (-2.0-2.0); ABG HCO3 23.8 mmol/l (22-26); ABG O2 SATURATION 99.6 % (95-97); ARTERIAL BLOOD GAS PCO2 50.1 mmHg (35-45); ARTERIAL BLOOD GAS PH 7.297 (7.35-7.45)
--- NOTE | 2019-06-28 13:58 | NUR ---
PT RECEIVED FROM . REPORT FROM AGAPITO. PLACED ON BIPAP AND RESPIRATORY TALKED WITH DR BONILLA ABOUT ABG RESULTS. SHE RECEIVED ORDERS FROM HIM AND CHANGED SETTINGS TO 26/12, FIO2-25%. BED IN LOW POSITION WITH WHEELS LOCKED AND BED EXIT ALARM ACTIVE. D50 INFUSING FOR PERSISTENT HYPOGLYCEMIA AND LETHARGY ON TELEMETRY UNIT.
[2019-06-28 14:31] VITALS: BP 123/47
--- NOTE | 2019-06-28 14:48 | NUR ---
Shift chart check completed.24 HR chart check completed.
--- NOTE | 2019-06-28 14:59 | NUR ---
PHYSICAL THERAPY Pt had multiple tests performed this PM,[facility] will await new orders for thearpy due to change in medical status. Julisa Page PT
[2019-06-28 15:17] LABS: ABG HCO3 24.2 mmol/l (22-26); ABG O2 SATURATION 94.9 % (95-97); ARTERIAL BLOOD GAS PH 7.281 (7.35-7.45); ARTERIAL BLOOD GAS PO2 79.1 mmHg (80-90)
--- NOTE | 2019-06-28 15:30 | NUR ---
Patient transferred to [facility] with change in medical status. Consider OT referral when patient is medically stable and able to participate in therapy. Thank you. Selina Garcia OTR/Narcisa
--- NOTE | 2019-06-28 15:46 | NUR ---
DR BONILLA CALLED IN AFTER ABG'S WERE DONE AND REVIEWED WITH HIM. HE'S CONCERNED WITH GIVING PT CT PREP AND POSSIBLE ASPIRATING WITH BIPAP ON. TO LEAVE BIPAP OFF FOR NOW. REPORT TO AGAPITO.
[2019-06-28 16:00] VITALS: BP 130/75
--- NOTE | 2019-06-28 16:30 | NUR ---
PATIENT TAKEN DOWN TO CT SCAN VIA BED.
--- NOTE | 2019-06-28 16:55 | NUR ---
PATIENT BACK FROM CT SCAN. PATIENT TOLERATED WELL. IV FLUIDS RESTARTED. CALL LIGHT WITHIN REACH. PATIENT APPEARS MORE ALERT AND ORIENTED AT THIS TIME. PULSE OC 98% ON 2LNC.
[2019-06-28 20:00] VITALS: BP 118/52
--- NOTE | 2019-06-28 20:26 | NUR ---
DR. GARCIA CALLED WITH 8PM BLOOD SUGAR RESULTS. ORDERS RECEIVED. IV RATE INCREASED TO 100CC/HR AND PT GIVEN OJ TO DRINK. WILL CONT TO MONITOR.
--- NOTE | 2019-06-28 20:30 | NUR ---
PT IV RATE INCREASED TO 100CC/HR, CONTAINER OF OJ TAKEN BY PT AND PT ALSO ATE PEARS AND DRANK MILK.
[2019-06-29] VITALS (9 sets, daily range): BP systolic 100–122; BP diastolic 0–60
--- NOTE | 2019-06-29 01:55 | NUR ---
COMPLETE HIBICLENS BATH AND BED LINEN CHANGE DONE. PT TOLERATED WELL. PT IS ALERT AND ORIENTED, EASILY ABLE TO TELL US THE DATE TODAY.
--- NOTE | 2019-06-29 03:31 | NUR ---
DR GARCIA AWARE OF BS 54. PT AWAKE, COOPERATIVE, TALKING APPROPRIATELY. SKIN W/D. D10 INFUSING AT 100CC/HR. AMP D50 OVERRODE AND GIVEN ORDERED I AM HAVING DIFFICULTY ORDERING IT.
[2019-06-29 05:06] LABS: BASO # 0.1 10*3/uL (0.0-0.1); BASO % 0.9 % (0.0-1.0); EOS # 0.1 10*3/uL (0.0-0.4); EOS % 1.3 % (1.0-4.0); HEMATOCRIT 25.5 % (42.0-52.0); HEMOGLOBIN 7.6 g/dl (14.0-18.0); LYMPH # 0.4 10*3/uL (1.3-4.4); LYMPH % 6.7 % (27.0-41.0); MEAN CELL VOLUME 104.1 fl (80.0-94.0); MEAN CORPUSCULAR HGB CONC 29.8 g/dl (33.0-37.0); MEAN PLATELET VOLUME 9.1 fl (9.6-12.3); MONO # 0.9 10*3/uL (0.1-1.0); MONO % 17.2 % (3.0-9.0); NEUT % 73.5 % (47.0-73.0); PLATELET COUNT AUTOMATED 196 10*3/uL (130-400); RED BLOOD COUNT 2.45 10*6/uL (4.50-5.90); RED CELL DISTRI WIDTH 19.9 % (0-14.5); WHITE BLOOD COUNT 5.4 10*3/uL (4.8-10.8)
[2019-06-29 05:18] LABS: CREATININE 2.86 mg/dL (0.70-1.30)
[2019-06-29 05:19] LABS: INTERNATIONAL NORM RATIO 1.3 (2.0-3.5); PHOSPHOROUS 4.7 mg/dL (2.5-4.9)
[2019-06-29 07:11] LABS: ABG BASE EXCESS -1.9 mmol/L (-2.0-2.0); ABG HCO3 24.3 mmol/l (22-26); ABG O2 SATURATION 95.1 % (95-97); ARTERIAL BLOOD GAS PCO2 54.2 mmHg (35-45); ARTERIAL BLOOD GAS PH 7.276 (7.35-7.45); ARTERIAL BLOOD GAS PO2 78.8 mmHg (80-90)
--- NOTE | 2019-06-29 09:10 | NUR ---
DR BONILLA NOTIFIED OF ABG RESULTS. WHEN ASKED IF PT WAS CLEARED FOR SURGERY TODAY, DR BONILLA STATED ONLY IF IT IS URGENT. IF NOT DEEMED URGENT THAN IT SHOULD WAIT UNTIL PT IS MORE STABLE. WILL UPDATE PODIATRY.
--- NOTE | 2019-06-29 09:25 | NUR ---
PODIATRY RESIDENT UPDATED ON DR BONILLA AND DR MCDONOUGH STATING THAT IF I&D OF ANKLE IS URGENT THAN IT SHOULD WAIT UNTIL PT MORE STABLE. SHE STATED THAT SHE WOULD UPDATE THE BESSEMER BOTTOM MAKER.
--- NOTE | 2019-06-29 10:05 | NUR ---
DR CARRERA IN TO SEE PT. UPDATED HER ON PT'S CONDITION AND STATUS OF I&D. DR CARRERA STATED SHE HERSELF SPOKE WITH PODIATRY TWICE YESTERDAY AND SHE TOLD THEM PT IS NOT STABLE FOR I&D AT THIS TIME.
--- NOTE | 2019-06-29 10:15 | NUR ---
DR MCDONOUGH CANCELLED WITH DR PRATT AND DR LORENZO NOTIFIED OF CONSULT.
--- NOTE | 2019-06-29 11:02 | NUR ---
Discussed with patients sister/outside upholsterer regarding discharge planning. Was discussing the possibility of LTACH should patient require surgery and a wound vac. Explained that patient would me the criteria and there is an LTACH inside [facility] called [facility]. She stated patient has been there in the past, but she wants to speak to the medical doctor prior to any of this happeing. She stated if her brother requires any podiatry surgery, she stated: "My brother is not to be touched by Dr. Bell, he is to be transferred to [facility]". I explained to her that would be something she would need to discuss with patients doctors, I would pass along the message and phone number.
--- NOTE | 2019-06-29 12:55 | NUR ---
PT ON BIPAP AT THIS TIME. PT ABGS DRAWN. RESULTS PENDING
[2019-06-29 13:00] LABS: ABG BASE EXCESS -1.6 mmol/L (-2.0-2.0); ABG O2 SATURATION 94.2 % (95-97); ARTERIAL BLOOD GAS PCO2 49.1 mmHg (35-45); ARTERIAL BLOOD GAS PH 7.311 (7.35-7.45); ARTERIAL BLOOD GAS PO2 72.5 mmHg (80-90)
--- NOTE | 2019-06-29 13:18 | NUR ---
MEDICATED PT PER PRN ORDER WITH OXYCONTIN FOR C/O LOWER BACK PAIN THAT RATES 8/10 ON PAIN SCALE.
--- NOTE | 2019-06-29 14:00 | NUR ---
PT STATES RELIEF OF PAIN WITH EARLIER OXYCONTIN.
--- NOTE | 2019-06-29 14:58 | NUR ---
BLOOD TRANSFUSION STARTED PER ORDER.
--- NOTE | 2019-06-29 15:30 | NUR ---
PLACE PATIENT ON BIPAP
--- NOTE | 2019-06-29 17:41 | NUR ---
BLOOD TRANSFUSION COMPLETED. PT TOLERATED TRANSFUSION WELL.
--- NOTE | 2019-06-29 18:20 | NUR ---
DR BERNABE CALLED IN REGARDING PT. UPDATED HIM ON PT'S CONDITION AND PLAN OF CARE. HE SUGGESTED PT TRANSFERED OUT FOR CELL COVERER R/T PERSISTAND HYPOGLYCEMIA. WILL UPDATE RESIDENT.
--- NOTE | 2019-06-29 18:31 | NUR ---
DR MCDONOUGH PDATED ON DR BERNABE'S RECOMENDATIONS.
[2019-06-30] VITALS: BP 122/64
--- NOTE | 2019-06-30 00:41 | NUR ---
JUDITH HERZOG. HAS BEEN ON BIPAP SINCE 2044. VSS. PT IS MORE ALERT THAN MY PM YESTERDAY. D10 AND SANDOSTATIN GTTS CONTINUE ORDERED.
--- NOTE | 2019-06-30 03:15 | NUR ---
RN TOOK PT. OFF BIPAP FOR BATH.
--- NOTE | 2019-06-30 03:35 | NUR ---
PT REMOVED FROM BIPAP, PO LIQUIDS GIVEN ALONG WITH OXY IR AND EARLY AM PO MEDICATIONS. COMPLETE BATH AND BED LINEN CHANGE DONE. PT ASSISTED MORE THIS AM THAN HE DID YESTERDAY AM. MAINTAINS GOOD EYE CONTACT AND JOKING WITH STAFF.
[2019-06-30 04:00] VITALS: BP 110/74
--- NOTE | 2019-06-30 04:11 | NUR ---
OXI EFFECTIVE FOR LOWER BACK PAIN PER PT.
[2019-06-30 05:35] LABS: BASO % 0.8 % (0.0-1.0); EOS # 0.1 10*3/uL (0.0-0.4); EOS % 1.6 % (1.0-4.0); HEMOGLOBIN 8.5 g/dl (14.0-18.0); LYMPH # 0.4 10*3/uL (1.3-4.4); LYMPH % 10.7 % (27.0-41.0); MEAN CORPUSCULAR HGB CONC 30.4 g/dl (33.0-37.0); MONO # 0.7 10*3/uL (0.1-1.0); MONO % 19.9 % (3.0-9.0); NEUT # 2.4 10*3/uL (2.3-7.9); NEUT % 66.7 % (47.0-73.0); PLATELET COUNT AUTOMATED 189 10*3/uL (130-400); RED BLOOD COUNT 2.83 10*6/uL (4.50-5.90); RED CELL DISTRI WIDTH 19.8 % (0-14.5); WHITE BLOOD COUNT 3.7 10*3/uL (4.8-10.8)
[2019-06-30 05:46] LABS: CREATININE 2.71 mg/dL (0.70-1.30); PHOSPHOROUS 4.6 mg/dL (2.5-4.9); POTASSIUM 4.9 mmol/L (3.5-5.1)
--- NOTE | 2019-06-30 05:54 | NUR ---
DR WEISS NOTIFIED OF BLOOD GLUCOSE OF 224. ORDERS RECEIVED AND IV D10 DECREASED TO 80CC/HR. PT REMAINS ON BIPAP FROM 0500.
[2019-06-30 05:55] LABS: MEAN CELL VOLUME 98.9 fl (80.0-94.0)
[2019-06-30 07:29] LABS: ABG BASE EXCESS -1.7 mmol/L (-2.0-2.0); ABG HCO3 24.5 mmol/l (22-26); ABG O2 SATURATION 95.8 % (95-97); ARTERIAL BLOOD GAS PH 7.3 (7.35-7.45); ARTERIAL BLOOD GAS PO2 76.7 mmHg (80-90)
[2019-06-30 08:00] VITALS: BP 118/76
--- NOTE | 2019-06-30 08:25 | NUR ---
PT AAOX3. VSS. BEDSIDE GLUCOSE 215. DR QUIROS IN TO SEE PT. DR QUIROS UPDATED. HE ORDERED D10GTT TO BE DECREASED TO 60CC/HR. DR BONILLA UPDATED ON ABG RESULTS. NO NEW ORDERS RECEIVED.
--- NOTE | 2019-06-30 08:30 | NUR ---
MEDICATED PT PER PRN ORDER WITH NORCO FOR C/O CHRONIC LOWER BACK PAIN THAT RATES 8/10 ON PAIN SCALE.
--- NOTE | 2019-06-30 08:30 | NUR ---
PT AWAKE AND ALERT. RESP EASY. VSS. PT C/O CHRONIC LOWER BACK PAIN. PT RATES PAIN AN 8/10 ON PAIN SCALE. MEDICATED PT WITH NORCO PER PRN ORDER. BEDSIDE BLOODSUGAR 215. DR BLAND IN SEEING PT AND UPDATED ON GLUCOSE RESULTS. DOCTOR ORDERED D10 GTT TO BE DECREASED TO 60CC/HR.
--- NOTE | 2019-06-30 09:15 | NUR ---
PT STATES HE HAS HAD "SOME" RELIEF OF PAIN WITH EARLIER NORCO.
--- NOTE | 2019-06-30 09:22 | NUR ---
DR BONILLA AWARE OF ABG RESULTS. NO NEW ORDERS RECEIVED.
--- NOTE | 2019-06-30 10:27 | NUR ---
DR CARRERA IN TO SEE PT.
[2019-06-30 12:00] VITALS: BP 128/70
--- NOTE | 2019-06-30 12:59 | NUR ---
DR HEADLEY IN TO SEE PT. SHE CHANGED PT'S DRESSINGS TO LOWER EXT. NEW ORDERS RECEIVED.
--- NOTE | 2019-06-30 13:07 | NUR ---
DR QUIROS UPDATED ON BEDSIDE GLUCOSE RESULTS. DR QUIROS STATED TO CONTINUE SAME RATE ON D10 AT THIS TIME.
[2019-06-30 16:00] VITALS: BP 118/66
--- NOTE | 2019-06-30 16:55 | NUR ---
MEDICATED PT PER PRN ORDER WITH AXY-IR FOR C/O CHRONIC LOWER BACK PAIN THAT RATES 8/10 ON PAIN SCALE.
--- NOTE | 2019-06-30 17:02 | NUR ---
DRESSING TO COCCYX CHANGED PER ORDER. BACITRACIN APPLIED PER ORDER.
[2019-06-30 20:00] VITALS: BP 118/60
--- NOTE | 2019-06-30 20:58 | NUR ---
D10W TITRATED DOWN TO 40/HR FOR BLOOD GLUCOSE LEVELS OF 200.
--- NOTE | 2019-06-30 23:59 | NUR ---
24 HR chart check completed.
[2019-07-01] VITALS: BP 122/68
--- NOTE | 2019-07-01 04:00 | NUR ---
D10 SHUT OFF PER DR. GARCIA FOR STABLE BLOOD SUGARS.
[2019-07-01 04:01] VITALS: BP 120/60
--- NOTE | 2019-07-01 04:47 | NUR ---
PATIENT REQUESTED A PAIN PILL FOR HIS LOWER BACK, RATES 8/10. ROXICODONE GIVEN. OFFERED TO ADJUST PATIENT IN THE BED, HE REFUSED. WILL MONITOR AND REASSESS.
[2019-07-01 04:58] LABS: EOS # 0.1 10*3/uL (0.0-0.4); EOS % 2.3 % (1.0-4.0); HEMATOCRIT 28.2 % (42.0-52.0); HEMOGLOBIN 8.6 g/dl (14.0-18.0); LYMPH # 0.5 10*3/uL (1.3-4.4); LYMPH % 12.4 % (27.0-41.0); MEAN CELL VOLUME 99.6 fl (80.0-94.0); MEAN CORPUSCULAR HGB 30.4 pg (27.0-31.0); MEAN CORPUSCULAR HGB CONC 30.5 g/dl (33.0-37.0); MEAN PLATELET VOLUME 8.7 fl (9.6-12.3); MONO # 0.5 10*3/uL (0.1-1.0); MONO % 12.7 % (3.0-9.0); NEUT # 2.8 10*3/uL (2.3-7.9); NEUT % 71.1 % (47.0-73.0); PLATELET COUNT AUTOMATED 171 10*3/uL (130-400); RED BLOOD COUNT 2.83 10*6/uL (4.50-5.90); RED CELL DISTRI WIDTH 19.3 % (0-14.5); WHITE BLOOD COUNT 3.9 10*3/uL (4.8-10.8)
[2019-07-01 05:14] LABS: ALBUMIN 2.1 gm/dl (3.1-4.5); CREATININE 2.62 mg/dL (0.70-1.30); POTASSIUM 4.6 mmol/L (3.5-5.1); TOTAL PROTEIN 6.2 gm/dL (6.4-8.2)
--- NOTE | 2019-07-01 06:11 | NUR ---
PATIENT STATED NICOLASA WAS EFFECTIVE FOR PAIN.
[2019-07-01 07:56] VITALS: BP 110/68
--- NOTE | 2019-07-01 08:00 | NUR ---
DR. MCDONOUGH NOTIFIED OF GLUCOSE RESULT. D10W STOPPED AT THIS TIME.
[2019-07-01 08:23] LABS: ABG BASE EXCESS -1.2 mmol/L (-2.0-2.0); ABG HCO3 25.2 mmol/l (22-26); ABG O2 SATURATION 96.4 % (95-97); ARTERIAL BLOOD GAS PCO2 53.5 mmHg (35-45); ARTERIAL BLOOD GAS PH 7.29 (7.35-7.45); ARTERIAL BLOOD GAS PO2 86.2 mmHg (80-90)
--- NOTE | 2019-07-01 10:50 | NUR ---
PODIATRY IN TO DO WOUND DEBRIDEMENT. PRE AND POST DEBRIDEMENT PICTURES TAKEN. PATIENT IS ABLE TO RESTART ANTICOAGULATION MEDS PER PODIATRY. WOUND VAC APPLIED TO LEFT ANKLE. PATIENT TOLERATED WELL.
[2019-07-01 12:00] VITALS: BP 128/70
--- NOTE | 2019-07-01 13:00 | NUR ---
DR. LORENZO IN TO SEE PATIENT AND DISCUSS POSSIBLE EGD. DR. LORENZO MADE AWARE THAT PATIENT HASN'T HAD A BOWEL MOVEMENT IN 7 DAYS AND HASN'T BEEN HAVING ANY FLATULENCE. ORDERS RECEIVED FOR 51G MIRALAX TO BE GIVEN NOW AND SEE IF BOWEL MOVEMENT IS ACHIEVED. CALL MAURA AT 1000 WITH RESULTS.
[2019-07-01 16:00] VITALS: BP 150/89
[2019-07-01 20:04] VITALS: BP 148/67
--- NOTE | 2019-07-01 20:48 | NUR ---
PATIENT REQUESTED A PAIN PILL FOR LOWER BACK PAIN, RATES 9/10. ROXICODONE GIVEN. WILL MONITOR AND REASSESS.
--- NOTE | 2019-07-01 22:00 | NUR ---
NICOLASA EFFECTIVE FOR PAIN.
[2019-07-02] VITALS: BP 130/70
--- NOTE | 2019-07-02 03:13 | NUR ---
24 HR chart check completed.
[2019-07-02 04:00] VITALS: BP 138/68
--- NOTE | 2019-07-02 04:30 | NUR ---
PATIENT BS READING OF 58, BOLUS OF D10 GIVEN AND 2 GLASSES OF OJ. PATIENTS SPEECH APPROPRIATE, DENIES ANY SYMPTOMS. PATIENT PALE. WILL REASSESS BS ONCE BOLUS IS COMPLETE.
[2019-07-02 04:56] LABS: BASO % 0.5 % (0.0-1.0); EOS # 0.1 10*3/uL (0.0-0.4); EOS % 3.4 % (1.0-4.0); HEMATOCRIT 29.3 % (42.0-52.0); HEMOGLOBIN 8.8 g/dl (14.0-18.0); LYMPH # 0.6 10*3/uL (1.3-4.4); LYMPH % 16.1 % (27.0-41.0); MEAN CORPUSCULAR HGB 29.4 pg (27.0-31.0); MEAN PLATELET VOLUME 8.9 fl (9.6-12.3); MONO # 0.4 10*3/uL (0.1-1.0); MONO % 11.6 % (3.0-9.0); NEUT # 2.6 10*3/uL (2.3-7.9); NEUT % 67.9 % (47.0-73.0); PLATELET COUNT AUTOMATED 164 10*3/uL (130-400); RED BLOOD COUNT 2.99 10*6/uL (4.50-5.90); RED CELL DISTRI WIDTH 18.8 % (0-14.5); WHITE BLOOD COUNT 3.8 10*3/uL (4.8-10.8)
[2019-07-02 05:06] LABS: CREATININE 2.4 mg/dL (0.70-1.30); POTASSIUM 4.3 mmol/L (3.5-5.1)
[2019-07-02 05:07] LABS: PHOSPHOROUS 3.6 mg/dL (2.5-4.9)
--- NOTE | 2019-07-02 05:31 | NUR ---
PATIENTS BLOOD GLUCOSE RECHECK, 128.
[2019-07-02 08:00] VITALS: BP 128/64
--- NOTE | 2019-07-02 08:30 | NUR ---
PATIENT HAD A LARGE GREEN LIQUID BOWEL MOVEMENT. PATIENT BATHED, AND BED LINENS CHANGED.
[2019-07-02 08:32] LABS: ABG BASE EXCESS 0.5 mmol/L (-2.0-2.0); ABG O2 SATURATION 98.5 % (95-97); ARTERIAL BLOOD GAS PCO2 48.9 mmHg (35-45); ARTERIAL BLOOD GAS PH 7.343 (7.35-7.45)
--- NOTE | 2019-07-02 10:00 | NUR ---
CALLED DR. LORENZO ORDERED. DR. LORENZO SAYS HE WILL HAVE TO CALL BACK.
--- NOTE | 2019-07-02 11:25 | NUR ---
SPOKE WITH CAMELIA FROM PHARMACY ABOUT VANCOMYCIN TROUGH RESULT. VANCOMYCIN WILL BE RETIMED.
[2019-07-02 12:00] VITALS: BP 134/67
[2019-07-02 16:00] VITALS: BP 153/77
[2019-07-02 20:00] VITALS: BP 135/63
[2019-07-03] VITALS: BP 146/71
[2019-07-03 04:00] VITALS: BP 149/83
[2019-07-03 05:27] LABS: ALBUMIN 1.9 gm/dl (3.1-4.5); CREATININE 2.22 mg/dL (0.70-1.30); POTASSIUM 3.9 mmol/L (3.5-5.1); TOTAL PROTEIN 5.8 gm/dL (6.4-8.2)
[2019-07-03 06:03] LABS: BASO % 0.5 % (0.0-1.0); EOS # 0.1 10*3/uL (0.0-0.4); EOS % 3.4 % (1.0-4.0); HEMOGLOBIN 8.7 g/dl (14.0-18.0); LYMPH # 0.6 10*3/uL (1.3-4.4); LYMPH % 15.2 % (27.0-41.0); MEAN CELL VOLUME 98.6 fl (80.0-94.0); MEAN CORPUSCULAR HGB 30.6 pg (27.0-31.0); MEAN CORPUSCULAR HGB CONC 31.1 g/dl (33.0-37.0); MEAN PLATELET VOLUME 9.1 fl (9.6-12.3); MONO # 0.4 10*3/uL (0.1-1.0); MONO % 10.5 % (3.0-9.0); NEUT # 2.7 10*3/uL (2.3-7.9); NEUT % 70.1 % (47.0-73.0); PLATELET COUNT AUTOMATED 157 10*3/uL (130-400); RED BLOOD COUNT 2.84 10*6/uL (4.50-5.90); RED CELL DISTRI WIDTH 18.6 % (0-14.5); WHITE BLOOD COUNT 3.8 10*3/uL (4.8-10.8)
[2019-07-03 08:00] VITALS: BP 135/79
--- NOTE | 2019-07-03 09:24 | NUR ---
PT RESTING ON BED. OFFERED BREAKFAST. PATIENT REFUSED. PHOSLO HELD WOUND VAC IN PLACED. IV SITES PATENT WITH NO SIGNS OF COMPLICATIONS. ÁLVAREZ CATHETER IN PLACE PATENT. CLEAR YELLOW URINE. SCROTAL AND ALL OVER EDEMA NOTED. PATIENT ALERT AND ABLE TO ANSWER QUESTIONS AND VOICE CONCERNS. BLOOD GLUCOSE 93. RESPIRATIONS EASY. OXYGEN REDUCED TO 2.5L NC WITH 100 PERCENT PULSE OX NOTED ON 4L. CONTINUE TO MONITOR.
--- NOTE | 2019-07-03 11:15 | NUR ---
PT REFUSING LUNCH AT THIS TIME. RESTING ON BED. EASY RESPIRATIONS.
--- NOTE | 2019-07-03 11:57 | NUR ---
24 HR chart check completed.
[2019-07-03 12:00] VITALS: BP 137/82
--- NOTE | 2019-07-03 12:15 | NUR ---
HAD A SMALL EMESIS OF GREEN LIQUID. MEDICATED WITH ZOFRAN 4MG IV FOR NAUSEA.
--- NOTE | 2019-07-03 13:00 | NUR ---
VOICES THAT ZOFRAN WAS EFFECTIVE FOR NAUSEA.
--- NOTE | 2019-07-03 14:21 | NUR ---
Shift chart check completed.
--- NOTE | 2019-07-03 14:39 | NUR ---
PT WITH MILD NOSE BLEED FROM RIGHT NARE. BLEEDING CONTROLLED. NEW LINENS GIVEN. DRESSING CHANGED TO RIGHT FOOT. WOUND VAC REMAINS AT 125 TO RIGHT FOOT. PATENT.
[2019-07-03 15:20] VITALS: BP 129/78
--- NOTE | 2019-07-03 18:57 | NUR ---
REVIEWED WITH DR LORENZO - WILL SCOPE TOMORROW
[2019-07-03 20:00] VITALS: BP 143/80
[2019-07-04] VITALS (10 sets, daily range): BP systolic 112–174; BP diastolic 51–90
--- NOTE | 2019-07-04 06:07 | NUR ---
PATIENT WANTED TO GET UP AND SIT IN THE CHAIR TODAY SAID HE HAS NOT BEEN OUT OF BED SINCE HE GOT HERE. PATIENT TOLERATED STANDING AND TURNING QUITE WELL THIS MORNING.
--- NOTE | 2019-07-04 07:42 | NUR ---
FELIPE PEREZ [id number] Please refer to the physician's history and physical for past medical history, comorbid conditions, and allergies. Diagnosis: MARITO RECURRENT FALLS GENERALIZED WEAKNESS Minesh Score: 14,MODERATE RISK WOUND DESCRIPTIONS: Wound Number: 1 Location of the wound: LEFT ELBOW Type of wound: ABRASION Thickness: Partial Size: 1.4cm X 1.2cm X 0.1cm Tunneling: NONE Undermining: NONE Sinus Tract: NONE Presence of Exudate: Serous Amount: Light Color: brown, yellow Odor: None Periwound Skin Appearance: Normal Wound edges: closed intact scab Pain (associated with wound): DENIED AT TIME OF ASSESSMENT How does patient state this happened? PATIENT STATES THAT HE FELL WOUND #2 LEFT ABD SURGICAL. PATIENT STATES THIS IS WHERE HE HAD A FEEDING TUBE PLACED. NO DRAINAGE NOTED AT TIME OF ASSESSMENT. Wound Number: 3 Location of the wound: RIGHT KNEE Type of wound: ABRASION Thickness: Partial Size: 2.3cm X 2.2cm X <0.1cm Tunneling: NONE Undermining: NONE Sinus Tract: NONE Presence of Exudate:None Amount: None Color: Brown Odor: None Periwound Skin Appearance: Normal Wound edges: CLOSED. INTACT SCAB Pain (associated with wound): DENIED AT TIME OF ASSESSMENT How does patient state this happened? PATIENT STATES THAT HE FELL. Wound Number: 4 Location of the wound: LEFT KNEE Type of wound: ABRASION Thickness: Partial Size: 2cm X 3.5cm X <0.1cm Tunneling: NONE Undermining: NONE Sinus Tract: NONE Presence of Exudate: None Amount: None Color: Brown Odor: None Periwound Skin Appearance: Normal Wound edges: CLOSED. INTACT SCAB Pain (associated with wound): DENIED AT TIME OF ASSESSMENT How does patient state this happened? PATIENT STATES THAT HE FELL WOUND #5 LEFT ANKLE, WOUND # 6 LEFT OUTER FOOT wound vac intact to left lower extremity. No strikethrough drainage noted at time of assessment. 50cc noted since thursday of serosanguneieous drainage in canister. 125mmHg continous low intensity. Podiatry is to change dressing weekly per nurse caring for patient Francine Alfred RN. WOUND #7 RIGHT DISTAL FOOT NOT ASSESSED DUE TO DRESSING BY PODIATRY IN PLACE. NO STRIKE THROUGH NOTED AT TIME OF ASSESSMENT. Wound Number: 8 Location of the wound: Proximal coccyx intact at time of assessment. No drainage noted. Area is pink and blanchable. Wound Number: 9 Location of the wound: MIDDLE COCCYX Type of wound: STAGE 2 Thickness: Partial Size: 0.2cm X 1.0cm X 0.1cm Tunneling: NONE Undermining: NONE Sinus Tract: NONE Presence of Exudate: Serous Amount: Light Color: Red Odor: None Periwound Skin Appearance: Erythema Wound edges: APPROXIMATED Pain (associated with wound): DENIED AT TIME OF ASSESSMENT How does patient state this happened? PATIENT UNSURE HOW THIS HAPPENED. Wound Number: 10 Location of the wound: DISTAL COCCYX Type of wound: STAGE 3 Thickness: Full Size: 0.7cm X 4.5cm X 0.1cm Tunneling: NONE Undermining: NONE Sinus Tract: NONE Presence of Exudate: Serous Amount: Light Color: Red, yellow Odor: None Periwound Skin Appearance: Erythema Wound edges: APPROXIMATED Pain (associated with wound): DENIED AT TIME OF ASSESSMENT How does patient state this happened? PATIENT UNSURE HOW THIS HAPPENED. Surface the patient is resting on: Isoflex SKIN PREVENTION RECOMMENDATION: 1. Pressure redistribution support surface as appropriate 2. Elevate heels 3. Remove boots/TEDS every shift and reapply 4. Head of bed 30 degrees as tolerated 5. Assess nutrition and hydration 6. Manage moisture 7. Avoid the use of containment devices while in bed 8. Use absorptive products on surfaces limit layers of linens on bed 9. Turn and reposition every 1-2 hours in bed and every 1 hour in chair as tolerated 10. Weight shifts every 15 minutes while up in chair 11. Offloading with pillows or device to keep heels elevated off bed 12. Monitor skin at least every shift 13. Inspect under medical devices twice a day WOUND TREATMENT RECOMMENDATIONS: D/C dressing to left ankle and foot. D/C bactroban to left ankle and foot. Continue dressing change to coccyx. D/C dressing change to betadine. Clarify wound vac order location needed. Continue heel raiser pro boots Continue wheelchair cushion
--- NOTE | 2019-07-04 08:59 | NUR ---
SISTER CALLED WITH APPROXIMATE TIME OF SCOPE - SHE REQUESTED WE CALL LATER TO UPDATE HER ON RESULTS
--- NOTE | 2019-07-04 09:07 | NUR ---
Patient was referred to [facility]. They are stating patient is unable to go to [facility] because there are only 5 hospital days remaining on his Medicare. CM notified.
--- NOTE | 2019-07-04 11:28 | NUR ---
PATIENT TO SURGERY VIA BED
--- NOTE | 2019-07-04 12:17 | NUR ---
REPORT RECEIVED FROM SURGERY
--- NOTE | 2019-07-04 12:50 | NUR ---
RECEIVED FROM SURGERY AFTER EGD
--- NOTE | 2019-07-04 17:25 | NUR ---
SLEEPING SINCE ATIVAN PO & MORE AUDIBLE WHEEZES HEARD
[2019-07-05] VITALS: BP 146/64
[2019-07-05 04:00] VITALS: BP 125/55
[2019-07-05 05:46] LABS: CREATININE 1.91 mg/dL (0.70-1.30); POTASSIUM 3.6 mmol/L (3.5-5.1)
[2019-07-05 06:12] LABS: BASO % 0.4 % (0.0-1.0); EOS # 0.1 10*3/uL (0.0-0.4); HEMATOCRIT 28.9 % (42.0-52.0); HEMOGLOBIN 8.7 g/dl (14.0-18.0); LYMPH # 0.5 10*3/uL (1.3-4.4); MEAN CELL VOLUME 97.6 fl (80.0-94.0); MEAN CORPUSCULAR HGB 29.4 pg (27.0-31.0); MEAN CORPUSCULAR HGB CONC 30.1 g/dl (33.0-37.0); MEAN PLATELET VOLUME 8.8 fl (9.6-12.3); MONO # 0.4 10*3/uL (0.1-1.0); MONO % 6.5 % (3.0-9.0); NEUT # 4.4 10*3/uL (2.3-7.9); NEUT % 80.9 % (47.0-73.0); PLATELET COUNT AUTOMATED 145 10*3/uL (130-400); RED BLOOD COUNT 2.96 10*6/uL (4.50-5.90); RED CELL DISTRI WIDTH 18.8 % (0-14.5); WHITE BLOOD COUNT 5.4 10*3/uL (4.8-10.8)
--- NOTE | 2019-07-05 07:35 | NUR ---
Patient referred to [facility]. Patient is unable to go to [facility] due to no remaining hospital days left on his Medicare; patient and patients sister stating they have applied for his [place] medicaid.
[2019-07-05 08:00] VITALS: BP 157/80
--- NOTE | 2019-07-05 08:02 | NUR ---
PT AAOX3. RESP EASY. VSS. SCATTERED RHONCHI NOTED IN LUNG MATTHEWS. MOIST, NONPRODUCTIVE COUGH NOTED. ABD. OBESE WITH ACTIVE BOWEL SOUNDS. ÁLVAREZ PATENT FOR LIGHT LISSY URINE. WOUND VAC NOTED TO LEFT FOOT. BLOODY DRAIAINGE NOTED IN SUCTION TRAP. PT C/O NAUSEA. MEDICATED PT PER PRN ORDER WITH ZOFRAN FOR HIS C/O NAUSEA.
--- NOTE | 2019-07-05 08:30 | NUR ---
Pt up to chair x 2 assist. Pt states "not much" relief of nausea with earlier zofran. Will continue to monitor pt.
--- NOTE | 2019-07-05 08:30 | NUR ---
Patient declined OT evaluation at this time w/ reports of severe fatigue as he had "not slept in 4 nites". OTR will recheck at a later time. Carlita Garcia OTR/L
--- NOTE | 2019-07-05 08:35 | NUR ---
PHYSICAL THERAPY Attempted to see pt in CCU requesting to be seen at a later time as tired and wanting to rest has not slept well past 4 days, will follow. Julisa Page PT
--- NOTE | 2019-07-05 08:54 | NUR ---
DR GALICIA IN TO SEE PT. UPDATED HIM ON PT'S CONDITION AND PLAN OF CARE. NEW ORDERS RECEIVED.
--- NOTE | 2019-07-05 11:26 | NUR ---
DR GILBERT IN TO SEE PT. WHEN ASKED DR GILBERT STATED WEIGHT BEARING TO LEFT FOOT SHOULD BE LIMITED.
--- NOTE | 2019-07-05 11:31 | NUR ---
I.D. ANSWERING SERVICE NOTIFIED OF CONSULT. THEY WILL NOTIFY DOCTOR DOCUMENTATION CLERK.
--- NOTE | 2019-07-05 11:46 | NUR ---
Spoke with Jolanta from [facility], they are looking over patient; answered a questions regarding patients status. She said they are looking over his paperwork and get back to me shortly to let me know if they are accepting him
[2019-07-05 12:00] VITALS: BP 134/69
--- NOTE | 2019-07-05 12:40 | NUR ---
[facility] is unable to accept this patient at this time. They are stating they do not have any beds, patient is into his copay days and cannot afford copay amount. Also patient applied for community medicaid instead of group home medicaid. [facility] is reviewing.
--- NOTE | 2019-07-05 13:22 | NUR ---
PHYSICAL THERAPIST SPOKE WITH WILDLIFE CONSERVATIONIST R/T WEIGHT BEARING STATUS ON LEFT FOOT. SHE STATED SHE PREFERS NONWEIGHT BEARING TO LEFT BUT IS OK WITH PARTIAL WT. BEARING USING LEFT HEEL. PHYSICAL THERAPY AND OCCUPATIONAL THERAPY IN TO WORK WITH PT.
--- NOTE | 2019-07-05 13:56 | NUR ---
UPDATED DR MCDONOUGH ON PT'S BP AND ORDER FOR PROAMITINE. DR MCDONOUGH ORDERED TO HOLD FOR SBP GREATER THAN 120. MED HELD PER NEW ORDER.
--- NOTE | 2019-07-05 14:00 | NUR ---
DR BARRERA IN TO SEE PT. UPDATED HIM ON PT'S CONDITION AND PLAN OF CARE. NEW ORDERS RECEIVED.
--- NOTE | 2019-07-05 15:41 | NUR ---
PHYSICAL THERAPY Eval completed pt high level of [id number] full report to follow recomend SNF at discharge. PT to work on transfers, amb as able to maintain weightbearing status, strengthening. Thank you Julisa Page PT
--- NOTE | 2019-07-05 16:00 | NUR ---
PT REFUSED DRESSING CHANGES.
--- NOTE | 2019-07-05 17:54 | NUR ---
MEDICATED PT PER ONE TIME ORDER WITH ATIVAN 1MG IV FOR PT'S C/O ANXIETY. DR GALICIA UPDATED ON PT'S INCREASE IN OXYGEN AND C/O ANXIETY EARLIER. NEW ORDERS RECEIVED AT THAT TIME.
--- NOTE | 2019-07-05 18:51 | NUR ---
PT AWAKE AND ALERT. POX 95% ON 8 L HIGHFLO OXYGEN. PT C/O LOWER BACK PAIN THAT RATES 8/10 ON PAIN SCALE. MEDICATED PT PER PRN ORDER WITH OXY-IR. RESP. THERAPY HERE TO DRAW ABG.
[2019-07-05 18:56] LABS: ABG BASE EXCESS 2.2 mmol/L (-2.0-2.0); ABG HCO3 27.2 mmol/l (22-26); ABG O2 SATURATION 92.6 % (95-97); ARTERIAL BLOOD GAS PCO2 45.8 mmHg (35-45); ARTERIAL BLOOD GAS PH 7.387 (7.35-7.45); ARTERIAL BLOOD GAS PO2 63.3 mmHg (80-90)
[2019-07-05 20:00] VITALS: BP 132/78
--- NOTE | 2019-07-05 20:25 | NUR ---
DR GARCIA CALLED REGARDING PATIENT WANTING TO LEAVE, HAS BECOME MORE ANXIOUS AND STATES HE JUST WANTS TO GO HOME. ON WAY TO SEE PATIENT
--- NOTE | 2019-07-05 20:30 | NUR ---
DR GARCIA ON FLOOR TO SEE PATIENT, PATIENT CONTINUES TO STATE THAT HE FEELS FINE AND WANTS TO GO HOME, STATES THAT HE HAS PHYSICAL THERAPY AND HOME HEALTH NURSES COME IN AND THAT IS ALL HE NEEDS. CONTINUES TO REQUEST RN TAKE HIS IV OUT OF HIS HAND AND ÁLVAREZ CATHETER OUT. PATIENT HAS NOW TAKEN HIS OXYGEN OFF AND IS REFUSING TO REAPPLY, HE WILL NOT ALLOW THIS RN TO PLACE OULSE OXIMETER ON FINGER. PATIENT IS ALERT AND ORIENTED X3 WHEN QUESTIONED HAS GIVEN RN ANOTHER PHONE NUMBER TO ATTEMPT TO GET SOMEONE TO GET HIM HOME.
--- NOTE | 2019-07-05 20:47 | NUR ---
ATTEMPTS ARE CONTINUING TO BE MADE TO REACH A FAMILY MEMBER. STILL NO ANSWERS
--- NOTE | 2019-07-05 20:50 | NUR ---
NURSING PASSPORT APPLICATION EXAMINER CALLED REGARDING SITUATION WITH PATIENT. STATES SHE WILL BE UP TO HELP.
--- NOTE | 2019-07-05 20:55 | NUR ---
NURSING NUCLEAR PLANT INSTRUMENT TECHNICIAN IN TO SEE PATIENT, PATIENT CONTINUES TO SYA HE WANTS TO LEAVE. RN CONTINUES TO NOT BE ABLE TO GET AHOLD OF PATIENTS FAMILY
--- NOTE | 2019-07-05 21:15 | NUR ---
PATIENT CONTINUES TO REFUSE TO REPLACE OXYGEN ON AT THIS TIME, PATIENT VERY DROWSY BUT REMAINS UNCOOPERATIVE WITH APPLYING OXYGEN. PULSE OXIMETER WAS APPLIED TO PATIENTS FINGER AND PULSE OX WAS 66% DR GARCIA CALLED AND IS COMING TO FLOOR, PATIENT IS HAVING DIFFICULTY KEEPING EYES OPEN. PATIENT AGAIN MADE AWARE THAT HIS CONDITION IS NOT GOOD AND THAT HE CONTINUES LEAVE OXYGEN OFF, THAT HE WILL NOT SURVIVE. PATIENT STATES HE IS AWARE.
--- NOTE | 2019-07-05 21:20 | NUR ---
DR GARCIA IN TO SEE PATIENT, NURSING DENTAL LABORATORY ASSISTANT IN TO SEE PATIENT WELL, PATIENT HAS REMOVED ECG LEADS AND REMOVED PULSE OXIMETER AGAIN. REFUSING TO REAPPLY THEM AT THIS TIME. EFFORTS CONTINUE TO BE MADE TO CONVINCE PATIENT TO CONTINUE WITH TRESTAMENT AT [facility]. STATES HE JSUT WANTS TO GO HOME AND THAT HE WANTS A CAB CALLED.
--- NOTE | 2019-07-05 21:25 | NUR ---
SPOKE WITH PATIENTS BROTHER GABRIELLA AT [phone], REGARDING PATIENT WANTING TO GO HOME AND REQUESTING THAT WE CALL GABRIELLA TO TRANSPORT HIM HOME. RN EXPLAINED CONDITION TO BROTHER, AND STATED THAT IF PATIENT WERE GO HOME THAT PATIENT WOULD LIKELY WOULD NOT BE ABLE TO SURVIVE AND WOULD EITHER END UP BACK AT THE HOSPITAL OR . PATIENTS BROTHER GABRIELLA STATES THAT HE DOES NOT WANT TO TAKE PATIENT HOME IF THATS THE OUTCOME AND HE ALSO HAS NO WAY TO COME GET HIM. STATES THAT HE WILL CALL SISTER TO DISCUSS WITH HER.
--- NOTE | 2019-07-05 21:35 | NUR ---
PATIENT HAS NOW PLACED HIMSELF BACK ONTO OXYGEN VIA HIGH FLOW NASAL CANNULA. PATIENT VERY DROWSY AND IS UNABLE TO SIT UP IN BED BED. HAS ALLOWED RN TO PLACE PULSE OXIMETER BACK ON, PATIENTS O2 SATURATION IS 71% AND IMPROVING SLOWLY. PATIENT WAS MADE AWARE THAT HIS BROTHER DOES NOT FEEL COMFORTABLE TAKING HIM HOME. AND THAT HIS SISTER WAS CONTACTED. CONTINUES TO SIT AT EDGE OF BED LEANING AGAINST SIDERAIL. PATIENT STATES HE WILL NOT LAY BACK RIGHT NOW AND IS "FINE THE WAY HE IS"
--- NOTE | 2019-07-05 21:37 | NUR ---
SPEAKING WITH [employer] Call REGARDING TRYING TO OBTAIN ACCESS TO FAMILY MEMEBERS PHONE NUMBERS
--- NOTE | 2019-07-05 21:50 | NUR ---
[facility] CALLED BACK WITH PHONE NUMBER FOR RONNY AGUILLON [phone]
--- NOTE | 2019-07-05 22:18 | NUR ---
PATIENT IS NOW RESTING IN BED, LAYING DOWN, WITH EYES CLOSED, APPEARS TO BE SLEEPING. HAS SINCE ALLOWED RN TO REPLACE ECG LEADS TO RESOURCE AGENT AND REAPPLY THE PULSE OXIMETER AND HIS OXYGEN CORRECTLY. PATIENT IS NOW 97% ON 10LITERS HIGH FLOW NASAL CANNULA. HEARTRATE IS BACK TO CONTROLLED RATE OF 74 PACED.
[2019-07-06] VITALS: BP 126/68
--- NOTE | 2019-07-06 03:49 | NUR ---
PATIENT CONTINUES TO REST QUIETLY, WITH NO SIGNS OR SYMPTOMS OF DISTRESS ON 10 LITERS HIGH FLOW NASAL CANNULA. PULSE OXIMETER REMAINS ON AND PATIENTS PULSE OXIMETRY REMAINS 93% AND ABOVE. CALL LIGHT IS WITHIN REACH. RN WILL CONTINUE TO MONITOR
[2019-07-06 04:47] VITALS: BP 121/76
--- NOTE | 2019-07-06 04:56 | NUR ---
PATIENT REMAINS IN BED, IS AWAKE NOW, WATCHING TELEVISION BUT CONTINUES TO DOZE ON AND OFF. PATIENT IS MUCH MORE COOPERATIVE THAN LAST NIGHT. PULSE OXIMETRY IS 98% ON THE 10 LITERS HIGH FLOW. TITRATED DOWN TO THE ORIGINAL 8LITERS HIGH FLOW
[2019-07-06 05:01] LABS: BASO % 0.4 % (0.0-1.0); EOS # 0.1 10*3/uL (0.0-0.4); EOS % 1.9 % (1.0-4.0); HEMATOCRIT 29.4 % (42.0-52.0); HEMOGLOBIN 8.9 g/dl (14.0-18.0); LYMPH # 0.5 10*3/uL (1.3-4.4); LYMPH % 9.1 % (27.0-41.0); MEAN CELL VOLUME 97.4 fl (80.0-94.0); MEAN CORPUSCULAR HGB 29.5 pg (27.0-31.0); MEAN CORPUSCULAR HGB CONC 30.3 g/dl (33.0-37.0); MEAN PLATELET VOLUME 9.1 fl (9.6-12.3); MONO # 0.4 10*3/uL (0.1-1.0); MONO % 7.6 % (3.0-9.0); NEUT # 4.3 10*3/uL (2.3-7.9); NEUT % 80.6 % (47.0-73.0); PLATELET COUNT AUTOMATED 168 10*3/uL (130-400); RED BLOOD COUNT 3.02 10*6/uL (4.50-5.90); RED CELL DISTRI WIDTH 18.8 % (0-14.5); WHITE BLOOD COUNT 5.4 10*3/uL (4.8-10.8)
[2019-07-06 05:15] LABS: CREATININE 1.93 mg/dL (0.70-1.30); POTASSIUM 3.8 mmol/L (3.5-5.1)
--- NOTE | 2019-07-06 07:40 | NUR ---
PT AAOX3. PT STATING THAT HE WANTS TO GO HOME. I INFORMED PT THAT HE IS ON A HIGH ARNOLDO OXYGEN AT 8 LITERS AND HE WAS NOT ANY OXYGEN AT HOME PRIOR TO [facility] ADMITTED. I INFORMED PT IF HE GOES HOME WITHOUT OXYGEN HE COULD POSSIBLY . PT STATED "I DON'T CARE" I SPOKE TO PT ABOUT CHANGING CODE STATUS AND PALLIATIVE CARE CONSULT. WILL UPDATE DOCTORS WHEN THEY COME IN.
[2019-07-06 08:00] VITALS: BP 134/76
--- NOTE | 2019-07-06 08:00 | NUR ---
PT REFUSED 0800 GLUCOSE CHECK.
--- NOTE | 2019-07-06 08:00 | NUR ---
DR MDCONOUGH IN TO SEE PT. UPDATED HIM ON PT'S REQUEST TO GO HOME AND NEED TO CHANGE CODE STATUS, AND POSSIBLE PALLIATIVE CARE CONSULT. DR MCDONOUGH SPOKE WITH PT AND HE ONCE AGAIN STATED HE WANTS TO GO HOME AND HE DOES NOT CARE IF IN GOING HOME HE DIES. DR MCDONOUGH VERIFIED THAT PT IS AAOX3. DR MCDONOUGH STATED THAT HE WILL BE BACK WITH DR LAMB WITH DR GALICIA.
--- NOTE | 2019-07-06 09:15 | NUR ---
DR GALICIA IN TO SEE PT. HE EDUCATED PT ON THE CONSEQUENCES ON GOING HOME UP TO AND INCLUDING . PT AGREED TO STAY AT THIS TIME. DR BONILLA IN TO SEE PT.
--- NOTE | 2019-07-06 09:18 | NUR ---
PT UP TO CHAIR X 2 ASSIST.
--- NOTE | 2019-07-06 09:19 | NUR ---
OXYGEN TITRATED TO 5L HIGH ARNOLDO. POX 93%. WILL CONTINUE TO MONITOR PT.
--- NOTE | 2019-07-06 10:04 | NUR ---
DR BARRERA IN TO SEE PT. DR BARRERA SPOKE WITH DR GALICIA PRIOR TO SPEAKING WITH PT. DR BARRERA SPOKE WITH PT AT LENGTH R/T DISCHARGE OPTIONS INCLUDING LTACH AND HOSPICE. NEW ORDERS RECEIVED.
--- NOTE | 2019-07-06 10:10 | NUR ---
PHYSICAL THERAPY Patient seen this am 1:1 for therapy and was sitting up in bedside chair upon therapist arrival. Patient identified by name / and was less talkative, somewhat depressed mood. Patient presented with continuos O2-5L via NC and L foot wound vac, voicing 6/10 L foot pain. Patient transfers sit to stand from low chair surface, MIN A x 2, use of wh walker standing support, tolerating approx 1 minute static stand. Patient HR remained WFL's throughout therapy session as patient completed several additional sit to stand transfers, tolerating < 20 seconds static stand before remaining semi reclined in chair with call light and telephone. Will continue per POC as tolerated, total treatment time 14 minutes. Cesar Charles, FURNACE HELPER
--- NOTE | 2019-07-06 10:20 | NUR ---
OT NOTE Pt was seen this A.M. 1:1 for 20 minute OT session. Upon arrival pt was sitting upright in the recliner. Pt identified by name and and had complaints of 6/10 LLE pain. Pt presented to therapy with continuous 5L-O2 via NC which he remained on throughout the entire session and wound vac to LLE. Pt was educated on non weight bearing status to LLE, pt verbalized understanding. Pt completed multiple sit to stand transafers from chair level with Víctor X 2 and use of w/w for UE support. Challenged pt's static standing tolerance needed for increased I in self care tasks and functional transfers, pt was able to tolerate aprox 60 seconds before sitting due to fatigue. Pt was left sitting upright in the recliner with call light in hand, tray table in place, and ICCU nurse notified. Continue with rec D/C plan to SNF. GIGI Peralta/Narcisa
--- NOTE | 2019-07-06 11:53 | NUR ---
MEDICATED PT PER PRN ORDER WITH OXY-IR FOR C/O LOWER BACK PAIN THAT RATES 8/10 ON PAIN SCALE. POLYSOMNOGRAPHIC TECH IN TO SEE PT. WOUND VAC TAKEN OFF OF LEFT FOOT AND REDRESSED BY POLYSOMNOGRAPHIC TECH. THEY WILL REAPPLY WOUND VAC TOMORROW. DRESSING ON RIGHT LEG CHANGED BY POLYSOMNOGRAPHIC TECH ALSO.
[2019-07-06 12:00] VITALS: BP 152/82
--- NOTE | 2019-07-06 12:20 | NUR ---
PT STATES "LITTLE" RELIEF OF PAIN WITH EARLIER OXY-IR.
--- NOTE | 2019-07-06 15:30 | NUR ---
PT BACK TO BED WITH 2 ASSIST. WEIGHED PT PER ORDER AFTER BED ZEROED.
--- NOTE | 2019-07-06 15:31 | NUR ---
PT POX DROPPED WHILE LYING IN BED. OXYGEN TITRATED TO 8L HIGH ARNOLDO FROM 2L HIGH ARNOLDO HE HAD BEEN ON WHILE SITTING IN THE CHAIR. PT WAS MOUTH BREATHING WHILE SLEEPING. RESP. THERAPY NOTIFIED AND TITRATED PT TO 5% VENTURI MASK. POX 95% WITH VENTURI.
[2019-07-06 16:00] VITALS: BP 135/65
--- NOTE | 2019-07-06 16:59 | NUR ---
Nursing screen received and patient on OT caseload receiving treatment. Thank you. Selina Garcia OTR/l
[2019-07-06 20:00] VITALS: BP 130/73
--- NOTE | 2019-07-06 22:03 | NUR ---
PT RESTING. NO ACUTE DISTRESS NOTED.
--- NOTE | 2019-07-06 22:11 | NUR ---
MEDICATED PT PER PRN ORDER WITH OXY-IR FOR C/O LOWER BACK PAIN THAT RATES 8/10 ON PAIN SCALE. PT REFUSING TO HAVE A BATH AT THIS TIME.
[2019-07-07] VITALS (7 sets, daily range): BP systolic 112–136; BP diastolic 65–87
--- NOTE | 2019-07-07 00:49 | NUR ---
RESTING IN BED WITH EYES CLOSED . APPEARS TO BE SLEEPING. VENTURI MASK INTACT AT 50%. PULSE OX 96%. NO DISTRESS NOTED. MOIST COUGH NOTED.
[2019-07-07 05:07] LABS: CREATININE 1.88 mg/dL (0.70-1.30); POTASSIUM 3.5 mmol/L (3.5-5.1)
[2019-07-07 06:16] LABS: BASO % 0.3 % (0.0-1.0); EOS # 0.2 10*3/uL (0.0-0.4); EOS % 2.8 % (1.0-4.0); HEMATOCRIT 28.1 % (42.0-52.0); HEMOGLOBIN 8.5 g/dl (14.0-18.0); LYMPH # 0.6 10*3/uL (1.3-4.4); LYMPH % 10.4 % (27.0-41.0); MEAN CELL VOLUME 95.9 fl (80.0-94.0); MEAN CORPUSCULAR HGB CONC 30.2 g/dl (33.0-37.0); MEAN PLATELET VOLUME 9.6 fl (9.6-12.3); MONO # 0.5 10*3/uL (0.1-1.0); MONO % 8.4 % (3.0-9.0); NEUT # 4.7 10*3/uL (2.3-7.9); NEUT % 77.8 % (47.0-73.0); PLATELET COUNT AUTOMATED 209 10*3/uL (130-400); RED BLOOD COUNT 2.93 10*6/uL (4.50-5.90); RED CELL DISTRI WIDTH 18.7 % (0-14.5)
--- NOTE | 2019-07-07 07:48 | NUR ---
PHYSICAL THERAPY Screen recievd pt has already been evaluated by Physical Therapy and is currently on our caseload, thank you. Julisa Page PT
--- NOTE | 2019-07-07 07:50 | NUR ---
Updated clinicals faxed to [facility], notified to obtain wound vac (order faxed). Patient ok to go when medically stable for discharge.
--- NOTE | 2019-07-07 07:53 | NUR ---
Patient referred to [facility], notified to obtain wound vac (order faxed). 3 night stay complete. Waiting on [facility] clearance.
--- NOTE | 2019-07-07 08:49 | NUR ---
In to see patient to discuss discharge plans again. Explained there are still no available beds at [facility] but [facility] has accepted him. Discussed the need for continued care with wound vac and IV ATB. Patient very displeased asked me to return after breakfast.
--- NOTE | 2019-07-07 09:33 | NUR ---
OT NOTE Pt was seen this A.M. 1:1 for 23 minute OT session. Upon arrival pt was supine in bed. Pt identified by name and and had complaints of 6/10 LLE pain. Pt presented to therapy with continuous 8L-O2 via NC which he remained on throughout the entire session. Pt transferred supine to sit EOB with Víctor. Requested for pt to nasir socks and pt was unable to complete requiring maxA to correct. Pt completed multiple sit to stand transfers from bed level with Víctor and use of w/w for UE support. Challenged pt's static standing tolerance needed for increased I in self care tasks and functional transfers. Pt was able to tolerate aprox 5 minutes before sitting due to fatigue. Pt was 50% compliant with NWB throughout static standing. Pt then transferred back into bed sit to supine with Víctor for assist with BLE. Pt was left supine in bed with call light in hand, tray table in place, and bed alarm activated for safety. Continue with rec D/C plan to SNF. MAY Peralta
--- NOTE | 2019-07-07 10:59 | NUR ---
Faxed updated clinicals to [facility] for review. Also asked Milton from [facility] to look over patient criteria and remaining Medicare days. She will be in around 3PM
--- NOTE | 2019-07-07 11:52 | NUR ---
PHYSICAL THERAPY Patient presented to therapy in supine with head of bed elevated, 8 liters of spO2 VIA NASAL CANULA, and report of minimal pain in the L foot. Patient knows he is PWB on the L LE. Patient was identified by name and on wristband. Patient gives informed consent. Patient performed supine to sitting at EOB with SBA. Patient performed sitting on EOB with SBA. Patient sit to stand transfer with CGA X 1. Patient stood for 4 minutes at Walker with CGA X 1 and then ambulated 5' x 2 with Walker and CGA X 1 FORWARDS and then backwards IN FRONT OF BEDSIDE CHAIR. Patient became fatigued and then had to transfer back to supine in bed with MIN A X 1 with assistance for lifting LEs into bed. Patient was moved up to head of bed with sheet with MAX A X 2. Patient was left in supine in bed with head of bed elevated, call light within reach and bed alarm activated. Patient vitals are normal. Patient was 1:1 with this NUTRITIONAL HEALTH COACH for 20 minutes total. CHANTAL DARLING NUTRITIONAL HEALTH COACH
--- NOTE | 2019-07-07 12:34 | NUR ---
Called into room to discuss discharge plan with patients sister. Explained to her regarding the lack of Medicare days remaining and the denial for [place] medicaid. Told her we are very limited on our options. [facility] has accepted, I've kept in touch with [facility] in [place] and they are reviewing but no beds available yet and I have Milton from [facility] coming in this afternoon. Sister would prefer patient stays closer to home as she doesn't have any transportation to visit him, however she totally understands he needs more care than she can handle and whatever he needs will be fine with her. I will keep her updated
[2019-07-08] VITALS: BP 142/79
[2019-07-08 04:00] VITALS: BP 133/77
[2019-07-08 05:10] LABS: CREATININE 1.84 mg/dL (0.70-1.30); PHOSPHOROUS 2.5 mg/dL (2.5-4.9); POTASSIUM 3.5 mmol/L (3.5-5.1)
[2019-07-08 06:27] LABS: BASO % 0.5 % (0.0-1.0); EOS # 0.2 10*3/uL (0.0-0.4); EOS % 3.2 % (1.0-4.0); HEMATOCRIT 28.7 % (42.0-52.0); HEMOGLOBIN 8.5 g/dl (14.0-18.0); LYMPH # 0.6 10*3/uL (1.3-4.4); LYMPH % 11.1 % (27.0-41.0); MEAN CORPUSCULAR HGB CONC 29.6 g/dl (33.0-37.0); MEAN PLATELET VOLUME 9.2 fl (9.6-12.3); MONO # 0.5 10*3/uL (0.1-1.0); MONO % 9.1 % (3.0-9.0); NEUT # 4.3 10*3/uL (2.3-7.9); NEUT % 75.7 % (47.0-73.0); PLATELET COUNT AUTOMATED 211 10*3/uL (130-400); RED BLOOD COUNT 2.93 10*6/uL (4.50-5.90); RED CELL DISTRI WIDTH 18.6 % (0-14.5); WHITE BLOOD COUNT 5.7 10*3/uL (4.8-10.8)
[2019-07-08 08:00] VITALS: BP 102/59
--- NOTE | 2019-07-08 08:00 | NUR ---
PULSE OX 98% ON 2 L/M AT REST. O2 TAKEN OFF, PULSE OX DECREASED TO 85% ON ROOM AIR. PLACED 2 L/M BACK ON PATIENT
--- NOTE | 2019-07-08 10:05 | NUR ---
PHYSICAL THERAPY Patient seen this am 1;1 for therapy visit and was sitting up in bedside chair upon therapist arrival. Patient identified by name / and presented with continous O2-2L via NC, L foot wound vac. Patient was pleasant and voices no c/o's pain, performing several sit to stand transfers, MIN A. Patient needed v/c to improve transfer technique with proper hand placement, tolerating 1-2 minutes static stand each trial, use of walker standing support with Heel touch WB on L LE. Patient also ambulated 8'x 1, walker, CGA, demonstrating "step to" gait pattern and non compliant with NWB status L LE during gait, needing multiple v/c's to complete safely. Patient returned to bedside chair and remained with call light, tray table and telephone. Patient SpO2 92% at rest and dropped to 87% during gait ex, requiring v/c for purse lip breathing technique. Will continue per POC as tolerated, total treatment time 14 minutes. Cesar Charles, MANAGER [employer] CONTENT MANAGEMENT
[2019-07-08 12:00] VITALS: BP 152/77
--- NOTE | 2019-07-08 12:27 | NUR ---
OT NOTE Patient was seen this date for 20 minutes of 1:1 OT treatment. Patient was seated in the recliner upon arrival and was agreeable to treatment. Patient presented with 2LO2, a left foot wound vac, and was instructed to continue his L NWB status. Patient verbalized he had a good understanding of his L LW NWB status but demonstrated poor carryover during OT treatment. Patient required verbal cues for proper technique for functional sit/stands from the recliner. Patient performed functional mobility in the room with the ww with poor carryover of L LE NWB status. In stance, patient reached into all planes to complete a grooming task that challenged his dynamic standing balance. Patient required a seated RB and was educated on pursed lip breathing secondary to his SpO2 decreasing from 92% to 88%. Patient completed lower body dressing with Max A to conclude the treat. Patient was pleasant throughout the treatment. Patient was in the recliner with all needs within reach to conclude. Continue with POC. RODRIGO Marquis/Narcisa
--- NOTE | 2019-07-08 15:12 | NUR ---
Patient has been accepted to [facility] and will be accepted today. Hospitalists notified for discharge. [facility] nursing notified of time to discharge approximately 7:30 PM.
[2019-07-08] MEDS ORDERED: FUROSEMIDE10 MG/1 M1 IV (15:17)
--- NOTE | 2019-07-08 15:19 | NUR ---
Sister jay notified patient is going to [facility].
--- NOTE | 2019-07-08 15:25 | NUR ---
OCCUPATIONAL THERAPY CO-SIGN I approve of the Occupational Therapy notes written above. GUS CONTRERAS OTR/Narcisa
--- NOTE | 2019-07-08 15:29 | NUR ---
Patient is being discharged to [facility]; transportation scheduled for 7:30 with [place]. [facility], nursing/park warden and patients sister all notified.
[2019-07-08 16:00] VITALS: BP 153/77
--- NOTE | 2019-07-08 16:35 | NUR ---
RECEIVED A CALL FROM [facility] THEY ARE UNABLE TO TRANSPORT PT. CALL [facility] AND THEY ARE LOOKING OVER INFORMATION. WILL CALL 4TH FLOOR AND LET THEM KNOW IF THEY WILL BE ABLE TO TRANSPORT PT.
--- NOTE | 2019-07-08 16:48 | NUR ---
FACE SHEET FAXED TO [facility].
--- NOTE | 2019-07-08 19:20 | NUR ---
REPORT GIVEN TO HOLLEY DELGADO.
--- NOTE | 2019-07-13 07:56 | NUR ---
PHYSICAL THERAPY CO-SIGN I approve of the Physical Therapy notes written above. Julisa Page PT
== END 2019-07-08 19:45 | DRG 673 ==
LOC: ED 07:57 → EDHOLD 09:25 → ICCU 09:25 → 4E 09:25 → ICCU 06-28 13:31 → 4E 07-05 15:48 → ICCU 07-05 16:42
PROVIDERS: Emergency Medicine; Family Medicine; Hospitalist; Internal Medicine; Internal Medicine Critical Care Medicine; ADMIT Internal Medicine
PROC: 30233N1 Transfusion of Nonautologous Red Blood Cells into Peripheral Vein, Percutaneous Approach (ICD-10-PCS; principal; 2019-06-29)
PROC: 5A09357 Assistance with Respiratory Ventilation, Less than 24 Consecutive Hours, Continuous Positive Airway Pressure (ICD-10-PCS; 2019-06-30)
PROC: 0JBR0ZZ Excision of Left Foot Subcutaneous Tissue and Fascia, Open Approach (ICD-10-PCS; 2019-07-01)
PROC: 0DB78ZX Excision of Stomach, Pylorus, Via Natural or Artificial Opening Endoscopic, Diagnostic (ICD-10-PCS; 2019-07-04)
DX: N17.0 Acute kidney failure with tubular necrosis (principal); G93.41 Metabolic encephalopathy; J96.02 Acute respiratory failure with hypercapnia; E43 Unspecified severe protein-calorie malnutrition; J96.01 Acute respiratory failure with hypoxia; I50.43 Acute on chronic combined systolic (congestive) and diastolic (congestive) heart failure; I13.0 Hypertensive heart and chronic kidney disease with heart failure and stage 1 through stage 4 chronic kidney disease, or unspecified chronic kidney disease; E72.20 Disorder of urea cycle metabolism, unspecified; J98.11 Atelectasis; N39.0 Urinary tract infection, site not specified; R18.8 Other ascites; Z68.41 Body mass index [BMI] 40.0-44.9, adult; E87.2 Acidosis; E86.0 Dehydration; N18.4 Chronic kidney disease, stage 4 (severe); E87.5 Hyperkalemia; R29.6 Repeated falls; E11.51 Type 2 diabetes mellitus with diabetic peripheral angiopathy without gangrene; D53.9 Nutritional anemia, unspecified; E11.649 Type 2 diabetes mellitus with hypoglycemia without coma; R74.8 Abnormal levels of other serum enzymes; E83.41 Hypermagnesemia; K29.70 Gastritis, unspecified, without bleeding; E11.22 Type 2 diabetes mellitus with diabetic chronic kidney disease; E11.42 Type 2 diabetes mellitus with diabetic polyneuropathy; I25.10 Atherosclerotic heart disease of native coronary artery without angina pectoris; E03.9 Hypothyroidism, unspecified; T87.89 Other complications of amputation stump; L89.152 Pressure ulcer of sacral region, stage 2; G89.29 Other chronic pain; I25.5 Ischemic cardiomyopathy; F17.210 Nicotine dependence, cigarettes, uncomplicated; E78.2 Mixed hyperlipidemia; F41.9 Anxiety disorder, unspecified; D72.819 Decreased white blood cell count, unspecified; I87.2 Venous insufficiency (chronic) (peripheral); B96.5 Pseudomonas (aeruginosa) (mallei) (pseudomallei) as the cause of diseases classified elsewhere; E66.01 Morbid (severe) obesity due to excess calories; K59.00 Constipation, unspecified; K43.9 Ventral hernia without obstruction or gangrene; F41.1 Generalized anxiety disorder; D63.8 Anemia in other chronic diseases classified elsewhere; Y83.8 Other surgical procedures as the cause of abnormal reaction of the patient, or of later complication, without mention of misadventure at the time of the procedure; F32.9 Major depressive disorder, single episode, unspecified; E11.65 Type 2 diabetes mellitus with hyperglycemia; Z79.4 Long term (current) use of insulin; Z95.0 Presence of cardiac pacemaker; Z88.5 Allergy status to narcotic agent; I25.2 Old myocardial infarction; Z87.01 Personal history of pneumonia (recurrent); Z89.411 Acquired absence of right great toe; Z82.49 Family history of ischemic heart disease and other diseases of the circulatory system; Z83.3 Family history of diabetes mellitus; Z79.899 Other long term (current) drug therapy; Z79.84 Long term (current) use of oral hypoglycemic drugs; Z79.01 Long term (current) use of anticoagulants; Z71.6 Tobacco abuse counseling; Z89.421 Acquired absence of other right toe(s); Y92.89 Other specified places as the place of occurrence of the external cause

== ENCOUNTER 2019-08-11 11:16 | Inpatient (IN) | payer MEDICARE ==
[~2019-08-11] VITALS: Ht 177.8 cm; Wt 137.2 kg
[~2019-08-11 11:16] MED LIST changes: +BUMETANIDE1 MG PO; +FUROSEMIDE10 MG/1 M1 IV; +Glimepiride1 MG PO; +MIDODRINE HCL5 M1 PO; +OXYCODONE HCL5 MG PO; +PANTOPRAZOLE SO40 MG PO; +TAMSULOSIN HCL0.4 MG PO; +VITAMIN D35000 UNIT PO; +ZOLPIDEM TART10 MG PO
[2019-08-11 11:26] VITALS: BP 121/51
[2019-08-11 12:26] LABS: BASO # 0.1 10*3/uL (0.0-0.1); BASO % 0.8 % (0.0-1.0); EOS # 0.2 10*3/uL (0.0-0.4); EOS % 3.7 % (1.0-4.0); HEMATOCRIT 24.7 % (42.0-52.0); HEMOGLOBIN 7.2 g/dl (14.0-18.0); LYMPH # 0.8 10*3/uL (1.3-4.4); LYMPH % 12.5 % (27.0-41.0); MEAN CELL VOLUME 98.8 fl (80.0-94.0); MEAN CORPUSCULAR HGB 28.8 pg (27.0-31.0); MEAN CORPUSCULAR HGB CONC 29.1 g/dl (33.0-37.0); MEAN PLATELET VOLUME 9.9 fl (9.6-12.3); MONO # 0.6 10*3/uL (0.1-1.0); NEUT # 4.3 10*3/uL (2.3-7.9); NEUT % 71.2 % (47.0-73.0); NUCLEATED RED BLOOD CELL 0.3 % (0.0-0.0); PLATELET COUNT AUTOMATED 232 10*3/uL (130-400); RED CELL DISTRI WIDTH 18.6 % (0-14.5)
[2019-08-11 12:36] LABS: ACT PARTIAL THROMBO TIME 43.3 SECONDS (20.0-32.1); INTERNATIONAL NORM RATIO 1.3 (2.0-3.5)
[2019-08-11 12:37] LABS: ALBUMIN 2.4 gm/dl (3.1-4.5); ALKALINE PHOSPHATASE 319 U/L (45-117); BUN 48 mg/dl (7-24); CHLORIDE 107 mmol/L (98-107); CREATININE 5.38 mg/dL (0.70-1.30); POTASSIUM 5.1 mmol/L (3.5-5.1); SGOT/AST 14 IU/L (3-35); SGPT/ALT 17 U/L (12-78); SODIUM 138 mmol/L (136-145); TOTAL PROTEIN 6.7 gm/dL (6.4-8.2)
[2019-08-11 12:43] LABS: TROPONIN I < 0.015 ng/ml (<0.045)
--- NOTE | 2019-08-11 14:17 | NUR ---
PT HAS URINAL, STILL STATES HE DOES NOT NEED TO URINATE AT THIS ITME.
[2019-08-11 16:09] LABS: BILIRUBIN NEGATIVE (NEGATIVE); BLOOD NEGATIVE (NEGATIVE); CLARITY SL CLOUDY (CLEAR); COLOR YELLOW (YELLOW); GLUCOSE NEGATIVE (NEGATIVE); KETONE NEGATIVE (NEGATIVE); LEUKO ESTERASE NEGATIVE (NEGATIVE); NITRITE NEGATIVE (NEGATIVE); SPECIFIC GRAVITY >= 1.030 (1.005-1.030); UROBILINOGEN 0.2 E.U./dl (0.2-1.0)
[2019-08-11 16:20] LABS: BACTERIA 1+
[2019-08-11 17:48] VITALS: BP 137/68
--- NOTE | 2019-08-11 17:48 | NUR ---
A 58, admitted to 4E, under the services of CHITO Bui DO with a diagnosis of MARITO,AHF. Chief complaint is DIZZINESS. Patient arrived via stretcher from ER. Monitor applied. Initial assessment completed. Vital signs taken and recorded. CHTIO BUI DO notified of admission to the unit. Orders received. See assessment for past medical history, medications and allergies. Patient and/or family oriented to unit. [facility] FLOOR visitation policy reviewed. Clothing/patient valuable form completed. BECKY HENRY
--- NOTE | 2019-08-11 18:30 | NUR ---
REWQUESTED WOUND CARE ORDERS FROM . SAID HE WOULD PUT THEM IN.
--- NOTE | 2019-08-11 18:48 | NUR ---
AWARE OF CONSULT. ORDER FOR SPUTUM CULTURE REC'D. SEE ORDERS. DR. JOSÉ SERVICE CALLED. AWAITING CALL BACK. CALLED FOR NEW CONSULT. ORDER FOR RENAL US IN AM REC'D. ALSO SAID IT WAS OK TO PLACE ÁLVAREZ CATH IF UNABLE TO MONITOR STRICT I&O.
[2019-08-11 20:00] VITALS: BP 129/65
--- NOTE | 2019-08-11 20:05 | NUR ---
PATIENT ASSESSMENT COMPLETED WITHOUT INCIDENT AT THIS TIME, PATIENT ALERT TO SELF AND TIME, REORIENTED TO PLACE. DENIES ANY CHEST PAIN/PRESSURE, DOES COMPLAIN OF SLIGHT SHORTNESS OF BREATH, CURRENTLY ON NC 2LPM, SPO2 95%, HOB RAISED TO >30%. BED ALARM ON. CALL LIGHT WITHIN REACH.
[2019-08-12] VITALS: BP 120/62
--- NOTE | 2019-08-12 00:25 | NUR ---
DR. BONILLA NOTIFED OF ABG RESULTS, ORDERS RECEIVED TO PLACE PATIENT ON BIPAP 16/10 KEEP SPO2 >92%. AND DR. MCDONOUGH ON THE UNIT AND IN TO SEE PATIENT BOTH MADE AWARE OF DR. BONILLA ORDERS. NO FURTHER ORDERS RECEIVED.
[2019-08-12 00:27] LABS: ARTERIAL BLOOD GAS PH 7.217 (7.35-7.45)
[2019-08-12 00:37] LABS: ABG BASE EXCESS -6.6 mmol/L (-2.0-2.0)
--- NOTE | 2019-08-12 00:40 | NUR ---
24 HOUR CHART CHECK COMPLETED
--- NOTE | 2019-08-12 06:04 | NUR ---
FELIPE PEREZ Gab [id number] Please refer to the physician's history and physical for past medical history, comorbid conditions, and allergies. Diagnosis: ARF (ACUTE RENAL FAILURE) ACUTE HEART FAILURE Minesh Score: 14,VERY HIGH RISK WOUND DESCRIPTIONS: Wound Number: 1 Location of the wound: Left lateral aspect of foot Type of wound: unstageable Thickness: Full Size: 3.0cm x 2.7cm x 1.2cm Tunneling: none Undermining: none Sinus Tract: none Presence of Exudate: Serosanguineous Amount: Moderate Color: Yellow, red, brown Odor: Foul Periwound Skin Appearance: Erythema Wound edges: approximated Pain (associated with wound): none at time of assessment How does patient state this happened? pt unable to state why this happened at this time Wound Number: 2 Location of the wound: left doral aspect of foot Type of wound: unstageable Thickness: Full Size: 4.7cm x 4.5cm x <0.1cm Tunneling: none Undermining: none Sinus Tract: none Presence of Exudate: Serosanguineous Amount: Moderate Color: Yellow, red Odor: Foul Periwound Skin Appearance: Erythema Wound edges: approximated Pain (associated with wound): none at time of assessment How does patient state this happened? 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 pt unable to state why this happened at this time Wound Number: 4 Location of the wound: right knee Type of wound: scabbed Thickness: Partial Size: 5.0cm x 5.5cm x <0.1cm Tunneling: none Undermining: none Sinus Tract: none Presence of Exudate: none Amount: None Color: Brown, red Odor: None Periwound Skin Appearance: Normal Wound edges: approximated Pain (associated with wound): none at time of assessment How does patient state this happened? pt unable to state why this happened at this time Wound Number: 5 Location of the wound: left knee Type of wound: scabbed Thickness: Partial Size: 3.4cm x 4.0cm x <0.1cm Tunneling: none Undermining: none Sinus Tract: none Presence of Exudate: none Amount: None Color: Brown, red Odor: None Periwound Skin Appearance: Normal Wound edges: approximated Pain (associated with wound): none at time of assessment How does patient state this happened? pt unable to state why this happened at this time Wound Number: 6 Location of the wound: right forearm Type of wound: scabbed Thickness: Partial Size: 0.6cm x 1.0cm x <0.1cm Tunneling: none Undermining: none Sinus Tract: none Presence of Exudate: none Amount: None Color: Brown, red Odor: None Periwound Skin Appearance: Normal Wound edges: approximated Pain (associated with wound): none at time of assessment How does patient state this happened? pt unable to state why this happened at this time Wound Number: 7 Location of the wound: left elbow Type of wound: scabbed Thickness: Partial Size: 1.2cm x 0.6cm x <0.1cm Tunneling: none Undermining: none Sinus Tract: none Presence of Exudate: none Amount: None Color: Brown, red Odor: None Periwound Skin Appearance: Normal Wound edges: approximated Pain (associated with wound): none at time of assessment How does patient state this happened? pt unable to state why this happened at this time Wound Number: 8 Location of the wound: sacrum Type of wound: scar tissue Size: 4.0cm x 0.7cm x <0.1cm Tunneling: none Undermining: none Sinus Tract: none Presence of Exudate: none Amount: None Color: Red lee blanchable Odor: None Periwound Skin Appearance: Normal Wound edges: closed Pain (associated with wound): none at time of assessment How does patient state this happened? pt unable to state why this happened at this time Surface the patient is resting on: Proform SKIN PREVENTION RECOMMENDATION: 1. Pressure redistribution support surface as appropriate 2. Elevate heels 3. Remove boots/TEDS every shift and reapply 4. Head of bed 30 degrees as tolerated 5. Assess nutrition and hydration 6. Manage moisture 7. Avoid the use of containment devices while in bed 8. Use absorptive products on surfaces limit layers of linens on bed 9. Turn and reposition every 1-2 hours in bed and every 1 hour in chair as tolerated 10. Weight shifts every 15 minutes while up in chair 11. Offloading with pillows or device to keep heels elevated off bed 12. Monitor skin at least every shift 13. Inspect under medical devices twice a day WOUND TREATMENT RECOMMENDATIONS: Patient has arterial studies from 06/27/19. Imaging studies to left foot due to non-healing wound. Consult podiatry for possible debridement. Cleanse sacrum with soap and water and apply hydraguard every shift and prn for prevention. Wound cultures to left lateral aspect of foot and left dorsal aspect of foot. Wheelchair cushion when oob. Heel raiser pro boots to bilateral feet while in bed. Unstageable guidelines: Cleanse left lateral foot and left doral apsect of foot with nss and apply sureprep around the wound therahoney to wound bed cover by maxorb and apply abd pad and lightly wrap with kerlix daily and prn for soiling. Unstageable guidelines: Cleanse right foot along amputation with betadine and apply dsd daily and prn. Partial thickness guidelines: Cleanse left elbow, right forearm, right knee, left knee with nss and apply sureprep around the wound hydrogel to wound bed and cover with dsd every 2 days and prn for soiling.
[2019-08-12 06:27] LABS: HEMATOCRIT 25.8 % (42.0-52.0); HEMOGLOBIN 7.5 g/dl (14.0-18.0); MEAN CORPUSCULAR HGB 28.2 pg (27.0-31.0); MEAN CORPUSCULAR HGB CONC 29.1 g/dl (33.0-37.0); MEAN PLATELET VOLUME 9.3 fl (9.6-12.3); NUCLEATED RED BLOOD CELL 0.3 % (0.0-0.0); PLATELET COUNT AUTOMATED 250 10*3/uL (130-400); RED BLOOD COUNT 2.66 10*6/uL (4.50-5.90); RED CELL DISTRI WIDTH 18.6 % (0-14.5); WHITE BLOOD COUNT 6.8 10*3/uL (4.8-10.8)
[2019-08-12 06:37] LABS: CREATININE 5.83 mg/dL (0.70-1.30); PHOSPHOROUS 8.1 mg/dL (2.5-4.9)
[2019-08-12 07:25] LABS: TOTAL CELLS COUNTED 100 #CELLS
[2019-08-12 07:26] LABS: PLATELET SUFFICIENCY NORMAL (NORMAL); POLYCHROMASIA SLIGHT
[2019-08-12 08:00] VITALS: BP 132/66
--- NOTE | 2019-08-12 08:21 | NUR ---
PHYSICAL THERAPY Screen and PT eval received will follow Julisa Page PT
--- NOTE | 2019-08-12 08:53 | NUR ---
DR LIANG NOTIFIED OF CONSULT.
[2019-08-12 10:28] LABS: ABG BASE EXCESS -7.2 mmol/L (-2.0-2.0)
[2019-08-12 10:32] LABS: ARTERIAL BLOOD GAS PH 7.197 (7.35-7.45)
--- NOTE | 2019-08-12 10:35 | NUR ---
LAB CALLED WITH CRITICAL PH RESULT. RESPIRATORY HERE AT DESK AND NOTIFIED DR SCHOFIELD WITH RESULT.
--- NOTE | 2019-08-12 11:08 | NUR ---
HELPER [employer]EL FABRICATION asked Sheree to look at the patient. -ELOISE Goel
--- NOTE | 2019-08-12 11:40 | NUR ---
Occupational Therapy eval interview initiated this date with patient having difficulty focusing on conversation, talking about his mother and the phone. Patient then refused to sit edge of bed. OTR reported above to nursing. Nursing reports that patient has been reaching for items not present and confused today. Nurse reports that they are attempting to get patient on bipap.OTR will attempt evaluation at a later date when patient is more appropriate. Carlita Garcia OTR/Narcisa
--- NOTE | 2019-08-12 11:40 | NUR ---
PHYSICAL THERAPY Attempeted eval to defer evalualtion at this time pt with increased confusion per nsg will be placing pt on BIPAP will follow Julisa Page PT
[2019-08-12 12:00] VITALS: BP 143/61
--- NOTE | 2019-08-12 13:07 | NUR ---
ÁLVAREZ INSERTED PER ORDERS VIA POLICY. 400 LIGHT LISSY URINE RETURN ED. PT TOLERATED WELL. WILL MONITOR
--- NOTE | 2019-08-12 13:30 | NUR ---
SPOKE WITH DR SCHOFIELD RE: ULTRASOUND WANTING PT NOW, PT IS ON BIPAP. HE STATES TO LEAVE PT ON BIPAP AND HE CAN GO TO [facility] LATER. [facility] CALLED AND NOTIFIED.
--- NOTE | 2019-08-12 13:40 | NUR ---
DR LIANG POD[facility]ARY ON FLOOR AND NOTIFIED PT WILL BE HAVING ULTRASOUNDS ORDERED LATER TODAY. HE STATES UNDERSTANDING
--- NOTE | 2019-08-12 14:16 | NUR ---
SPOKE WITH DR BONILLA, ORDERS RECEIVED FOR PT TO TRANSFER TO ICU. DR BONILLA ALSO ORDERED BIPAP CHANGES AND VIKI FROM RESPIRATORY NOTIFIED. DR SCHOFIELD CALLED AND NOTIFIED OF ORDERS.
--- NOTE | 2019-08-12 15:24 | NUR ---
Nursing screen and occupational therapy referral received. Thank you. Carlita Garcia OTR/l
[2019-08-12 15:30] VITALS: BP 143/52
--- NOTE | 2019-08-12 15:41 | NUR ---
Shift chart check completed.24 HR chart check completed.
[2019-08-12 15:44] LABS: ABG BASE EXCESS -6.1 mmol/L (-2.0-2.0); ARTERIAL BLOOD GAS PH 7.255 (7.35-7.45)
[2019-08-12 16:00] VITALS: BP 133/44
--- NOTE | 2019-08-12 16:00 | NUR ---
PT ARRIVED VIA BED FROM 4E, SLEEPY BUT AROUSES TO HIS NAME. DOESN'T ANSWER MANY QUESTIONS. BIPAP REAPPLIED AND ABG'S WERE DONE AND CALLED TO DR BONILLA. HIS BIPAP ADJUSTED ACCORDING TO DR BONILLA'S ORDER TO RESPIRATORY. ÁLVAREZ PATENT SMALL AMOUNT YELLOW URINE. SCABBED AREAS BOTH KNEES. OPTIFOAM'S INTACT FEET. SEE ALL PERTINENT INTERVENTIONS.
[2019-08-12 20:00] VITALS: BP 116/71; BP 119/41
--- NOTE | 2019-08-12 20:56 | NUR ---
PT HAS BEEN WEARING BIPAP MOST OF THE TIME. HE WAS OFF ABOUT AN HOUR TO EAT DINNER (ATE ABOUT 50%). BEAR HUGGER BLANKET CONTINUES TEMP WAS 96 RECTALLY ON HIS ARRIVAL FROM . DR JOSÉ HAS VISITED.
[2019-08-13] VITALS: BP 118/59
[2019-08-13 03:54] VITALS: BP 119/64
[2019-08-13 05:06] LABS: ALBUMIN 2.3 gm/dl (3.1-4.5); CREATININE 6.14 mg/dL (0.70-1.30); PHOSPHOROUS 8.3 mg/dL (2.5-4.9); POTASSIUM 5.5 mmol/L (3.5-5.1)
[2019-08-13 06:39] LABS: HEMATOCRIT 24.4 % (42.0-52.0); HEMOGLOBIN 7.4 g/dl (14.0-18.0); MEAN CORPUSCULAR HGB 28.6 pg (27.0-31.0); MEAN CORPUSCULAR HGB CONC 30.3 g/dl (33.0-37.0); MEAN PLATELET VOLUME 9.6 fl (9.6-12.3); NUCLEATED RED BLOOD CELL 0.3 % (0.0-0.0); PLATELET COUNT AUTOMATED 251 10*3/uL (130-400); RED BLOOD COUNT 2.59 10*6/uL (4.50-5.90); RED CELL DISTRI WIDTH 18.6 % (0-14.5)
[2019-08-13 06:53] LABS: MEAN CELL VOLUME 94.2 fl (80.0-94.0)
[2019-08-13 07:43] LABS: TOTAL CELLS COUNTED 100 #CELLS
[2019-08-13 07:44] LABS: ACANTHOCYTES FEW; PLATELET SUFFICIENCY NORMAL (NORMAL); POLYCHROMASIA SLIGHT; SCHISTOCYTES FEW
[2019-08-13 08:00] VITALS: BP 111/75
[2019-08-13 09:42] LABS: ABG BASE EXCESS -2.1 mmol/L (-2.0-2.0); ARTERIAL BLOOD GAS PH 7.354 (7.35-7.45)
[2019-08-13 12:00] VITALS: BP 121/67
--- NOTE | 2019-08-13 13:19 | NUR ---
PHYSICAL THERAPY PATIENT WAS TRANSEFERRED TO [facility] AND THEREFORE WILL NEED NEW PT ORDER BEFORE PT SERVICES CAN BE INITIATED. THANK YOU FOR REFERRAL DIANNE CARVAJAL PT
[2019-08-13 16:00] VITALS: BP 144/69
--- NOTE | 2019-08-13 16:00 | NUR ---
PT OFF BIPAP.PLACED ON 3L/M NC. RN NOTIFIED.
--- NOTE | 2019-08-13 17:28 | NUR ---
PATIENT C/O BACK/LEG PAIN. MEDICATED WITH TYLENOL PER PRN ORDER. WILL CONTINUE TO MONITOR.
[2019-08-13 19:49] VITALS: BP 130/64
[2019-08-14] VITALS (7 sets, daily range): BP systolic 130–141; BP diastolic 67–81
[2019-08-14 05:24] LABS: ALBUMIN 2.3 gm/dl (3.1-4.5); CREATININE 6.43 mg/dL (0.70-1.30); PHOSPHOROUS 8.3 mg/dL (2.5-4.9); POTASSIUM 5.2 mmol/L (3.5-5.1)
[2019-08-14 07:35] LABS: HEMATOCRIT 23.7 % (42.0-52.0); HEMOGLOBIN 7.4 g/dl (14.0-18.0); LYMPH # 0.4 10*3/uL (1.3-4.4); LYMPH % 4.4 % (27.0-41.0); MEAN CELL VOLUME 92.6 fl (80.0-94.0); MEAN CORPUSCULAR HGB 28.9 pg (27.0-31.0); MEAN CORPUSCULAR HGB CONC 31.2 g/dl (33.0-37.0); MEAN PLATELET VOLUME 9.6 fl (9.6-12.3); MONO # 0.7 10*3/uL (0.1-1.0); NEUT # 8.3 10*3/uL (2.3-7.9); NUCLEATED RED BLOOD CELL 0.2 % (0.0-0.0); PLATELET COUNT AUTOMATED 244 10*3/uL (130-400); RED BLOOD COUNT 2.56 10*6/uL (4.50-5.90); RED CELL DISTRI WIDTH 18.9 % (0-14.5); WHITE BLOOD COUNT 9.4 10*3/uL (4.8-10.8)
[2019-08-14 09:17] LABS: ABG BASE EXCESS -0.7 mmol/L (-2.0-2.0); ARTERIAL BLOOD GAS PH 7.36 (7.35-7.45)
--- NOTE | 2019-08-14 09:30 | NUR ---
UP TO BSC X 2 ASSIST, PT USING WALKER, ABLE TO STAND UPRIGHT WITH MINIMAL ASSIST AND WALK A FEW STEPS WITH THE WALKER
--- NOTE | 2019-08-14 10:00 | NUR ---
UP IN RECLINER, RESTING NICELY, RESP EASY, PT CONTENT
--- NOTE | 2019-08-14 10:00 | NUR ---
WOUNDS DRESSED ON 06-09
--- NOTE | 2019-08-14 18:00 | NUR ---
PT SITTING UP IN RECLINER CHAIR. RESP-EASY AND REGULAR. BLE EDEMA,PPP, DENIES CP. CALL LIGHT IN REACH. SEE SHIFT ASSESSMENT.
--- NOTE | 2019-08-15 04:28 | NUR ---
24 HOUR CHART CHECK COMPLETE.
[2019-08-15 06:17] LABS: HEMATOCRIT 24.5 % (42.0-52.0); HEMOGLOBIN 7.6 g/dl (14.0-18.0); LYMPH # 0.4 10*3/uL (1.3-4.4); LYMPH % 3.3 % (27.0-41.0); MEAN CELL VOLUME 92.8 fl (80.0-94.0); MEAN CORPUSCULAR HGB 28.8 pg (27.0-31.0); MEAN PLATELET VOLUME 9.1 fl (9.6-12.3); MONO # 0.7 10*3/uL (0.1-1.0); MONO % 6.6 % (3.0-9.0); NEUT # 9.7 10*3/uL (2.3-7.9); NEUT % 89.3 % (47.0-73.0); PLATELET COUNT AUTOMATED 215 10*3/uL (130-400); RED BLOOD COUNT 2.64 10*6/uL (4.50-5.90); WHITE BLOOD COUNT 10.8 10*3/uL (4.8-10.8)
[2019-08-15 06:38] LABS: ALBUMIN 2.3 gm/dl (3.1-4.5); CREATININE 6.47 mg/dL (0.70-1.30); PHOSPHOROUS 7.8 mg/dL (2.5-4.9); POTASSIUM 5.2 mmol/L (3.5-5.1)
[2019-08-15 08:00] VITALS: BP 130/72
--- NOTE | 2019-08-15 08:11 | NUR ---
24 HR chart check completed.
--- NOTE | 2019-08-15 08:30 | NUR ---
C/O LOWER BACK PAIN AND WANTS HIS OXY RESTARTED. /SAVI TO ADDRESS
--- NOTE | 2019-08-15 09:00 | NUR ---
Wire Roller in to talk to patient. Patient states lives at home with sister. There are few steps in the home. Physician: linden brown Pharmacy[facility]: [facility] Patient's level of ADLs: MODERATE ASSIST Patient has working utilities: all working DME: walker Follow-up physician's appointment after d/c: will be made by hospitalist nurse director upon discharge Does patient want to access PORTAL?: no Discharge plan discussed with patient, he states he lives at home with his sister, he requires max assistance with ambulation and transfers and moderate assistance with adls, he recently was discharged from [facility] and returned home and was unable to function, discussed with him a short term usp or possibly [facility] discussed with him not having any medicare skilled days and asked about his medicaid process. he stated he recently got [place]. will have marketing planner check on the status of medicaid and make a referral for patienty. PORFIRIO IGNACIO
--- NOTE | 2019-08-15 10:00 | NUR ---
MEDICATION EFFECTIVE FOR PAIN.
[2019-08-15 12:00] VITALS: BP 140/75
--- NOTE | 2019-08-15 14:42 | NUR ---
case mangagement/product planner talked with Ariela from [facility] assist regarding checking on status of patient's medicaid, per Ariela, patient does have [place] medicaid but the coverage only pays for patient's copays, will not pay for anything else, product planner will talk with patient
[2019-08-15 16:00] VITALS: BP 135/50
--- NOTE | 2019-08-15 16:00 | NUR ---
Patient resting quietly with no c/o discomfort. Respirations easy and regular. Vital signs stable. No overt distress. GINA PEREZ
--- NOTE | 2019-08-15 18:11 | NUR ---
CONSULT MESSAGE LEFT FOR NICOLÁS.
[2019-08-15 20:00] VITALS: BP 141/74
--- NOTE | 2019-08-15 22:15 | NUR ---
[facility] IR ADMINISTERED FOR PT C/O 04/12 CHRONIC LOWER BACK PAIN. WILL MONITOR.
[2019-08-16] VITALS: BP 137/71
--- NOTE | 2019-08-16 01:54 | NUR ---
24 HOUR CHART CHECK COMPLETE.
--- NOTE | 2019-08-16 02:33 | NUR ---
REMOVED PATIENT FROM BIPAP PER REQUEST. PLACED ON 3L NC
[2019-08-16 07:20] LABS: ALBUMIN 2.3 gm/dl (3.1-4.5); CREATININE 6.54 mg/dL (0.70-1.30); PHOSPHOROUS 7.7 mg/dL (2.5-4.9); POTASSIUM 5.1 mmol/L (3.5-5.1)
--- NOTE | 2019-08-16 07:25 | NUR ---
ASSESSMENT COMPLETE AT THIS TIME. PT WAS SLEEPING AT THIS TIME. NO CURRENT COMPLAINTS. CALL LIGHT WITHIN REACH. WILL MONITOR
--- NOTE | 2019-08-16 08:45 | NUR ---
Occupational therapy orders received and chart reviewed. Patient was in bed with HOB elevated eating breakfast. At his previous admission, patient was L LE PWB, no new orders from podiatry have been received in regards to current WB status. Will follow up with podiatry. Thank you. Radha Deluna OTR/Narcisa
--- NOTE | 2019-08-16 08:45 | NUR ---
PHYSICAL THERAPY Attempted to see pt for evaluation eating breakfast also will clarify any weightbearing restrictions for LLE as when pt was here 07/21 he was PWB on the LLE per podiatry, spoke with nurse Duque and she has no orders reg LLE will follow. Julisa Page PT
--- NOTE | 2019-08-16 09:17 | NUR ---
CALLED DR SCHOFIELD PER PT REQUEST OF NEURONTIN 300 MG HE TAKES AT HOME AND HAS NOT GOT YET, AND HE STATES THAT THEY CUT IT BACK DUE TO HIS KIDNEY LEVLES
--- NOTE | 2019-08-16 09:35 | NUR ---
PT STATES THAT HE IS HABVING PAING IN HIS BACK RATING IT A 8/10 AND IS REQEUSTING OXY. PRN PO OXYCODDONE IS GIVEN AT THIS TIME. CALL LIGHT WITHIN REAC, WILL CONTINUE TO MONITOR
[2019-08-16 11:45] LABS: IRON 42 ug/dL (65-175); TOTAL IRON BINDING CAPACITY 297 ug/dl (250-450)
--- NOTE | 2019-08-16 11:47 | NUR ---
Attempted to contact patients sister who lives and cares for patient. I tried every phone number listed on the face sheet and bulliten board. All numbers have been disconnected.
[2019-08-16 12:00] VITALS: BP 145/72
--- NOTE | 2019-08-16 12:30 | NUR ---
Occupational therapy orders received and OT evaluation completed in full on floor four. Patient precautions include fall risk, B/L LE gauze wrappings, L UE IV line, 3L02. Per OT eval, OT recommends a SNF. If refused, home with HH SN, OT, and PT with 24/7 assist. Patient would benefit from continued OT treatment to maximize independence and safety with ADLs and [place] [id number]. Thank you for the referral. Radha Deluna, OTR/L
--- NOTE | 2019-08-16 13:57 | NUR ---
IN TO PT ROOM TO CHECK IN, AND PT IS SLEEPING, EASY AND REGULAR RESPIRATIONS. WILL CONTINUE TO MONITOR
--- NOTE | 2019-08-16 14:54 | NUR ---
In to see patient to discuss discharge plans. I told him I attempted to reach his sister but couldn't get through. He stated his sister has let the bills go and the phone was shut off. I explained to him the level of [place] medicaid he has and than it only covers his Medicare premium. It doesn't cover anything with retirement. I explained he could still go somewhere under his medicare but he would need to pay the copay and a portion up front. He stated they don't have any money, he is not going to go "live" in any prison, he is going home and wants to resume his [facility].
--- NOTE | 2019-08-16 15:05 | NUR ---
CALLED PHARMACY FOR PT LASIX, THEY STATE THEY WILL MIX IT THEN SEND IT UP
[2019-08-16 16:00] VITALS: BP 149/69
--- NOTE | 2019-08-16 16:24 | NUR ---
DR EID ON FLOOR AND STATES THAT THE PATIENT DOES NOT HAVE AN INFECTION TO HIS FEET AND IS CLEARED FAR HER CARE GOES. CONTINUE WITH NED
[2019-08-16 20:00] VITALS: BP 132/68
--- NOTE | 2019-08-16 21:52 | NUR ---
[facility] IR ADMINISTERED FOR PT C/O CHRONIC LOWER BACK PAIN. WILL MONITOR.
[2019-08-17] VITALS: BP 146/71
--- NOTE | 2019-08-17 06:30 | NUR ---
RESPIRATORY NOTFIED THAT PT WAS TAKEN OFF BIPAP.
[2019-08-17 07:43] LABS: ALBUMIN 2.4 gm/dl (3.1-4.5); CREATININE 6.78 mg/dL (0.70-1.30); PHOSPHOROUS 7.5 mg/dL (2.5-4.9); POTASSIUM 5.2 mmol/L (3.5-5.1)
--- NOTE | 2019-08-17 11:22 | NUR ---
OT NOTE Attempted to see pt this A.M. for OT session and upon arrival pt's L foot was bleeding on the bed and floor, notified pt's nurse and no treatment provided at this time. Will check back at a later time and continue with POC as able. GIGI Peralta/Narcisa
[2019-08-17 12:00] VITALS: BP 155/72
--- NOTE | 2019-08-17 12:08 | NUR ---
PODIETRY IN AND PLACED WOUND VAC
--- NOTE | 2019-08-17 13:49 | NUR ---
case management visits with patient, he stated he is possibly getting a dialysis cath and wants to go to a facility but is unable to pay the cost, informed him that case management/information systems planner will contact a few facilities and see if they would be able to accomadate patient
--- NOTE | 2019-08-17 14:28 | NUR ---
patient is requesting a referral to detention facililty. Given patient is out of full pay days he is agreeable to see if [facility] will accept him, he's been there in the past. Contacted facility and faxed referral. waiting on review/acceptance.
--- NOTE | 2019-08-17 14:50 | NUR ---
OT NOTE Pt was seen this P.M. 1:1 for 15 minute OT session. Upon arrival pt was supine in bed. Pt identified by name and and had complaints of 5-6/10 low back pain. Pt presented to therapy with continuous 2L-O2 via NC and wound vac in LLE which he remained on throughout the entire session. Pt transferred supine to sit EOB with modA X 2 for assist with UB and BLE. While sitting EOB challenged pt's dynamic sitting balance needed for increased I and enhanced safety. While weight shifting, crossing midline, and reaching over all planes pt was able to maintain F- sitting balance throughout. Pt tolerated aprox 10 minutes of sitting upright before transferring back into bed sit to supine with SBA. Pt was then repositioned in bed with maxA X 2. There he was left with call ligh tin hand, tray table in place, and bed alarm activated for safety. [facility] rec D/C plan to SNF. GIGI Peralta/Narcisa
--- NOTE | 2019-08-17 15:17 | NUR ---
Patient has been accepted to [facility], PASS/RRcompleted. 3 night stay complete. Patient ok to go when medically stable for discharge.
[2019-08-17 16:00] VITALS: BP 160/77
[2019-08-17 20:00] VITALS: BP 136/62
--- NOTE | 2019-08-17 21:30 | NUR ---
MEDICATED WITH ROXICODONE FOR C/O LOWER BACK PAIN RATED A 9/10. BLOOD SUGAR 353; 12 UNITS OF INSULIN GIVEN. PT. IS VERY NONCOMPLIANT FAR DIET. DRINKING PEPSI. LUNGS ARE DIMINISHED BILATERALLY WITH NO COUGH NOTED AT THIS TIME. PULSE OX 99% ON 2 LPM VIA N/C. ÁLVAREZ PATENT. WOUND VAC INTACT TO LEFT FOOT. PT. VOICES NO OTHER C/O AT THIS TIME. CALL LIGHT WITHIN REACH.
[2019-08-17 22:00] VITALS: BP 136/62
[2019-08-18] VITALS: BP 128/63
--- NOTE | 2019-08-18 | NUR ---
RESTING IN BED WITH EYES CLOSED. CALL LIGHT WITHIN REACH.
--- NOTE | 2019-08-18 06:22 | NUR ---
C/O LOWER BACK PAIN; TYLENOL GIVEN.
--- NOTE | 2019-08-18 06:30 | NUR ---
BLOOD SUGAR 266; COVERAGE PER EMAR.
[2019-08-18 07:17] LABS: CREATININE 6.93 mg/dL (0.70-1.30); POTASSIUM 5.6 mmol/L (3.5-5.1)
--- NOTE | 2019-08-18 07:48 | NUR ---
Called podiatry resident number no answer at this time left call back number for wound care orders.
[2019-08-18 09:00] VITALS: BP 130/72
--- NOTE | 2019-08-18 10:06 | NUR ---
Spoke with Dr. Betancourt regarding wound care orders he stated he will put them in later today when he gets here.
--- NOTE | 2019-08-18 11:59 | NUR ---
Faxed clinical updates and wound vac orders to [facility]. They will order wound vac.
[2019-08-18 12:00] VITALS: BP 130/79
--- NOTE | 2019-08-18 12:30 | NUR ---
DR. ROBLES IN WITH PATIENT PLACING TEMP DIALYSIS CATH.
--- NOTE | 2019-08-18 14:00 | NUR ---
PT BLOOD SUGAR 262, PT GOING TO DIALYSIS, DOES NOT WANT INSULIN COVERAGE AT THIS TIME
--- NOTE | 2019-08-18 14:30 | NUR ---
OT NOTE Attempted to see pt this P.M. for OT session and upon arrival pt was out of the room for dialysis. Will check back at a later time/date and continue with POC as able. GIGI Peralta/Narcisa
--- NOTE | 2019-08-18 15:13 | NUR ---
PHYSICAL THERAPY TREATMENT TIME: 2:30 PM PATIENT IS PRESENTLY IN DIALYSIS [facility], WHICH HE JUST WENT TO IN THE LAST FEW MINUTES. NO THERAPY PROVIDED THIS AFTERNOON FOR THIS REASON. WILL CHECK BACK TOMMORROW. 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
--- NOTE | 2019-08-18 15:21 | NUR ---
PT REMAIN IN DIALYSIS
--- NOTE | 2019-08-18 16:29 | NUR ---
PT IN DIALYSIS, PER DIALYSIS NURSE. PT IS ALMOST COMPLETE WITH TREATMENT AND HAS TOLERATED WELL. IV LASIX INFUSION CHANGED.
--- NOTE | 2019-08-18 16:51 | NUR ---
REPORT RECEIVED FROM DIALYSIS, PT TOLERATED DIALYSIS WELL TWO HOUR TREATMENT TODAY, 3 HOUR TREATMENT TOMORROW. 2.8 KILOS OFF TODAY.
--- NOTE | 2019-08-18 18:37 | NUR ---
CALLED TO NOTIFY PODIATRY THAT WHEN RESIDENT RETURNED FROM DIALYSIS, BLOOD NOTED ON LEFT FOOT DRESSING. DR. DALE NOTIFIED, MONITOR. IF WOUND VAC CONTINUES TO BE FUNCTIONAL, PODIATRY WILL SEE PATIENT TOMORROW
[2019-08-18 20:00] VITALS: BP 141/63
[2019-08-19] VITALS: BP 119/68
--- NOTE | 2019-08-19 03:22 | NUR ---
PATIENT BIPAP ALARMING AT THIS TIME. PATIENT WANTS TO BE TAKEN OFF OF BIPAP. PATIENT PLACED ON NASAL CANNULA AT THIS TIME. PULSE OX 97%
[2019-08-19 05:02] LABS: HEPATITIS B SURFACE AG Negative (Negative); HEPATITIS C VIRUS ANTIBODY 0.1 s/co (0.0-0.9)
[2019-08-19 06:18] LABS: CREATININE 5.71 mg/dL (0.70-1.30); PHOSPHOROUS 6.9 mg/dL (2.5-4.9); POTASSIUM 5.5 mmol/L (3.5-5.1)
--- NOTE | 2019-08-19 06:44 | NUR ---
Spoke with Dr. Betancourt regarding wound vac clarification because order in the computer states 125mmHg but the vac was set at 200mmHg. He states it should be 200mmHg low continous and he also stated that it was okay to put a wet to dry for transportation.
--- NOTE | 2019-08-19 06:55 | NUR ---
ANAFELIPE [id number] Please refer to the physician's history and physical for past medical history, comorbid conditions, and allergies. Diagnosis: ARF (ACUTE RENAL FAILURE) ACUTE HEART FAILURE Minesh Score: 14,MODERATE RISK WOUND DESCRIPTIONS: Wound Number: 1 & Wound Number: 2 Location of the wound: Left lateral aspect of foot, Location of the wound: left doral aspect of foot. Wound Vac intact at 200mmHg continous, low. Strike through Sanguineous drainage noted to flakita wrap. 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 pt unable to state why this happened at this time Wound Number: 4 Location of the wound: right knee Type of wound: scabbed Thickness: Partial Size: 3.0cm x 5.5cm x <0.1cm Tunneling: none Undermining: none Sinus Tract: none Presence of Exudate: none Amount: None Color: Brown, red Odor: None Periwound Skin Appearance: Normal Wound edges: approximated Pain (associated with wound): none at time of assessment How does patient state this happened? pt unable to state why this happened at this time Wound Number: 5 Location of the wound: left knee Type of wound: scabbed Thickness: Partial Size: 3.0cm x 3.5cm x <0.1cm Tunneling: none Undermining: none Sinus Tract: none Presence of Exudate: none Amount: None Color: Brown, red Odor: None Periwound Skin Appearance: Normal Wound edges: approximated Pain (associated with wound): none at time of assessment How does patient state this happened? pt unable to state why this happened at this time Wound Number: 6 Location of the wound: right forearm Type of wound: scabbed Thickness: Partial Size: 0.5cm x 1.0cm x <0.1cm Tunneling: none Undermining: none Sinus Tract: none Presence of Exudate: none Amount: None Color: Brown, red Odor: None Periwound Skin Appearance: Normal Wound edges: approximated Pain (associated with wound): none at time of assessment How does patient state this happened? pt unable to state why this happened at this time Wound Number: 7 Location of the wound: left elbow Type of wound: scabbed Thickness: Partial Size: 1.1cm x 0.4cm x <0.1cm Tunneling: none Undermining: none Sinus Tract: none Presence of Exudate: none Amount: None Color: Brown, red Odor: None Periwound Skin Appearance: Normal Wound edges: approximated Pain (associated with wound): none at time of assessment How does patient state this happened? pt unable to state why this happened at this time Wound Number: 8 Location of the wound: sacrum Type of wound: scar tissue Size: 4.0cm x 0.7cm x <0.1cm Tunneling: none Undermining: none Sinus Tract: none Presence of Exudate: none Amount: None Color: Red and blanchable Odor: None Periwound Skin Appearance: Normal Wound edges: closed Pain (associated with wound): none at time of assessment How does patient state this happened? pt unable to state why this happened at this time Surface the patient is resting on: Isoflex SKIN PREVENTION RECOMMENDATION: 1. Pressure redistribution support surface as appropriate 2. Elevate heels 3. Remove boots/TEDS every shift and reapply 4. Head of bed 30 degrees as tolerated 5. Assess nutrition and hydration 6. Manage moisture 7. Avoid the use of containment devices while in bed 8. Use absorptive products on surfaces limit layers of linens on bed 9. Turn and reposition every 1-2 hours in bed and every 1 hour in chair as tolerated 10. Weight shifts every 15 minutes while up in chair 11. Offloading with pillows or device to keep heels elevated off bed 12. Monitor skin at least every shift 13. Inspect under medical devices twice a day WOUND TREATMENT RECOMMENDATIONS: Continue wound vac dressing per podiatry order. Continue sacrum with soap and water and apply hydraguard every shift and prn for prevention. Continue heel raiser pro boots to bilateral feet while in bed. Continue wheelchair cushion when oob. Continue hydraguard to sacrum. Continue unstageable guidelines to right foot along amputation Continue Partial thickness guidelines to right forearm, left elbow, right knee and left knee D/C dressing change of silver alignate to left foot and ankle wounds X 2. D/c unstageable guidelines to left lateral foot and left dorsal aspect of foot
[2019-08-19 08:00] VITALS: BP 118/70
--- NOTE | 2019-08-19 08:35 | NUR ---
OFF FLOOR FOR DIALYSIS.
--- NOTE | 2019-08-19 09:00 | NUR ---
case management spoke to Ce RENNER regarding patient, Ce stated patient will not be discharged today. discussed with her that patient has been accepted to [facility] and is medicare insurance, he does not need a precert prior to discharging, case management will follow
--- NOTE | 2019-08-19 09:12 | NUR ---
Ce CHONG notified of wound care recommendations.
--- NOTE | 2019-08-19 09:32 | NUR ---
FUR EXAMINER spoke with CLARENCE Encinas about patients discharge plans for [facility]. -ELOISE Goel
--- NOTE | 2019-08-19 11:42 | NUR ---
OT NOTE PATIENT IN DIALYSIS IN AM. WILL TRY BACK LATER TIME/DATE. ZO YU/Narcisa
--- NOTE | 2019-08-19 12:08 | NUR ---
BACK TO ROOM AFTER DIALYSIS. VSS.
[2019-08-19 12:18] VITALS: BP 122/66
--- NOTE | 2019-08-19 12:20 | NUR ---
2KG FLUID OFF FROM DIALYSIS PER RETAIL BRANCH MANAGER NOTE.
--- NOTE | 2019-08-19 12:26 | NUR ---
Patient accepted to [facility], 3 night stay complete. patient ok to go when medically stable for discharge.
--- NOTE | 2019-08-19 13:07 | NUR ---
PHYSICAL THERAPY PATIENT DECLINED THERAPY SESSION BECAUSE HE JUST RETURNED FORM DIALYSIS AND DOES NOT FEEL LIKE DOING THERAPY AT THIS TIME. PATIENT SAY HE IS FATIGUED, WEAK AND NEEDS OT REST. HE IS ALSO AFRAID OF DISLODGING HIS WOUND VAC FROM HIS LEG. WILL CHECK BACK AT A LATER DATE. CHANTAL DARLING RENAL DIETITIAN
--- NOTE | 2019-08-19 13:07 | NUR ---
OT NOTE PATIENT REPORTS TOO TIRED TO PARTICIPATE IN PM AND REPORTS HAD DIALYSIS IN AM. WILL TRY BACK LATER TIME/DATE ZO YU/Narcisa
--- NOTE | 2019-08-19 14:58 | NUR ---
PHYSICAL THERAPY CO-SIGN I approve of the Physical Therapy notes written above. Julisa Page PT
--- NOTE | 2019-08-19 15:00 | NUR ---
OCCUPATIONAL THERAPY CO-SIGN I approve of the Occupational Therapy notes written above. Radha Deluna, OTR/L
[2019-08-19 16:00] VITALS: BP 127/61
[2019-08-19 20:00] VITALS: BP 105/67
[2019-08-20] VITALS: BP 107/60
--- NOTE | 2019-08-20 00:15 | NUR ---
Pt placed on home unit BiPap with a 2L bleed in.
[2019-08-20 06:40] LABS: EOS # 0.1 10*3/uL (0.0-0.4); HEMATOCRIT 25.2 % (42.0-52.0); LYMPH # 0.6 10*3/uL (1.3-4.4); LYMPH % 4.6 % (27.0-41.0); MEAN CELL VOLUME 91.3 fl (80.0-94.0); MEAN CORPUSCULAR HGB CONC 31.7 g/dl (33.0-37.0); MONO # 1.1 10*3/uL (0.1-1.0); MONO % 9.1 % (3.0-9.0); NEUT # 10.6 10*3/uL (2.3-7.9); NEUT % 84.7 % (47.0-73.0); PLATELET COUNT AUTOMATED 203 10*3/uL (130-400); RED BLOOD COUNT 2.76 10*6/uL (4.50-5.90); RED CELL DISTRI WIDTH 19.3 % (0-14.5); WHITE BLOOD COUNT 12.5 10*3/uL (4.8-10.8)
[2019-08-20 06:48] LABS: ALBUMIN 2.1 gm/dl (3.1-4.5); CREATININE 4.48 mg/dL (0.70-1.30); PHOSPHOROUS 4.9 mg/dL (2.5-4.9); TOTAL PROTEIN 5.3 gm/dL (6.4-8.2)
[2019-08-20 06:49] LABS: POTASSIUM 4.1 mmol/L (3.5-5.1)
--- NOTE | 2019-08-20 07:36 | NUR ---
OFF FLOOR FOR DIALYSIS.
[2019-08-20 08:00] VITALS: BP 102/74
--- NOTE | 2019-08-20 09:47 | NUR ---
CALLED [facility]ER AND NESTOR WITH [facility], SAID THAT SARA WAS TO ORDER THE WOUND VAC BUT WAS UNSURE IF IT ARRIVED OR WAS ACTUALLY ORDERED. LEFT FOR SARA. DEONDRE TO CALL BACK WITH AN ANSWER LATER TODAY.
--- NOTE | 2019-08-20 10:15 | NUR ---
DEONDRE CALLED BACK AFTER SPEAKING WITH SARA. THERE IS A WOUND VAC AT THE FACILITY FOR WHEN THE PT IS DISCHARGED. NOTIFIED.
[2019-08-20 12:00] VITALS: BP 122/67
--- NOTE | 2019-08-20 12:05 | NUR ---
2kilo off during dialysis today. Next dialysis is scheduled for Thursday.
--- NOTE | 2019-08-20 12:13 | NUR ---
BACK TO ROOM FOLLOWING DIALYSIS. VSS. CALL LIGHT WITHIN REACH.
--- NOTE | 2019-08-20 14:56 | NUR ---
PHYSICAL THERAPY Patient supine in bed at time of arrival; patient provided informed consent for therapy session. Patient reports increased fatigue secondary to dialysis, however, patient agreeable to perform exercises this date. Bed mobility-- patient transitions supine->sit requiring Víctor for lower body management. Seated B LE ther-ex, AROM, for strength, endurance and ROM: marches, LAQs, hip ABD/ADD x 20 reps. Intermittent rest breaks provided, due to fatigue. Patient benefits from cues for improved ROM, pacing and technique throughout. Sit->supine requiring Víctor-modA for lower body management followed by modA to assist patient with scooting to HOB-- patient does actively participate with scooting and use of bed rails. Patient supine in bed with call light and tray table within reach. Patient voiced no c/o this date. Sarah Rodarte, CARRIER PACKER
[2019-08-20 16:00] VITALS: BP 111/66
--- NOTE | 2019-08-20 19:30 | NUR ---
TOOK OVER CARE OF PT. PT RESTING IN BED AT THIS TIME. RESPIRATIONS EASY AND UNLABORED ON HIGH FLOW NC. PT DENIES NEEDING ANYTHING. SAFETY MEASURES IN PLACE. WOUND VAC IN PLACE, SETTINGS PER ORDERS. DRESSINGS C/D/I. WILL CONITNUE TO MONITOR. CALL LIGHT IN REACH.
[2019-08-20 20:00] VITALS: BP 127/73
--- NOTE | 2019-08-20 22:39 | NUR ---
PT GIVEN OXYCODONE PER PRN ORDERS ON EMAR, DUE TO COMPLAINTS OF PAIN. ALL OTHER HS MEDICATIONS GIVEN. BLOOD SUGAR OBTAINED, 142, NO COVEREAGE NEEDED PER S/S. WOUND VAC IN TACT, DRESSINGS C/D/I. BED IN LOWEST POSITION,WHEELS LOCKED. CALL LIGHT IN REACH.
--- NOTE | 2019-08-20 23:39 | NUR ---
PT STATES THAT OXYCODONE IS EFFECTIVE AT THIS TIME.
[2019-08-21] VITALS (9 sets, daily range): BP systolic 78–134; BP diastolic 52–88
--- NOTE | 2019-08-21 02:00 | NUR ---
IV discontinued TO LEFT ARM, pt pulled IV out. Site asymptomatic. Pressure applied. Sterile dressing applied. TOM CARPIO
--- NOTE | 2019-08-21 03:50 | NUR ---
IV started left antecubital with #24 protective cath after 1 attempts. Site prepped with Chloroprep. Sterile dressing applied. Patient tolerated procedure well. IV locked with saline. TOM CARPIO
--- NOTE | 2019-08-21 04:04 | NUR ---
24 HR chart check completed.
[2019-08-21 06:38] LABS: HEMOGLOBIN 7.5 g/dl (14.0-18.0); MEAN CELL VOLUME 91.3 fl (80.0-94.0); MEAN CORPUSCULAR HGB 28.5 pg (27.0-31.0); MEAN CORPUSCULAR HGB CONC 31.3 g/dl (33.0-37.0); MEAN PLATELET VOLUME 9.8 fl (9.6-12.3); PLATELET COUNT AUTOMATED 166 10*3/uL (130-400); RED BLOOD COUNT 2.63 10*6/uL (4.50-5.90); WHITE BLOOD COUNT 24.2 10*3/uL (4.8-10.8)
[2019-08-21 06:56] LABS: ALBUMIN 2.1 gm/dl (3.1-4.5); CREATININE 3.29 mg/dL (0.70-1.30); POTASSIUM 4.1 mmol/L (3.5-5.1); TOTAL PROTEIN 5.4 gm/dL (6.4-8.2)
[2019-08-21 07:19] LABS: TOTAL CELLS COUNTED 100 #CELLS
[2019-08-21 07:20] LABS: OVALOCYTES FEW; PLATELET SUFFICIENCY NORMAL (NORMAL); STOMATOCYTE FEW; TOXIC GRANULATION SLIGHT
[2019-08-21 07:21] LABS: SCHISTOCYTES FEW
--- NOTE | 2019-08-21 09:25 | NUR ---
WOUND VAC CHANGED TODAY BY PODIATRY. BULKY DRSG TO LEFT LEG COVERING BOTH WOUND VAC AND LATERAL FOOT WOUND.
--- NOTE | 2019-08-21 10:18 | NUR ---
PER , IT IS OK TO CHANGE ÁLVAREZ TO OBTAIN UA SPECIMEN.
--- NOTE | 2019-08-21 11:23 | NUR ---
ÁLVAREZ CATH REMOVED AND REPLACED WITH 16FR PER ORDERS. TOLERATED FAIRLY. URINE NOTED TO BE BLOOD TINGED UPON RE-INSERTION. NOTIFIED. SAID TO MONITOR.
--- NOTE | 2019-08-21 12:25 | NUR ---
NOTIFIED BP 88/58 AND TEMP OF 99.4. ASKED TO RECHECK BP IN 3OMINS AND CALL BACK.
--- NOTE | 2019-08-21 13:14 | NUR ---
BP 82/52. NOTIFIED . ASKED TO RECHECK ARND 1345 AGAIN AND CALL WITH RESULTS. ALSO NOTIFIED OF SMALL ABSCESS NOTED TO LEFT AC AREA WHILE TAKING BP. CAME TO BEDSIDE AND SWABBED FOR WOUND CULTURE. SEE MICRO.
--- NOTE | 2019-08-21 13:53 | NUR ---
BP 90/54. NOTIFIED. SAID TO LET [facility] KNOW. AT HOSPITAL FOR ROUNDS AT PRESENT TIME. SAID HE WOULD LOOK AT HIS TRENDS. NO NEW ORDERS REC'D.
--- NOTE | 2019-08-21 14:13 | NUR ---
NUZHAT SMITH NOTIFED OF TROP 0.132. NO NEW ORDERS REC'D.
--- NOTE | 2019-08-21 16:14 | NUR ---
BP 78/56 MANUAL. NOTIFIED . PT MORE LETHARGIC/PALE. TEMP 99.7. ASKED FOR NRSG TO CALL [facility] TO OK IVF. CALLED [facility] ANSWERING SERVICE. MESSAGE LEFT FOR . AWAITING CALL BACK. SAID SHE WOULD COME TO SEE PT ON FLOOR.
--- NOTE | 2019-08-21 16:21 | NUR ---
CALLED BACK. WANTS PT TRANSFERRED TO ICU AND IS OK TO GIVE FLUIDS TO FOR STABILIZATION. INFO RELAYED TO . ON FLOOR TO SEE PT NOW.
[2019-08-21 16:41] LABS: HEMATOCRIT 22.4 % (42.0-52.0); MEAN CELL VOLUME 92.6 fl (80.0-94.0); MEAN CORPUSCULAR HGB 28.9 pg (27.0-31.0); MEAN CORPUSCULAR HGB CONC 31.3 g/dl (33.0-37.0); MEAN PLATELET VOLUME 9.7 fl (9.6-12.3); PLATELET COUNT AUTOMATED 134 10*3/uL (130-400); RED BLOOD COUNT 2.42 10*6/uL (4.50-5.90); RED CELL DISTRI WIDTH 18.7 % (0-14.5); WHITE BLOOD COUNT 23.8 10*3/uL (4.8-10.8)
[2019-08-21 16:55] LABS: BILIRUBIN 1+ (NEGATIVE); BLOOD 3+ (NEGATIVE); CLARITY CLOUDY (CLEAR); COLOR RED (YELLOW); GLUCOSE NEGATIVE (NEGATIVE); KETONE TRACE (NEGATIVE); LEUKO ESTERASE 1+ (NEGATIVE); NITRITE POSITIVE (NEGATIVE)
[2019-08-21 17:09] LABS: ALBUMIN 2.2 gm/dl (3.1-4.5); CREATININE 3.81 mg/dL (0.70-1.30); POTASSIUM 4.1 mmol/L (3.5-5.1); TOTAL PROTEIN 5.4 gm/dL (6.4-8.2)
[2019-08-21 17:11] LABS: BACTERIA 1+; EPITHELIAL CELLS 0-2; RBC TNTC rbc/hpf (0-2)
[2019-08-21 17:15] LABS: PLATELET SUFFICIENCY LOW (NORMAL); TOTAL CELLS COUNTED 100 #CELLS
[2019-08-21 17:16] LABS: OVALOCYTES FEW
--- NOTE | 2019-08-21 17:23 | NUR ---
BP 100/64 FOLLOWING FLUID CHALLENGE. TRANSFERRED TO ICCU BED 4 PER 's ORDER. ANGELA - SISTER IN LAW, NOTIFIED OTHER PHONE NUMBERS FOR FAMILY WERE NOT WORKING. REPORT GIVEN TO MARIAM BILLS.
--- NOTE | 2019-08-21 17:38 | NUR ---
RECIEVED IN [facility] FROM [facility] [place], PT ALERT AND ORIENTED, DROWSY AND SOMEWHAT SLOW TO ANSWER, VS TAKEN, MONITOR APPLIED, TWO VERY SMALL GAUGE IVS TO RIGHT ARM, CENTRAL LINE REQUESTED AND PT IS AGREEABLE, PT HAS HENRI GROVES-WHICH WAS CHANGED TODAY AND IS GROSSLY BLOODY, WOUNDS VAC TO LEFT FOOT IS INTACT, PLUS PT HAS MULTIPLE OTHER WOUNDS, SKIN IS WARM TO TOUCH, RECTAL PROBE PLACED, LUNGS ARE DIMINISHED, MONITOR SHOWING PACED RYTHM WITH 100% CAPTURE AND GOOD SENSING, RESIDENT IS PRESENT IN UNIT UPON PTS ARRIVAL
--- NOTE | 2019-08-21 19:01 | NUR ---
CENTRAL LINE PLACED IN LIJ, AWAITING CXR
--- NOTE | 2019-08-21 20:15 | NUR ---
PT RESTING IN BED WITH EYES CLOSED, AWAKENS WITH EASE. RESP NONLABORED. NO ACUTE DISTRESS NOTED. NO COMPLAINTS VOICED. HEPLOCKS PATENT. WOUND VAC PATENT. DR GARCIA NOTIFIED OF TROPONIN 0.201 AND NEW ORDER FOR ANOTHER TROPONIN IN 3 HOURS. HENRI PATENT FOR LISSY URINE.
--- NOTE | 2019-08-21 21:10 | NUR ---
CXR RESULTS BACK AND DR GARCIA NOTIFIED OF RESULTS. ORDER GIVEN TO USE CENTRAL FOR IVF'S AND BLOOD DRAWS.
--- NOTE | 2019-08-21 21:55 | NUR ---
PT ANAEROBIC BLOOD CULTURES BACK POSITIVE FOR GPC IN PAIRS AND CLUSTERS. DR GARCIA NOTIFIED AND ORDER FOR ANOTHER SET OF BLOOD CULTURES IN AM.
--- NOTE | 2019-08-21 23:00 | NUR ---
DR GARCIA NOTIFIED OF TROPONIN 0.228. NO NEW ORDERS RECEIVED.
[2019-08-22] VITALS (13 sets, daily range): BP systolic 82–113; BP diastolic 46–69
--- NOTE | 2019-08-22 04:00 | NUR ---
PT BP 82/46 (M), T 100.6. DR GARCIA NOTIFIED OF BP AND ORDER FOR NS 500CC FLUID BOLUS NOW. PT MEDICATED WITH TYLENOL PER PRN ORDER FOR TEMP.
--- NOTE | 2019-08-22 04:29 | NUR ---
FLUID BOLUS DONE INFUSING AND BP 86/[address] GARCIA NOTIFIED AND HE SAID TO LEAVE HIM THERE AND THAT WAS GOOD.
[2019-08-22 05:03] LABS: MEAN CELL VOLUME 93.6 fl (80.0-94.0); MEAN CORPUSCULAR HGB 28.9 pg (27.0-31.0); MEAN CORPUSCULAR HGB CONC 30.9 g/dl (33.0-37.0); MEAN PLATELET VOLUME 10.1 fl (9.6-12.3); PLATELET COUNT AUTOMATED 135 10*3/uL (130-400); RED BLOOD COUNT 2.18 10*6/uL (4.50-5.90); RED CELL DISTRI WIDTH 19.2 % (0-14.5); WHITE BLOOD COUNT 22.5 10*3/uL (4.8-10.8)
[2019-08-22 05:19] LABS: CREATININE 4.02 mg/dL (0.70-1.30); PHOSPHOROUS 3.9 mg/dL (2.5-4.9); POTASSIUM 3.9 mmol/L (3.5-5.1); TOTAL PROTEIN 5.3 gm/dL (6.4-8.2)
[2019-08-22 05:31] LABS: HEMATOCRIT 20.4 % (42.0-52.0); HEMOGLOBIN 6.3 g/dl (14.0-18.0)
[2019-08-22 05:36] LABS: PLATELET SUFFICIENCY NORMAL (NORMAL); TOTAL CELLS COUNTED 100 #CELLS
[2019-08-22 05:37] LABS: OVALOCYTES FEW; POLYCHROMASIA SLIGHT
[2019-08-22 05:38] LABS: SCHISTOCYTES FEW; TOXIC GRANULATION SLIGHT
--- NOTE | 2019-08-22 05:45 | NUR ---
PT H&H 6.[address] GARCIA NOTIFIED AND STATES HE WILL PUT ORDERS IN.
--- NOTE | 2019-08-22 07:42 | NUR ---
Patient accepted to [facility], 3 nights stay complete. Wound Vac on site. patient is ok to go when medically stable for discharge.
--- NOTE | 2019-08-22 08:00 | NUR ---
ALERT AND ORIENTED, TESSO TO RIJ, MLC TO LIJ, PERIPHERAL HEP LOCKS HAVE BEEN REMOVED, REDDENED AREA TO LEFT AC WITH HARD CENTER, SKIN IS INTACT, THERE IS NO DRAINAGE, ÁLVAREZ SECURE
--- NOTE | 2019-08-22 08:10 | NUR ---
PHYSICAL THERAPY Pt transfered to ICU on 08/21/19 due to low BP/letharcingess will require new orders when medically stable, thank you. Julisa Page PT
--- NOTE | 2019-08-22 09:02 | NUR ---
FIRST RBC STARTED
--- NOTE | 2019-08-22 09:45 | NUR ---
dr prado's cell called and an or nurse answered, as he was doing an procedure, she relayed to him about the new consult and he will call back
--- NOTE | 2019-08-22 11:57 | NUR ---
TRANSFUSION COMPLETED
--- NOTE | 2019-08-22 13:24 | NUR ---
Patient clinical updates faxed to [place] at [facility]. Patient is ok to go when medically stable for discharge
--- NOTE | 2019-08-22 13:35 | NUR ---
[facility] notified podiatry would like to have their wound vac transported here to have it put on so patient can transfer to their facility without disruption to the wound vac. waiting on a reply
--- NOTE | 2019-08-22 14:45 | NUR ---
[facility] SERVICE CALLED [facility], AWAITING CALL BACK FROM FLORECITA
[2019-08-22 14:47] LABS: HEMATOCRIT 23.6 % (42.0-52.0); HEMOGLOBIN 7.6 g/dl (14.0-18.0); MEAN CELL VOLUME 91.1 fl (80.0-94.0); MEAN CORPUSCULAR HGB 29.3 pg (27.0-31.0); MEAN CORPUSCULAR HGB CONC 32.2 g/dl (33.0-37.0); MEAN PLATELET VOLUME 10.2 fl (9.6-12.3); PLATELET COUNT AUTOMATED 113 10*3/uL (130-400); RED BLOOD COUNT 2.59 10*6/uL (4.50-5.90); RED CELL DISTRI WIDTH 18.4 % (0-14.5); WHITE BLOOD COUNT 18.4 10*3/uL (4.8-10.8)
[2019-08-22 15:08] LABS: TOTAL CELLS COUNTED 100 #CELLS
[2019-08-22 15:24] LABS: PLATELET SUFFICIENCY NORMAL (NORMAL)
--- NOTE | 2019-08-22 15:30 | NUR ---
REFUSES TO SIT AT SIDE OF BED
--- NOTE | 2019-08-22 18:09 | NUR ---
SCANT DRAINAGE FROM WOUND VAC
--- NOTE | 2019-08-22 22:09 | NUR ---
PRE OP QUESTIONNAIRE DONE, SIGNED, AND PLACED ON THE CHART. PT DOZES AT INTERVALS.
[2019-08-23] VITALS (15 sets, daily range): BP systolic 93–163; BP diastolic 43–90
--- NOTE | 2019-08-23 04:39 | NUR ---
Upon discharge recommend patient to follow up for wound care in outpatient setting continue current wound care orders at discharging facility
[2019-08-23 06:18] LABS: ALBUMIN 2.1 gm/dl (3.1-4.5); CREATININE 4.57 mg/dL (0.70-1.30); PHOSPHOROUS 4.5 mg/dL (2.5-4.9); POTASSIUM 3.8 mmol/L (3.5-5.1)
[2019-08-23 06:19] LABS: BASO % 0.1 % (0.0-1.0); EOS # 0.2 10*3/uL (0.0-0.4); EOS % 1.1 % (1.0-4.0); HEMATOCRIT 23.8 % (42.0-52.0); HEMOGLOBIN 7.4 g/dl (14.0-18.0); LYMPH # 0.5 10*3/uL (1.3-4.4); LYMPH % 3.2 % (27.0-41.0); MEAN CELL VOLUME 91.9 fl (80.0-94.0); MEAN CORPUSCULAR HGB 28.6 pg (27.0-31.0); MEAN CORPUSCULAR HGB CONC 31.1 g/dl (33.0-37.0); MEAN PLATELET VOLUME 10.8 fl (9.6-12.3); MONO # 1.1 10*3/uL (0.1-1.0); NEUT # 12.4 10*3/uL (2.3-7.9); PLATELET COUNT AUTOMATED 132 10*3/uL (130-400); RED BLOOD COUNT 2.59 10*6/uL (4.50-5.90); RED CELL DISTRI WIDTH 18.7 % (0-14.5); WHITE BLOOD COUNT 14.2 10*3/uL (4.8-10.8)
--- NOTE | 2019-08-23 09:08 | NUR ---
TAKEN DOWN TO OR FOR YASMINE
--- NOTE | 2019-08-23 18:08 | NUR ---
FIRST UNIT PRBC'S HUNG ORDERED
[2019-08-23] MEDS ORDERED: OXYCODONE HCL5 MG PO (18:44)
--- NOTE | 2019-08-23 18:45 | NUR ---
LATOYA GARCIA CALLED AND HAS AGREED TO ACCEPT PATIENT.
--- NOTE | 2019-08-23 19:08 | NUR ---
SECOND UNIT BLOOD HUNG ORDERED
--- NOTE | 2019-08-23 19:24 | NUR ---
REFUSES DISCHARGE PHOTOS.
--- NOTE | 2019-08-23 19:55 | NUR ---
REPORT GIVEN TO PAULETTE AT [facility]. PT FINISHING UP DIALYSIS. REPORT GIVEN TO PAULETTE AND SHE CONFIRMS PT DOES HAVE A BED... IT IS 208-1. SECOND UNIT OF PC'S ENDED AT 1939. TUBING CLAMPED FROM LT FOOT WOUND AND WOUND VAC FROM OUR FACILITY REMOVED. ALL COPIES OF RECORDS, MOST RECENT EMAR, FILMS, AND REQUIRED PAPER WORK COMPLETED.
--- NOTE | 2019-08-23 20:07 | NUR ---
PT EATING HIS MEAL PRIOR TO [facility] ARRIVAL AT 2030.
--- NOTE | 2019-08-23 20:13 | NUR ---
I ATTEMPTED TO CALL PT'S SISTER, RONNY AGUILLON, AT [phone], TO INFORM HER THAT PT BEING TRANSFERRED TO [place] AT APPROXIMATELY 2030. ALSO, PT HAD A WOUND VAC DELIVERED HERE, ON DAYLIGHT SHIFT, WHICH APPEARS TO BE FROM [facility]. PT CONFIRMED THAT HE WAS BROUGHT TO OUR FACILITY, NOTED IN ER, FROM HOME. I WILL CALL SHOLA FERRER TO ATTEMPT TO CLARIFY OWNERSHIP.
--- NOTE | 2019-08-23 20:22 | NUR ---
I INFORMED PT THAT I COULD NOT REACH HIS SISTER. HE SAID "YEAH, SHE'S PROBABLY IN BED ALREADY."
--- NOTE | 2019-08-23 20:38 | NUR ---
[facility] HERE. REPORT GIVEN TO THEM WELL ENVELOPE WITH ALL PREVIOUSLY NOTED DOCUMENTS. BELONGINGS SENT WITH PT. PT ALERT AND ORIENTED...IN STABLE CONDITION.
--- NOTE | 2019-08-24 07:35 | NUR ---
PHYSICAL THERAPY CO-SIGN I approve of the Physical Therapy notes written above. Julisa Page PT
== END 2019-08-23 21:27 | disposition short-term general hospital (02) | DRG 682 ==
LOC: ED 11:16 → ICCU 13:32 → 4E 13:32 → EDHOLD 13:32 → 4E 16:36 → ICCU 08-12 15:22 → 4E 08-14 16:26 → ICCU 08-21 17:25
PROVIDERS: Emergency Medicine; Family Medicine; Hospitalist; Internal Medicine; Internal Medicine Critical Care Medicine; Internal Medicine Nephrology; Registered Nurse; Student in an Organized Health Care Education/Training Program; ADMIT Internal Medicine
PROC: 5A09357 Assistance with Respiratory Ventilation, Less than 24 Consecutive Hours, Continuous Positive Airway Pressure (ICD-10-PCS; principal; 2019-08-12)
PROC: 5A09357 Assistance with Respiratory Ventilation, Less than 24 Consecutive Hours, Continuous Positive Airway Pressure (ICD-10-PCS; 2019-08-14)
PROC: 5A1D70Z Performance of Urinary Filtration, Intermittent, Less than 6 Hours Per Day (ICD-10-PCS; 2019-08-18)
PROC: 02HV33Z Insertion of Infusion Device into Superior Vena Cava, Percutaneous Approach (ICD-10-PCS; 2019-08-18)
PROC: 5A1D70Z Performance of Urinary Filtration, Intermittent, Less than 6 Hours Per Day (ICD-10-PCS; 2019-08-19)
PROC: 5A09357 Assistance with Respiratory Ventilation, Less than 24 Consecutive Hours, Continuous Positive Airway Pressure (ICD-10-PCS; 2019-08-19)
PROC: 5A09357 Assistance with Respiratory Ventilation, Less than 24 Consecutive Hours, Continuous Positive Airway Pressure (ICD-10-PCS; 2019-08-20)
PROC: 5A1D70Z Performance of Urinary Filtration, Intermittent, Less than 6 Hours Per Day (ICD-10-PCS; 2019-08-20)
PROC: 5A1D70Z Performance of Urinary Filtration, Intermittent, Less than 6 Hours Per Day (ICD-10-PCS; 2019-08-21)
PROC: 02HV33Z Insertion of Infusion Device into Superior Vena Cava, Percutaneous Approach (ICD-10-PCS; 2019-08-21)
PROC: B548ZZA Ultrasonography of Superior Vena Cava, Guidance (ICD-10-PCS; 2019-08-21)
PROC: 5A09357 Assistance with Respiratory Ventilation, Less than 24 Consecutive Hours, Continuous Positive Airway Pressure (ICD-10-PCS; 2019-08-21)
PROC: 30233N1 Transfusion of Nonautologous Red Blood Cells into Peripheral Vein, Percutaneous Approach (ICD-10-PCS; 2019-08-22)
PROC: B24BZZ4 Ultrasonography of Heart with Aorta, Transesophageal (ICD-10-PCS; 2019-08-23)
PROC: 5A1D70Z Performance of Urinary Filtration, Intermittent, Less than 6 Hours Per Day (ICD-10-PCS; 2019-08-23)
DX: N17.0 Acute kidney failure with tubular necrosis (principal); I50.41 Acute combined systolic (congestive) and diastolic (congestive) heart failure; E43 Unspecified severe protein-calorie malnutrition; J96.21 Acute and chronic respiratory failure with hypoxia; J96.22 Acute and chronic respiratory failure with hypercapnia; I13.2 Hypertensive heart and chronic kidney disease with heart failure and with stage 5 chronic kidney disease, or end stage renal disease; Z68.41 Body mass index [BMI] 40.0-44.9, adult; R04.2 Hemoptysis; I48.21 Permanent atrial fibrillation; E87.2 Acidosis; N18.6 End stage renal disease; E11.621 Type 2 diabetes mellitus with foot ulcer; B95.61 Methicillin susceptible Staphylococcus aureus infection as the cause of diseases classified elsewhere; D53.9 Nutritional anemia, unspecified; E83.41 Hypermagnesemia; E11.65 Type 2 diabetes mellitus with hyperglycemia; K43.9 Ventral hernia without obstruction or gangrene; E11.49 Type 2 diabetes mellitus with other diabetic neurological complication; I25.10 Atherosclerotic heart disease of native coronary artery without angina pectoris; E78.5 Hyperlipidemia, unspecified; F41.9 Anxiety disorder, unspecified; F32.9 Major depressive disorder, single episode, unspecified; E53.9 Vitamin B deficiency, unspecified; G89.29 Other chronic pain; F17.210 Nicotine dependence, cigarettes, uncomplicated; E66.01 Morbid (severe) obesity due to excess calories; L97.529 Non-pressure chronic ulcer of other part of left foot with unspecified severity; E11.51 Type 2 diabetes mellitus with diabetic peripheral angiopathy without gangrene; E87.5 Hyperkalemia; E83.51 Hypocalcemia; E83.39 Other disorders of phosphorus metabolism; S90.922A Unspecified superficial injury of left foot, initial encounter; I25.5 Ischemic cardiomyopathy; Z71.6 Tobacco abuse counseling; Z95.5 Presence of coronary angioplasty implant and graft; Z95.0 Presence of cardiac pacemaker; Z83.3 Family history of diabetes mellitus; Z82.49 Family history of ischemic heart disease and other diseases of the circulatory system; Z79.899 Other long term (current) drug therapy; Z88.5 Allergy status to narcotic agent; G47.33 Obstructive sleep apnea (adult) (pediatric); B96.5 Pseudomonas (aeruginosa) (mallei) (pseudomallei) as the cause of diseases classified elsewhere; B96.1 Klebsiella pneumoniae [K. pneumoniae] as the cause of diseases classified elsewhere; Z89.421 Acquired absence of other right toe(s)

== ENCOUNTER 2019-09-12 10:14 | Inpatient (IN) | payer MEDICARE ==
[~2019-09-12] VITALS: Ht 178 cm; Wt 115.7 kg
[2019-09-12] VITALS (10 sets, daily range): BP systolic 100–138; BP diastolic 63–78
[2019-09-12 10:58] LABS: HEMATOCRIT 22.8 % (42.0-52.0); MEAN CELL VOLUME 95.4 fl (80.0-94.0); MEAN CORPUSCULAR HGB 28.5 pg (27.0-31.0); MEAN CORPUSCULAR HGB CONC 29.8 g/dl (33.0-37.0); MEAN PLATELET VOLUME 9.4 fl (9.6-12.3); PLATELET COUNT AUTOMATED 198 10*3/uL (130-400); RED BLOOD COUNT 2.39 10*6/uL (4.50-5.90); WHITE BLOOD COUNT 7.6 10*3/uL (4.8-10.8)
[2019-09-12 11:01] LABS: HEMOGLOBIN 6.8 g/dl (14.0-18.0)
[2019-09-12 11:07] LABS: INTERNATIONAL NORM RATIO 1.3 (2.0-3.5)
[2019-09-12 11:14] LABS: ALBUMIN 2.3 gm/dl (3.1-4.5); ALKALINE PHOSPHATASE 184 U/L (45-117); BUN 14 mg/dl (7-24); CHLORIDE 101 mmol/L (98-107); CREATININE 4.33 mg/dL (0.70-1.30); POTASSIUM 3.9 mmol/L (3.5-5.1); SGOT/AST 16 IU/L (3-35); SODIUM 136 mmol/L (136-145); TOTAL PROTEIN 6.3 gm/dL (6.4-8.2)
[2019-09-12 11:15] LABS: SGPT/ALT < 6 U/L (12-78); TROPONIN I < 0.015 ng/ml (<0.045)
[2019-09-12 11:19] LABS: TOTAL CELLS COUNTED 100 #CELLS
[2019-09-12 11:20] LABS: PLATELET SUFFICIENCY NORMAL (NORMAL)
--- NOTE | 2019-09-12 12:45 | NUR ---
A 58, admitted to , under the services of BROCK Singh DO with a diagnosis of ANEMIA. Chief complaint is ANEMIA. Patient arrived via stretcher from ER. Monitor applied. Initial assessment completed. Vital signs taken and recorded. BROCK SINGH DO notified of admission to the unit. Orders received. See assessment for past medical history, medications and allergies. Patient and/or family oriented to unit. [address] visitation policy reviewed. Clothing/patient valuable form completed. CHLOE DAY
--- NOTE | 2019-09-12 13:16 | NUR ---
CONSULT CALLED TO DR BARRERA'S OFFICE, WILL AWAIT RETURN CALL
--- NOTE | 2019-09-12 13:26 | NUR ---
DR BARRERA CALLED UNIT, STATES OK TO GIVE BLOOD TODAY AND CAN RETURN IF STABLE AFTER BLOOD. DR ELLIOTT CALLED AND NOTIFIED.
--- NOTE | 2019-09-12 14:20 | NUR ---
DR LORENZO NOTIFIED OF CONSULT. HE STATES TO CALL WITH AM [facility] RESULTS
[2019-09-12] MEDS ORDERED: NEPHRO-VITE TA0.8 MG PO (15:08)
[2019-09-12] MEDS ORDERED: CEFAZOLIN1 G1 IV (15:08)
[2019-09-12] MEDS ORDERED: OXYCODONE HCL5 MG PO (15:09)
--- NOTE | 2019-09-12 15:12 | NUR ---
DR ELLIOTT NOTIFIED OF UPDATED MED REC
--- NOTE | 2019-09-12 15:42 | NUR ---
Informed consent obtained from patient for Blood transfussion by Dr. GALICIA. Patient identified by arm band. Vital signs recorded. Blood unit number verified by 2 R.N.'s. I.V. site satisfactory. Unit 1 started at a KVO rate with Normal Saline. CHLOE DAY
--- NOTE | 2019-09-12 16:10 | NUR ---
DR ELLIOTT NOTIFIED OF WOUNDS, ORDERS TO FOLLOW
--- NOTE | 2019-09-12 18:54 | NUR ---
Informed consent obtained from patient for Blood transfussion by Dr. GALICIA. Patient identified by arm band. Vital signs recorded. Blood unit number verified by 2 R.N.'s. I.V. site satisfactory. Unit 2 started at a KVO rate with Normal Saline. CHLOE DAY
[2019-09-13] VITALS: BP 109/72
--- NOTE | 2019-09-13 | NUR ---
PT RESTING IN BED WITH EYES CLOSED, AWAKENS WITH EASE. RESP NONLABORED. NO ACUTE DISTRESS NOTED. NO COMPLAINTS VOICED. RIGHT PICC PATENT AND FLUSHED WITH EASE.
--- NOTE | 2019-09-13 06:09 | NUR ---
ANAFELIPE [id number] Please refer to the physician's history and physical for past medical history, comorbid conditions, and allergies. Diagnosis: ANEMIA Minesh Score: 14,MODERATE RISK WOUND DESCRIPTIONS: Wound Number: 1 Location of the wound: Left middle back Type of wound: abrasion Thickness: Partial Size: 6.5cm x 2.3cm x 0.1cm Tunneling: none Undermining: none Sinus Tract: none Presence of Exudate: Serous Amount: Light Color: Red Odor: None Periwound Skin Appearance: Normal Wound edges: approximated Pain (associated with wound): none at time of assessment How does patient state this happened? pt stated this happened from his fall Wound Number: 2 Location of the wound: left foot Type of wound: unstageable Thickness: Full Size: 4.2cm x 5.0cm x <0.1cm Tunneling: none Undermining: none Sinus Tract: none Presence of Exudate: Light Amount: Serosanguineous Color: Red, yellow Odor: None Periwound Skin Appearance: Normal Wound edges: approximated Pain (associated with wound): none at time of assessment How does patient state this happened? pt states he follows with podiatry and they manage the wounds to his feet which he had for sometime now Wound Number: 3 Location of the wound: left lateral foot Type of wound: unstageable Thickness: Full Size: 2.7cm x 1.7cm x 2.5cm Tunneling: none Undermining: none Sinus Tract: none Presence of Exudate: Serosanguineous Amount: Moderate Color: Red, yellow Odor: Foul Periwound Skin Appearance: Erythema Wound edges: approximated Pain (associated with wound): none at time of assessment How does patient state this happened? pt states he follows with podiatry and they manage the wounds to his feet which he had for sometime now Wound Number: 4 Location of the wound: distal end of right foot Type of wound: unstageable Thickness: Full Size: 2.5cm x 1.75cm x <0.1cm Tunneling: none Undermining: none Sinus Tract: none Presence of Exudate:none Amount: None Color: Brown, yellow, black Odor: None Periwound Skin Appearance: Normal Wound edges: approximated Pain (associated with wound): none at time of assessment How does patient state this happened? pt states he follows with podiatry and they manage the wounds to his feet which he had for sometime now Wound Number: 5 Location of the wound: right foot under plantar aspect of 3rd toe Type of wound: unstageable Thickness: Full Size: 1.5cm x 0.7cm x <0.1cm Tunneling: none Undermining: none Sinus Tract: none Presence of Exudate: Amount: None Color: Brown Odor: None Periwound Skin Appearance: Normal Wound edges: approximated Pain (associated with wound): none at time of assessment How does patient state this happened? pt states he follows with podiatry and they manage the wounds to his feet which he had for sometime now Wound Number: 6 Location of the wound: right elbow Type of wound: skin tear Thickness: Partial Size: 0.4cm x 0.3cm x 0.1cm Tunneling: none Undermining: non Sinus Tract: none Presence of Exudate: Serous Amount: Light Color: Red Odor: None Periwound Skin Appearance: Normal Wound edges: approximated Pain (associated with wound): none at time of assessment How does patient state this happened? pt state this is from the fall Surface the patient is resting on: Isoflex SKIN PREVENTION RECOMMENDATION: 1. Pressure redistribution support surface as appropriate 2. Elevate heels 3. Remove boots/TEDS every shift and reapply 4. Head of bed 30 degrees as tolerated 5. Assess nutrition and hydration 6. Manage moisture 7. Avoid the use of containment devices while in bed 8. Use absorptive products on surfaces limit layers of linens on bed 9. Turn and reposition every 1-2 hours in bed and every 1 hour in chair as tolerated 10. Weight shifts every 15 minutes while up in chair 11. Offloading with pillows or device to keep heels elevated off bed 12. Monitor skin at least every shift 13. Inspect under medical devices twice a day WOUND TREATMENT RECOMMENDATIONS: Consult podiatry for non-healing wounds and patient follows with them outpatient Venous and arterial studies to bilateral feet for non-healing wounds had arterial studies done on 08/12/19 of the left foot. Imaging studies of bilateral feet due to non-healing wounds D/C stage 2 guidelines Heel raiser pro boots to bilateral feet Dressing change: Cleanse left foot, left side of foot, right foot and right plantar aspect of 3rd toe with nss and apply betadine soaked adaptic and cover with dsd lightly wrap with rolled gauze daily and prn for soiling. Partial thickness guidelines: Cleanes right elbow and left middle back with nss and apply sureprep around the wound hydrogel to wound bed and cover with optifoam gentle every 2 days and prn.
[2019-09-13 07:02] LABS: HEMATOCRIT 27.8 % (42.0-52.0); HEMOGLOBIN 8.8 g/dl (14.0-18.0); MEAN CELL VOLUME 94.9 fl (80.0-94.0); MEAN CORPUSCULAR HGB CONC 31.7 g/dl (33.0-37.0); MEAN PLATELET VOLUME 9.6 fl (9.6-12.3); PLATELET COUNT AUTOMATED 186 10*3/uL (130-400); RED BLOOD COUNT 2.93 10*6/uL (4.50-5.90); RED CELL DISTRI WIDTH 17.5 % (0-14.5)
[2019-09-13 07:21] LABS: ALBUMIN 2.4 gm/dl (3.1-4.5); BUN 20 mg/dl (7-24); CHLORIDE 102 mmol/L (98-107); PHOSPHOROUS 4.3 mg/dL (2.5-4.9); POTASSIUM 4.8 mmol/L (3.5-5.1); SGOT/AST 14 IU/L (3-35); SODIUM 136 mmol/L (136-145); TOTAL PROTEIN 6.6 gm/dL (6.4-8.2)
[2019-09-13 07:29] LABS: TOTAL CELLS COUNTED 100 #CELLS
[2019-09-13 07:30] LABS: BURR CELLS FEW; OVALOCYTES FEW; POLYCHROMASIA SLIGHT
[2019-09-13 07:31] LABS: PLATELET SUFFICIENCY NORMAL (NORMAL)
[2019-09-13 07:33] LABS: ALKALINE PHOSPHATASE 187 U/L (45-117)
[2019-09-13 07:36] LABS: SGPT/ALT < 6 U/L (12-78)
[2019-09-13 08:00] VITALS: BP 102/60
--- NOTE | 2019-09-13 08:15 | NUR ---
Nursing screen received and chart reviewed. Patient was admitted from [facility] for anemia. If patient has a decline in ADLs, functional mobility, or transfers, please send OT orders. Thank you. Radha Deluna, OTR/L
--- NOTE | 2019-09-13 09:00 | NUR ---
case management visits with patient, he is skilled care at [facility] and will return when medically stable, no precert needed patient has medicare insurance, case management/operations planner will follow
--- NOTE | 2019-09-13 11:28 | NUR ---
RESIDENT FOR NOTIFIED OF NEW CONSULT.
[2019-09-13 12:00] VITALS: BP 133/90
--- NOTE | 2019-09-13 15:00 | NUR ---
PHYSICAL THERAPY Screen [facility] with GI bleed and anemia, please consult PT if pt's functional status declines below baseline. Julisa Page PT
[2019-09-13 16:00] VITALS: BP 136/93
[2019-09-13 20:00] VITALS: BP 139/88
--- NOTE | 2019-09-13 20:00 | NUR ---
PT RESTING IN BED WITH EYES CLOSED, AWAKENS WITH EASE. A&O. RESP NONLABORED. NO ACUTE DISTRESS NOTED. NO COMPLAINTS VOICED. STEFANIA PATENT.
[2019-09-14] VITALS: BP 136/84
--- NOTE | 2019-09-14 03:59 | NUR ---
Upon discharge recommend patient to follow up for wound care in outpatient setting continue current wound care orders at discharging facility.
[2019-09-14 05:57] LABS: CREATININE 3.89 mg/dL (0.70-1.30); POTASSIUM 4.4 mmol/L (3.5-5.1)
[2019-09-14 06:25] LABS: BASO % 0.1 % (0.0-1.0); HEMATOCRIT 29.9 % (42.0-52.0); HEMOGLOBIN 9.3 g/dl (14.0-18.0); LYMPH # 0.4 10*3/uL (1.3-4.4); LYMPH % 4.6 % (27.0-41.0); MEAN CELL VOLUME 92.9 fl (80.0-94.0); MEAN CORPUSCULAR HGB 28.9 pg (27.0-31.0); MEAN CORPUSCULAR HGB CONC 31.1 g/dl (33.0-37.0); MEAN PLATELET VOLUME 9.9 fl (9.6-12.3); MONO # 0.4 10*3/uL (0.1-1.0); MONO % 5.2 % (3.0-9.0); NEUT # 7.4 10*3/uL (2.3-7.9); NEUT % 88.6 % (47.0-73.0); PLATELET COUNT AUTOMATED 222 10*3/uL (130-400); RED BLOOD COUNT 3.22 10*6/uL (4.50-5.90); RED CELL DISTRI WIDTH 17.4 % (0-14.5); WHITE BLOOD COUNT 8.4 10*3/uL (4.8-10.8)
[2019-09-14 08:00] VITALS: BP 132/84
--- NOTE | 2019-09-14 08:00 | NUR ---
PATIENT RESTING IN BED AND REMAINS NPO, COOPERATIVE DURING AM ASSESSMENT. MARLO GORDON SPNRCC
--- NOTE | 2019-09-14 09:00 | NUR ---
case management visits with patient, he will return to intermediate at [facility] when medically stable, no precert needed to return due to patient having medicare insurance, case management/search planner will follow
--- NOTE | 2019-09-14 09:39 | NUR ---
TO RADIOLOGY FOR ULTRASOUND MARLO GORDON SPNRCC
--- NOTE | 2019-09-14 10:52 | NUR ---
BACK FROM RADIOLOGY MARLO GORDON SPNRCC
--- NOTE | 2019-09-14 11:45 | NUR ---
PODIATRY IN TO APPLY DRESSING, WILL COME BACK FOR WOUND VAC MARLO GORDON SPNRCC
--- NOTE | 2019-09-14 12:14 | NUR ---
PATIENT TAKEN DOWN FOR EGD. MARLO GORDON SPNRCC
[2019-09-14 12:43] VITALS: BP 138/92
--- NOTE | 2019-09-14 13:20 | NUR ---
Patient updated clinicals and wound vac order faxed to [facility] for review. Patient is short term care and ok to return when medically stable for discharge.
[2019-09-14 13:38] VITALS: BP 108/77
[2019-09-14] MEDS ORDERED: METOCLOPRAMIDE H5 M1 PO (13:42)
[2019-09-14] MEDS ORDERED: PREDNISONE10 MG PO (13:42)
[2019-09-14 13:53] VITALS: BP 130/83
[2019-09-14 14:08] VITALS: BP 136/68
--- NOTE | 2019-09-14 15:06 | NUR ---
Patient is discharged to [facility] via [facility] at 5PM. DC information faxed to facility. Wound vac is confirmed on site. NH, nursing/ocean forwarder all notified.
--- NOTE | 2019-09-14 16:18 | NUR ---
NURSE TO NURSE CALLED TO SHOLA FERRER,
--- NOTE | 2019-09-14 17:21 | NUR ---
Discharge instructions reviewed with patient/family. Patient receptive and verbalizes understanding. Follow-up care arranged. Written instructions given to patient/family. GLORIA HYATT
== END 2019-09-14 17:34 | disposition other institution (70) | DRG 377 ==
LOC: ED 10:14 → 4E 11:37 → EDHOLD 11:37 → 4E 11:56
PROVIDERS: Emergency Medicine; Internal Medicine; ADMIT Family Medicine
PROC: 30233N1 Transfusion of Nonautologous Red Blood Cells into Peripheral Vein, Percutaneous Approach (ICD-10-PCS; principal; 2019-09-12)
PROC: 5A1D70Z Performance of Urinary Filtration, Intermittent, Less than 6 Hours Per Day (ICD-10-PCS; 2019-09-13)
PROC: 0DB78ZX Excision of Stomach, Pylorus, Via Natural or Artificial Opening Endoscopic, Diagnostic (ICD-10-PCS; 2019-09-14)
DX: K29.01 Acute gastritis with bleeding (principal); N18.6 End stage renal disease; E43 Unspecified severe protein-calorie malnutrition; I13.2 Hypertensive heart and chronic kidney disease with heart failure and with stage 5 chronic kidney disease, or end stage renal disease; I50.22 Chronic systolic (congestive) heart failure; I42.9 Cardiomyopathy, unspecified; D64.9 Anemia, unspecified; K31.84 Gastroparesis; R53.1 Weakness; J44.9 Chronic obstructive pulmonary disease, unspecified; F32.9 Major depressive disorder, single episode, unspecified; E53.8 Deficiency of other specified B group vitamins; G89.29 Other chronic pain; E11.65 Type 2 diabetes mellitus with hyperglycemia; E66.01 Morbid (severe) obesity due to excess calories; E11.621 Type 2 diabetes mellitus with foot ulcer; L97.529 Non-pressure chronic ulcer of other part of left foot with unspecified severity; E11.51 Type 2 diabetes mellitus with diabetic peripheral angiopathy without gangrene; I48.91 Unspecified atrial fibrillation; F41.9 Anxiety disorder, unspecified; R79.1 Abnormal coagulation profile; F17.210 Nicotine dependence, cigarettes, uncomplicated; R74.8 Abnormal levels of other serum enzymes; E11.22 Type 2 diabetes mellitus with diabetic chronic kidney disease; E55.9 Vitamin D deficiency, unspecified; I25.10 Atherosclerotic heart disease of native coronary artery without angina pectoris; E11.43 Type 2 diabetes mellitus with diabetic autonomic (poly)neuropathy; E78.5 Hyperlipidemia, unspecified; Z99.2 Dependence on renal dialysis; I25.2 Old myocardial infarction; Z88.5 Allergy status to narcotic agent; Z95.5 Presence of coronary angioplasty implant and graft; Z89.421 Acquired absence of other right toe(s); Z82.49 Family history of ischemic heart disease and other diseases of the circulatory system; Z83.3 Family history of diabetes mellitus; Z79.899 Other long term (current) drug therapy; Z79.01 Long term (current) use of anticoagulants; Z79.02 Long term (current) use of antithrombotics/antiplatelets; Z68.36 Body mass index [BMI] 36.0-36.9, adult

== ENCOUNTER → 2019-10-12 | Day surgery (SDC) | payer MEDICARE ==
[~2019-10-12] VITALS: Ht 177.8 cm; Wt 80.7 kg
[~2019-10-12] MED LIST changes: +CEFAZOLIN1 G1 IV; +DOXYCYCLINE100 MG PO; +METOCLOPRAMIDE H5 M1 PO; +NEPHRO-VITE TA0.8 MG PO; +PREDNISONE10 MG PO
[2019-10-12 10:50] VITALS: BP 108/73
[2019-10-12 12:25] VITALS: BP 114/72
[2019-10-12 12:40] VITALS: BP 94/55
[2019-10-12 12:55] VITALS: BP 99/54
[2019-10-13 12:11] LABS: ACID FAST SPEC PROCESSING Tissue Grinding (.)
[2019-10-13 12:11] LABS: ACID FAST SPEC PROCESSING Tissue Grinding (.)
== END | disposition home or self-care (01) ==
LOC: SDC 10-10 14:00
PROVIDERS: Podiatrist
DX: L97.322 Non-pressure chronic ulcer of left ankle with fat layer exposed (principal); I10 Essential (primary) hypertension; I25.10 Atherosclerotic heart disease of native coronary artery without angina pectoris; I25.2 Old myocardial infarction; E11.9 Type 2 diabetes mellitus without complications; F41.9 Anxiety disorder, unspecified; F32.9 Major depressive disorder, single episode, unspecified; J44.9 Chronic obstructive pulmonary disease, unspecified; Z98.890 Other specified postprocedural states; Z79.899 Other long term (current) drug therapy

== ENCOUNTER → 2020-03-30 | Outpatient (CLI) | payer MEDICARE | END | disposition home or self-care (01) | LOC: LAB 14:58 | PROVIDERS: ATTEND Pain Medicine Interventional Pain Medicine | DX: G89.4 Chronic pain syndrome (principal) ==

== ENCOUNTER 2020-09-10 15:12 | Emergency (ER) | payer MEDICARE, SELFPAY ==
[2020-09-10 16:32] LABS: BASO # 0.1 10*3/uL (0.0-0.1); EOS # 0.2 10*3/uL (0.0-0.4); EOS % 2.6 % (1.0-4.0); HEMATOCRIT 29.5 % (42.0-52.0); LYMPH # 1.1 10*3/uL (1.3-4.4); LYMPH % 11.7 % (27.0-41.0); MEAN CELL VOLUME 103.1 fl (80.0-94.0); MEAN CORPUSCULAR HGB 32.9 pg (27.0-31.0); MEAN CORPUSCULAR HGB CONC 31.9 g/dl (33.0-37.0); MEAN PLATELET VOLUME 9.7 fl (9.6-12.3); MONO # 1.2 10*3/uL (0.1-1.0); NEUT # 6.7 10*3/uL (2.3-7.9); NEUT % 71.1 % (47.0-73.0); PLATELET COUNT AUTOMATED 148 10*3/uL (130-400); RED BLOOD COUNT 2.86 10*6/uL (4.50-5.90); WHITE BLOOD COUNT 9.3 10*3/uL (4.8-10.8)
[2020-09-10 16:53] LABS: ALBUMIN 2.9 gm/dl (3.1-4.5); CREATININE 8.72 mg/dL (0.70-1.30); POTASSIUM 4.5 mmol/L (3.5-5.1); TOTAL PROTEIN 6.7 gm/dL (6.4-8.2)
[2020-09-10 16:54] LABS: TROPONIN I 0.034 ng/ml (<0.045)
[2020-09-10] MEDS ORDERED: Percocet 325 MG1 TAB PO (17:38)
== END 2020-09-10 17:42 | disposition home or self-care (01) ==
LOC: ED 15:12
PROVIDERS: Nurse Practitioner
DX: S22.42XA Multiple fractures of ribs, left side, initial encounter for closed fracture (principal); R55 Syncope and collapse; E11.51 Type 2 diabetes mellitus with diabetic peripheral angiopathy without gangrene; I25.10 Atherosclerotic heart disease of native coronary artery without angina pectoris; I25.2 Old myocardial infarction; E11.22 Type 2 diabetes mellitus with diabetic chronic kidney disease; I12.0 Hypertensive chronic kidney disease with stage 5 chronic kidney disease or end stage renal disease; N18.6 End stage renal disease; Z99.2 Dependence on renal dialysis; E66.01 Morbid (severe) obesity due to excess calories; Z88.5 Allergy status to narcotic agent; Z79.899 Other long term (current) drug therapy; Z79.2 Long term (current) use of antibiotics; Z89.411 Acquired absence of right great toe; W18.11XA Fall from or off toilet without subsequent striking against object, initial encounter; Y93.89 Activity, other specified; Y92.098 Other place in other non-institutional residence as the place of occurrence of the external cause; Y99.8 Other external cause status

== ENCOUNTER → 2020-10-17 | Outpatient (CLI) | payer MEDICARE ==
[~2020-10-17] MED LIST changes: +Percocet 325 MG1 TAB PO
== END | disposition home or self-care (01) ==
LOC: RAD 14:50
PROVIDERS: ATTEND Nurse Practitioner Primary Care
DX: J90 Pleural effusion, not elsewhere classified (principal); J98.11 Atelectasis; S22.42XD Multiple fractures of ribs, left side, subsequent encounter for fracture with routine healing; X58.XXXD Exposure to other specified factors, subsequent encounter

== ENCOUNTER → 2020-12-25 | Outpatient (CLI) | payer MEDICARE | END | disposition home or self-care (01) | LOC: US 07:14 | PROVIDERS: ATTEND Nurse Practitioner Primary Care | DX: I25.10 Atherosclerotic heart disease of native coronary artery without angina pectoris (principal); M16.0 Bilateral primary osteoarthritis of hip; M25.752 Osteophyte, left hip; M25.751 Osteophyte, right hip; J98.4 Other disorders of lung; E11.22 Type 2 diabetes mellitus with diabetic chronic kidney disease; N18.30 Chronic kidney disease, stage 3 unspecified; I73.9 Peripheral vascular disease, unspecified; Z95.1 Presence of aortocoronary bypass graft; Z95.810 Presence of automatic (implantable) cardiac defibrillator ==

== ENCOUNTER 2021-08-02 09:47 | Emergency (ER) | payer MEDICARE ==
[~2021-08-02] VITALS: Wt 105.2 kg
[2021-08-02 10:30] LABS: HEMATOCRIT 25.6 % (42.0-52.0); MEAN CELL VOLUME 98.8 fl (80.0-94.0); MEAN CORPUSCULAR HGB 32.8 pg (27.0-31.0); MEAN CORPUSCULAR HGB CONC 33.2 g/dl (33.0-37.0); MEAN PLATELET VOLUME 9.6 fl (9.6-12.3); NUCLEATED RED BLOOD CELL 0.1 10*3/uL (0.0-0.0); NUCLEATED RED BLOOD CELL 1.4 % (0.0-0.0); PLATELET COUNT AUTOMATED 197 10*3/uL (130-400); RED BLOOD COUNT 2.59 10*6/uL (4.50-5.90); RED CELL DISTRI WIDTH 17.6 % (0-14.5); WHITE BLOOD COUNT 9.2 10*3/uL (4.8-10.8)
[2021-08-02 10:45] LABS: ALBUMIN 1.7 gm/dl (3.1-4.5); CREATININE 7.08 mg/dL (0.70-1.30); POTASSIUM 4.7 mmol/L (3.5-5.1); TOTAL PROTEIN 5.8 gm/dL (6.4-8.2)
[2021-08-02 11:02] LABS: PLATELET SUFFICIENCY NORMAL (NORMAL); TOTAL CELLS COUNTED 100 #CELLS
== END 2021-08-02 15:07 | disposition home or self-care (01) ==
LOC: ED 09:47
PROVIDERS: Internal Medicine
DX: N18.9 Chronic kidney disease, unspecified (principal); R06.02 Shortness of breath; F17.200 Nicotine dependence, unspecified, uncomplicated; Z88.5 Allergy status to narcotic agent; Z79.899 Other long term (current) drug therapy; Z79.2 Long term (current) use of antibiotics; Z89.429 Acquired absence of other toe(s), unspecified side; Z95.0 Presence of cardiac pacemaker